=== PATIENT | male | born 1935 | race Caucasian/White ===

== ENCOUNTER 2016-06-27 16:36 | Inpatient (IN) | payer OTHER ==
[~2016-06-27] VITALS: Ht 170.2 cm; Wt 72.8 kg
[~2016-06-27 16:36] MED LIST: AMLO-114 PO; ASPEC325 PO; ATV5 PO; AVD5 PO; CLOP1TAB15 PO; CYCL0.05 OP; LAMO100T16 PO; METO25TA56 PO; SIMV10TA2 PO; TRIA0.1C20 TD
[2016-06-27] MEDS ORDERED: ASPIRIN 81 MG CHEW PO STA (17:12)
--- NOTE | 2016-06-27 17:21 | EMERGENCY ROOM VISIT NOTE ---
History Report prepared by Kera: Kristin Lu Under the Supervision of: Dr. Alberto Mondragon M.D. First contact with patient: 17:02 Chief Complaint: CHEST PAIN Stated Complaint: CHEST PAIN Nursing Triage Summary: pt c/o chest pain started 1 hour ago. sttaes at 1530. radiates to right arm feels sob worse with exertion described as pulled muscle took 2 nitro at 1530 no relief History of Present Illness The patient is a 80 year old male who presents to the Emergency Room with complaints of an episode of chest pain occurring 2 hours [employer]. The patient was trying to put a cover on a truck seat whenever his pain started. He states that this activity was strenuous and he was exerting himself. He also reports feeling short of breath with exertion while loading things into the truck today. His pain is not worsened with breathing or palpation. He was feeling fine earlier today. When his pain started he initially had some pain radiating down his left arm. He rates his pain as a 4/10 at its worst. 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 The patient denies diaphoresis, nausea, vomiting, abdominal pain, neck pain, back pain, palpations , hematochezia, melena, and pain or swelling in his legs. He denies any recent trauma or injury. He takes a daily baby aspirin, and denies any other blood thinners. He has a significant cardiac history and has multiple cardiac stents in place. He states today's episode feels different from his previous cardiac issues. He rates his current pain as a 3/10 in severity. Source of History: patient, spouse/significant other Onset: 2 hours [employer]AL [employer] Position: chest Symptom Intensity: 4/10 Timing: other (episode) Modifying Factors (Worsening): exertion Associated Symptoms: + SOB, No abdominal pain, No back pain, No diaphoresis , No hematochezia, No melena, No nausea, No vomiting Review of Systems See HPI for pertinent positives & negatives. A total of 10 systems reviewed and were otherwise negative. Past Medical & Surgical Medical Problems: (1) CAD (coronary artery disease) (2) CKD (chronic kidney disease), stage III (3) COPD (chronic obstructive pulmonary disease) (4) HTN (hypertension) (5) Lung cancer (6) Seizure disorder Surgical Problems: (1) S/P carotid endarterectomy (2) S/P lobectomy of lung Old medical records were reviewed. Nurse's notes were reviewed and I agree with. Family History FH: heart disease FHx: cancer Hypertension Seizures Social History Smoking Status: Former Smoker Smokeless Tobacco Use: No Alcohol Use: none Drug Use: none Marital Status: Housing Status: lives with significant other Occupation Status: employed Current/Historical Medications Scheduled Amlodipine (Norvasc), 10 MG PO QAM Aspirin (Aspirin Chewable), 81 MG PO QAM Dutasteride (Avodart), 0.5 MG PO HS Lamotrigine (Lamictal), 150 MG PO BID Nitroglycerin (Nitrostat), 0.4 MG UT PRN Omeprazole (Prilosec), 20 MG PO QAM Simvastatin (Zocor), 20 MG PO HS Allergies Coded Allergies: Lidocaine (Verified Allergy, Unknown, PRESERVATIVE IN LIDOCAINE CAUSES RED SKIN, 06/27/16) Physical Exam Vital Signs Date Time Temp Pulse Resp B/P Pulse Ox O2 Delivery O2 Flow Rate FiO2 06/27/16 18:18 78 18 182/95 94 Room Air 06/27/16 16:56 85 06/27/16 16:42 36.6 81 18 177/83 92 Room Air Physical Exam General: Well developed well nourished non ill appearing older male in no acute distress, breathing comfortably on room air. Normal speech HEENT: Normal cephalic atraumatic. Pupils are equal round and reactive to light. Extraocular movements are intact. Oropharynx is pink with moist mucous membranes. No swelling of the mouth lips or tongue. Neck: Supple with a midline trachea. No meningeal signs or stiffness, no JVD or bruits. No Stridor. Chest: Clear to auscultation bilaterally. No wheezes or rhonchi. No increased work of breathing. Heart: regular rate and rhythm. Abdomen: Soft nontender, nondistended without rebound guarding or rigidity. Extremities: No cyanosis clubbing or edema. No calf tenderness or assymetry Spine/Back. Non tender to palpation. No CVA tenderness Skin: Good turgor without rashes. Neurologic exam: Cranial nerves two through 12 are intact. Motor and sensation are intact and symmetrical throughout. Medical Decision & Procedures ER Provider Diagnostic Interpretation: Radiology results as stated below per my review and radiologist interpretation: CHEST ONE VIEW PORTABLE HISTORY: Atypical CHEST PAIN COMPARISON: Chest CT 08/15/2015. FINDINGS: Postoperative changes within the left hilum consistent with a prior left lower lobectomy. This likely accounts for the volume loss within the left hemithorax and left costophrenic sulcus blunting. This remains unchanged. Old, healed left-sided rib fractures consistent with post thoracotomy changes. No new focal lung consolidations. No evidence for pulmonary edema. The heart is normal in size. No pleural effusions. No pneumothorax. IMPRESSION: No significant change compared to the prior study. No acute process. Stable postoperative changes within the left hemithorax. Electronically signed by: Kurt Steinberg M.D. 06/27/2016 5:56 PM Dictated Date/Time: 06/27/2016 5:54 PM Laboratory Results 06/27/16 16:55 Red Blood Count 5.02, Mean Corpuscular Volume 86.7, Mean Corpuscular Hemoglobin 30.3, Mean Corpuscular Hemoglobin Concent 34.9, Mean Platelet Volume 9.9, Neutrophils (%) (Auto) 73.8, Lymphocytes (%) (Auto) 15.7, Monocytes (%) (Auto) 8.5, Eosinophils (%) (Auto) 1.6, Basophils (%) (Auto) 0.3, Neutrophils # (Auto) 5.37, Lymphocytes # (Auto) 1.14, Monocytes # (Auto) 0.62, Eosinophils # (Auto) 0.12, Basophils # (Auto) 0.02 06/27/16 16:55 Test 06/27/16 16:55 06/27/16 17:46 White Blood Count 7.28 K/uL (4.8-10.8) Red Blood Count 5.02 M/uL (4.7-6.1) Hemoglobin 15.2 g/dL (14.0-18.0) Hematocrit 43.5 % (42-52) Mean Corpuscular Volume 86.7 fL (80-100) Mean Corpuscular Hemoglobin 30.3 pg (25-34) Mean Corpuscular Hemoglobin Concent 34.9 g/dl (32-36) Platelet Count 179 K/uL (130-400) Mean Platelet Volume 9.9 fL (7.4-10.4) Neutrophils (%) (Auto) 73.8 % Lymphocytes (%) (Auto) 15.7 % Monocytes (%) (Auto) 8.5 % Eosinophils (%) (Auto) 1.6 % Basophils (%) (Auto) 0.3 % Neutrophils # (Auto) 5.37 K/uL (1.4-6.5) Lymphocytes # (Auto) 1.14 K/uL (1.2-3.4) Monocytes # (Auto) 0.62 K/uL (0.11-0.59) Eosinophils # (Auto) 0.12 K/uL (0-0.5) Basophils # (Auto) 0.02 K/uL (0-0.2) RDW Standard Deviation 41.3 fL (36.4-46.3) RDW Coefficient of Variation 13.1 % (11.5-14.5) Immature Granulocyte % (Auto) 0.1 % Immature Granulocyte # (Auto) 0.01 K/uL (0.00-0.02) Anion Gap 10.0 mmol/L (3-11) Est Creatinine Clear Calc Drug Dose 39.4 ml/min Estimated GFR () 54.6 Estimated GFR (Non- 47.1 BUN/Creatinine Ratio 11.4 (10-20) Calcium Level 8.9 mg/dl (8.5-10.1) Total Creatine Kinase 65 U/L (39-308) Bedside Troponin I 0.000 ng/ml (0-0.045) Laboratory studies as stated above per my review. Medications Administered Medications (Trade) Dose Ordered Sig/Wai Route Start Time Stop Time Status Last Admin Dose Admin Aspirin (Aspirin Chew) 324 mg NOW STAT PO 06/27/16 17:12 06/27/16 17:14 DC 06/27/16 17:31 324 MG ECG Indication: chest pain Rate (beats per minute): 82 Rhythm: normal sinus Findings: no acute ischemic change, no ectopy Comparison ECG Date: 02/23/2011 Change: no significant change ED Course 1702: Past medical records reviewed. The patient was evaluated in room B7, and a complete history and physical examination were performed. 1711: Aspirin 324 mg PO 1804: I reassessed the patient at this time. He is feeling better and resting comfortably. He rates his chest pain as a 1/10 and does not want anything for his pain. I discussed the results and treatment plan with the patient and his . I answered all pertaining questions that they had. They expressed understanding and verbalized agreement. 1815: I spoke with HUGO Gooden. We discussed the patients results and treatment plan. [facility]. Medical Decision Differential diagnoses includes acute coronary syndrome, arrhythmia, pneumonia, pneumothorax, musculoskeletal, GERD, anxiety, PE. This patient comes in as described above. He was placed in room B7. He has some chest discomfort that started about 2 hours ago while he was working. He does have a history of multiple cardiac stents although thinks this feels different. He looks well on exam and the pain has come down significantly. He was offered nitroglycerin or morphine and declined initially he said he was feeling better. He was given aspirin 324 mg chewable and his EKG does not suggest acute coronary syndrome or arrhythmia. Chest x-ray multiple blood testing was obtained. He was reassessed frequently. He has remained stable and is feeling better. He has no evidence to suggest congestive heart failure pneumonia and pneumothorax. He has no acute electrolyte or metabolic abnormalities. His cardiac enzymes are unremarkable as far. Given his cardiac history I do think he needs to be observed to rule out acute coronary syndrome. I did consult the hospitalist and they saw him in the ER. Consults Time Called: 1810 Consulting Physician: HUGO Gooden Returned Call: 1815 I spoke with HUGO Gooden. We discussed the patients results and treatment plan. [facility]. Impression Primary Impression: Precordial chest pain Scribe Attestation The scribe's documentation has been prepared under my direction and personally reviewed by me in its entirety. I confirm that the note above accurately reflects all work, treatment, procedures, and medical decision making performed by me. Departure Information Dispostion Being Evaluated By Hospitalist Referrals Kathy Segundo MD (PCP) Patient Instructions My [facility]
[2016-06-27 17:25] LABS: BASO % 0.3 %; BASO ABS # 0.02 K/uL (0-0.2); COMPLETE YES; EOS % 1.6 %; HEMATOCRIT 43.5 % (42-52); IG% 0.1 %; LYMPH % 15.7 %; LYMPH ABS # 1.14 K/uL (1.2-3.4); MEAN CELL VOLUME 86.7 fL (80-100); MEAN CORPUSCULAR HEMOGLOBIN 30.3 pg (25-34); MEAN CORPUSCULAR HGB CONC 34.9 g/dl (32-36); MEAN PLATELET VOLUME 9.9 fL (7.4-10.4); MONO % 8.5 %; NEUT % 73.8 %; PLATELET COUNT 179 K/uL (130-400); RED BLOOD COUNT 5.02 M/uL (4.7-6.1); WHITE BLOOD COUNT 7.28 K/uL (4.8-10.8)
[2016-06-27] MEDS ORDERED: ASPCH81X PO (17:31)
[2016-06-27] MEDS ORDERED: SIMV20TA2 PO (17:31)
[2016-06-27] MEDS ORDERED: DUTA0.5C PO (17:31)
[2016-06-27] MEDS ORDERED: NTRGSL/4 UT (17:31)
[2016-06-27] MEDS ORDERED: PRLSR20 PO (17:31)
[2016-06-27 17:43] LABS: BUN/CREATININE RATIO 11.4 (10-20); CALCIUM 8.9 mg/dl (8.5-10.1); CKMB/CK RATIO 1.2 (0-3.0); CREATININE 1.4 mg/dl (0.60-1.40); POTASSIUM 4.4 mmol/L (3.5-5.1)
--- NOTE | 2016-06-27 17:58 | DIAGNOSTIC IMAGING REPORT ---
CHEST ONE VIEW PORTABLE HISTORY: Atypical CHEST PAIN COMPARISON: Chest CT 08/15/2015. FINDINGS: Postoperative changes within the left hilum consistent with a prior left lower lobectomy. This likely accounts for the volume loss within the left hemithorax and left costophrenic sulcus blunting. This remains unchanged. Old, healed left-sided rib fractures consistent with post thoracotomy changes. No new focal lung consolidations. No evidence for pulmonary edema. The heart is normal in size. No pleural effusions. No pneumothorax. IMPRESSION: No significant change compared to the prior study. No acute process. Stable postoperative changes within the left hemithorax. Electronically signed by: Kurt Steinberg M.D. 06/27/2016 5:56 PM Dictated Date/Time: 06/27/2016 5:54 PM
[2016-06-27] MEDS ORDERED: ENOXAPARIN 40 MG/0.4 ML SYR SC SCH (19:00)
[2016-06-27] MEDS ORDERED: ONDANSETRON INJ 2 MG/ML 2 ML VIAL IV PRN (19:00)
[2016-06-27] MEDS ORDERED: MoRPHine SULFATE 4 MG/ML 1 ML CARP\\VIAL IV PRN (19:00)
[2016-06-27] MEDS ORDERED: ACETAMINOPHEN 325 MG TAB PO PRN (19:00)
[2016-06-27] MEDS ORDERED: NITROGLYCERIN 0.4 MG SL PER TAB CHARGE SL PRN (19:00)
--- NOTE | 2016-06-27 19:56 | History and Physical ---
History & Physical Date & Time of Service: Jun 27, 2016 at 19:34 Chief Complaint: Chest Pain Primary Care Physician: Harris Cam M.D. History of Present Illness 80 year old male who presents to the ER with chest pain. 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 Patient reports he was working today trying to get fabric on a chair. He reports he was pulling the fabric very hard and developed chest pain. He describes the pain as across his entire chest and described it as a pressure. He rated it #7/10. He also had associated pain in his left lower arm. He was working in the basement so he went upstairs and he reports he felt short of breath when climbing the stairs. He took 2 nitroglycerin however it did not resolve the pain. A few hours passed and he decided to come to the ER for further evaluation. Patient reports the pain started to ease up on its own. He currently rates it #1/10. It is not made worse with movement, deep breaths, or palpation. He denies any associated lightheadedness, dizziness, diaphoresis, or nausea. He reports he other gray has been feeling well recently. No fever or chills. He denies abdominal pain, vomiting, and diarrhea. No urinary symptoms. In the ER patient' s BP is elevated at 182/95. Initial troponin is negative and EKG does not show any changes. Labs are unremarkable. Patient was given a full dose aspirin. Past Medical/Surgical History Medical Problems: (1) CAD (coronary artery disease) Permanent Comment: 2004 - RAFI to left cx 02/2011 - BMS to prox LAD and RCA Status: Chronic (2) CKD (chronic kidney disease), stage III Status: Chronic (3) COPD (chronic obstructive pulmonary disease) Status: Chronic (4) HTN (hypertension) Status: Chronic (5) Lung cancer Status: Chronic (6) Seizure disorder Status: Chronic Surgical Problems: (1) S/P carotid endarterectomy Permanent Comment: left Status: Chronic (2) S/P lobectomy of lung Permanent Comment: LLL for cancer Status: Chronic Family History non contributory due to patient's age Social History Smoking Status: Former Smoker Alcohol Use: none Occupational Status: employed Immunizations History of Pneumococcal: Yes Pneumococcal Date: Apr 12, 2015 Multi-Drug Resistant Organisms History of MDRO: No Allergies Coded Allergies: Lidocaine (Verified Allergy, Unknown, PRESERVATIVE IN LIDOCAINE CAUSES RED SKIN, 06/27/16) Home Medications Scheduled Amlodipine (Norvasc), 10 MG PO QAM Aspirin (Aspirin Chewable), 81 MG PO QAM Dutasteride (Avodart), 0.5 MG PO HS Lamotrigine (Lamictal), 150 MG PO BID Nitroglycerin (Nitrostat), 0.4 MG UT PRN Omeprazole (Prilosec), 20 MG PO QAM Simvastatin (Zocor), 20 MG PO HS Review of Systems 10 point review of systems was completed with the pertinent positives and negatives noted per the HPI Physical Exam Vital Signs Date Time Temp Pulse Resp B/P Pulse Ox O2 Delivery O2 Flow Rate FiO2 06/27/16 18:18 78 18 182/95 94 Room Air 06/27/16 16:56 85 06/27/16 16:42 36.6 81 18 177/83 92 Room Air General Appearance: no apparent distress Head: normocephalic Eyes: normal inspection ENT: hearing grossly normal Neck: supple, no JVD Respiratory/Chest: chest non-tender, lungs clear, + decreased breath sounds ( BL bases) Cardiovascular: regular rate, rhythm, + pertinent finding (trace pitting edema BLLE) Abdomen/GI: normal bowel sounds, non tender, soft Extremities/Musculoskelatal: normal inspection, no calf tenderness Neurologic/Psych: no motor/sensory deficits, alert, normal mood/affect, oriented x 3 Skin: normal color, warm/dry Diagnostics Laboratory Results Results Past 24 Hours Test 06/27/16 16:55 06/27/16 17:12 06/27/16 17:46 Range/Units White Blood Count 7.28 4.8-10.8 K/uL Red Blood Count 5.02 4.7-6.1 M/uL Hemoglobin 15.2 14.0-18.0 g/dL Hematocrit 43.5 42-52 % Mean Corpuscular Volume 86.7 80-100 fL Mean Corpuscular Hemoglobin 30.3 25-34 pg Mean Corpuscular Hemoglobin Concent 34.9 32-36 g/dl Platelet Count 179 130-400 K/uL Mean Platelet Volume 9.9 7.4-10.4 fL Neutrophils (%) (Auto) 73.8 % Lymphocytes (%) (Auto) 15.7 % Monocytes (%) (Auto) 8.5 % Eosinophils (%) (Auto) 1.6 % Basophils (%) (Auto) 0.3 % Neutrophils # (Auto) 5.37 1.4-6.5 K/uL Lymphocytes # (Auto) 1.14 1.2-3.4 K/uL Monocytes # (Auto) 0.62 0.11-0.59 K/uL Eosinophils # (Auto) 0.12 0-0.5 K/uL Basophils # (Auto) 0.02 0-0.2 K/uL RDW Standard Deviation 41.3 36.4-46.3 fL RDW Coefficient of Variation 13.1 11.5-14.5 % Immature Granulocyte % (Auto) 0.1 % Immature Granulocyte # (Auto) 0.01 0.00-0.02 K/uL Sodium Level 140 136-145 mmol/L Potassium Level 4.4 3.5-5.1 mmol/L Chloride Level 107 98-107 mmol/L Carbon Dioxide Level 23 21-32 mmol/L Anion Gap 10.0 3-11 mmol/L Blood Urea Nitrogen 16 7-18 mg/dl Creatinine 1.40 0.60-1.40 mg/dl Est Creatinine Clear Calc Drug Dose 39.4 ml/min Estimated GFR () 54.6 Estimated GFR (Non- 47.1 BUN/Creatinine Ratio 11.4 10-20 Random Glucose 133 70-99 mg/dl Calcium Level 8.9 8.5-10.1 mg/dl Total Creatine Kinase 65 39-308 U/L Creatine Kinase MB 0.8 0.5-3.6 ng/ml Creatine Kinase MB Ratio 1.2 0-3.0 Bedside Troponin I 0.000 0-0.045 ng/ml Diagnostic Radiology CXR IMPRESSION: No significant change compared to the prior study. No acute process. Stable postoperative changes within the left hemithorax. Impression Assessment and Plan CHEST PAIN, HX CAD - admit to tele - patient presenting with development of chest pain while trying to pull fabric onto a chair; took 2 nitroglycerin at home which did not relieve the pain, pain significantly improved on its own a few hours later; currently rating his pain - hx stents - 2004 - RAFI to left cx, 2010 - BMS to prox LAD and RCA - recent outpatient surveillance echo (05/2016) unchanged from prior - consider pain due to be muscular in nature, however not reproducible on exam; also could be due to elevated BP - initial troponin negative, will continue to trend; EKG does not show any acute ST changes - patient self stopped his carvedilol 5 months ago because it made him feel tired - will resume at prior dosing 3.125mg BID and start 0.5in nitro paste due to continued mild pain and to help with BP control - continue ASA and statin - resting echo - cardiology consult for AM HTN - presenting with elevated BP 182/95 - resuming carvedilol and starting nitro paste as above - ? due to anxiety - patient reports he does not like coming to the hospital - continue amlodipine SEIZURE DISORDER - continue Lamictal CKD STAGE III - baseline creat runs in the low - mid 1's - creat noted to be 1.4 today - continue to monitor, avoid nephrotoxic agents when able DVT PROPHYLAXIS - SQ Heparin CODE STATUS - Patient is a full code as per my discussion with him. DISPO - The patient will be placed as observation status for now until further work up is complete. Attending Addendum: The patient was seen and examined in ER during admission Exertional chest pain not relieved by Nitro Free of pain in ER O/E Hemodynamically stable HEENT-unremarkable Chest-clear to auscultate bilaterally Heart-regular,no murmur Abdomen-benign,no masses,bowel sound present Extremities-negative for any edema Labs and Imaging studies were reviewed Has CP with h/o CAD and Stenting Agree with assesment and plan. Dr Mariann Rose VTE Prophylaxis VTE Risk Assessment Done? Y/N: Yes Risk Level: Moderate
[2016-06-27 20:00] VITALS: BP 194/79; PULSE 77; TEMP 36.4; O2SAT 91; Ht 170.2 cm; Wt 72.8 kg
[2016-06-27] MEDS ORDERED: IV FLUIDS COMPLETED PRN (21:00)
[2016-06-27] MEDS ORDERED: SIMVASTATIN 20 MG TAB PO SCH (21:00)
[2016-06-27 21:04] LABS: PARTIAL THROMBOPLASTIN RATIO 1.1; PROTHROMBIN TIME (PATIENT) 10.5 SECONDS (9.0-12.0)
[2016-06-27] MEDS: CARVEDILOL 3.125 MG TAB PO SCH (21:14)
[2016-06-27] MEDS: NITROGLYCERIN OINT 2% 1GM PACKET EXT SCH (21:15)
[2016-06-27 22:16] VITALS: BP 176/85; PULSE 72
[2016-06-27 23:10] VITALS: BP 153/73; PULSE 61; TEMP 36.6; O2SAT 92
[2016-06-28] VITALS (8 sets, daily range): BP systolic 128–194; BP diastolic 52–90; PULSE 56–88; TEMP 36.3–37; O2SAT 90–96
[2016-06-28] MEDS: NITROGLYCERIN OINT 2% 1GM PACKET EXT SCH ×4 (02:54→21:52)
[2016-06-28 05:36] LABS: HEMATOCRIT 40.9 % (42-52); MEAN CELL VOLUME 86.8 fL (80-100); MEAN CORPUSCULAR HEMOGLOBIN 29.5 pg (25-34); MEAN PLATELET VOLUME 9.1 fL (7.4-10.4); PLATELET COUNT 160 K/uL (130-400); RED BLOOD COUNT 4.71 M/uL (4.7-6.1); WHITE BLOOD COUNT 6.12 K/uL (4.8-10.8)
[2016-06-28 06:07] LABS: BLOOD UREA NITROGEN 15 mg/dl (7-18); BUN/CREATININE RATIO 11.4 (10-20); CALCIUM 8.7 mg/dl (8.5-10.1); CARBON DIOXIDE 28 mmol/L (21-32); CHLORIDE 109 mmol/L (98-107); GLUCOSE 102 mg/dl (70-99); POTASSIUM 4.3 mmol/L (3.5-5.1); SODIUM 144 mmol/L (136-145)
[2016-06-28] MEDS: AMLODIPINE BESYLATE 5 MG TAB PO SCH (08:30)
[2016-06-28] MEDS: PANTOprazole SOD 40 MG TAB PO SCH (08:30)
[2016-06-28] MEDS: ASPIRIN 81 MG CHEW PO SCH (08:30)
[2016-06-28] MEDS: CARVEDILOL 3.125 MG TAB PO SCH ×2 (08:31→20:07)
--- NOTE | 2016-06-28 08:41 | ECHOCARDIOGRAM REPORT ---
*NOTICE TO RECEIVING [employer] This information is strictly Confidential and protected under [place] law. [place] law prohibits you from making any further disclosure of this information unless further disclosure is expressly permitted by the written consent of the person to whom it pertains or is authorized by law. A general authorization for the release of medical or other information is not sufficient for this purpose. Hospital accepts no responsibility if the information is made available to any other person, INCLUDING THE PATIENT. Interpretation Summary * Name: OLIVIA ROBERT Study Date: 06/28/2016 08:27 AM BP: 128/66 mmHg * Patient Location: [facility] named [facility] HR: 68 * : 1935 (M/d/yyyy) Gender: Male Height: 67 in * Age: 80 yrs Ethnicity: CA Weight: 163 lb * Ordering Physician: Valerie Egan * Performed By: Nancy Zavaleta * * Reason For Study: CHEST PAIN * BSA: 1.9 m2 * The study was technically adequate. * There is no comparison study available. * -- Conclusions -- * Left ventricular systolic function is normal. * Ejection Fraction = 60-65%. * There is mild concentric left ventricular hypertrophy. * Aortic valve sclerosis mild, without significant aortic valvular stenosis. * There is mild mitral regurgitation. * There is mild tricuspid regurgitation. * Grade I diastolic dysfunction, (abnormal relaxation pattern). Procedure Details * A complete two-dimensional transthoracic echocardiogram was performed (2D, M-mode, Doppler and color flow Doppler). Left Ventricle * The left ventricle is normal in size. * There is mild concentric left ventricular hypertrophy. * Ejection Fraction = 60-65%. * Left ventricular systolic function is normal. * The left ventricular wall motion is normal. Right Ventricle * The right ventricle is normal size. * The right ventricular systolic function is normal as assessed by tricuspid annular plane systolic excursion (TAPSE) (normal >1.5 cm). Atria * The left atrium is mildly dilated. * Right atrial size is normal. * There is no evidence of atrial septal defect, but resolution does not allow assessment for a patent foramen ovale. Mitral Valve * The mitral valve is normal. * There is no mitral valve stenosis. * There is mild mitral regurgitation. Tricuspid Valve * The tricuspid valve is normal. * There is no tricuspid stenosis. * There is mild tricuspid regurgitation. * Doppler findings do not suggest pulmonary hypertension. Aortic Valve * The aortic valve is trileaflet. * Aortic valve sclerosis mild, without significant aortic valvular stenosis. * Aortic stenosis is absent. * There is no significant aortic regurgitation. Pulmonic Valve * The pulmonary valve is inadequately visualized, but the Doppler data is adequate for interpretation. * Pulmonic stenosis is absent. * Trace pulmonic valvular regurgitation. Great Vessels * The aortic root and proximal ascending aorta are normal sized. Pericardium/Pleural * There is no pericardial effusion. Great Vessels * Normal inferior vena cava diameter and respiratory variation suggests normal central venous pressure. Left Ventricular Diastolic Function * Grade I diastolic dysfunction, (abnormal relaxation pattern). MMode 2D Measurements and Calculations IVSd 1.3 cm IVSs 1.5 cm LVIDd 4.2 cm LVIDs 2.3 cm LVPWd 1.3 cm LVPWs 1.5 cm IVS/LVPW 0.99 FS 46.3 % EDV(Teich) 79.0 ml ESV(Teich) 17.4 ml EF(Teich) 78.0 % EDV(cubed) 74.6 ml ESV(cubed) 11.6 ml EF(cubed) 84.5 % % IVS thick 22.4 % % LVPW thick 20.8 % LV mass(C)d 195.1 grams LV mass(C)dI 105.2 grams/m\S\2 LV mass(C)s 118.9 grams LV mass(C)sI 64.1 grams/m\S\2 SV(Teich) 61.6 ml SI(Teich) 33.3 ml/m\S\2 SV(cubed) 63.1 ml SI(cubed) 34.0 ml/m\S\2 ACS 1.4 cm LA dimension 4.2 cm asc Aorta Diam 2.5 cm LVOT diam 2.0 cm LVOT area 3.1 cm\S\2 LVAd ap4 22.2 cm\S\2 LVLd ap4 6.4 cm EDV(MOD-sp4) 60.8 ml EDV(sp4-el) 65.3 ml LVAs ap4 12.1 cm\S\2 LVLs ap4 5.3 cm ESV(MOD-sp4) 22.7 ml ESV(sp4-el) 23.5 ml EF(MOD-sp4) 62.7 % EF(sp4-el) 64.1 % LVAd ap2 22.4 cm\S\2 LVLd ap2 7.0 cm EDV(MOD-sp2) 60.9 ml EDV(sp2-el) 61.3 ml LVAs ap2 12.7 cm\S\2 LVLs ap2 5.7 cm ESV(MOD-sp2) 22.7 ml ESV(sp2-el) 23.8 ml EF(MOD-sp2) 62.8 % EF(sp2-el) 61.2 % LVLd %diff 8.0 % EDV(MOD-bp) 58.8 ml LVLs %diff 8.4 % ESV(MOD-bp) 22.4 ml EF(MOD-bp) 61.8 % SV(MOD-sp4) 38.1 ml SI(MOD-sp4) 20.6 ml/m\S\2 SV(MOD-sp2) 38.2 ml SI(MOD-sp2) 20.6 ml/m\S\2 SV(MOD-bp) 36.3 ml SI(MOD-bp) 19.6 ml/m\S\2 SV(sp4-el) 41.8 ml SI(sp4-el) 22.6 ml/m\S\2 SV(sp2-el) 37.5 ml SI(sp2-el) 20.2 ml/m\S\2 Doppler Measurements and Calculations MV E max lisa 73.6 cm/sec MV A max lisa 97.8 cm/sec MV E/A 0.75 MV dec time 0.30 sec Ao V2 max 139.5 cm/sec Ao max PG 7.8 mmHg Ao max PG (full) 4.5 mmHg CARLENE(V,A) 2.0 cm\S\2 CARLENE(V,D) 2.0 cm\S\2 LV V1 max PG 3.3 mmHg LV V1 max 90.6 cm/sec MR max lisa 324.6 cm/sec MR max PG 42.2 mmHg PA V2 max 66.1 cm/sec PA max PG 1.7 mmHg PI end-d lisa 118.1 cm/sec TR max lisa 261.3 cm/sec
[2016-06-28] MEDS ORDERED: HEPARIN SOD 5000 UNIT/0.5 ML CARP SQ SCH (09:00)
[2016-06-28] MEDS ORDERED: ATORVASTATIN 40 MG TAB PO ONE (09:18)
[2016-06-28 09:24] LABS: BASO % 0.3 %; BASO ABS # 0.02 K/uL (0-0.2); COMPLETE YES; EOS % 3.7 %; IG% 0.3 %; LYMPH % 21.6 %; MONO % 11.8 %; NEUT % 62.3 %
[2016-06-28] MEDS ORDERED: HEPARIN IV BOLUS 5,000 UNIT in SYRINGE 0 ML IV ONE (09:30)
[2016-06-28 09:46] LABS: PARTIAL THROMBOPLASTIN RATIO 1.1; PROTHROMBIN TIME (PATIENT) 10.7 SECONDS (9.0-12.0)
[2016-06-28] MEDS: HEPARIN 25,000 UNIT/500ML D5W 500 ML IV PRN ×2 (09:52→19:35)
--- NOTE | 2016-06-28 09:57 | CARDIOLOGY CONSULTATION ---
DATE OF CONSULTATION: 06/28/2016 REFERRING PHYSICIAN: Dr. Princess Rose. REASON FOR CONSULTATION: Chest pain, elevated troponin. CHIEF COMPLAINT ON ADMISSION: Chest pain. HISTORY OF PRESENT ILLNESS: Mr. Ribeiro is an 80-year-old male who is generally an active individual. 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 Last evening, he was working in the evening. He was attempting to stretch fabric over a chair and using extensive amounts of glue. States he developed chest pain across his entire chest when pulling on fabric. The pain initially was rated a 7/10. There was some radiation to his left arm. After a few hours of discomfort, the pain slowly subsided; however, he came to the ER for further evaluation. The pain upon arrival to the ER was 1/10. Initial troponins were mildly elevated. He attempted to use sublingual nitroglycerin, which had no effect. Blood pressure is markedly elevated on admission. The patient discontinued his beta-luciana several weeks ago due to perceived fatigue. He was given aspirin in the Emergency Room. ECG demonstrated no ischemic changes. Complex cardiovascular history listed below. The patient currently chest pain free. REVIEW OF SYSTEMS: The pertinent positives noted above. A comprehensive 10-system review is otherwise negative. PAST MEDICAL HISTORY: 1. Coronary artery disease status post bare metal stenting to the proximal right coronary artery and proximal left anterior descending artery in 2010 at [facility]. Moderate circumflex coronary disease with prior stenting. 2. Carotid vascular disease with history of left-sided carotid endarterectomy. 3. Abdominal and femoral bruits with history of nonobstructive PVD per prior CT angiogram. 4. Hypertension with borderline control. 5. Dyslipidemia. 6. Moderate brachiocephalic artery stenosis. 7. Severe aortic arch atherosclerosis. 8. Iron deficiency anemia. 9. COPD. 10. Chronic kidney disease stage 3. 11. Lung cancer. PAST SURGICAL HISTORY: 1. Coronary stenting as noted above. 2. Left-sided carotid endarterectomy. 3. Lobectomy secondary to lung carcinoma. FAMILY HISTORY: Negative for premature CAD or sudden cardiac ; however, noncontributory given patient's advanced age. SOCIAL HISTORY: Former tobacco abuse. He is and lives with his . He continues to work in an [employer] business. ALLERGY: LIDOCAINE. HOME MEDICATIONS: 1. Amlodipine 10 mg daily. 2. Aspirin 81 mg daily. 3. Avodart 0.5 mg nightly. 4. Lamictal 150 mg twice daily. 5. Nitrostat as needed. 6. Omeprazole 20 mg daily. 7. Simvastatin 20 mg at bedtime. 8. Carvedilol 3.125 mg twice daily -- patient not taking. ECG on admission is sinus rhythm without ischemic changes. Chest x-ray reveals no congestive heart failure or infiltrate. LABORATORY DATA: Initial troponin 0.192. Repeat troponin 0.978 with a CK-MB of 5.5. Sodium 144, potassium 4.3, chloride 109, CO2 is 28, BUN is 15, creatinine is 1.30. Hemoglobin is 13.9, platelet count is 160. INR 1.0. Telemetry reveals sinus rhythm. PHYSICAL EXAMINATION: VITAL SIGNS: Initial blood pressure 194/79, current blood pressure 168/52, heart rate 76 beats per minute, respiratory rate is 18 breaths per minute, temperature is 36.9 degrees centigrade. SaO2 is 93% on room air. GENERAL: NAD, awake, alert and oriented x3. THROAT: His mucous membranes are moist. No scleral icterus. Conjunctivae pink. NECK: Supple without JVD. No HJR. There is a 2-3/4 right-sided carotid bruit. Left-sided carotid endarterectomy scar is noted. HEART: Regular with a normal S1 and S2. There is a 1-2/6 systolic ejection murmur heard best at the right second intercostal space. LUNGS: Clear without rales, rhonchi or wheeze. ABDOMEN: Soft and nontender. There is no rebound or guarding. EXTREMITIES: There are diminished femoral pulses bilaterally. The extremities are warm and dry without clubbing, cyanosis, or edema. Diminished distal pulses noted. NEUROLOGIC: Demonstrates no focal motor deficit. FINAL IMPRESSION: 1. An 80-year-old male presents with chest pain and elevated troponin suggestive of type 1 versus type 2 non-ST elevation myocardial infarction. He is currently pain free; however, notes an episode of exertional mild chest discomfort this a.m. Resting 2D transthoracic echo demonstrates no new regional wall motion abnormality with preserved left ventricular systolic function. 2. Uncontrolled hypertension. 3. Peripheral vascular disease with extensive aortic arch atherosclerosis, moderate brachiocephalic stenosis, diminished lower extremity pulses with prior CT angiograms demonstrating moderate atherosclerotic disease. 4. Noncompliance with beta luciana therapy. 5. Seizure disorder. PLAN AND RECOMMENDATIONS: I had a long discussion with the patient regarding his chest pain, elevated troponin, noncompliance, and elevated blood pressures. Further treatment options including medical management versus invasive therapies and repeat cardiac catheterization discussed. In light of his noncompliance and elevated blood pressures on admission, I have recommended restarting his beta luciana therapy today. Will add topical nitrates to improve blood pressure control. Intravenous heparin will be added at this time. The patient agreeable to conservative medical management strategy at this time. Given his extensive aortic arch disease and peripheral vascular disease, recommend bilateral lower extremity arterial duplex for further assessment. Statin therapy will be intensified to atorvastatin 40 mg daily. Will continue to follow closely during hospitalization.
--- NOTE | 2016-06-28 13:59 | Progress Note ---
Internal Med Progress Note Date of Service: Jun 28, 2016. Provider Documentation: SUBJECTIVE: The patient was seen and examined No more pain since admission No other symptoms Troponin is elevated OBJECTIVE: Vital Signs-as noted below Exam: General-no distress at rest Eyes-normal ENT-normal Neck-Supple Lungs-Clear to ausucltate bilaterally Heart-Regular,no murmur appreciated Abdomen-Benign,no masses,bowel sound present Extremities-no edema Neuro-AAOx3 Lab data as noted below. ASSESSMENT & PLAN: CHEST PAIN with HX CAD - patient presented with development of chest pain while trying to pull fabric onto a chair; took 2 nitroglycerin at home which did not relieve the pain - hx stents - 2004 - RAFI to left cx, 2010 - BMS to prox LAD and RCA -has been noncompliant with BP medication -Bp was markedly elevated in ER -EKG does not show any acute ST changes -Initial Tro negative but significant elevation thereafter - continue ASA and statin and Coreg and Heparin started - resting ECHO;;Left ventricular systolic function is normal. * Ejection Fraction = 60-65%. * There is mild concentric left ventricular hypertrophy. * Aortic valve sclerosis mild, without significant aortic valvular stenosis. * There is mild mitral regurgitation. * There is mild tricuspid regurgitation. * Grade I diastolic dysfunction, (abnormal relaxation pattern). - cardiology consult for AM -appreciate input HTN-Uncontrolled - presenting with elevated BP 182/95 - resuming carvedilol and starting nitro paste as above - due to anxiety - patient reports he does not like coming to the hospital - continue amlodipine and Coreg SEIZURE DISORDER - continue Lamictal CKD STAGE III - baseline creat runs in the low - mid 1's - creat noted to be 1.4 today -creatinine normalized DVT PROPHYLAXIS - SQ Heparin CODE STATUS - Patient is a full code as per my discussion with him. DISPO Awaited Vital Signs: Date Time Temp Pulse Resp B/P Pulse Ox O2 Delivery O2 Flow Rate FiO2 06/28/16 12:46 Room Air 06/28/16 12:08 36.6 56 18 139/70 96 06/28/16 12:00 Room Air 06/28/16 08:20 36.9 76 18 168/52 93 06/28/16 08:00 Room Air 06/28/16 04:00 Room Air 06/28/16 03:21 36.3 61 20 128/66 90 Room Air 06/27/16 23:59 Room Air 06/27/16 23:10 36.6 61 19 153/73 92 Room Air 06/27/16 22:16 72 176/85 06/27/16 20:00 36.4 77 18 194/79 91 Room Air 06/27/16 20:00 36.4 77 18 194/79 91 Room Air 06/27/16 19:43 69 18 190/83 93 Room Air 06/27/16 18:18 78 18 182/95 94 Room Air 06/27/16 16:56 85 06/27/16 16:42 36.6 81 18 177/83 92 Room Air Lab Results: Results Past 24 Hours Test 06/27/16 16:55 06/27/16 17:12 06/27/16 17:46 06/27/16 20:35 Range/Units White Blood Count 7.28 4.8-10.8 K/uL Red Blood Count 5.02 4.7-6.1 M/uL Hemoglobin 15.2 14.0-18.0 g/dL Hematocrit 43.5 42-52 % Mean Corpuscular Volume 86.7 80-100 fL Mean Corpuscular Hemoglobin 30.3 25-34 pg Mean Corpuscular Hemoglobin Concent 34.9 32-36 g/dl Platelet Count 179 130-400 K/uL Mean Platelet Volume 9.9 7.4-10.4 fL Neutrophils (%) (Auto) 73.8 % Lymphocytes (%) (Auto) 15.7 % Monocytes (%) (Auto) 8.5 % Eosinophils (%) (Auto) 1.6 % Basophils (%) (Auto) 0.3 % Neutrophils # (Auto) 5.37 1.4-6.5 K/uL Lymphocytes # (Auto) 1.14 1.2-3.4 K/uL Monocytes # (Auto) 0.62 0.11-0.59 K/uL Eosinophils # (Auto) 0.12 0-0.5 K/uL Basophils # (Auto) 0.02 0-0.2 K/uL RDW Standard Deviation 41.3 36.4-46.3 fL RDW Coefficient of Variation 13.1 11.5-14.5 % Immature Granulocyte % (Auto) 0.1 % Immature Granulocyte # (Auto) 0.01 0.00-0.02 K/uL Sodium Level 140 136-145 mmol/L Potassium Level 4.4 3.5-5.1 mmol/L Chloride Level 107 98-107 mmol/L Carbon Dioxide Level 23 21-32 mmol/L Anion Gap 10.0 3-11 mmol/L Blood Urea Nitrogen 16 7-18 mg/dl Creatinine 1.40 0.60-1.40 mg/dl Est Creatinine Clear Calc Drug Dose 39.4 ml/min Estimated GFR () 54.6 Estimated GFR (Non- 47.1 BUN/Creatinine Ratio 11.4 10-20 Random Glucose 133 70-99 mg/dl Calcium Level 8.9 8.5-10.1 mg/dl Total Creatine Kinase 65 39-308 U/L Creatine Kinase MB 0.8 0.5-3.6 ng/ml Creatine Kinase MB Ratio 1.2 0-3.0 Bedside Troponin I 0.000 0-0.045 ng/ml Prothrombin Time 10.5 9.0-12.0 SECONDS Prothromb Time International Ratio 1.0 0.9-1.1 Activated Partial Thromboplast Time 28.6 21.0-31.0 SECONDS Partial Thromboplastin Ratio 1.1 Test 06/27/16 23:00 06/27/16 23:17 06/28/16 05:00 06/28/16 05:10 Range/Units Creatine Kinase MB Ratio 0-3.0 Creatine Kinase MB 2.3 5.5 0.5-3.6 ng/ml Troponin I 0.192 0.978 0-0.045 ng/ml White Blood Count 6.12 4.8-10.8 K/uL Red Blood Count 4.71 4.7-6.1 M/uL Hemoglobin 13.9 14.0-18.0 g/dL Hematocrit 40.9 42-52 % Mean Corpuscular Volume 86.8 80-100 fL Mean Corpuscular Hemoglobin 29.5 25-34 pg Mean Corpuscular Hemoglobin Concent 34.0 32-36 g/dl Platelet Count 160 130-400 K/uL Mean Platelet Volume 9.1 7.4-10.4 fL Neutrophils (%) (Auto) 62.3 % Lymphocytes (%) (Auto) 21.6 % Monocytes (%) (Auto) 11.8 % Eosinophils (%) (Auto) 3.7 % Basophils (%) (Auto) 0.3 % Neutrophils # (Auto) 3.74 1.4-6.5 K/uL Lymphocytes # (Auto) 1.30 1.2-3.4 K/uL Monocytes # (Auto) 0.71 0.11-0.59 K/uL Eosinophils # (Auto) 0.22 0-0.5 K/uL Basophils # (Auto) 0.02 0-0.2 K/uL RDW Standard Deviation 41.7 36.4-46.3 fL RDW Coefficient of Variation 13.0 11.5-14.5 % Immature Granulocyte % (Auto) 0.3 % Immature Granulocyte # (Auto) 0.02 0.00-0.02 K/uL Nucleated RBC Absolute Count (auto) 0.00 0-0 K/uL Nucleated Red Blood Cells % 0.0 % Sodium Level 144 136-145 mmol/L Potassium Level 4.3 3.5-5.1 mmol/L Chloride Level 109 98-107 mmol/L Carbon Dioxide Level 28 21-32 mmol/L Anion Gap 7.0 3-11 mmol/L Blood Urea Nitrogen 15 7-18 mg/dl Creatinine 1.30 0.60-1.40 mg/dl Est Creatinine Clear Calc Drug Dose 42.4 ml/min Estimated GFR () 59.7 Estimated GFR (Non- 51.5 BUN/Creatinine Ratio 11.4 10-20 Random Glucose 102 70-99 mg/dl Calcium Level 8.7 8.5-10.1 mg/dl Test 06/28/16 09:23 Range/Units Prothrombin Time 10.7 9.0-12.0 SECONDS Prothromb Time International Ratio 1.0 0.9-1.1 Activated Partial Thromboplast Time 29.1 21.0-31.0 SECONDS Partial Thromboplastin Ratio 1.1
--- NOTE | 2016-06-28 14:49 | DIAGNOSTIC IMAGING REPORT ---
BILATERAL LOWER EXTREMITY ARTERIAL DOPPLER ULTRASOUND CLINICAL HISTORY: Peripheral vascular disease with diminished pulses. COMPARISON STUDY: No previous studies for comparison. TECHNIQUE: Ankle to brachial indices were obtained. Grayscale and color and duplex Doppler sonography of the arterial systems of the lower extremities was performed. FINDINGS: The right ankle to brachial index measured 0.88 when using the posterior tibial artery and 0.72 when using the dorsalis pedis. The left ankle to brachial index measured 0.85 when using posterior tibial artery and 0.77 when using the dorsalis pedis. Moderate atherosclerotic plaque was identified within each lower extremity. There was biphasic flow within the right common femoral, superficial femoral, popliteal, anterior tibial and dorsalis pedis vessels with monophasic flow within the right peroneal and posterior tibial arteries. An elevated peak systolic velocity within the right profunda of 215 cm/s was noted. Note was made of a mildly elevated peak systolic velocity within the right superficial femoral artery within its mid aspect, measuring 187 cm/s. There was biphasic flow within the left lower extremity with the exception of monophasic flow within left peroneal artery. IMPRESSION: 1. Moderate atherosclerotic plaque within the lower extremities. Right ankle brachial index of 0.88 and left ankle to brachial index of 0.85. 2. No vessel occlusion identified by sonography. Biphasic and monophasic flow within the bilateral calf vessels. 3. Elevated velocities within the right superficial femoral and profunda arteries which may reflect stenoses. Electronically signed by: Ozzy Gamez M.D. 06/28/2016 2:47 PM Dictated Date/Time: 06/28/2016 2:30 PM
[2016-06-28 16:39] LABS: PARTIAL THROMBOPLASTIN RATIO 6.6
[2016-06-28 17:39] LABS: PARTIAL THROMBOPLASTIN RATIO 5.4
[2016-06-28 18:43] LABS: PARTIAL THROMBOPLASTIN RATIO 3.3
[2016-06-28 19:24] LABS: PARTIAL THROMBOPLASTIN RATIO 2.3
[2016-06-28] MEDS: DUTASTERIDE 0.5 MG CAP PO SCH (20:06)
[2016-06-29 01:57] LABS: PARTIAL THROMBOPLASTIN RATIO 3.5
[2016-06-29] MEDS: HEPARIN 25,000 UNIT/500ML D5W 500 ML IV PRN ×3 (02:30→16:25)
[2016-06-29] MEDS: NITROGLYCERIN OINT 2% 1GM PACKET EXT SCH (03:55)
[2016-06-29 04:00] VITALS: BP 124/60; PULSE 66; TEMP 36.7; O2SAT 90
[2016-06-29 07:26] LABS: PARTIAL THROMBOPLASTIN RATIO 3.1
[2016-06-29 07:43] LABS: CALCIUM 8.7 mg/dl (8.5-10.1); CREATININE 1.4 mg/dl (0.60-1.40); MAGNESIUM 2.5 mg/dl (1.8-2.4); POTASSIUM 4.3 mmol/L (3.5-5.1)
[2016-06-29 08:19] VITALS: BP 119/63; PULSE 56; TEMP 36.9; O2SAT 99
[2016-06-29] MEDS: ATORVASTATIN 40 MG TAB PO SCH (08:23)
[2016-06-29] MEDS: AMLODIPINE BESYLATE 5 MG TAB PO SCH (08:24)
[2016-06-29] MEDS: PANTOprazole SOD 40 MG TAB PO SCH (08:25)
[2016-06-29] MEDS: CARVEDILOL 3.125 MG TAB PO SCH ×2 (08:26→20:40)
[2016-06-29] MEDS: ASPIRIN 81 MG CHEW PO SCH (08:33)
--- NOTE | 2016-06-29 09:32 | Cardiology Follow-Up ---
Subjective General Date of Service: Jun 29, 2016. Pt evaluation today including: conversation w/ patient, physical exam, chart review, lab review, review of studies, conversation w/ child welfare consultant, review of inpatient medication list History of Present Illness The patient is a 80 year old male seen in follow-up. Blood pressure has improved. No recurrent chest discomfort at rest or with activity. Reports mild lightheadedness this morning. Reports mild blood tinged mucus after blowing his nose. Denies palpitations, orthopnea, PND, or lower exam edema. Offers no other complaints this time. Allergies Coded Allergies: Lidocaine (Verified Allergy, Unknown, PRESERVATIVE IN LIDOCAINE CAUSES RED SKIN, 06/27/16) Social History Smoking Status: Former Smoker Hx Tobacco Use In Past Year?: Yes (1 PPD ) Hx Alcohol Use - Type And Amou: No Hx Substance Use - Type And Am: No Review of Systems Respiratory: No cough, No dyspnea at rest, No dyspnea on exertion, No hemoptysis, No shortness of breath, No sputum, No wheezing Cardiac: No PND, No chest pain, No claudication, No edema, No orthopnea, No palpitations Physical Exam Vital Signs Last Vital Signs Documentation Date Time Temp Pulse Resp B/P Pulse Ox O2 Delivery O2 Flow Rate FiO2 06/29/16 08:19 36.9 56 18 119/63 99 06/29/16 04:00 Room Air Physical Exam Constitutional: General Apperance: well-nourished Level of Distress: NAD Ambulation: ambulating normally Head: normocephalic, atraumatic Neck: supple, trachea midline Lungs: Auscultation: breath sounds normal, no wheezing, no rales/crackles Cardiovascular: Heart Auscultation: RRR, normal S1, normal S2, II/ MILES Peripheral Pulses: Bruits: carotid bruit on the right Radial Pulse: normal on the left, normal on the right Femoral Pulse: decreased on the right Musculoskeletal: normal strength (5/5 throughout) Extremities: no cyanosis, no edema, no clubbing, no ulcers Neurologic: Gait & Station: pertinent finding (no focal motor deficit) Cranial Nerves: grossly intact Assessment and Plan Assessment and Plan FINAL IMPRESSION: 1. NSTEMI -type I versus type II event. -Type II suspected secondary to noncompliance with uncontrolled hypertension 2. Uncontrolled hypertension - markedly improved after restarting outpatient therapies 3. Peripheral vascular disease with extensive aortic arch atherosclerosis, moderate brachiocephalic stenosis, diminished lower extremity pulses with prior CT angiograms demonstrating moderate atherosclerotic disease. 4. Noncompliance 5. Seizure disorder. PLAN AND RECOMMENDATIONS: I had long discussion with this patient regarding importance of compliance. He is requesting discharge when possible. I plan to continue intravenous heparin for an additional 24 hours. Topical nitrates will be discontinued. I've ordered isosorbide monohydrate 30 mg once daily in addition to his current cardiovascular medications. Tentatively plan for discharge in 24-48 hours. We' ll continue to follow. Laboratory Results Last 24 Hours Test 06/28/16 16:04 06/28/16 17:05 06/28/16 18:08 06/28/16 19:04 Activated Partial Thromboplast Time 170.4 SECONDS 141.7 SECONDS 85.8 SECONDS 58.8 SECONDS Partial Thromboplastin Ratio 6.6 5.4 3.3 2.3 Test 06/29/16 01:27 06/29/16 06:50 06/29/16 08:30 Activated Partial Thromboplast Time 91.6 SECONDS 81.1 SECONDS Partial Thromboplastin Ratio 3.5 3.1 Sodium Level 141 mmol/L Potassium Level 4.3 mmol/L Chloride Level 106 mmol/L Carbon Dioxide Level 27 mmol/L Anion Gap 8.0 mmol/L Blood Urea Nitrogen 20 mg/dl Creatinine 1.40 mg/dl Est Creatinine Clear Calc Drug Dose 39.4 ml/min Estimated GFR () 54.6 Estimated GFR (Non- 47.1 BUN/Creatinine Ratio 14.0 Random Glucose 111 mg/dl Calcium Level 8.7 mg/dl Magnesium Level 2.5 mg/dl Troponin I 0.571 ng/ml
[2016-06-29] MEDS: ISOSORBIDE MONONITRATE 30 MG TABCR PO SCH (11:14)
[2016-06-29 15:17] LABS: PARTIAL THROMBOPLASTIN RATIO 1.6
[2016-06-29 15:32] VITALS: BP 169/73; PULSE 68; TEMP 36.6; O2SAT 90
[2016-06-29] MEDS ORDERED: HEPARIN IV BOLUS 3,000 UNIT in SYRINGE 0 ML IV ONE (16:15)
--- NOTE | 2016-06-29 17:19 | Progress Note ---
Internal Med Progress Note Date of Service: Jun 29, 2016. Provider Documentation: SUBJECTIVE: The patient was seen and examined No more pain since admission Troponin is elevated Denies any other symptoms OBJECTIVE: Vital Signs-as noted below Exam: General-no distress at rest Eyes-normal ENT-normal Neck-Supple Lungs-Clear to ausucltate bilaterally Heart-Regular,no murmur appreciated Abdomen-Benign,no masses,bowel sound present Extremities-no edema Neuro-AAOx3 Lab data as noted below. ASSESSMENT & PLAN: NSTEMI CHEST PAIN with HX CAD - patient presented with development of chest pain while trying to pull fabric onto a chair; took 2 nitroglycerin at home which did not relieve the pain - hx stents - 2004 - RAFI to left cx, 2010 - BMS to prox LAD and RCA -has been noncompliant with BP medication -Bp was markedly elevated in ER -EKG does not show any acute ST changes -Initial Tro negative but significant elevation thereafter - continue ASA and statin and Coreg and Heparin started - resting ECHO;;Left ventricular systolic function is normal. * Ejection Fraction = 60-65%. * There is mild concentric left ventricular hypertrophy. * Aortic valve sclerosis mild, without significant aortic valvular stenosis. * There is mild mitral regurgitation. * There is mild tricuspid regurgitation. * Grade I diastolic dysfunction, (abnormal relaxation pattern). - cardiology consult for AM -appreciate input -Has been on IV Heparin ,BB,Aspirin ,Nitro and Statin -Likely for Medical management -Continue Heparin till tomorrow -[facility] HTN-Uncontrolled - presenting with elevated BP 182/95 - resuming carvedilol and starting nitro paste as above - due to anxiety - patient reports he does not like coming to the hospital - continue amlodipine and Coreg -Seems in the right direction SEIZURE DISORDER - continue Lamictal CKD STAGE III - baseline creat runs in the low - mid 1's - creat noted to be 1.4 today -creatinine normalized DVT PROPHYLAXIS - SQ Heparin CODE STATUS - Patient is a full code as per my discussion with him. DISPO Awaited Vital Signs: Date Time Temp Pulse Resp B/P Pulse Ox O2 Delivery O2 Flow Rate FiO2 06/29/16 15:32 36.6 68 18 169/73 90 Room Air 06/29/16 08:19 36.9 56 18 119/63 99 06/29/16 04:00 36.7 66 18 124/60 90 Room Air 06/29/16 04:00 Room Air 06/28/16 23:59 Room Air 06/28/16 23:42 37.0 64 18 135/77 92 Room Air 06/28/16 20:07 149/71 06/28/16 20:00 Room Air 06/28/16 19:28 36.6 88 18 194/90 94 Room Air Lab Results: Results Past 24 Hours Test 06/28/16 18:08 06/28/16 19:04 06/29/16 01:27 06/29/16 06:50 Range/Units Activated Partial Thromboplast Time 85.8 58.8 91.6 81.1 21.0-31.0 SECONDS Partial Thromboplastin Ratio 3.3 2.3 3.5 3.1 Sodium Level 141 136-145 mmol/L Potassium Level 4.3 3.5-5.1 mmol/L Chloride Level 106 98-107 mmol/L Carbon Dioxide Level 27 21-32 mmol/L Anion Gap 8.0 3-11 mmol/L Blood Urea Nitrogen 20 7-18 mg/dl Creatinine 1.40 0.60-1.40 mg/dl Est Creatinine Clear Calc Drug Dose 39.4 ml/min Estimated GFR () 54.6 Estimated GFR (Non- 47.1 BUN/Creatinine Ratio 14.0 10-20 Random Glucose 111 70-99 mg/dl Calcium Level 8.7 8.5-10.1 mg/dl Magnesium Level 2.5 1.8-2.4 mg/dl Troponin I 0.571 0-0.045 ng/ml Test 06/29/16 14:53 Range/Units Activated Partial Thromboplast Time 41.9 21.0-31.0 SECONDS Partial Thromboplastin Ratio 1.6
[2016-06-29 18:42] VITALS: BP 152/79; PULSE 62; TEMP 36.6; O2SAT 93
[2016-06-29] MEDS: DUTASTERIDE 0.5 MG CAP PO SCH (20:40)
[2016-06-29 23:00] LABS: PARTIAL THROMBOPLASTIN RATIO 2.8
[2016-06-29 23:26] VITALS: BP 147/59; PULSE 62; TEMP 36.6; O2SAT 90
[2016-06-30] MEDS: HEPARIN 25,000 UNIT/500ML D5W 500 ML IV PRN (00:21)
[2016-06-30 02:30] VITALS: BP 145/76; PULSE 68; TEMP 36.7; O2SAT 94
[2016-06-30 05:57] LABS: HEMATOCRIT 40.2 % (42-52); MEAN CORPUSCULAR HEMOGLOBIN 30.2 pg (25-34); MEAN CORPUSCULAR HGB CONC 34.3 g/dl (32-36); MEAN PLATELET VOLUME 9.8 fL (7.4-10.4); PLATELET COUNT 164 K/uL (130-400); RED BLOOD COUNT 4.57 M/uL (4.7-6.1); WHITE BLOOD COUNT 5.85 K/uL (4.8-10.8)
[2016-06-30 06:16] LABS: PARTIAL THROMBOPLASTIN RATIO 2.3
[2016-06-30 06:33] LABS: BUN/CREATININE RATIO 14.3 (10-20); CALCIUM 8.6 mg/dl (8.5-10.1); CREATININE 1.4 mg/dl (0.60-1.40); MAGNESIUM 2.4 mg/dl (1.8-2.4); POTASSIUM 3.9 mmol/L (3.5-5.1)
--- NOTE | 2016-06-30 08:05 | Cardiology Follow-Up ---
Subjective General Date of Service: Jun 30, 2016. Pt evaluation today including: conversation w/ patient, physical exam, chart review, lab review, review of studies, review of inpatient medication list History of Present Illness The patient is a 80 year old male seen in follow-up. Blood pressure improved, however, remains elevated No recurrent chest discomfort at rest or with activity. No recurrent lightheadedness. No recurrent epistaxis. Denies palpitations, orthopnea, PND, or lower exam edema. Offers no other complaints this time. Allergies Coded Allergies: Lidocaine (Verified Allergy, Unknown, PRESERVATIVE IN LIDOCAINE CAUSES RED SKIN, 06/27/16) Social History Smoking Status: Former Smoker Hx Tobacco Use In Past Year?: Yes (1 PPD ) Hx Alcohol Use - Type And Amou: No Hx Substance Use - Type And Am: No Review of Systems Respiratory: No cough, No dyspnea at rest, No dyspnea on exertion, No hemoptysis, No shortness of breath, No sputum, No wheezing Cardiac: No PND, No chest pain, No claudication, No edema, No orthopnea, No palpitations Physical Exam Vital Signs Last Vital Signs Documentation Date Time Temp Pulse Resp B/P Pulse Ox O2 Delivery O2 Flow Rate FiO2 06/30/16 04:00 Room Air 06/30/16 02:30 36.7 68 20 145/76 94 Physical Exam Constitutional: General Apperance: well-nourished Level of Distress: NAD Ambulation: ambulating normally Head: normocephalic, atraumatic Neck: supple, trachea midline Lungs: Auscultation: breath sounds normal, no wheezing, no rales/crackles Cardiovascular: Heart Auscultation: RRR, normal S1, normal S2, II/ MILES Peripheral Pulses: Bruits: carotid bruit on the right Radial Pulse: normal on the left, normal on the right Femoral Pulse: decreased on the right Musculoskeletal: normal strength (5/5 throughout) Extremities: no cyanosis, no edema, no clubbing, no ulcers Neurologic: Gait & Station: pertinent finding (no focal motor deficit) Cranial Nerves: grossly intact Assessment and Plan Assessment and Plan FINAL IMPRESSION: 1. NSTEMI -type I versus type II event. -Type II suspected secondary to noncompliance with uncontrolled hypertension 2. Uncontrolled hypertension - improved with addition of improved, however, remains mildly elevated. 3. Peripheral vascular disease with extensive aortic arch atherosclerosis, moderate brachiocephalic stenosis, diminished lower extremity pulses with prior CT angiograms demonstrating moderate atherosclerotic disease. 4. Noncompliance 5. Seizure disorder. PLAN AND RECOMMENDATIONS: Discontinue IV heparin. Increase carvedilol to 6.25mg BID. Continue other cardiovascular medications as previously ordered. No further cardiac testing at this time. Outpatient cardiology follow up recommended in 2-4 weeks at [facility]. Will sign off. Laboratory Results Last 24 Hours Test 06/29/16 14:53 06/29/16 22:30 06/30/16 05:09 Activated Partial Thromboplast Time 41.9 SECONDS 72.3 SECONDS 60.1 SECONDS Partial Thromboplastin Ratio 1.6 2.8 2.3 White Blood Count 5.85 K/uL Red Blood Count 4.57 M/uL Hemoglobin 13.8 g/dL Hematocrit 40.2 % Mean Corpuscular Volume 88.0 fL Mean Corpuscular Hemoglobin 30.2 pg Mean Corpuscular Hemoglobin Concent 34.3 g/dl RDW Standard Deviation 42.2 fL RDW Coefficient of Variation 13.1 % Platelet Count 164 K/uL Mean Platelet Volume 9.8 fL Sodium Level 142 mmol/L Potassium Level 3.9 mmol/L Chloride Level 107 mmol/L Carbon Dioxide Level 26 mmol/L Anion Gap 9.0 mmol/L Blood Urea Nitrogen 20 mg/dl Creatinine 1.40 mg/dl Est Creatinine Clear Calc Drug Dose 39.4 ml/min Estimated GFR () 54.6 Estimated GFR (Non- 47.1 BUN/Creatinine Ratio 14.3 Random Glucose 101 mg/dl Calcium Level 8.6 mg/dl Magnesium Level 2.4 mg/dl
[2016-06-30] MEDS: PANTOprazole SOD 40 MG TAB PO SCH (08:18)
[2016-06-30] MEDS: ISOSORBIDE MONONITRATE 30 MG TABCR PO SCH (08:18)
[2016-06-30] MEDS: AMLODIPINE BESYLATE 5 MG TAB PO SCH (08:18)
[2016-06-30] MEDS: ATORVASTATIN 40 MG TAB PO SCH (08:20)
[2016-06-30] MEDS: ASPIRIN 81 MG CHEW PO SCH (08:35)
[2016-06-30 08:52] VITALS: BP 132/56; PULSE 67; TEMP 36.6; O2SAT 93
[2016-06-30] MEDS ORDERED: CARVEDILOL 6.25 MG TAB PO SCH (09:00)
--- NOTE | 2016-06-30 12:08 | Progress Note ---
Internal Med Progress Note Date of Service: Jun 30, 2016. Provider Documentation: SUBJECTIVE: The patient was seen and examined No more pain since admission Ambulating well No more episode of High BP and or CP OBJECTIVE: Vital Signs-as noted below Exam: General-no distress at rest Eyes-normal ENT-normal Neck-Supple Lungs-Clear to ausucltate bilaterally Heart-Regular,no murmur appreciated Abdomen-Benign,no masses,bowel sound present Extremities-no edema Neuro-AAOx3 Lab data as noted below. ASSESSMENT & PLAN: NSTEMI CHEST PAIN with HX CAD - patient presented with development of chest pain while trying to pull fabric onto a chair; took 2 nitroglycerin at home which did not relieve the pain - hx stents - 2004 - RAFI to left cx, 2010 - BMS to prox LAD and RCA -has been noncompliant with BP medication -Bp was markedly elevated in ER -EKG does not show any acute ST changes -Initial Tro negative but significant elevation thereafter - continue ASA and statin and Coreg and Heparin started - resting ECHO;;Left ventricular systolic function is normal. * Ejection Fraction = 60-65%. * There is mild concentric left ventricular hypertrophy. * Aortic valve sclerosis mild, without significant aortic valvular stenosis. * There is mild mitral regurgitation. * There is mild tricuspid regurgitation. * Grade I diastolic dysfunction, (abnormal relaxation pattern). - cardiology consult for AM -appreciate input -Has been on IV Heparin ,BB,Aspirin ,Nitro and Statin -Likely for Medical management -Continue Heparin till tomorrow -Heparin discontinued -BP med has been increased -can be discharged today HTN-Uncontrolled - presenting with elevated BP 182/95 - resuming carvedilol and starting nitro paste as above - due to anxiety - patient reports he does not like coming to the hospital - continue amlodipine and Coreg -Seems in the right direction -Coreg is increased SEIZURE DISORDER - continue Lamictal CKD STAGE III - baseline creat runs in the low - mid 1's - creat noted to be 1.4 today -creatinine normalized DVT PROPHYLAXIS - SQ Heparin CODE STATUS - Patient is a full code as per my discussion with him. DISPO Home today Vital Signs: Date Time Temp Pulse Resp B/P Pulse Ox O2 Delivery O2 Flow Rate FiO2 06/30/16 08:52 36.6 67 16 132/56 93 Room Air 06/30/16 04:00 Room Air 06/30/16 02:30 36.7 68 20 145/76 94 Room Air 06/29/16 23:59 Room Air 06/29/16 23:26 36.6 62 20 147/59 90 Room Air 06/29/16 20:00 Room Air 06/29/16 18:42 36.6 62 18 152/79 93 Room Air 06/29/16 16:00 Room Air 06/29/16 15:32 36.6 68 18 169/73 90 Room Air Lab Results: Results Past 24 Hours Test 06/29/16 14:53 06/29/16 22:30 06/30/16 05:09 Range/Units Activated Partial Thromboplast Time 41.9 72.3 60.1 21.0-31.0 SECONDS Partial Thromboplastin Ratio 1.6 2.8 2.3 White Blood Count 5.85 4.8-10.8 K/uL Red Blood Count 4.57 4.7-6.1 M/uL Hemoglobin 13.8 14.0-18.0 g/dL Hematocrit 40.2 42-52 % Mean Corpuscular Volume 88.0 80-100 fL Mean Corpuscular Hemoglobin 30.2 25-34 pg Mean Corpuscular Hemoglobin Concent 34.3 32-36 g/dl RDW Standard Deviation 42.2 36.4-46.3 fL RDW Coefficient of Variation 13.1 11.5-14.5 % Platelet Count 164 130-400 K/uL Mean Platelet Volume 9.8 7.4-10.4 fL Sodium Level 142 136-145 mmol/L Potassium Level 3.9 3.5-5.1 mmol/L Chloride Level 107 98-107 mmol/L Carbon Dioxide Level 26 21-32 mmol/L Anion Gap 9.0 3-11 mmol/L Blood Urea Nitrogen 20 7-18 mg/dl Creatinine 1.40 0.60-1.40 mg/dl Est Creatinine Clear Calc Drug Dose 39.4 ml/min Estimated GFR () 54.6 Estimated GFR (Non- 47.1 BUN/Creatinine Ratio 14.3 10-20 Random Glucose 101 70-99 mg/dl Calcium Level 8.6 8.5-10.1 mg/dl Magnesium Level 2.4 1.8-2.4 mg/dl
[2016-06-30 12:18] VITALS: BP 145/64; PULSE 57; TEMP 36.5; O2SAT 90
[2016-06-30] MEDS ORDERED: CRG625 PO (13:53)
[2016-06-30] MEDS ORDERED: LPT40 PO (13:53)
[2016-06-30] MEDS ORDERED: IMDSR30 PO (13:53)
--- NOTE | 2016-06-30 14:01 | Discharge Instructions ---
Discharge Instructions Admission Reason for Admission: Chest Pain Discharge Discharge Diagnosis / Problem: Chest pain-no ACS,CAD,HTN Discharge Goals Goal(s): Prevent Disease Progression Activity Recommendations Activity Limitations: resume your previous activity . Instructions / Follow-Up Instructions / Follow-Up Your Doctors office will call for appointment. Current Hospital Diet Patient's current hospital diet: AHA Diet (Heart Healthy) Discharge Diet Recommended Diet: AHA Diet (Heart Healthy) Pending Studies Studies pending at discharge: no Medical Emergencies . Who to Call and When: Medical Emergencies: If at any time you feel your situation is an emergency, please call 911 immediately. . Non-Emergent Contact Non-Emergency issues call your: Primary Care Provider . Past History Medical & Surgical History: (1) Chest pain (2) Seizure disorder (3) CAD (coronary artery disease) (4) COPD (chronic obstructive pulmonary disease) (5) HTN (hypertension) (6) CKD (chronic kidney disease), stage III (7) Lung cancer . "Provider Documentation" section prepared by Princess Rose. VTE Core Measure Inpt VTE Proph given/why not?: Unfractionated heparin SQ
[2016-06-30 14:22] VITALS: BP 145/64; PULSE 57; TEMP 36.5; O2SAT 90
--- NOTE | 2016-07-01 11:44 | Discharge Summary ---
Discharge Summary Date of Service Jul 01, 2016. Discharge Summary Admission Date: Jun 29, 2016 at 08:32 Discharge Date: Jun 30, 2016 Discharge Disposition: Home Principal Diagnosis: Chest Pain-No ACS,CAD Secondary Diagnoses/Problems: Please see H&P Consultations: Cardiology Medication Reconciliation New Medications: Atorvastatin (Atorvastatin Calcium) 40 Mg Tab 40 MG PO QAM for 30 Days, #30 TAB Carvedilol (Carvedilol) 6.25 Mg Tab 6.25 MG PO BID for 30 Days, #60 TAB Isosorbide Mononitrate (Isosorbide Mononitrate ER) 30 Mg Tabcr 30 MG PO QAM for 30 Days, #30 Continued Medications: Amlodipine (Norvasc) 10 Mg Tab 10 MG PO QAM, 0 Refills Aspirin (Aspirin Chewable) 81 Mg Chew 81 MG PO QAM Dutasteride (Avodart) 0.5 Mg Cap 0.5 MG PO HS, CAP Lamotrigine (Lamictal) 100 Mg Tab 150 MG PO BID Nitroglycerin (Nitrostat) 0.4 Mg Tab 0.4 MG UT PRN, BTL Omeprazole (Prilosec) 20 Mg Capcr 20 MG PO QAM, CAP Discontinued Medications: Simvastatin (Zocor) 20 Mg Tab 20 MG PO HS, TAB Admission Information HPI (per Admitting provider): 80 year old male who presents to the ER with chest pain. 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 Patient reports he was working today trying to get fabric on a chair. He reports he was pulling the fabric very hard and developed chest pain. He describes the pain as across his entire chest and described it as a pressure. He rated it #7/10. He also had associated pain in his left lower arm. He was working in the basement so he went upstairs and he reports he felt short of breath when climbing the stairs. He took 2 nitroglycerin however it did not resolve the pain. A few hours passed and he decided to come to the ER for further evaluation. Patient reports the pain started to ease up on its own. He currently rates it #1/10. It is not made worse with movement, deep breaths, or palpation. He denies any associated lightheadedness, dizziness, diaphoresis, or nausea. He reports he other gray has been feeling well recently. No fever or chills. He denies abdominal pain, vomiting, and diarrhea. No urinary symptoms. In the ER patient' s BP is elevated at 182/95. Initial troponin is negative and EKG does not show any changes. Labs are unremarkable. Patient was given a full dose aspirin. Past Medical/Surgical History Medical Problems: (1) CAD (coronary artery disease) Permanent Comment: 2004 - RAFI to left cx 02/2011 - BMS to prox LAD and RCA Status: Chronic (2) CKD (chronic kidney disease), stage III Status: Chronic (3) COPD (chronic obstructive pulmonary disease) Status: Chronic (4) HTN (hypertension) Status: Chronic (5) Lung cancer Status: Chronic (6) Seizure disorder Status: Chronic Surgical Problems: (1) S/P carotid endarterectomy Permanent Comment: left Status: Chronic (2) S/P lobectomy of lung Permanent Comment: LLL for cancer Status: Chronic Family History non contributory due to patient's age Social History Smoking Status: Former Smoker Alcohol Use: none Occupational Status: employed Immunizations History of Pneumococcal: Yes Pneumococcal Date: Apr 12, 2015 Multi-Drug Resistant Organisms History of MDRO: No Allergies Coded Allergies: Lidocaine (Verified Allergy, Unknown, PRESERVATIVE IN LIDOCAINE CAUSES RED SKIN, 06/27/16) Home Medications Scheduled Amlodipine (Norvasc), 10 MG PO QAM Aspirin (Aspirin Chewable), 81 MG PO QAM Dutasteride (Avodart), 0.5 MG PO HS Lamotrigine (Lamictal), 150 MG PO BID Nitroglycerin (Nitrostat), 0.4 MG UT PRN Omeprazole (Prilosec), 20 MG PO QAM Simvastatin (Zocor), 20 MG PO HS Review of Systems 10 point review of systems was completed with the pertinent positives and negatives noted per the HPI Physical Exam Vital Signs Date Time Temp Pulse Resp B/P Pulse Ox O2 Delivery O2 Flow Rate FiO2 06/27/16 18:18 78 18 182/95 94 Room Air 06/27/16 16:56 85 06/27/16 16:42 36.6 81 18 177/83 92 Room Air General Appearance: no apparent distress Head: normocephalic Eyes: normal inspection ENT: hearing grossly normal Neck: supple, no JVD Respiratory/Chest: chest non-tender, lungs clear, + decreased breath sounds ( BL bases) Cardiovascular: regular rate, rhythm, + pertinent finding (trace pitting edema BLLE) Abdomen/GI: normal bowel sounds, non tender, soft Extremities/Musculoskelatal: normal inspection, no calf tenderness Neurologic/Psych: no motor/sensory deficits, alert, normal mood/affect, oriented x 3 Skin: normal color, warm/dry Diagnostics Laboratory Results Results Past 24 Hours Test 06/27/16 16:55 06/27/16 17:12 06/27/16 17:46 Range/Units White Blood Count 7.28 4.8-10.8 K/uL Red Blood Count 5.02 4.7-6.1 M/uL Hemoglobin 15.2 14.0-18.0 g/dL Hematocrit 43.5 42-52 % Mean Corpuscular Volume 86.7 80-100 fL Mean Corpuscular Hemoglobin 30.3 25-34 pg Mean Corpuscular Hemoglobin Concent 34.9 32-36 g/dl Platelet Count 179 130-400 K/uL Mean Platelet Volume 9.9 7.4-10.4 fL Neutrophils (%) (Auto) 73.8 % Lymphocytes (%) (Auto) 15.7 % Monocytes (%) (Auto) 8.5 % Eosinophils (%) (Auto) 1.6 % Basophils (%) (Auto) 0.3 % Neutrophils # (Auto) 5.37 1.4-6.5 K/uL Lymphocytes # (Auto) 1.14 1.2-3.4 K/uL Monocytes # (Auto) 0.62 0.11-0.59 K/uL Eosinophils # (Auto) 0.12 0-0.5 K/uL Basophils # (Auto) 0.02 0-0.2 K/uL RDW Standard Deviation 41.3 36.4-46.3 fL RDW Coefficient of Variation 13.1 11.5-14.5 % Immature Granulocyte % (Auto) 0.1 % Immature Granulocyte # (Auto) 0.01 0.00-0.02 K/uL Sodium Level 140 136-145 mmol/L Potassium Level 4.4 3.5-5.1 mmol/L Chloride Level 107 98-107 mmol/L Carbon Dioxide Level 23 21-32 mmol/L Anion Gap 10.0 3-11 mmol/L Blood Urea Nitrogen 16 7-18 mg/dl Creatinine 1.40 0.60-1.40 mg/dl Est Creatinine Clear Calc Drug Dose 39.4 ml/min Estimated GFR () 54.6 Estimated GFR (Non- 47.1 BUN/Creatinine Ratio 11.4 10-20 Random Glucose 133 70-99 mg/dl Calcium Level 8.9 8.5-10.1 mg/dl Total Creatine Kinase 65 39-308 U/L Creatine Kinase MB 0.8 0.5-3.6 ng/ml Creatine Kinase MB Ratio 1.2 0-3.0 Bedside Troponin I 0.000 0-0.045 ng/ml Diagnostic Radiology CXR IMPRESSION: No significant change compared to the prior study. No acute process. Stable postoperative changes within the left hemithorax. Impression Assessment and Plan CHEST PAIN, HX CAD - admit to tele - patient presenting with development of chest pain while trying to pull fabric onto a chair; took 2 nitroglycerin at home which did not relieve the pain, pain significantly improved on its own a few hours later; currently rating his pain - hx stents - 2004 - RAFI to left cx, 2010 - BMS to prox LAD and RCA - recent outpatient surveillance echo (05/2016) unchanged from prior - consider pain due to be muscular in nature, however not reproducible on exam; also could be due to elevated BP - initial troponin negative, will continue to trend; EKG does not show any acute ST changes - patient self stopped his carvedilol 5 months ago because it made him feel tired - will resume at prior dosing 3.125mg BID and start 0.5in nitro paste due to continued mild pain and to help with BP control - continue ASA and statin - resting echo - cardiology consult for AM HTN - presenting with elevated BP 182/95 - resuming carvedilol and starting nitro paste as above - ? due to anxiety - patient reports he does not like coming to the hospital - continue amlodipine SEIZURE DISORDER - continue Lamictal CKD STAGE III - baseline creat runs in the low - mid 1's - creat noted to be 1.4 today - continue to monitor, avoid nephrotoxic agents when able DVT PROPHYLAXIS - SQ Heparin CODE STATUS - Patient is a full code as per my discussion with him. DISPO - The patient will be placed as observation status for now until further work up is complete. Attending Addendum: The patient was seen and examined in ER during admission Exertional chest pain not relieved by Nitro Free of pain in ER O/E Hemodynamically stable HEENT-unremarkable Chest-clear to auscultate bilaterally Heart-regular,no murmur Abdomen-benign,no masses,bowel sound present Extremities-negative for any edema Labs and Imaging studies were reviewed Has CP with h/o CAD and Stenting Agree with assesment and plan. Dr Mariann Rose VTE Prophylaxis VTE Risk Assessment Done? Y/N: Yes Risk Level: Moderate Physical Exam (per Admitting): General Appearance: no apparent distress Head: normocephalic Eyes: normal inspection ENT: hearing grossly normal Neck: supple, no JVD Respiratory/Chest: chest non-tender, lungs clear, + decreased breath sounds (BL bases) Cardiovascular: regular rate, rhythm, + pertinent finding (trace pitting edema BLLE) Abdomen/GI: normal bowel sounds, non tender, soft Extremities/Musculoskelatal: normal inspection, no calf tenderness Neurologic/Psych: no motor/sensory deficits, alert, normal mood/affect, oriented x 3 Skin: normal color, warm/dry Hospital Course NSTEMI CHEST PAIN with HX CAD - patient presented with development of chest pain while trying to pull fabric onto a chair; took 2 nitroglycerin at home which did not relieve the pain - hx stents - 2004 - RAFI to left cx, 2010 - BMS to prox LAD and RCA -has been noncompliant with BP medication -Bp was markedly elevated in ER -EKG does not show any acute ST changes -Initial Tro negative but significant elevation thereafter - continue ASA and statin and Coreg and Heparin started - resting ECHO;;Left ventricular systolic function is normal. * Ejection Fraction = 60-65%. * There is mild concentric left ventricular hypertrophy. * Aortic valve sclerosis mild, without significant aortic valvular stenosis. * There is mild mitral regurgitation. * There is mild tricuspid regurgitation. * Grade I diastolic dysfunction, (abnormal relaxation pattern). - cardiology consult for AM -appreciate input -Has been on IV Heparin ,BB,Aspirin ,Nitro and Statin -Likely for Medical management -Continue Heparin till tomorrow -Heparin discontinued -BP med has been increased -can be discharged today HTN-Uncontrolled - presenting with elevated BP 182/95 - resuming carvedilol and starting nitro paste as above - due to anxiety - patient reports he does not like coming to the hospital - continue amlodipine and Coreg -Seems in the right direction -Coreg is increased SEIZURE DISORDER - continue Lamictal CKD STAGE III - baseline creat runs in the low - mid 1's - creat noted to be 1.4 today -creatinine normalized DVT PROPHYLAXIS - SQ Heparin CODE STATUS - Patient is a full code as per my discussion with him. DISPO Home today Total time spent on discharge = 35 minutes This includes examination of the patient, discharge planning, medication reconciliation, and communication with other providers. Discharge Instructions Admission Reason for Admission: Chest Pain Discharge Discharge Diagnosis / Problem: Chest pain-no ACS,CAD,HTN Discharge Goals Goal(s): Prevent Disease Progression Activity Recommendations Activity Limitations: resume your previous activity . Instructions / Follow-Up Instructions / Follow-Up Your Doctors office will call for appointment. Current Hospital Diet Patient's current hospital diet: AHA Diet (Heart Healthy) Discharge Diet Recommended Diet: AHA Diet (Heart Healthy) Pending Studies Studies pending at discharge: no Medical Emergencies . Who to Call and When: Medical Emergencies: If at any time you feel your situation is an emergency, please call 911 immediately. . Non-Emergent Contact Non-Emergency issues call your: Primary Care Provider . Past History Medical & Surgical History: (1) Chest pain (2) Seizure disorder (3) CAD (coronary artery disease) (4) COPD (chronic obstructive pulmonary disease) (5) HTN (hypertension) (6) CKD (chronic kidney disease), stage III (7) Lung cancer . "Provider Documentation" section prepared by Princess Rose. VTE Core Measure Inpt VTE Proph given/why not?: Unfractionated heparin SQ <Electronically signed by Princess Rose M.D.> Additional Copies To Harris Cam M.D.
== END 2016-06-30 15:13 | disposition home or self-care (01) | DRG 282 ==
LOC: ENRESERVTM → ENRESERVDT → C.EDB 16:37 → C.2T 18:59 → OBSVTOIN 06-29 08:32
PROVIDERS: ADMIT Internal Medicine; ATTEND Internal Medicine
DX: I21.4 Non-ST elevation (NSTEMI) myocardial infarction (principal); I12.9 Hypertensive chronic kidney disease with stage 1 through stage 4 chronic kidney disease, or unspecified chronic kidney disease; I73.9 Peripheral vascular disease, unspecified; I35.0 Nonrheumatic aortic (valve) stenosis; I77.1 Stricture of artery; Z91.14 Patient's other noncompliance with medication regimen; G40.909 Epilepsy, unspecified, not intractable, without status epilepticus; I25.10 Atherosclerotic heart disease of native coronary artery without angina pectoris; Z95.818 Presence of other cardiac implants and grafts; E78.5 Hyperlipidemia, unspecified; D50.9 Iron deficiency anemia, unspecified; J44.9 Chronic obstructive pulmonary disease, unspecified; N18.3 Chronic kidney disease, stage 3 (moderate); Z85.118 Personal history of other malignant neoplasm of bronchus and lung; Z79.82 Long term (current) use of aspirin; Z95.810 Presence of automatic (implantable) cardiac defibrillator; Z87.891 Personal history of nicotine dependence

== ENCOUNTER → 2017-05-01 | Outpatient (CLI) | payer OTHER ==
[~2017-05-01] MED LIST changes: -AMLO-114 PO; +AMLO10TA3 PO; +ASPCH81X PO; -ASPEC325 PO; -ATV5 PO; -AVD5 PO; -CLOP1TAB15 PO; +CRG625 PO; -CYCL0.05 OP; +DUTA0.5C PO; +IMDSR30 PO; +LPT40 PO; -METO25TA56 PO; +NTRGSL/4 UT; +PRLSR20 PO; -SIMV10TA2 PO; -TRIA0.1C20 TD
[2017-05-01 16:52] LABS: CALCIUM 9.3 mg/dl (8.5-10.1)
[2017-05-01 17:07] LABS: ALBUMIN 4.4 gm/dl (3.4-5.0)
== END | disposition home or self-care (01) ==
LOC: C.LAB1850 15:54
PROVIDERS: ATTEND Internal Medicine Endocrinology, Diabetes & Metabolism
DX: E04.2 Nontoxic multinodular goiter (principal); E34.9 Endocrine disorder, unspecified; N18.9 Chronic kidney disease, unspecified; E55.9 Vitamin D deficiency, unspecified

== ENCOUNTER → 2017-06-26 | Outpatient (CLI) | payer OTHER ==
[~2017-06-26] MED LIST changes: +AMLO-114 PO; -AMLO10TA3 PO
== END | disposition home or self-care (01) ==
LOC: C.LABPBG 13:28
PROVIDERS: ATTEND Internal Medicine Endocrinology, Diabetes & Metabolism
DX: E04.2 Nontoxic multinodular goiter (principal); E34.9 Endocrine disorder, unspecified; E55.9 Vitamin D deficiency, unspecified

== ENCOUNTER → 2017-09-25 | Outpatient (CLI) | payer OTHER | END | disposition home or self-care (01) | LOC: C.LABPBG 12:38 | PROVIDERS: ATTEND Internal Medicine Endocrinology, Diabetes & Metabolism | DX: E04.2 Nontoxic multinodular goiter (principal); E34.9 Endocrine disorder, unspecified; E55.9 Vitamin D deficiency, unspecified ==

== ENCOUNTER → 2017-12-09 | Outpatient (CLI) | payer OTHER ==
[~2017-12-09] MED LIST changes: -AMLO-114 PO; +AMLO10TA3 PO
[2017-12-09 16:59] LABS: ALBUMIN 3.9 gm/dl (3.4-5.0); CALCIUM 9.2 mg/dl (8.5-10.1)
== END | disposition home or self-care (01) ==
LOC: C.LABPBG 14:20
PROVIDERS: ATTEND Internal Medicine Endocrinology, Diabetes & Metabolism
DX: E34.9 Endocrine disorder, unspecified (principal); E55.9 Vitamin D deficiency, unspecified

== ENCOUNTER 2018-06-14 13:24 | Inpatient (IN) ==
[2018-06-14 14:03] LABS: Basophils # (auto) 0.03 K/uL (0-0.2); Basophils % (auto) 0.4 %; Eosinophils # (auto) 0.19 K/uL (0-0.5); Eosinophils % (auto) 2.4 %; Hematocrit (blood only) 43.5 % (42-52); Immature Granulocytes # (auto) 0.02 K/uL (0.00-0.02); Immature Granulocytes % (auto) 0.3 %; Lymphocytes # (auto) 0.93 K/uL (1.2-3.4); Lymphocytes % (auto) 11.8 %; Mean Corpuscular Hemoglobin 29.6 pg (25-34); Mean Corpuscular Hgb Conc 32.2 g/dL (32-36); Mean Platelet Volume 9.8 fL (7.4-10.4); Monocytes # (auto) 0.74 K/uL (0.11-0.59); Monocytes % (auto) 9.4 %; Neutrophils % (auto) 75.7 %; Platelet Count 163 K/uL (130-400); RDW Coefficient of Variation 14.6 % (11.5-14.5); RDW Standard Deviation 48.8 fL (36.4-46.3); Red Blood Count 4.73 M/uL (4.7-6.1); White Blood Count 7.91 K/uL (4.8-10.8)
--- NOTE | 2018-06-14 14:04 | Emergency Department Note ---
Entered by Kayla Bond acting as a scribe for eRnato Smith DO History of Present Illness General Chief complaint: Cardiac Assessment Stated complaint: SOB, CHEST PRESSURE- CARDIAC HX Source: patient Mode of arrival: ambulatory Limitations: no limitations History of Present Illness Provider complaint: Shortness of breath Onset (ago): hour(s) (today) Location: chest Radiation: non-radiation Pain Consistency: + other (worsening) Quality: + other (shortness of breath) Relieved By: + rest Associated symptoms: + other (Denies: leg swelling, abdominal pain, diarrhea); no chest pain Treatments prior to arrival: none The patient is an 82 year old male with a history of a seizure disorder, NC, coronary stents, CAD, COPD, hypertension, stage III CKD, lung cancer, a lobectomy of the lung, and a carotid endarterectomy who presents to the Emergency Room with complaints of worsening shortness of breath starting today. The patient reports that his symptoms resolve when he is still and resting. He currently denies any shortness of breath and chest pain. He notes that he did not take anything for his symptoms today, including nitroglycerin. He further denies any leg swelling, abdominal pain, and diarrhea. Home Medications Home Medications Medication Instructions Recorded Confirmed Type amlodipine 10 mg PO DAILY 06/14/18 06/14/18 History aspirin [Aspir-81] 81 mg PO DAILY 06/14/18 06/14/18 History carvedilol 6.25 mg PO BID 06/14/18 06/14/18 History dutasteride 0.5 mg PO DAILY 06/14/18 06/14/18 History isosorbide mononitrate 60 mg PO DAILY 06/14/18 06/14/18 History lamotrigine 150 mg PO BID 06/14/18 06/14/18 History omeprazole 20 mg PO DAILY 06/14/18 06/14/18 History Allergies Allergy/AdvReac Type Severity Reaction Status Date / Time lidocaine Allergy Unknown PRESERVATIVE Verified 06/14/18 14:01 IN LIDOCAINE CAUSES RED SKIN Past Med/Surg History Medical History Seizure disorder (Chronic) CAD (coronary artery disease) (Chronic) "2004 - RAFI to left cx 02/2011 - BMS to prox LAD and RCA" COPD (chronic obstructive pulmonary disease) (Chronic) HTN (hypertension) (Chronic) CKD (chronic kidney disease), stage III (Chronic) Lung cancer (Chronic) Surgical History S/P lobectomy of lung (Chronic) "LLL for cancer" S/P carotid endarterectomy (Chronic) "left" Social History marital status: current occupational status: retired Feels Safe at Home: Yes Smoking Status: Former smoker Preferred Language: [place] Review of Systems See HPI for pertinent positives & negatives. and A total of 10 systems reviewed and were otherwise negative Physical Exam Vital Signs Vital Signs - 24 hr 06/14/18 13:25 06/14/18 13:33 06/14/18 13:53 Temperature 36.6 C Temperature Source Oral Sepsis Recent Fever Within 48 Hours No Sepsis New/Unexplained Change in Mental Status No Sepsis Action Taken by Nursing No Action Required Pulse Rate 64 64 Pulse Rate [Apical] Pulse Rhythm [Apical] Pulse Strength [Apical] Respiratory Rate 22 17 Respiratory Effort / Characteristics Non-Labored Spontaneous Respiratory Depth Normal Blood Pressure 153/57 H 149/60 H Blood Pressure [Left Arm] Blood Pressure Mean 89 89 Blood Pressure Mean [Left Arm] Blood Pressure Position [Left Arm] Pulse Oximetry 82 L 56 L 89 L Oxygen Delivery Method Room Air Room Air Oxygen Flow Rate 2 Fraction of Inspired Oxygen 06/14/18 13:54 06/14/18 14:00 06/14/18 15:00 Temperature Temperature Source Sepsis Recent Fever Within 48 Hours Sepsis New/Unexplained Change in Mental Status Sepsis Action Taken by Nursing Pulse Rate 74 64 Pulse Rate [Apical] Pulse Rhythm [Apical] Pulse Strength [Apical] Respiratory Rate 18 24 Respiratory Effort / Characteristics Respiratory Depth Blood Pressure Blood Pressure [Left Arm] Blood Pressure Mean Blood Pressure Mean [Left Arm] Blood Pressure Position [Left Arm] Pulse Oximetry 89 L 91 90 Oxygen Delivery Method Oxygen Flow Rate Fraction of Inspired Oxygen 06/14/18 15:22 06/14/18 15:23 06/14/18 16:39 Temperature Temperature Source Sepsis Recent Fever Within 48 Hours Sepsis New/Unexplained Change in Mental Status Sepsis Action Taken by Nursing Pulse Rate 65 64 Pulse Rate [Apical] Pulse Rhythm [Apical] Pulse Strength [Apical] Respiratory Rate 21 25 H Respiratory Effort / Characteristics Respiratory Depth Blood Pressure 143/70 H 154/71 H Blood Pressure [Left Arm] Blood Pressure Mean 94 98 Blood Pressure Mean [Left Arm] Blood Pressure Position [Left Arm] Pulse Oximetry 78 L 84 L 91 Oxygen Delivery Method Room Air Nasal Cannula Oxygen Flow Rate Fraction of Inspired Oxygen 4 06/14/18 16:54 06/14/18 17:00 06/14/18 17:01 Temperature Temperature Source Sepsis Recent Fever Within 48 Hours Sepsis New/Unexplained Change in Mental Status Sepsis Action Taken by Nursing Pulse Rate 66 76 73 Pulse Rate [Apical] Pulse Rhythm [Apical] Pulse Strength [Apical] Respiratory Rate 20 17 28 H Respiratory Effort / Characteristics Respiratory Depth Blood Pressure 154/71 H 154/53 H Blood Pressure [Left Arm] Blood Pressure Mean 98 86 Blood Pressure Mean [Left Arm] Blood Pressure Position [Left Arm] Pulse Oximetry 93 Oxygen Delivery Method Oxygen Flow Rate Fraction of Inspired Oxygen 06/14/18 17:54 Temperature Temperature Source Sepsis Recent Fever Within 48 Hours Sepsis New/Unexplained Change in Mental Status Sepsis Action Taken by Nursing Pulse Rate Pulse Rate [Apical] 62 Pulse Rhythm [Apical] Regular Pulse Strength [Apical] Normal Respiratory Rate 20 Respiratory Effort / Characteristics Non-Labored Respiratory Depth Normal Blood Pressure Blood Pressure [Left Arm] 145/64 H Blood Pressure Mean Blood Pressure Mean [Left Arm] 91 Blood Pressure Position [Left Arm] Lying Pulse Oximetry 90 Oxygen Delivery Method Nasal Cannula Oxygen Flow Rate 6 Fraction of Inspired Oxygen GENERAL: Patient is awake alert in no acute distress patient is resting comfortably and showing no signs of anxiety EYES: The conjunctivae are clear. The pupils are round and reactive. EARS, NOSE, MOUTH AND THROAT: The nose is without any evidence of any deformity. Mucous membranes are moist tongue is midline NECK: The neck is nontender and supple. RESPIRATORY: Diminished breath sounds were noted throughout. CARDIOVASCULAR: Regular rate and rhythm noted there no murmurs rubs or gallops normal S1 normal S2 GASTROINTESTINAL: The abdomen is soft. Bowel sounds are present in all quadrants. Abdomen is nontender MUSCULOSKELETAL/EXTREMITIES: There is no evidence of gross deformity full range of motion is noted in the hips and shoulders SKIN: There is no obvious evidence of any rash. Pedal edema was noted bilaterally. NEUROLOGIC: Patient is awake alert and oriented x3. Course 1344: Past medical records reviewed. The patient was evaluated in room B12B, and a complete history and physical examination were performed. 1529: I reviewed the patient's case with Dr. Helio Bonilla - Radha Hutchinson. Dr. Bonilla will evaluate the patient for further management. Consultations Consultation #1: I reviewed the patient's case with Radha Busch. Dr. Bonilla will evaluate the patient for further management. Time: 15:29 Administered Medications Ioversol (Optiray 320 125ml) 92 ml IV ONCE PRN PRN Reason: Interaction Checking Stop: 06/18/18 16:30 Last Admin: 06/14/18 16:31 Dose: 92 ml Discontinued Medications Furosemide (Lasix) 40 mg IV NOW STA Stop: 06/14/18 14:27 Last Admin: 06/14/18 14:45 Dose: 40 mg Nitroglycerin (Nitro-Bid 2%) 0.5 inch EXT NOW ONE Stop: 06/14/18 14:27 Last Admin: 06/14/18 14:45 Dose: 0.5 inch Medical Decision Making Differential Diagnosis Differential diagnosis: Etiologies such as infections, reactive airway disease, COPD, pneumonia, pleural effusion, pulmonary edema, ARDS, pneumothorax, CHF, cardiac ischemia, cardiac tamponade, dysrhythmia, anemia, pulmonary embolism, musculoskeletal, gastrointestinal process, as well as others were entertained. Medical Records Attestation: I reviewed the patient's medical records. Home Medications Current Medication List: was personally reviewed by me Laboratory Data Attestation: I reviewed the patient's lab results. Result diagrams: 06/14/18 13:50 06/14/18 13:50 Lab Results 06/14/18 06/14/18 06/14/18 Range/Units 13:50 13:50 13:50 WBC 7.91 (4.8-10.8) K/uL RBC 4.73 (4.7-6.1) M/uL Hgb 14.0 (14.0-18.0) g/dL Hct 43.5 (42-52) % MCV 92.0 (80-100) fL MCH 29.6 (25-34) pg MCHC 32.2 (32-36) g/dL RDW Std Deviation 48.8 H (36.4-46.3) fL RDW Coeff of Brendan 14.6 H (11.5-14.5) % Plt Count 163 (130-400) K/uL MPV 9.8 (7.4-10.4) fL Immature Gran % (Auto) 0.3 % Neut % (Auto) 75.7 % Lymph % (Auto) 11.8 % [place] % (Auto) 9.4 % Eos % (Auto) 2.4 % Baso % (Auto) 0.4 % Immature Gran # (Auto) 0.02 (0.00-0.02) K/uL Neut # (Auto) 6.00 (1.4-6.5) K/uL Lymph # (Auto) 0.93 L (1.2-3.4) K/uL [place] # (Auto) 0.74 H (0.11-0.59) K/uL Eos # (Auto) 0.19 (0-0.5) K/uL Baso # (Auto) 0.03 (0-0.2) K/uL ESR (0-14) mm/hr PT 10.6 (9.0-12.0) Seconds INR 1.1 (0.9-1.1) APTT 26.3 (21.0-31.0) Seconds PTT Ratio 1.0 D-Dimer 580 H* (0-500) ug/L FEU Sodium 137 (136-145) mmol/L Potassium 4.5 (3.5-5.1) mmol/L Chloride 108 H (98-107) mmol/L Carbon Dioxide 27 (21-32) mmol/L Anion Gap 2.0 L (3-11) BUN 19 H (7-18) mg/dl Creatinine 1.43 H (0.6-1.4) mg/dl Est Cr Clr Drug Dosing 37.2 ml/min Est GFR ( Amer) 52.5 Est GFR (Non-Af Amer) 45.3 BUN/Creatinine Ratio 13.3 (10-20) Glucose 121 H (70-99) mg/dl Calcium 8.5 (8.5-10.1) mg/dl Total Bilirubin 0.7 (0.2-1) mg/dl AST 9 L (15-37) U/L ALT 15 (12-78) U/L Alkaline Phosphatase 55 (45-117) U/L Total Creatine Kinase 37 L (39-308) U/L CK-MB (CK-2) < 1.0 (0.5-3.6) ng/ml CK/CKMB % Calc TNP Troponin I < 0.015 (0-0.045) ng/ml C-Reactive Protein (0-0.29) mg/dl Total Protein 7.5 (6.4-8.2) gm/dl Albumin 3.7 (3.4-5.0) gm/dl Globulin 3.8 (2.5-4.0) gm/dl Albumin/Globulin Ratio 1.0 (0.9-2) Lipase 75 (73-393) U/L Procalcitonin (0-0.5) ng/ml 06/14/18 06/14/18 06/14/18 Range/Units 13:50 13:50 13:50 WBC (4.8-10.8) K/uL RBC (4.7-6.1) M/uL Hgb (14.0-18.0) g/dL Hct (42-52) % MCV (80-100) fL MCH (25-34) pg MCHC (32-36) g/dL RDW Std Deviation (36.4-46.3) fL RDW Coeff of Brendan (11.5-14.5) % Plt Count (130-400) K/uL MPV (7.4-10.4) fL Immature Gran % (Auto) % Neut % (Auto) % Lymph % (Auto) % [place] % (Auto) % Eos % (Auto) % Baso % (Auto) % Immature Gran # (Auto) (0.00-0.02) K/uL Neut # (Auto) (1.4-6.5) K/uL Lymph # (Auto) (1.2-3.4) K/uL [place] # (Auto) (0.11-0.59) K/uL Eos # (Auto) (0-0.5) K/uL Baso # (Auto) (0-0.2) K/uL ESR 22 H (0-14) mm/hr PT (9.0-12.0) Seconds INR (0.9-1.1) APTT (21.0-31.0) Seconds PTT Ratio D-Dimer (0-500) ug/L FEU Sodium (136-145) mmol/L Potassium (3.5-5.1) mmol/L Chloride (98-107) mmol/L Carbon Dioxide (21-32) mmol/L Anion Gap (3-11) BUN (7-18) mg/dl Creatinine (0.6-1.4) mg/dl Est Cr Clr Drug Dosing ml/min Est GFR ( Amer) Est GFR (Non-Af Amer) BUN/Creatinine Ratio (10-20) Glucose (70-99) mg/dl Calcium (8.5-10.1) mg/dl Total Bilirubin (0.2-1) mg/dl AST (15-37) U/L ALT (12-78) U/L Alkaline Phosphatase (45-117) U/L Total Creatine Kinase (39-308) U/L CK-MB (CK-2) (0.5-3.6) ng/ml CK/CKMB % Calc Troponin I (0-0.045) ng/ml C-Reactive Protein < 0.29 (0-0.29) mg/dl Total Protein (6.4-8.2) gm/dl Albumin (3.4-5.0) gm/dl Globulin (2.5-4.0) gm/dl Albumin/Globulin Ratio (0.9-2) Lipase (73-393) U/L Procalcitonin < 0.05 (0-0.5) ng/ml Imaging Data Radiologist's Impression: Radiology results as stated below per my review and the radiologist's interpretation: SINGLE VIEW CHEST CLINICAL HISTORY: Atypical chest pain. FINDINGS: An AP, portable, upright chest radiograph is compared to study dated and correlated with chest CT dated 05/02/2018. The examination is degraded by portable technique and patient rotation. The heart is top normal in size, and there is atherosclerotic calcification of the thoracic aorta. Advanced emphysema and chronic interstitial thickening are similar to previous. Volume loss in the left lung is consistent with previous surgical resection. There is multifocal patchy airspace consolidation throughout both lungs, new from the 05/02/[address] Small pleural effusions are identified. No pneumothorax is seen. The skeletal structures are osteopenic. The bony thorax is grossly intact. IMPRESSION: 1. Advanced emphysema and postoperative changes from left-sided pulmonary resection are again noted. 2. There is multifocal patchy airspace consolidation seen throughout both lungs , new from 04/24/2018. This could present multifocal pneumonia and/or pulmonary edema. Clinical correlation will be required and radiographic follow-up to resolution is recommended. 3. Small pleural effusions are noted. Electronically signed by: Tres Mike M.D. 06/14/2018 2:[address] ANGIOGRAM OF THE CHEST CLINICAL HISTORY: Dyspnea. COMPARISON STUDY: Chest x-ray dated 06/14/2018. Chest CT scans dated 05/02/2018 and 08/15/2015. TECHNIQUE: Following the IV administration of 92 cc of Optiray 320, CT angiogram of the chest was performed from the upper abdomen to the thoracic inlet utilizing the pulmonary embolus protocol. Images are reviewed in the axial , sagittal, and coronal planes. 3-D MIPS images are created and assessed. IV contrast was administered without complication. A dose lowering technique was utilized adhering to the principles of ALARA. CT DOSE: 252.16 mGy.cm FINDINGS: Thyroid: Imaged portions of the thyroid gland are normal in size and attenuation. Thoracic aorta: There is advanced atherosclerotic calcification of the thoracic aorta, which is normal in caliber and demonstrates 4-vessel variant arch anatomy. No dissection is seen. There is approximately 50% stenosis at the origin of the innominate artery secondary to soft plaque. Pulmonary vasculature: The main pulmonary arteries are dilated suggesting pulmonary artery hypertension. There are no filling defects identified in main, lobar, or segmental pulmonary branches to suggest pulmonary embolus. Heart: The heart is enlarged and without pericardial effusion. The coronary arteries are densely calcified. Lungs and pleural spaces: Advanced emphysema is identified. There is postoperative change and volume loss in the left lung consistent with previous pulmonary resection. Diffuse intralobular septal thickening is observed. There are small pleural effusions, right larger than left with associated bibasilar consolidation. This is also greatest at the right lung base. There is a 1.8 x 0.7 cm nodular density in the right upper lobe seen on image #176. This is unchanged from 05/02/2018 and new from 08/15/2015. This is highly concerning for neoplasm. A 2.0 cm irregular left lower lung opacity is seen on image #68. This is new from 05/02/2018. The trachea and central airways are clear. Mild diffuse peribronchial thickening is observed. Mediastinum: There are mildly enlarged mediastinal lymph nodes. A prevascular node on image #168 measures 10 mm short axis. A subcarinal node on image #125 measures 1.9 cm in short axis. Tahmina: Mildly enlarged hilar nodes measure up to 1.2 cm in short axis. Axillae: There is no axillary lymphadenopathy. Upper abdomen: There is a small to moderate hiatal hernia. Partially visualized upper abdominal viscera is otherwise grossly unremarkable. Skeletal structures: The skeletal structures are osteopenic. Degenerative change and mild hyperkyphosis are noted throughout the thoracic spine. Postoperative change is noted in the left-sided ribs. Arthritic change is seen in the shoulders. No lytic or blastic bony lesions are seen. IMPRESSION: 1. There is no evidence of pulmonary embolus in the main, lobar, or segmental pulmonary arteries. 2. Advanced emphysema and postoperative change from left-sided pulmonary resection. 3. Cardiomegaly with evidence of congestive failure. 4. There are with right larger than left pleural effusions with associated bibasilar consolidation. This is also greatest at the right lung base. The appearance is concerning for pneumonia/aspiration pneumonitis. Clinical correlation will be required and radiographic follow-up to resolution is recommended. 5. There is a 1.8 cm irregular opacity in the right upper lobe. This is unchanged from 05/02/2018 but new from 08/15/2015. This is highly concerning for neoplasm. 6. There is a 1.9 cm irregular airspace opacity in the left lower lung, new from 05/02/2018. This is pathologically indeterminant, and could be on an infectious/inflammatory or neoplastic basis. Attention at follow-up is recommended. 7. There are nonspecific enlarged mediastinal and hilar lymph nodes. 8. Additional findings as above. Electronically signed by: Tres Mike M.D. 06/14/2018 5:01 PM ECG Data Attestation: I personally reviewed and interpreted this ECG as follows: Indication: SOB/dyspnea Rate (beats per minute): 67 Rhythm: normal sinus Findings: + ST depression (inferior and lateral); no ectopy Comparison ECG Date: from (04/28/17) Change: the following changes noted (changes are new) Blood Pressure Blood Pressure Findings: Elevated blood pressure Blood Pressure Disposition: further management by hospitalist ASHLEE Narrative The patient is an 82-year-old male who presented to the emergency department for an evaluation of difficulty breathing. He describes chest discomfort as well as difficulty with exertional dyspnea. The patient denied any orthopnea although his overall clinical picture appears to be more consistent with pulmonary edema. He also has abnormal EKG findings which could be consistent with ischemia. He was treated with Lasix as well as nitroglycerin paste. He was also given aspirin. On subsequent reevaluation he was feeling somewhat better. I discussed the patient's laboratory and radiographic studies with the [facility] hospitalist. They have agreed to evaluate the patient in the emergency department for further management and disposition. The patient was found to have significant hypoxia however with submental oxygen he did improve significantly. Impression & Plan Pulmonary edema, Hypoxia, Abnormal EKG, Pleural effusion Discharge Plan Visit Data *Final* Discharge Date/Time: 06/14/18 17:41 Chief Complaint: Cardiac Assessment Stated Complaint: SOB, CHEST PRESSURE- CARDIAC HX ED Provider: Renato Smith Discharge Problem: Pulmonary edema, Hypoxia, Abnormal EKG, Pleural effusion Patient Disposition: Admitted As Inpatient Discharge Instructions Interventions: ED Discharge Assessment Last Done: 06/14/18 17:41 The scribe's documentation has been prepared under my direction and personally reviewed by me in its entirety. I confirm that the note above accurately reflects all work, treatment, procedures, and medical decision making performed by me.
--- NOTE | 2018-06-14 14:09 | XRay Report ---
SINGLE VIEW CHEST CLINICAL HISTORY: Atypical chest pain. FINDINGS: An AP, portable, upright chest radiograph is compared to study dated 06/27/2016 and correlat ed with chest CT dated 05/02/2018. The examination is degraded by portable technique and patient rota tion. The heart is top normal in size, and there is atherosclerotic calcification of the thoracic ao rta. Advanced emphysema and chronic interstitial thickening are similar to previous. Volume loss in t he left lung is consistent with previous surgical resection. There is multifocal patchy airspace cons olidation throughout both lungs, new from the 05/02/[address] Small pleural effusions are identi fied. No pneumothorax is seen. The skeletal structures are osteopenic. The bony thorax is grossly int act. IMPRESSION: 1. Advanced emphysema and postoperative changes from left-sided pulmonary resection are again noted. 2. There is multifocal patchy airspace consolidation seen throughout both lungs, new from 04/24/2018. This could present multifocal pneumonia and/or pulmonary edema. Clinical correlation will be require d and radiographic follow-up to resolution is recommended. 3. Small pleural effusions are noted. Electronically signed by: Tres Mike M.D. 06/14/2018 2:07 PM
[2018-06-14 14:20] LABS: Alanine Aminotransferase 15 U/L (12-78); Albumin Level 3.7 gm/dl (3.4-5.0); Aspartate Aminotransferase 9 U/L (15-37); BUN Creatinine Ratio 13.3 (10-20); Blood Urea Nitrogen 19 mg/dl (7-18); Calcium 8.5 mg/dl (8.5-10.1); Carbon Dioxide 27 mmol/L (21-32); Chloride 108 mmol/L (98-107); Creatinine Clr Calc Pharmacy 37.2 ml/min; Est GFR (African American) 52.5; Est GFR (Non-African American) 45.3; Glucose 121 mg/dl (70-99); Lipase 75 U/L (73-393); Potassium 4.5 mmol/L (3.5-5.1); Sodium 137 mmol/L (136-145)
[2018-06-14 14:24] LABS: INR 1.1 (0.9-1.1); Partial Thromboplastin Time 26.3 Seconds (21.0-31.0); Prothrombin Time 10.6 Seconds (9.0-12.0)
[2018-06-14 14:26] LABS: Alkaline Phosphatase 55 U/L (45-117); Bilirubin,Total 0.7 mg/dl (0.2-1); Creatine Kinase 37 U/L (39-308); Creatine Kinase MB < 1.0 ng/ml (0.5-3.6); Globulin 3.8 gm/dl (2.5-4.0); Total Protein 7.5 gm/dl (6.4-8.2); Troponin I < 0.015 ng/ml (0-0.045)
[2018-06-14] MEDS ORDERED: NITROGLYCERIN 2% OINTMENT 30GM TUBE EXT ONE (14:26)
[2018-06-14] MEDS ORDERED: FUROSEMIDE 40 MG/4 ML VIAL IV STA (14:26)
[2018-06-14] MEDS ORDERED: OPTIRAY 320 125ml IV PRN (16:31)
--- NOTE | 2018-06-14 17:04 | CT Scan Report ---
CT ANGIOGRAM OF THE CHEST CLINICAL HISTORY: Dyspnea. COMPARISON STUDY: Chest x-ray dated 06/14/2018. Chest CT scans dated 05/02/2018 and 08/15/2015. TECHNIQUE: Following the IV administration of 92 cc of Optiray 320, CT angiogram of the chest was per formed from the upper abdomen to the thoracic inlet utilizing the pulmonary embolus protocol. Images are reviewed in the axial, sagittal, and coronal planes. 3-D MIPS images are created and assessed. IV contrast was administered without complication. A dose lowering technique was utilized adhering to the principles of ALARA. CT DOSE: 252.16 mGy.cm FINDINGS: Thyroid: Imaged portions of the thyroid gland are normal in size and attenuation. Thoracic aorta: There is advanced atherosclerotic calcification of the thoracic aorta, which is petra l in caliber and demonstrates 4-vessel variant arch anatomy. No dissection is seen. There is approxim ately 50% stenosis at the origin of the innominate artery secondary to soft plaque. Pulmonary vasculature: The main pulmonary arteries are dilated suggesting pulmonary artery hypertensi on. There are no filling defects identified in main, lobar, or segmental pulmonary branches to sugges t pulmonary embolus. Heart: The heart is enlarged and without pericardial effusion. The coronary arteries are densely calc ified. Lungs and pleural spaces: Advanced emphysema is identified. There is postoperative change and volume loss in the left lung consistent with previous pulmonary resection. Diffuse intralobular septal thick ening is observed. There are small pleural effusions, right larger than left with associated bibasila r consolidation. This is also greatest at the right lung base. There is a 1.8 x 0.7 cm nodular densit y in the right upper lobe seen on image #176. This is unchanged from 05/02/2018 and new from 6. This is highly concerning for neoplasm. A 2.0 cm irregular left lower lung opacity is seen on imag e #68. This is new from 05/02/2018. The trachea and central airways are clear. Mild diffuse peribronc hial thickening is observed. Mediastinum: There are mildly enlarged mediastinal lymph nodes. A prevascular node on image #168 martin ures 10 mm short axis. A subcarinal node on image #125 measures 1.9 cm in short axis. Tahmina: Mildly enlarged hilar nodes measure up to 1.2 cm in short axis. Axillae: There is no axillary lymphadenopathy. Upper abdomen: There is a small to moderate hiatal hernia. Partially visualized upper abdominal visce ra is otherwise grossly unremarkable. Skeletal structures: The skeletal structures are osteopenic. Degenerative change and mild hyperkyphos is are noted throughout the thoracic spine. Postoperative change is noted in the left-sided ribs. Art hritic change is seen in the shoulders. No lytic or blastic bony lesions are seen. IMPRESSION: 1. There is no evidence of pulmonary embolus in the main, lobar, or segmental pulmonary arteries. 2. Advanced emphysema and postoperative change from left-sided pulmonary resection. 3. Cardiomegaly with evidence of congestive failure. 4. There are with right larger than left pleural effusions with associated bibasilar consolidation. T his is also greatest at the right lung base. The appearance is concerning for pneumonia/aspiration pn eumonitis. Clinical correlation will be required and radiographic follow-up to resolution is recommen ded. 5. There is a 1.8 cm irregular opacity in the right upper lobe. This is unchanged from 05/02/2018 but new from 08/15/2015. This is highly concerning for neoplasm. 6. There is a 1.9 cm irregular airspace opacity in the left lower lung, new from 05/02/2018. This is pathologically indeterminant, and could be on an infectious/inflammatory or neoplastic basis. Attenti on at follow-up is recommended. 7. There are nonspecific enlarged mediastinal and hilar lymph nodes. 8. Additional findings as above. Electronically signed by: Tres Mike M.D. 06/14/2018 5:01 PM
[2018-06-14] MEDS ORDERED: AZITHROMYCIN 250 MG TAB PO ONE (18:23)
[2018-06-14] MEDS: cefTRIAXone SODIUM 1,000 MG in DEXTROSE 5% 50 ML IV SCH (19:26)
--- NOTE | 2018-06-14 19:43 | History & Physical Report ---
Date of Service June 14, 2018 Assessment & Plan (1) Hypoxia: 82 year old male with a history of a seizure disorder, [place], coronary stents , CAD, COPD, hypertension, stage III CKD, lung cancer, a lobectomy of the lung, and a carotid endarterectomy who presents with hypoxia Acute Respiratory Failure with Hypoxia -multifactorial -possibly from COPD excacerbation /emphysema / former smoker pulmonary function testing in 06/04/[address] of [address] scan showing emphysema Advanced emphysema. will give duonebs q4 hours -possibly from pleural effusion vs pneumonia CT scan right larger than left pleural effusions with associated bibasilar consolidation. This is also greatest at the right lung base. The appearance is concerning for pneumonia/ aspiration pneumonitis. will give IV ceftriaxone and azithromycin daily. blood cultures have been sent -possible CHF excerbation. CT scan of Cardiomegaly with evidence of congestive failure. will send BNP. will obtain echocardiogram. given Lasix in the ED, start Lasix IV daily -history of lung cancer and being recently followed as outpatient for lung nodule. CT scan shows a 1.8 cm irregular opacity in the right upper lobe. This is unchanged from 05/02/2018 but new from 08/15/2015. This is highly concerning for neoplasm. There is a 1.9 cm irregular airspace opacity in the left lower lung, new from . This is pathologically indeterminant, and could be on an infectious/ inflammatory or neoplastic basis. Attention at follow-up is recommended. There are nonspecific enlarged mediastinal and hilar lymph nodes. will consider getting ultrasound to see if enough fluid can be sent for thoracentesis if effusions do not respond to medications -history of left-sided pulmonary resection Chest pain history of CAD with stent was given nitropaste in the ED initial troponin negative trend troponins obtain echocardiogram continue home medications of aspirin, isosorbide monitrate, carvedilol, amlodipine Hypertension isosorbide monitrate, carvedilol, amlodipine CKD stage III monitor renal function History of Seizure denies recent seizures continue lamotrigine continue dutasteride DVT ppx Full Code History of Present Illness Primary Care Provider: Harris Cam Patient reports progressive shortness of breath in the past 1 week he has been using his 's oxygen to feel better. To the ED physician he had described chest discomfort with breathing ED physician reported abnormal EKG findings which could be consistent with ischemia was given aspirin and nitropaste Although when seen by hospitalist, Patient denies symptoms chest pain denies palpitations or fevers or abdominal pain or vomiting or headache or dizziness. In the ED, patient was found to be significantly hypoxic. Patient denies family history of health problems Allergy to lidocaine Allergies Allergy/AdvReac Type Severity Reaction Status Date / Time lidocaine Allergy Unknown PRESERVATIVE Verified 06/14/18 14:01 IN LIDOCAINE CAUSES RED SKIN Home Medications Home Medications Medication Instructions Recorded Confirmed Type amlodipine 10 mg PO DAILY 06/14/18 06/14/18 History aspirin [Aspir-81] 81 mg PO DAILY 06/14/18 06/14/18 History carvedilol 6.25 mg PO BID 06/14/18 06/14/18 History dutasteride 0.5 mg PO DAILY 06/14/18 06/14/18 History isosorbide mononitrate 60 mg PO DAILY 06/14/18 06/14/18 History lamotrigine 150 mg PO BID 06/14/18 06/14/18 History omeprazole 20 mg PO DAILY 06/14/18 06/14/18 History Past Med/Surg History Medical History Seizure disorder (Chronic) CAD (coronary artery disease) (Chronic) "2004 - RAFI to left cx 02/2011 - BMS to prox LAD and RCA" COPD (chronic obstructive pulmonary disease) (Chronic) HTN (hypertension) (Chronic) CKD (chronic kidney disease), stage III (Chronic) Lung cancer (Chronic) Surgical History S/P lobectomy of lung (Chronic) "LLL for cancer" S/P carotid endarterectomy (Chronic) "left" Social History marital status: Current Living Situation: Spouse Current Living Situation Comment: LIVE AT HOME WITH current occupational status: retired Other Information That Helps Us Care for You: No Feels Safe at Home: Yes Safety Concerns: Feels Safe At This Time Smoking Status: Former smoker Tobacco Type: cigarettes Do You Dip or Chew Tobacco: No Second Hand Exposure: No Tobacco Cessation Education Requested by Patient: No Hx Alcohol Use: No Hx Substance Use: No Beliefs That Will Affect Care: None Preferred Language: Ukrainian Communication Ability: Effective Venetian Blind Cleaner Required: No Physical Exam 2 Vital Signs (Past 24 Hours): Last Vital Signs Temp 36.5 C 06/14/18 19:00 Pulse 64 06/14/18 19:00 Resp 18 06/14/18 19:00 BP 140/64 06/14/18 19:00 Pulse Ox 91 06/14/18 19:00 Constitutional: WD/WN, vitals as above Eyes: PERRL, conjunctivae normal, anicteric sclerae EOM intact bilaterally Neck: trachea midline, no thyromegaly Respiratory: normal respiratory effort (some crackles of lower lung boles) Cardiovascular: Rate/Rhythm: regular rate and regular rhythm Gastrointestinal (Abdomen): normal bowel sounds, soft, nontender, no hepatosplenomegaly Musculoskeletal: no cyanosis or clubbing, extremities motor strength 5/5 Head/Neck/Chest: normocephalic and head atraumatic Neurologic: PERRL, EOMI, accommodation nl, no face palsy, no dysarthria CN' s II-XI intact bilaterally Psychiatric: A+Ox3, euthymic affect
[2018-06-14] MEDS: ALBUT/IPRATROP 3MG/0.5MG NEB 3 ML VIAL NEB SCH ×2 (19:49→23:13)
[2018-06-14 20:29] LABS: NT Pro B Type Natriuretic Pept 244 pg/ml (0-1800); Troponin I < 0.015 ng/ml (0-0.045)
[2018-06-14] MEDS: HEPARIN SOD 5,000 UNIT/0.5 ML VIAL SQ SCH (21:13)
[2018-06-14] MEDS: lamoTRIgine 100 MG TAB PO SCH (21:13)
[2018-06-14] MEDS: CARVEDILOL 6.25 MG TAB PO SCH (21:13)
[2018-06-15] MEDS: ALBUT/IPRATROP 3MG/0.5MG NEB 3 ML VIAL NEB SCH ×6 (03:21→23:28)
[2018-06-15] MEDS: HEPARIN SOD 5,000 UNIT/0.5 ML VIAL SQ SCH ×3 (06:11→20:58)
[2018-06-15 07:10] LABS: Basophils # (auto) 0.02 K/uL (0-0.2); Basophils % (auto) 0.3 %; Eosinophils # (auto) 0.27 K/uL (0-0.5); Eosinophils % (auto) 4.3 %; Hematocrit (blood only) 39.4 % (42-52); Hemoglobin 12.7 g/dL (14.0-18.0); Immature Granulocytes # (auto) 0.02 K/uL (0.00-0.02); Immature Granulocytes % (auto) 0.3 %; Lymphocytes # (auto) 0.95 K/uL (1.2-3.4); Lymphocytes % (auto) 15.2 %; Mean Corpuscular Hemoglobin 29.3 pg (25-34); Mean Corpuscular Hgb Conc 32.2 g/dL (32-36); Mean Corpuscular Volume 90.8 fL (80-100); Mean Platelet Volume 9.8 fL (7.4-10.4); Monocytes # (auto) 0.79 K/uL (0.11-0.59); Monocytes % (auto) 12.6 %; Neutrophils # (auto) 4.21 K/uL (1.4-6.5); Neutrophils % (auto) 67.3 %; Platelet Count 161 K/uL (130-400); RDW Coefficient of Variation 14.5 % (11.5-14.5); RDW Standard Deviation 48.4 fL (36.4-46.3); Red Blood Count 4.34 M/uL (4.7-6.1); White Blood Count 6.26 K/uL (4.8-10.8)
[2018-06-15 07:12] LABS: Base Excess VBG 2.7 mEq/L; Oxygen Saturation VBG 80.9 %; pH VBG 7.4 (7.36-7.41)
[2018-06-15 07:38] LABS: Alanine Aminotransferase 13 U/L (12-78); Albumin Level 3.3 gm/dl (3.4-5.0); Aspartate Aminotransferase 9 U/L (15-37); BUN Creatinine Ratio 13.8 (10-20); Blood Urea Nitrogen 20 mg/dl (7-18); Calcium 8.2 mg/dl (8.5-10.1); Carbon Dioxide 28 mmol/L (21-32); Chloride 105 mmol/L (98-107); Creatinine Clr Calc Pharmacy 36.5 ml/min; Est GFR (African American) 51.2; Est GFR (Non-African American) 44.2; Glucose 94 mg/dl (70-99); Potassium 4.3 mmol/L (3.5-5.1); Sodium 137 mmol/L (136-145)
[2018-06-15 07:43] LABS: Alkaline Phosphatase 48 U/L (45-117); Bilirubin,Total 0.6 mg/dl (0.2-1); Globulin 3.3 gm/dl (2.5-4.0); Total Protein 6.6 gm/dl (6.4-8.2); Troponin I < 0.015 ng/ml (0-0.045)
[2018-06-15] MEDS: FUROSEMIDE 40 MG in SYRINGE 0 ML IV SCH (08:22)
[2018-06-15] MEDS: CARVEDILOL 6.25 MG TAB PO SCH ×2 (08:22→20:57)
[2018-06-15] MEDS: lamoTRIgine 100 MG TAB PO SCH ×2 (08:23→20:57)
[2018-06-15] MEDS: ASPIRIN 81 MG ECTAB PO SCH (08:23)
[2018-06-15] MEDS: ISOSORBIDE MONO EXTENDED REL 60 MG TABCR PO SCH (08:23)
[2018-06-15] MEDS: AMLODIPINE BESYLATE 5 MG TAB PO SCH (08:23)
[2018-06-15] MEDS: PANTOprazole 40 MG TAB PO SCH (08:23)
[2018-06-15] MEDS ORDERED: PERFLUTREN LIPID MICROSPHERE (DEFINITY) IV ONE (09:07)
--- NOTE | 2018-06-15 13:00 | XRay Report ---
XR chest 1V portable HISTORY: Pleural effusion COMPARISON: Chest CTA 06/14/2018. FINDINGS: Emphysema. The heart is normal in size. Diffuse interstitial thickening has improved. This suggests resolving pulmonary edema on the background of chronic interstitial change. Small bilateral pleural effusions are noted. No pneumothorax. Bilateral irregular densities are better appreciated on the prior chest CT. IMPRESSION: 1. Improvement in the pulmonary edema on the background of chronic interstitial thickening. 2. Small bilateral pleural effusions persist. 3. Bilateral irregular densities are better appreciated on the recent chest CT. Electronically signed by: Kurt Steinberg M.D. 06/15/2018 12:58 PM
--- NOTE | 2018-06-15 13:38 | Pulmonary Consultation ---
Date of Consultation June 15, 2018 Assessment & Plan (1) Pulmonary edema: The patient was given IV Lasix with significant improvement. His chest x- ray has also improved and his breathing is also improved. We are going to continue with the Lasix as prescribed. Chronicity: acute Qualified Code(s): J81.0 - Acute pulmonary edema (2) Hypoxia: Currently he is on 5 L nasal cannula O2 and is oxygenating around 92%. Will slowly taper his oxygen down as he is maintaining his saturation. (3) Pleural effusion: The patient's pleural effusion is minimal and stable may be improved to some extent. I do not believe it is related to his pulmonary nodules. So we are going to monitor it and if indicated will consider thoracentesis but at this stage I feel it is very minimal there is not enough fluids to do the thoracentesis. (4) COPD (chronic obstructive pulmonary disease): The patient also has extensive history of smoking in the past. We will continue with oxygen we are going to continue with the inhalers as prescribed and also 6 doses of IV Solu-Medrol 60 mg every 8 hours x6 doses. He will be also out of bed to chair and ambulated as tolerated. History of Present Illness Reason for Consultation: Hypoxia/respiratory failure/pleural effusion. Requesting Physician: Helio Bonilla MD Attending Physician: Helio Bonilla MD History of Present Illness The patient is an 82 year old male with a history of a seizure disorder, [place], coronary stents, CAD, COPD, hypertension, stage III CKD, lung cancer, a lobectomy of the lung, and a carotid endarterectomy who presents to the Emergency Room with complaints of worsening shortness of breath starting today. The patient reports that his symptoms resolve when he is still and resting. He currently denies any shortness of breath and chest pain. He notes that he did not take anything for his symptoms today, including nitroglycerin. He further denies any leg swelling, abdominal pain, and diarrhea. After the admission the patient was started on oxygen on 6 L he was oxygenating around 98% this morning so he was brought down to 95%. He was also diuresed with 40 of IV Lasix with significant improvement in his breathing and he denies having any difficulty in breathing at rest. He has minimal cough but denies having any chest pain or palpitations. He has previous extensive history of smoking. The patient recently had pulmonary function tests that revealed FVC of 2.72 L or 87% no significant change postbronchodilator. FEV1 was consistent with 1.41 L or 59% predicted and no change postbronchodilator. His FEV1 over FVC was 77% . His FEF 25/75% was only 0.46 L or 20% predicted. His total lung capacity was 319 his RV was 597 and FRC was 470 ERV was 74 and is diffusing lung capacity was only 76% predicted. His pulmonary function test was consistent with moderate obstructive lung disease with atropines and hyperinflation. Allergies Allergy/AdvReac Type Severity Reaction Status Date / Time lidocaine Allergy Unknown PRESERVATIVE Verified 06/14/18 14:01 IN LIDOCAINE CAUSES RED SKIN Home Medications Home Medications Medication Instructions Recorded Confirmed Type amlodipine 10 mg PO DAILY 06/14/18 06/14/18 History aspirin [Aspir-81] 81 mg PO DAILY 06/14/18 06/14/18 History carvedilol 6.25 mg PO BID 06/14/18 06/14/18 History dutasteride 0.5 mg PO DAILY 06/14/18 06/14/18 History isosorbide mononitrate 60 mg PO DAILY 06/14/18 06/14/18 History lamotrigine 150 mg PO BID 06/14/18 06/14/18 History omeprazole 20 mg PO DAILY 06/14/18 06/14/18 History Patient History Medical History Seizure disorder (Chronic) CAD (coronary artery disease) (Chronic) "2004 - RAFI to left cx 02/2011 - BMS to prox LAD and RCA" COPD (chronic obstructive pulmonary disease) (Chronic) I also discussed with Dr. Bonilla about the case and recommendation. I have spent greater than 55 minutes of clinical time. Thank you very much for allowing me to participate in the care of your patient. If you have got any further questions please do not hesitate to contact me and I will follow this case with you. Thank you. HTN (hypertension) (Chronic) CKD (chronic kidney disease), stage III (Chronic) Lung cancer (Chronic) Surgical History S/P lobectomy of lung (Chronic) "LLL for cancer" S/P carotid endarterectomy (Chronic) "left" Social History marital status: Current Living Situation: Spouse Current Living Situation Comment: LIVE AT HOME WITH current occupational status: retired Other Information That Helps Us Care for You: No Feels Safe at Home: Yes Safety Concerns: Feels Safe At This Time Smoking Status: Former smoker Tobacco Type: cigarettes Do You Dip or Chew Tobacco: No Second Hand Exposure: No Tobacco Cessation Education Requested by Patient: No Hx Alcohol Use: No Hx Substance Use: No Beliefs That Will Affect Care: None Communication Ability: Effective Review of Systems The patient is resting comfortably in the bed and eating his lunch at this time. Currently he is on 5 L nasal cannula O2 and oxygenating around 93%. He denies having any headache dizziness or syncopal episode. Also denies having any swollen glands. He denies having any chest pain. He gets more short of breath with any kind of exertional activities. Denies having any wheezing. At times he has got orthopnea and paroxysmal nocturnal dyspnea. He denies having any abdominal pain nausea or vomiting. He denies having any blood in his stool urine no painful micturition. Also denies having any swollen extremities. No swollen glands. Physical Exam 2 Vital Signs (Past 24 Hours): Last Vital Signs Temp 36.7 C 06/15/18 11:45 Pulse 68 06/15/18 11:45 Resp 18 06/15/18 11:45 BP 131/65 06/15/18 11:45 Pulse Ox 89 L 06/15/18 11:45 Physical Exam: Elderly male sitting in the bed and eating his lunch without any discomfort. Resting comfortably and not in any acute distress. HEENT: The patient is normocephalic, clear eyes no appearance of jaundice., Nasal passages are filled with some mucoid secretions. Throat is clear. Neck: The neck is supple. No JVD no lymphadenopathy, no cervical or supraclavicular adenopathy. Chest: Bilateral air entry with coarse breathing few scattered rhonchi no wheezing heard. The patient has right lower lobe crackles at the bases. Heart: S1-S2 heard, no murmur or gallop can be appreciated. Abdomen: Soft nontender no hepatosplenomegaly. Bowel sounds are positive. Extremities: There is no clubbing no edema nontender calf muscles in both the lower extremities. Neurology: The patient is alert awake and oriented x3. His pupils are reactive to light bilaterally equally. He has nonfocal neurological exams and is moving all his extremities. Skin: No rash no lesions seen on the skin. Psych: The patient has normal psychological function and no abnormalities were detected. Results & Data Laboratory Results Abnormal lab results 06/14/18 06/14/18 06/14/18 Range/Units 13:50 13:50 13:50 RBC (4.7-6.1) M/uL Hgb (14.0-18.0) g/dL Hct (42-52) % RDW Std Deviation 48.8 H (36.4-46.3) fL RDW Coeff of Brendan 14.6 H (11.5-14.5) % Lymph # (Auto) 0.93 L (1.2-3.4) K/uL [place] # (Auto) 0.74 H (0.11-0.59) K/uL ESR (0-14) mm/hr D-Dimer 580 H* (0-500) ug/L FEU Chloride 108 H (98-107) mmol/L Anion Gap 2.0 L (3-11) BUN 19 H (7-18) mg/dl Creatinine 1.43 H (0.6-1.4) mg/dl Glucose 121 H (70-99) mg/dl Calcium (8.5-10.1) mg/dl AST 9 L (15-37) U/L Total Creatine Kinase 37 L (39-308) U/L Albumin (3.4-5.0) gm/dl 06/14/18 06/15/18 06/15/18 Range/Units 13:50 06:55 06:55 RBC 4.34 L (4.7-6.1) M/uL Hgb 12.7 L (14.0-18.0) g/dL Hct 39.4 L (42-52) % RDW Std Deviation 48.4 H (36.4-46.3) fL RDW Coeff of Brendan (11.5-14.5) % Lymph # (Auto) 0.95 L (1.2-3.4) K/uL [place] # (Auto) 0.79 H (0.11-0.59) K/uL ESR 22 H (0-14) mm/hr D-Dimer (0-500) ug/L FEU Chloride (98-107) mmol/L Anion Gap (3-11) BUN 20 H (7-18) mg/dl Creatinine 1.46 H (0.6-1.4) mg/dl Glucose (70-99) mg/dl Calcium 8.2 L (8.5-10.1) mg/dl AST 9 L (15-37) U/L Total Creatine Kinase (39-308) U/L Albumin 3.3 L (3.4-5.0) gm/dl Diagnostic Findings IMPRESSION: 1. There is no evidence of pulmonary embolus in the main, lobar, or segmental pulmonary arteries. 2. Advanced emphysema and postoperative change from left-sided pulmonary resection. 3. Cardiomegaly with evidence of congestive failure. 4. There are with right larger than left pleural effusions with associated bibasilar consolidation. This is also greatest at the right lung base. The appearance is concerning for pneumonia/aspiration pneumonitis. Clinical correlation will be required and radiographic follow-up to resolution is recommended. 5. There is a 1.8 cm irregular opacity in the right upper lobe. This is unchanged from 05/02/2018 but new from 08/15/2015. This is highly concerning for neoplasm. 6. There is a 1.9 cm irregular airspace opacity in the left lower lung, new from 05/02/2018. This is pathologically indeterminant, and could be on an infectious/inflammatory or neoplastic basis. Attention at follow-up is recommended. 7. There are nonspecific enlarged mediastinal and hilar lymph nodes. 8. Additional findings as above. Electronically signed by: Tres Mike M.D. 06/14/2018 5:01 PM XR chest 1V portable HISTORY: Pleural effusion COMPARISON: Chest CTA 06/14/2018. FINDINGS: Emphysema. The heart is normal in size. Diffuse interstitial thickening has improved. This suggests resolving pulmonary edema on the background of chronic interstitial change. Small bilateral pleural effusions are noted. No pneumothorax. Bilateral irregular densities are better appreciated on the prior chest CT. IMPRESSION: 1. Improvement in the pulmonary edema on the background of chronic interstitial thickening. 2. Small bilateral pleural effusions persist. 3. Bilateral irregular densities are better appreciated on the recent chest CT. Electronically signed by: Kurt Steinberg M.D. 06/15/2018 12:58 PM Medications Administered Current Inpatient Medications Albuterol (Duoneb) 3 ml NEB Q4R [facility] Stop: 07/14/18 19:59 Last Admin: 06/15/18 11:32 Dose: 3 ml Amlodipine Besylate (Norvasc) 10 mg PO DAILY [facility] Stop: 07/15/18 08:59 Last Admin: 06/15/18 08:23 Dose: 10 mg Aspirin (Ecotrin Ectab) 81 mg PO DAILY [facility] Stop: 07/15/18 08:59 Last Admin: 06/15/18 08:23 Dose: 81 mg Azithromycin (Zithromax) 250 mg PO DAILY@1600 [facility] Stop: 06/22/18 15:59 Carvedilol (Coreg) 6.25 mg PO BID [facility] Stop: 07/14/18 20:59 Last Admin: 06/15/18 08:22 Dose: 6.25 mg Heparin Sodium (Porcine) (Heparin Sodium (Porcine)) 5,000 units SQ Q8 [facility] Stop: 07/14/18 21:59 Last Admin: 06/15/18 06:11 Dose: 5,000 units Ceftriaxone Sodium 1,000 mg/ (Dextrose) 50 mls @ 100 mls/hr IV Q24H [facility]; Protocol Stop: 06/21/18 18:59 Last Infusion: 06/14/18 20:02 Dose: Infused Furosemide 40 mg/ Syringe 4 mls @ 4 mls/min IV DAILY@0900 [facility] Stop: 07/15/18 08:59 Last Admin: 06/15/18 08:22 Dose: 4 mls/min Ioversol (Optiray 320 125ml) 92 ml IV ONCE PRN PRN Reason: Interaction Checking Stop: 06/18/18 16:30 Last Admin: 06/14/18 16:31 Dose: 92 ml Isosorbide Mononitrate (Imdur Extended Rel) 60 mg PO DAILY [facility] Stop: 07/15/18 08:59 Last Admin: 06/15/18 08:23 Dose: 60 mg Lamotrigine (Lamictal) 150 mg PO BID [facility] Stop: 07/14/18 20:59 Last Admin: 06/15/18 08:23 Dose: 150 mg Miscellaneous (Order Awaiting Action) 1 ea N/A DAILY [facility] Stop: 07/15/18 08:59 Last Admin: 06/15/18 08:24 Dose: Not Given Pantoprazole Sodium (Protonix) 40 mg PO DAILY [facility] Stop: 07/15/18 08:59 Last Admin: 06/15/18 08:23 Dose: 40 mg
--- NOTE | 2018-06-15 15:27 | Hospitalist Progress Note ---
Date of Service June 15, 2018 Assessment & Plan (1) Hypoxia: 82 year old male with a history of a seizure disorder, [place], coronary stents , CAD, COPD, hypertension, stage III CKD, lung cancer, a lobectomy of the lung, and a carotid endarterectomy who presents with hypoxia Acute Respiratory Failure with Hypoxia -multifactorial -etiology possibly from COPD excacerbation /emphysema / former smoker pulmonary function testing in 06/04/[address] of [address] scan showing emphysema Advanced emphysema. continue duonebs q4 hours will start solumedrol as per pulmonary service for COPD exacerbation -etiology possibly from pleural effusion vs pneumonia CT scan right larger than left pleural effusions with associated bibasilar consolidation. This is also greatest at the right lung base. The appearance is concerning for pneumonia/ aspiration pneumonitis. continue IV ceftriaxone and azithromycin daily. blood cultures from 06/14/18 pending results -etiology possible CHF excerbation (possible diastolic heart failure). CT scan of Cardiomegaly with evidence of congestive failure. however BNP is within normal limits on admission as 244. echocardiogram with EF of 60 to 65% with grade I diastolic dysfunction. appears that the pleural effusions and oxygen requirements are improving with Lasix, continue IV Lasix 40 mg daily -history of lung cancer and being recently followed as outpatient for lung nodule. CT scan shows a 1.8 cm irregular opacity in the right upper lobe. This is unchanged from 05/02/2018 but new from 08/15/2015. This is highly concerning for neoplasm. There is a 1.9 cm irregular airspace opacity in the left lower lung, new from . This is pathologically indeterminant, and could be on an infectious/ inflammatory or neoplastic basis. Attention at follow-up is recommended. There are nonspecific enlarged mediastinal and hilar lymph nodes. as per pulmonary service there are not enough pleural effusion to tap at this time - continue medication management -history of left-sided pulmonary resection Chest pain (cardiac causes ruled out, patient has generally been pain free) history of CAD with stent was given nitropaste in the ED troponins are negative echocardiogram without wall motion abnormalities continue home medications of aspirin, isosorbide monitrate, carvedilol, amlodipine Hypertension isosorbide monitrate, carvedilol, amlodipine CKD stage III monitor renal function History of Seizure denies recent seizures continue lamotrigine continue dutasteride DVT ppx Full Code Subjective Patient's oxygen requirements decreased from 6 liters/min to 5 liters/min Patient reports having a rough morning. But denies acute gasping for air. denies chest pain. denies palpitations. denies abdominal pain. denies vomiting Physical Exam 2 Vital Signs (Past 24 Hours): Last Vital Signs Temp 36.7 C 06/15/18 11:45 Pulse 68 06/15/18 11:45 Resp 18 06/15/18 11:45 BP 131/65 06/15/18 11:45 Pulse Ox 92 06/15/18 13:00 Constitutional: WD/WN, vitals as above Eyes: PERRL, conjunctivae normal, anicteric sclerae EOM intact bilaterally Neck: trachea midline, no thyromegaly Respiratory: normal respiratory effort (some crackles of lower lung boles) Cardiovascular: Rate/Rhythm: regular rate and regular rhythm Gastrointestinal (Abdomen): normal bowel sounds, soft, nontender, no hepatosplenomegaly Musculoskeletal: no cyanosis or clubbing, extremities motor strength 5/5 Head/Neck/Chest: normocephalic and head atraumatic Neurologic: PERRL, EOMI, accommodation nl, no face palsy, no dysarthria CN' s II-XI intact bilaterally Psychiatric: A+Ox3, euthymic affect
[2018-06-15] MEDS: methylPREDNISolone 60 MG in SYRINGE 0 ML IV SCH (16:54)
[2018-06-15] MEDS: AZITHROMYCIN 250 MG TAB PO SCH (16:55)
[2018-06-15] MEDS: cefTRIAXone SODIUM 1,000 MG in DEXTROSE 5% 50 ML IV SCH (20:57)
[2018-06-16] MEDS: methylPREDNISolone 60 MG in SYRINGE 0 ML IV SCH ×3 (01:25→16:04)
[2018-06-16] MEDS: ALBUT/IPRATROP 3MG/0.5MG NEB 3 ML VIAL NEB SCH ×6 (04:22→23:13)
[2018-06-16] MEDS: HEPARIN SOD 5,000 UNIT/0.5 ML VIAL SQ SCH ×3 (06:11→22:20)
[2018-06-16] MEDS: lamoTRIgine 100 MG TAB PO SCH ×2 (08:19→20:33)
[2018-06-16] MEDS: FUROSEMIDE 40 MG in SYRINGE 0 ML IV SCH (08:19)
[2018-06-16] MEDS: AMLODIPINE BESYLATE 5 MG TAB PO SCH (08:20)
[2018-06-16] MEDS: PANTOprazole 40 MG TAB PO SCH (08:20)
[2018-06-16] MEDS: CARVEDILOL 6.25 MG TAB PO SCH ×2 (08:20→20:33)
[2018-06-16] MEDS: ISOSORBIDE MONO EXTENDED REL 60 MG TABCR PO SCH (08:20)
[2018-06-16] MEDS: ASPIRIN 81 MG ECTAB PO SCH (09:01)
[2018-06-16] MEDS: AZITHROMYCIN 250 MG TAB PO SCH (16:04)
--- NOTE | 2018-06-16 17:55 | Hospitalist Progress Note ---
Date of Service June 16, 2018 Assessment & Plan (1) Hypoxia: 82 year old male with a history of a seizure disorder, [place], coronary stents , CAD, COPD, hypertension, stage III CKD, lung cancer, a lobectomy of the lung, and a carotid endarterectomy who presents with hypoxia Acute Respiratory Failure with Hypoxia -multifactorial -etiology possibly from COPD excacerbation /emphysema / former smoker pulmonary function testing in 06/04/[address] of [address] scan showing emphysema Advanced emphysema. continue duonebs q4 hours will have solumedrol q8 hours as per pulmonary service for COPD exacerbation from 06/15/18 to 06/17/18 -etiology possibly from pleural effusion vs pneumonia CT scan right larger than left pleural effusions with associated bibasilar consolidation. This is also greatest at the right lung base. The appearance is concerning for pneumonia/ aspiration pneumonitis. continue IV ceftriaxone and azithromycin daily as started on 06/14/18. blood cultures from 06/14/18 pending results are no growth to date. will continue antibiotics given improvements in clinical response (by decreasing supplementary oxygen requirements) -etiology possible CHF excerbation (possible diastolic heart failure). CT scan of Cardiomegaly with evidence of congestive failure. however BNP is within normal limits on admission as 244. echocardiogram with EF of 60 to 65% with grade I diastolic dysfunction. appears that the pleural effusions and oxygen requirements are improving with Lasix, continue IV Lasix 40 mg daily -history of lung cancer and being recently followed as outpatient for lung nodule. CT scan shows a 1.8 cm irregular opacity in the right upper lobe. This is unchanged from 05/02/2018 but new from 08/15/2015. This is highly concerning for neoplasm. There is a 1.9 cm irregular airspace opacity in the left lower lung, new from . This is pathologically indeterminant, and could be on an infectious/ inflammatory or neoplastic basis. Attention at follow-up is recommended. There are nonspecific enlarged mediastinal and hilar lymph nodes. will need further outpatient follow up as per pulmonary service on 06/15/18 there are not enough pleural effusion to tap at this time - continue medication management -history of left-sided pulmonary resection Chest pain (cardiac causes ruled out, patient has generally been pain free) history of CAD with stent was given nitropaste in the ED troponins are negative echocardiogram without wall motion abnormalities continue home medications of aspirin, isosorbide monitrate, carvedilol, amlodipine Hypertension isosorbide monitrate, carvedilol, amlodipine CKD stage III monitor renal function History of Seizure denies recent seizures continue lamotrigine home medication dutasteride which is non-formulary in hospital DVT ppx Full Code Subjective Patient's oxygen requirements decreased from 5 liters/min to 2 liters/min denies chest pain. denies palpitations. denies abdominal pain. denies vomiting Physical Exam 2 Vital Signs (Past 24 Hours): Last Vital Signs Temp 36.3 C L 06/16/18 15:26 Pulse 85 06/16/18 15:55 Resp 16 06/16/18 15:26 BP 159/77 H 06/16/18 15:26 Pulse Ox 92 06/16/18 15:26 Constitutional: WD/WN, vitals as above Eyes: PERRL, conjunctivae normal, anicteric sclerae EOM intact bilaterally Neck: trachea midline, no thyromegaly Respiratory: normal respiratory effort (some crackles of lower lung boles) Cardiovascular: Rate/Rhythm: regular rate and regular rhythm Gastrointestinal (Abdomen): normal bowel sounds, soft, nontender, no hepatosplenomegaly Musculoskeletal: no cyanosis or clubbing, extremities motor strength 5/5 Head/Neck/Chest: normocephalic and head atraumatic Neurologic: PERRL, EOMI, accommodation nl, no face palsy, no dysarthria CN' s II-XI intact bilaterally Psychiatric: A+Ox3, euthymic affect
[2018-06-16] MEDS: cefTRIAXone SODIUM 1,000 MG in DEXTROSE 5% 50 ML IV SCH (19:27)
[2018-06-17] MEDS: methylPREDNISolone 60 MG in SYRINGE 0 ML IV SCH ×2 (00:02→08:07)
[2018-06-17] MEDS: ALBUT/IPRATROP 3MG/0.5MG NEB 3 ML VIAL NEB SCH ×4 (03:11→15:06)
[2018-06-17] MEDS: HEPARIN SOD 5,000 UNIT/0.5 ML VIAL SQ SCH ×3 (05:27→20:40)
[2018-06-17 07:29] LABS: Hematocrit (blood only) 40.9 % (42-52); Hemoglobin 13.6 g/dL (14.0-18.0); Immature Granulocytes # (auto) 0.01 K/uL (0.00-0.02); Immature Granulocytes % (auto) 0.1 %; Lymphocytes # (auto) 0.26 K/uL (1.2-3.4); Lymphocytes % (auto) 2.8 %; Mean Corpuscular Hemoglobin 29.5 pg (25-34); Mean Corpuscular Hgb Conc 33.3 g/dL (32-36); Mean Corpuscular Volume 88.7 fL (80-100); Monocytes # (auto) 0.41 K/uL (0.11-0.59); Monocytes % (auto) 4.3 %; Neutrophils # (auto) 8.75 K/uL (1.4-6.5); Neutrophils % (auto) 92.8 %; Platelet Count 165 K/uL (130-400); RDW Coefficient of Variation 14.7 % (11.5-14.5); Red Blood Count 4.61 M/uL (4.7-6.1); White Blood Count 9.43 K/uL (4.8-10.8)
[2018-06-17] MEDS: ISOSORBIDE MONO EXTENDED REL 60 MG TABCR PO SCH (08:05)
[2018-06-17] MEDS: CARVEDILOL 6.25 MG TAB PO SCH ×2 (08:05→20:37)
[2018-06-17] MEDS: AMLODIPINE BESYLATE 5 MG TAB PO SCH (08:05)
[2018-06-17] MEDS: PANTOprazole 40 MG TAB PO SCH (08:05)
[2018-06-17] MEDS: ASPIRIN 81 MG ECTAB PO SCH (08:05)
[2018-06-17] MEDS: FUROSEMIDE 40 MG in SYRINGE 0 ML IV SCH (08:06)
[2018-06-17] MEDS: lamoTRIgine 100 MG TAB PO SCH ×2 (08:06→20:37)
[2018-06-17 09:25] LABS: Albumin Level 3.5 gm/dl (3.4-5.0); BUN Creatinine Ratio 21.6 (10-20); Calcium 8.4 mg/dl (8.5-10.1); Creatinine Clr Calc Pharmacy 30.4 ml/min; Est GFR (African American) 41.1; Est GFR (Non-African American) 35.5; Magnesium 2.8 mg/dl (1.8-2.4); Potassium 4.1 mmol/L (3.5-5.1)
[2018-06-17 09:27] LABS: Bilirubin,Total 0.3 mg/dl (0.2-1); Globulin 3.5 gm/dl (2.5-4.0)
--- NOTE | 2018-06-17 12:56 | Progress Note ---
DATE: 06/17/2018 PULMONARY MEDICINE PROGRESS NOTE Chart reviewed, the patient examined. 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 The surgeries have been performed by Dr. Cummins and the lobectomy done in [address] Tomas Villagran/pulmonary medicine. He has been followed at the cancer center in [place] along with 1 or [address] 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 He was admitted with worsening shortness of breath, chest pressure and hypoxemia requiring 6 liters of oxygen. He was diuresed 40 mg IV Lasix in the ER with improvement in symptoms. PFTs revealed a forced vital capacity of 2.72 liters or 87% of predicted with an FEV1 of 1.41 liters or 59% of predicted with no response to bronchodilator. His ratio was 77%. Diffusion capacity was 76% of predicted and he had evidence for significant hyperinflation. He has been on no inhaler regimen per se at home and I have been asked by Dr. Bonilla to see the patient currently for additional evaluation. His last catheterization was in 2010 which showed grafts to the LAD and RCA. He is followed by Dr. Cummins and was to have a PET scan ordered as an outpatient before this hospitalization. Current echocardiogram shows a normal LVEF of 65% with no segmental wall motion abnormalities and grade 1 diastolic dysfunction, no overt evidence to suggest significant pulmonary arterial hypertension. The most recent CT scan of the chest on 06/14/2018 shows no evidence of pulmonary thromboembolic disease, but there are changes of advanced emphysema and postoperative changes from the left-sided pulmonary resection. There was evidence for cardiomegaly with CHF with right greater than left pleural effusions and associated bibasilar consolidation. This is most noted at the right lung base, possible aspiration. A 1.8 cm irregular opacity seen in the right upper lobe which was unchanged from 05/02/2018, but new from 08/15/2015, highly suspicious for neoplasm and a 1.9 cm irregular airspace opacity in the left lower lung, new from 05/02/2018, possibly representing an infectious or inflammatory infiltrate, no specific mediastinal or hilar lymphadenopathy noted. Chest x-ray on the , the following day shows improvement in the pulmonary edema in the background of chronic interstitial thickening, small bilateral pleural effusions noted, bilateral irregular densities better appreciated on the CAT scan. LABORATORY DATA: Blood cultures negative. White count was 9400, H and H 13 and 40. ABGs on admission pH 7.40, pCO2 of 46, pO2 of 47, ? venous. BUN 38, creatinine 1.7. 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 We will need to discuss his care with Dr. Cummins. PET scan will need to be ordered as an outpatient. I would have patient on a maintenance inhaler and convert the patient to oral antibiotics and wean from IV methylprednisolone and convert to an oral diuretic dosing. In addition, I will start him on Symbicort inhaler 160 two puffs b.i.d. and the use of a beta agonist with a nebulizer at home, perhaps with the addition of Spiriva HandiHaler as well. Will discuss further with Dr. Cummins. I do believe the left lower lung field lesion is a result of mucoid impaction. I do not believe the patient is aspirating, although that is possible and I also believe that the right upper lobe lesion represents a new primary. Will discuss further with Dr. Cummins and I have offered the patient availability to be seen at our pulmonary clinic as an outpatient. A PET scan will need to be set up as well. NATE
[2018-06-17] MEDS ORDERED: POLYETHYLENE (MIRALAX) 17 GM PACK PO PRN (14:15)
[2018-06-17] MEDS ORDERED: POLYETHYLENE (MIRALAX) 17 GM PACK ONE (14:32)
[2018-06-17] MEDS: AZITHROMYCIN 250 MG TAB PO SCH (15:30)
--- NOTE | 2018-06-17 16:37 | Hospitalist Progress Note ---
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 scan showing emphysema Advanced emphysema. will transition from duonebs q4 hours to Spiriva, start on symbicort, patient will need nebulizer as outpatient will have solumedrol q8 hours as per pulmonary service for COPD exacerbation from 06/15/18 to 06/17/18, will switch to prednisone 40 mg by 06/18/18 -etiology possibly from pleural effusion vs pneumonia CT scan right larger than left pleural effusions with associated bibasilar consolidation. This is also greatest at the right lung base. The appearance is concerning for pneumonia/ aspiration pneumonitis. since 06/14/18 patient has been on IV ceftriaxone and azithromycin daily and will transition to Augmentin and doxycycline by 06/17/18 patient will be NPO after midnight in case pulmonary service to perform bronchoscopy -etiology possible CHF exacerbation (possible diastolic heart failure). CT scan of Cardiomegaly with evidence of congestive failure. however BNP is within normal limits on admission as 244. echocardiogram with EF of 60 to 65% with grade I diastolic dysfunction. appears that the pleural effusions and oxygen requirements are improving with Lasix which was started as 40 mg IV daily from 06/14/18 to 06/17/18. will stop IV Lasix as pulmonary service considering possible bronchoscopy -history of lung cancer and being recently followed as outpatient for lung nodule. CT scan shows a 1.8 cm irregular opacity in the right upper lobe. This is unchanged from 05/02/2018 but new from 08/15/2015. This is highly concerning for neoplasm. There is a 1.9 cm irregular airspace opacity in the left lower lung, new from . This is pathologically indeterminant, and could be on an infectious/ inflammatory or neoplastic basis. Attention at follow-up is recommended. There are nonspecific enlarged mediastinal and hilar lymph nodes. will need further outpatient follow up as per pulmonary service on 06/15/18 there are not enough pleural effusion to tap at this time - continue medication management will need PET scan as outpatient and followup and follow up with Dr. Cummins -history of left-sided pulmonary resection Chest pain (cardiac causes ruled out, patient has generally been pain free) history of CAD with stent was given nitropaste in the ED troponins are negative echocardiogram without wall motion abnormalities continue home medications of isosorbide monitrate, carvedilol, amlodipine hold aspirin for now in case of bronchoscopy Hypertension isosorbide monitrate, carvedilol, amlodipine CKD stage III monitor renal function History of Seizure denies recent seizures continue lamotrigine home medication dutasteride which is non-formulary in hospital DVT ppx Full Code Subjective Patient's oxygen requirements ranging from 3 liter/min to 1 liters/min denies chest pain. denies palpitations. denies abdominal pain. denies vomiting discussed with pulmonary Dr. Bailey of possible bronchoscopy as inpatient and patient agrees to be NPO after midnight. will hold aspirin and stop Lasix Physical Exam 2 Vital Signs (Past 24 Hours): Last Vital Signs Temp 36.3 C L 06/17/18 16:00 Pulse 82 06/17/18 16:00 Resp 20 06/17/18 16:00 BP 159/76 H 06/17/18 16:00 Pulse Ox 93 06/17/18 16:00 Constitutional: WD/WN, vitals as above Eyes: PERRL, conjunctivae normal, anicteric sclerae EOM intact bilaterally Neck: trachea midline, no thyromegaly Respiratory: normal respiratory effort (some crackles of lower lung boles) Cardiovascular: Rate/Rhythm: regular rate and regular rhythm Gastrointestinal (Abdomen): normal bowel sounds, soft, nontender, no hepatosplenomegaly Musculoskeletal: no cyanosis or clubbing, extremities motor strength 5/5 Head/Neck/Chest: normocephalic and head atraumatic Neurologic: PERRL, EOMI, accommodation nl, no face palsy, no dysarthria CN' s II-XI intact bilaterally Psychiatric: A+Ox3, euthymic affect
[2018-06-17] MEDS: AMOXICILLIN/CLAVULANATE 875 MG TAB PO SCH (17:17)
[2018-06-17] MEDS: TIOTROPIUM BROMIDE 5 PUFF/90 MCG INH INH SCH (17:25)
[2018-06-17] MEDS: BUDESONIDE/FORMOTEROL FUMARATE 160/4.5 60 PUFFS/INHALER INH SCH (20:38)
[2018-06-18] MEDS: HEPARIN SOD 5,000 UNIT/0.5 ML VIAL SQ SCH ×3 (06:20→21:32)
[2018-06-18 06:55] LABS: Basophils # (auto) 0.01 K/uL (0-0.2); Basophils % (auto) 0.1 %; Hematocrit (blood only) 41.4 % (42-52); Hemoglobin 13.7 g/dL (14.0-18.0); Immature Granulocytes # (auto) 0.02 K/uL (0.00-0.02); Immature Granulocytes % (auto) 0.2 %; Lymphocytes # (auto) 0.97 K/uL (1.2-3.4); Lymphocytes % (auto) 8.9 %; Mean Corpuscular Hemoglobin 29.9 pg (25-34); Mean Corpuscular Hgb Conc 33.1 g/dL (32-36); Mean Corpuscular Volume 90.4 fL (80-100); Mean Platelet Volume 9.8 fL (7.4-10.4); Monocytes # (auto) 0.51 K/uL (0.11-0.59); Monocytes % (auto) 4.7 %; Neutrophils # (auto) 9.39 K/uL (1.4-6.5); Neutrophils % (auto) 86.1 %; Platelet Count 171 K/uL (130-400); RDW Coefficient of Variation 14.7 % (11.5-14.5); RDW Standard Deviation 48.4 fL (36.4-46.3); Red Blood Count 4.58 M/uL (4.7-6.1)
[2018-06-18 07:35] LABS: BUN Creatinine Ratio 24.8 (10-20); Calcium 8.3 mg/dl (8.5-10.1); Creatinine Clr Calc Pharmacy 33.3 ml/min; Est GFR (African American) 45.8; Est GFR (Non-African American) 39.5; Potassium 4.4 mmol/L (3.5-5.1)
[2018-06-18] MEDS: CARVEDILOL 6.25 MG TAB PO SCH ×2 (08:20→21:30)
[2018-06-18] MEDS: TIOTROPIUM BROMIDE 5 PUFF/90 MCG INH INH SCH (08:20)
[2018-06-18] MEDS: AMOXICILLIN/CLAVULANATE 875 MG TAB PO SCH ×2 (08:21→16:29)
[2018-06-18] MEDS: lamoTRIgine 100 MG TAB PO SCH ×2 (08:21→21:31)
[2018-06-18] MEDS: ISOSORBIDE MONO EXTENDED REL 60 MG TABCR PO SCH (08:22)
[2018-06-18] MEDS: PANTOprazole 40 MG TAB PO SCH (08:22)
[2018-06-18] MEDS: AMLODIPINE BESYLATE 5 MG TAB PO SCH (08:22)
[2018-06-18] MEDS: BUDESONIDE/FORMOTEROL FUMARATE 160/4.5 60 PUFFS/INHALER INH SCH ×2 (08:24→21:29)
--- NOTE | 2018-06-18 09:36 | History & Physical Bridge Note ---
Date of Service June 18, 2018 History & Physical Bridge Note I have examined the patient, reviewed the History & Physical and in the interval since the performance of the History & Physical I have noted the following changes of clinical significance: no changes noted
--- NOTE | 2018-06-18 09:37 | Pre Anesthesia Assessment ---
Date of Service June 18, 2018 Pre Sedation Assessment Vital Signs Temp Pulse Resp BP BP Pulse Ox 06/18/18 08:01 36.4 C L 70 17 165/72 H 91 06/18/18 03:55 36.4 C L 76 20 134/69 92 06/17/18 23:00 36.4 C L 81 20 155/76 H 90 06/17/18 19:42 36.3 C L 84 18 150/76 H 93 06/17/18 16:00 36.3 C L 82 20 159/76 H 93 06/17/18 15:06 79 18 94 06/17/18 14:10 93 06/17/18 11:51 36.4 C L 65 15 119/66 97 06/17/18 11:42 95 06/17/18 11:06 76 16 94 Cardiovascular RRR, no murmur, no edema Respiratory normal respiratory effort, lungs clear to auscultation Pre-Sedation Airway Assessment Smoking Status: Former smoker Hx Sleep Apnea: No Hx Difficult Intubation: No Short, Thick Neck: Yes Thyromental Distance: > or= 3.5 Finger Breadths Oral Cavity: + WNL Mallampati Class: II ASA: ASA2 Procedure Planning Contraindications for Sedation: none Current Medications Reviewed: Yes Notes The planned sedation has been discussed with the patient. Informed Consent was obtained. I have identified the patient, determined the appropriateness of sedation and have assessed the patient immediately prior to the procedure. All medicine(s) and interventions are by my order.
[2018-06-18] MEDS ORDERED: SODIUM CHLORIDE 0.9% 1000ML 1,000 ML IV SCH (09:45)
--- NOTE | 2018-06-18 14:06 | Post Anesthesia Assessment ---
Date of Service June 18, 2018 Post Sedation Assessment Vital Signs Temp Pulse Pulse Resp BP BP Pulse Ox 06/18/18 14:05 61 16 146/62 H 95 06/18/18 14:00 60 16 140/68 93 06/18/18 13:55 66 14 147/66 H 91 06/18/18 13:50 59 L 14 139/63 94 06/18/18 13:45 70 14 158/69 H 98 06/18/18 13:35 68 14 164/69 H 06/18/18 08:01 36.4 C L 70 17 165/72 H 91 06/18/18 03:55 36.4 C L 76 20 134/69 92 06/17/18 23:00 36.4 C L 81 20 155/76 H 90 06/17/18 19:42 36.3 C L 84 18 150/76 H 93 06/17/18 16:00 36.3 C L 82 20 159/76 H 93 06/17/18 15:06 79 18 94 06/17/18 14:10 93 Recovery Score Activity: Moves 4 extremities Respiration: Deep Breath/Cough Circulation: +/-20% PreAnes Value Consciousness: Arouseable (by name) Oxygen Saturation: > 92% On Room Air Post Anesthesia Score: 9 Discharge Sedation Level of Care: Fast Track Phase II Post Sedation Plan On clinical assessment, the patient appears to have tolerated the sedation without complications. Patient is recovering as anticipated. Patient will continue to be monitored by nursing and may be discharged when sedation discharge criteria are met per below protocol. Upon Completions of procedure and additional 15 minutes continue every 5 minute vital signs and the P.A.R. score; then discharge to a Phase I or Fast Track to Phase II per the following guidelines: * Discharge Patient to appropriate Phase II area if PAR is 8 or greater or return to pre- procedure baseline. The post - procedure orders will be as directed. * If PAR score is less than 8 or not return to pre-procedure baseline then patient will follow Phase I monitoring till PAR is reached for Phase II. The Phase I may be done in procedure room or may call to secure a Phase I area. * If naloxone or flumazenil are used for reversal, hold in Phase I for continued monitoring from when last reversal dose was given for a minimum of 60 minutes or longer pending the nurse and/or physician discretion of patient condition before discharge to Phase II. Please call the Sedation Physician to re-evaluate and complete post-note for discharge to Phase II area. Do NOT discharge from procedure sedation or Phase 1 until post- sedation evaluation note is complete by procedure /sedation MD Sedation Discharge Instructions to be given to the patient at discharge to home.
--- NOTE | 2018-06-18 14:08 | Post Operative Brief Note ---
Immediate Post Op Note v1 Date of Surgery June 18, 2018 Pre & Post Diagnosis Operation Date: 06/18/18 13:30 Pre-Op Diagnosis: Mucoid Impaction Post-Op Diagnosis: Mucoid Impaction Procedure Operation Date: 06/18/18 13:30 Actual Procedures p Bronchoscopy Radiology(Bilateral) - Renato Bailey MD Surgeon Renato Bailey MD Manager Crisis none Estimated Blood Loss 0 Findings Consistent with Post-Op Diagnosis Chronic Bronchitis w mucoid impaction Complications none Disposition Accompanied Patient To Recovery: No Overlapping Procedure I was present for: the critical portions of procedure. I was immediately available: during the entire case. Back up surgeon: was not required during procedure.
[2018-06-18] MEDS ORDERED: MIDAZOLAM HCL 1 MG/ML 2ML VIAL IV PRN (14:30)
[2018-06-18] MEDS ORDERED: fentaNYL citrate 100 MCG/2 ML VIAL IV ONE (14:31)
[2018-06-18] MEDS ORDERED: OXYMETAZOLINE 0.05% 30 ML BTL PRN (14:32)
[2018-06-18] MEDS: LIDOCAINE 2% 20 MG/ML 5 ML SYR IV SCH ×2 (14:40→17:22)
[2018-06-18] MEDS: LEVALBUTEROL 1.25MG/0.5ML NEB NEB SCH ×2 (14:41→17:22)
[2018-06-18] MEDS: LIDOCAINE MPF 4% INJ SCH ×2 (14:44→17:21)
[2018-06-18] MEDS ORDERED: MIDAZOLAM HCL 1 MG/ML 2ML VIAL IV ONE (14:45)
[2018-06-18] MEDS ORDERED: LIDOCAINE VISCOUS 2% 100ML ONE (14:45)
[2018-06-18] MEDS ORDERED: OXYMETAZOLINE 0.05% 30 ML BTL ONE (14:45)
[2018-06-18] MEDS ORDERED: LIDOCAINE VISCOUS 2% 100ML SCH (14:45)
--- NOTE | 2018-06-18 15:18 | Progress Note ---
DATE: 06/18/2018 Chart reviewed, patient examined. SUBJECTIVE: The patient just underwent bronchoscopic evaluation. Significant mucoid impaction with thick mucoviscous secretion was virtually occluding the right lower lobe bronchus. The left lower lobe surgical cuff did not show any obvious lesion and the left upper lobe in the apical, posterior, anterior segments and lingula subdivision with the inferior and superior segments were identified with thick mucoid impaction involving many of those segmental bronchi and were lavaged until clear. The aspirates from both the right and left tracheobronchial tree was sent for appropriate studies and patient appeared to tolerate the procedure well. The patient will be recovered and then transferred back to the medical floor and if so desired the patient could be discharged this evening or certainly by tomorrow morning.
[2018-06-18] MEDS: AZITHROMYCIN 250 MG TAB PO SCH (16:29)
--- NOTE | 2018-06-18 17:29 | Hospitalist Progress Note ---
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 S/P left lower lobectomy for squamous cell carcinoma stage I in 2004 Presents with B/L pleural effusions and right basilar consolidation and 2 nodular densities with the right upper lobe lesion appearing new since 2015 and worrisome for a neoplasm and a new nodular density seen in the left lower lung field that is new since April of 2018 Acute Respiratory Failure with Hypoxia Likely multifactorial: possibly COPD excacerbation, Possible Acute diastolic heart failure, Mucoid Impaction, Possible Pneumonia S/P Bronchoscopy: 06/18/18 : Mucoid Impaction ECHO:EF of 60 to 65% with grade I diastolic dysfunction. Continue Inhalers, Abx, Prednisone Appreciate Pulmnology Input Wean off oxygen as able Needs FU with and PET scan as outpatient FU bronchial studies Chest pain--resolved H/O CAD with stent Troponins: negative ECHO: No wall motion abnormalities continue home medications: isosorbide monitrate, carvedilol, amlodipine Resume aspirin tomorrow Hypertension Continue Imdur, carvedilol, amlodipine CKD III monitor renal function H/O Seizure continue lamotrigine home medication dutasteride which is non-formulary in hospital DVT Px: Heparin SQ Code Status Full Code Subjective Patient is seen and examined at bedside Had Bronchoscopy today Denies chest pain, dyspnea, abd pain Eager to get discharged Offers no complaints No family at bedside Physical Exam 2 Vital Signs (Past 24 Hours): Last Vital Signs Temp 36.9 C 06/18/18 14:26 Pulse 68 06/18/18 14:26 Resp 18 06/18/18 14:26 BP 134/74 06/18/18 14:26 Pulse Ox 90 06/18/18 14:32 Physical Exam: Physical Exam: Vitals signs as noted above General Appearance:Moderately built and nourished, no apparent distress Head: normocephalic, Atraumatic Eyes: normal inspection, EOMI Neck: supple, Trachea midline Respiratory/Chest: Decreased breath sounds, CTA Cardiovascular: S1, S2, No murmur Abdomen/GI:Soft, Non tender, Bowel sounds present Extremities/Musculoskelatal:normal inspection, no edema Neurologic/Psych:AAOX3, grossly no focal neurological deficits Skin: normal color, warm Results & Data Laboratory Results Short CBC 06/18/18 Range/Units 06:36 WBC 10.90 H (4.8-10.8) K/uL Hgb 13.7 L (14.0-18.0) g/dL Hct 41.4 L (42-52) % Plt Count 171 (130-400) K/uL BMP 06/18/18 06:36 Sodium 137 Potassium 4.4 Chloride 105 Carbon Dioxide 28 BUN 40 H Creatinine 1.60 H Glucose 114 H Calcium 8.3 L
[2018-06-18] MEDS ORDERED: predniSONE 20 MG TAB PO STA (17:51)
[2018-06-19] MEDS: HEPARIN SOD 5,000 UNIT/0.5 ML VIAL SQ SCH ×2 (05:52→13:45)
[2018-06-19 07:24] LABS: Hematocrit (blood only) 42.5 % (42-52); Hemoglobin 13.8 g/dL (14.0-18.0); Immature Granulocytes # (auto) 0.02 K/uL (0.00-0.02); Immature Granulocytes % (auto) 0.3 %; Lymphocytes # (auto) 0.39 K/uL (1.2-3.4); Lymphocytes % (auto) 5.3 %; Mean Corpuscular Hemoglobin 29.9 pg (25-34); Mean Corpuscular Hgb Conc 32.5 g/dL (32-36); Mean Platelet Volume 9.6 fL (7.4-10.4); Monocytes % (auto) 2.7 %; Neutrophils # (auto) 6.68 K/uL (1.4-6.5); Neutrophils % (auto) 91.7 %; Platelet Count 162 K/uL (130-400); RDW Coefficient of Variation 14.6 % (11.5-14.5); RDW Standard Deviation 49.1 fL (36.4-46.3); Red Blood Count 4.62 M/uL (4.7-6.1); White Blood Count 7.29 K/uL (4.8-10.8)
[2018-06-19] MEDS: AMOXICILLIN/CLAVULANATE 875 MG TAB PO SCH (07:57)
[2018-06-19] MEDS: AMLODIPINE BESYLATE 5 MG TAB PO SCH (07:57)
[2018-06-19] MEDS: CARVEDILOL 6.25 MG TAB PO SCH (07:58)
[2018-06-19] MEDS: lamoTRIgine 100 MG TAB PO SCH (07:58)
[2018-06-19] MEDS: ISOSORBIDE MONO EXTENDED REL 60 MG TABCR PO SCH (07:58)
[2018-06-19] MEDS: TIOTROPIUM BROMIDE 5 PUFF/90 MCG INH INH SCH (07:59)
[2018-06-19] MEDS: PANTOprazole 40 MG TAB PO SCH (07:59)
[2018-06-19] MEDS: BUDESONIDE/FORMOTEROL FUMARATE 160/4.5 60 PUFFS/INHALER INH SCH (07:59)
--- NOTE | 2018-06-19 08:04 | Operative Report ---
DATE OF OPERATION: 06/18/2018 PROCEDURE: Fiberoptic bronchoscopy with bronchoalveolar lavage. INDICATIONS: Right lower lobe consolidation in a patient with COPD, previous history of left lower lobectomy for bronchogenic carcinoma, pulmonary nodule involving the right upper lobe as well as left lower lung field. ANESTHESIA PREOPERATIVELY: None. ANESTHESIA DURING PROCEDURE: 2 mg IV Versed, 50 mcg IV fentanyl, 20 mL 2% Xylocaine spray above and below the cords, 4% viscous Xylocaine intranasally. PROCEDURE NOTE: Fiberoptic bronchoscope was inserted into the left naris with minimal difficulty and passed to the level of true vocal cords. The cords appear to approximate normally with phonation without evidence of lesions or paralysis. The scope was then introduced in the right and left tracheobronchial tree. The sirisha was sharp. The right main stem bronchus was free of endobronchial lesions. Right upper lobe, the apical posterior and anterior segments, bronchus intermedius, right middle lobe, and the medial lateral segments and all basilar segments right lower lobe were found to be free of endobronchial lesions. The right lower lobe was virtually occluded with thick copious mucoviscous secretion that was copiously lavaged with normosol and the aspirate sent for appropriate studies. Each basilar segments were identified and no endobronchial lesions were seen, but there were edematous and friable consistent with an acute infectious etiology. The left tracheobronchial tree was explored and no obvious endobronchial lesion was seen in the left main stem bronchus. The left upper lobe, the apical posterior and anterior segments and lingula subdivision with the superior and inferior segments were identified and thick mucoviscous secretion was involving all segments of the lingula and the posterior segment of the left upper lobe. These areas were copiously lavaged with normosol and the aspirate sent for appropriate studies. No endobronchial lesions were seen. Left lower lobe surgical cuff showed no obvious lesion and no brushings or biopsies were attempted. The procedure was terminated. The patient was given a nebulizer treatment with Xopenex 1.25 mg then transferred back to the medical floor, hemodynamically stable. No signs of respiratory compromise. We will await microbiological and cytologic examination of the bronchial washings. I attest to the content of the Intraoperative Record and any orders documented therein. Any exception s are noted below.
[2018-06-19 08:10] LABS: BUN Creatinine Ratio 25.2 (10-20); Calcium 8.2 mg/dl (8.5-10.1); Creatinine Clr Calc Pharmacy 35.7 ml/min; Est GFR (African American) 49.9; Est GFR (Non-African American) 43.1; Potassium 5.1 mmol/L (3.5-5.1)
[2018-06-19] MEDS ORDERED: predniSONE 20 MG TAB PO SCH (09:00)
[2018-06-19] MEDS: ASPIRIN 81 MG ECTAB PO SCH (09:15)
[2018-06-19] MEDS ORDERED: ALBUT/IPRATROP 3MG/0.5MG NEB 3 ML VIAL NEB PRN (12:54)
--- NOTE | 2018-06-19 13:59 | Hospitalist Progress Note ---
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 Continue Inhalers, Prednisone, Abx Appreciate Pulmnology Input Wean off oxygen as able Needs FU with and PET scan as outpatient FU bronchial studies: Preliminary::Light normal jaclyn 2 Step : Requires oxygen 2 liters at rest and 3 liters with activity Need Prednisone Taper upon discharge Chest pain--resolved H/O CAD with stent Troponins: negative ECHO: No wall motion abnormalities continue home medications: Aspirin, isosorbide monitrate, carvedilol, amlodipine Hypertension Continue Imdur, carvedilol, amlodipine CKD III monitor renal function H/O Seizure continue lamotrigine home medication dutasteride which is non-formulary in hospital DVT Px: Heparin SQ Code Status Full Code Disposition: Plan to discharge Home today Subjective Patient is seen and examined at bedside Doing well today Offers no complaints Discussed with today Denies chest pain, dyspnea, abd pain No family at bedside 2 Step : Requires oxygen 2 liters at rest and 3 liters with activity Physical Exam 2 Vital Signs (Past 24 Hours): Last Vital Signs Temp 36.3 C L 06/19/18 13:00 Pulse 70 06/19/18 13:00 Resp 17 06/19/18 13:00 BP 163/74 H 06/19/18 13:00 Pulse Ox 95 06/19/18 13:00 Physical Exam: Physical Exam: Vitals signs as noted above General Appearance:Moderately built and nourished, no apparent distress Head: normocephalic, Atraumatic Eyes: normal inspection, EOMI Neck: supple, Trachea midline Respiratory/Chest: Decreased breath sounds, CTA Cardiovascular: S1, S2, No murmur Abdomen/GI:Soft, Non tender, Bowel sounds present Extremities/Musculoskelatal:normal inspection, no edema Neurologic/Psych:AAOX3, grossly no focal neurological deficits Skin: normal color, warm Results & Data Laboratory Results Short CBC 06/19/18 Range/Units 06:59 WBC 7.29 (4.8-10.8) K/uL Hgb 13.8 L (14.0-18.0) g/dL Hct 42.5 (42-52) % Plt Count 162 (130-400) K/uL BMP 06/19/18 06:59 Sodium 140 Potassium 5.1 D Chloride 106 Carbon Dioxide 31 BUN 38 H Creatinine 1.49 H Glucose 146 H Calcium 8.2 L
--- NOTE | 2018-06-19 14:23 | Discharge Summary ---
Date of Service June 19, 2018 Admission HPI Per Admitting Provider Patient reports progressive shortness of breath in the past 1 week he has been using his 's oxygen to feel better. To the ED physician he had described chest discomfort with breathing ED physician reported abnormal EKG findings which could be consistent with ischemia was given aspirin and nitropaste Although when seen by hospitalist, Patient denies symptoms chest pain denies palpitations or fevers or abdominal pain or vomiting or headache or dizziness. In the ED, patient was found to be significantly hypoxic. Patient denies family history of health problems Allergy to lidocaine Admission Exam Per Admitting Provider Constitutional: WD/WN, vitals as above Eyes: PERRL, conjunctivae normal, anicteric sclerae EOM intact bilaterally Neck: trachea midline, no thyromegaly Respiratory: normal respiratory effort (some crackles of lower lung boles) Cardiovascular: Rate/Rhythm: regular rate and regular rhythm Gastrointestinal (Abdomen): normal bowel sounds, soft, nontender, no hepatosplenomegaly Musculoskeletal: no cyanosis or clubbing, extremities motor strength 5/5 Head/Neck/Chest: normocephalic and head atraumatic Neurologic: PERRL, EOMI, accommodation nl, no face palsy, no dysarthria CN' s II-XI intact bilaterally Psychiatric: A+Ox3, euthymic affect Principal Diagnosis Discharge Information Discharge Diagnosis Acute Respiratory Failure with Hypoxia Discharge Goals Decrease discomfort,Improve disease control, Improve function Discharge Activity Limitations Resume your previous activity Discharge Data Allergies Allergy/AdvReac Type Severity Reaction Status Date / Time lidocaine Allergy Unknown PRESERVATIVE Verified 06/14/18 14:01 IN LIDOCAINE CAUSES RED SKIN Consultations 06/14/18 15:29 ED Decision to Admit Stat 06/14/18 18:25 Consult Case Management - Discharge Planning Routine 06/14/18 20:14 Consult Pulmonology Routine Procedures Performed Operation Date: 06/18/18 13:30 Actual Procedures p Bronchoscopy Radiology(Bilateral) - Renato Bailey MD CTA: 1. There is no evidence of pulmonary embolus in the main, lobar, or segmental pulmonary arteries. 2. Advanced emphysema and postoperative change from left-sided pulmonary resection. 3. Cardiomegaly with evidence of congestive failure. 4. There are with right larger than left pleural effusions with associated bibasilar consolidation. This is also greatest at the right lung base. The appearance is concerning for pneumonia/aspiration pneumonitis. Clinical correlation will be required and radiographic follow-up to resolution is recommended. 5. There is a 1.8 cm irregular opacity in the right upper lobe. This is unchanged from 05/02/2018 but new from 08/15/2015. This is highly concerning for neoplasm. 6. There is a 1.9 cm irregular airspace opacity in the left lower lung, new from 05/02/2018. This is pathologically indeterminant, and could be on an infectious/inflammatory or neoplastic basis. Attention at follow-up is recommended. 7. There are nonspecific enlarged mediastinal and hilar lymph nodes. 8. Additional findings as above. 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 Continue Inhalers, Prednisone, Abx Appreciate Pulmnology Input Wean off oxygen as able Needs FU with and PET scan as outpatient FU bronchial studies: Preliminary::Light normal jaclyn 2 Step : Requires oxygen 2 liters at rest and 3 liters with activity Need Prednisone Taper upon discharge Chest pain--resolved H/O CAD with stent Troponins: negative ECHO: No wall motion abnormalities continue home medications: Aspirin, isosorbide monitrate, carvedilol, amlodipine Hypertension Continue Imdur, carvedilol, amlodipine CKD III monitor renal function H/O Seizure continue lamotrigine home medication dutasteride which is non-formulary in hospital DVT Px: Heparin SQ Code Status Full Code Disposition: Plan to discharge Home today Total Time Total Time Spent Total Time Spent (In Minutes): 37 minutes Total Time Includes: Examination of the Patient, Discharge Planning, Medication Reconciliation, Communication With Other Providers and Other Discharge Plan Discharge Items Patient Disposition: Home - Home Health Services Reason For Visit: HYPOXIA Discharge Diagnosis: Acute Respiratory Failure with Hypoxia Discharge Goals: Decrease discomfort, Improve disease control and Improve function Activity: Resume your previous activity Exercise/Sports: Gradually increase as tolerated Non-emergency contact: Primary Care Provider, Surgeon and Design Maker Call non-emergency contact if: you have any medication questions, your symptoms worsen, your pain is not controlled, your pain is worsening, your pain is unusual for you, your pain is concerning for you and you have a fever Diet: Heart Healthy Addtl Provider Instructions: Follow up with your PCP on Jun 23, 2018 at 2:45pm Follow up with your Pulmnologist in 1-2 weeks Follow up with your Surgeon in 2 weeks Use Oxygen Via Nasal Cannula 2 liters at rest and 3 liters with activity Complete the antibiotic and Prednsione course as prescribed Prednisone Course: Start taking Prednsione 40mg for 1 day, then 30mg for 3 days, then 20mg for 3 days, then 10mg for 3 days and STOP Get PET SCAN as outpatient as per the recommendations from your Pulmnologist and follow up with / Seek immediate medical attention if your symptoms reoccur or worsen Prescriptions: New ipratropium-albuterol 0.5 mg-3 mg(2.5 mg base)/3 mL Solution For Nebulization 3 ml NEB QIDR PRN (Reason: shortness of breath or wheezing) 30 Days Qty: 1 RF : 1 amoxicillin-pot clavulanate 875-125 mg Tablet 1 tab PO BIDM 3 Days Qty: 6 RF: 0 tiotropium bromide [Spiriva with HandiHaler] 18 mcg Capsule, W/Inhalation Device 1 puff Inhalation QAM 30 Days Qty: 30 RF: 1 budesonide-formoterol [Symbicort] 160-4.5 mcg/actuation Hfa Aerosol Inhaler 2 puff Inhalation BID 30 Days Qty: 1 RF: 1 prednisone 10 mg tablet 10 mg PO UD Qty: 22 RF: 0 Continue lamotrigine 150 mg Tablet 150 mg PO BID RF: 0 carvedilol 6.25 mg Tablet 6.25 mg PO BID RF: 0 aspirin [Aspir-81] 81 mg Tablet,Delayed Release (Dr/Ec) 81 mg PO DAILY RF: 0 isosorbide mononitrate 60 mg Tablet Extended Release 24 Hr 60 mg PO DAILY RF: 0 amlodipine 10 mg Tablet 10 mg PO DAILY RF: 0 omeprazole 20 mg Capsule,Delayed Release(Dr/Ec) 20 mg PO DAILY RF: 0 dutasteride 0.5 mg Capsule 0.5 mg PO DAILY RF: 0 Stand-Alone Forms: [facility] Discharge Orders: Discharge Order (Routine); Ordered 06/19/18 Ordered By: Brodie Guerra Admission Data Admit Date/Time: 06/14/18 15:54 Attending Provider: Brodie Guerra Admit Provider: Helio Bonilla Primary Care Provider: Harris Cam Other Providers: Helio Bonilla ; Laura Augustine Service: Medical Other Interventions: Discharge Summary Assessment (RN) Last Done: 06/19/18 16:13 Pending Studies at Discharge: Yes Studies:: Final Bronchial Cultures DC Date/Time DO NOT enter until pt leaves facility: 06/19/18 17:00
--- NOTE | 2018-06-19 15:04 | Progress Note ---
DATE: 06/19/2018 PULMONARY MEDICINE PROGRESS NOTE Chart reviewed, the patient examined. SUBJECTIVE: Feeling well, seems to have gotten some improvement in symptoms following BAL with significant mucoid impaction noted. Cultures are pending. I spoke with Dr. Brodie Guerra, patient's hospitalist and the patient will be discharged today on home oxygen along with being outfitted with a nebulizer with DuoNeb solution every 4 hours and Symbicort 160/4.5 two puffs b.i.d. and a tapered course of prednisone until off. I would be happy to see him in several weeks' time and the patient has been instructed to alert Dr. Cummins's office about rescheduling his PET scan. The right upper lobe peripheral lesion is most suspicious for neoplasm.
--- NOTE | 2018-07-03 14:30 | Coding Query ---
CODING QUERY To promote full compliance with coding requirements relating to patient care, provider participation is requested in all cases of hall coordinator uncertainty. Please assist us with the question(s) below: Coding Question(s): Aspiration Pneumonia was documented in progress notes but dropped off on 06/17. Can you please clarify the diagnosis below. Physician's Response(s): (X) Possible Aspiration Pneumonia POA () Aspiration Pneumonia Not POA () Aspiration pneumonia Ruled out () Other Please Clarify Thank you Annemarie Osborne Principal Diagnosis: "that condition established after study, to be chiefly responsible for occasioning the admission of the patient to the hospital for care." Co-Existing Principal Diagnosis: "when two or more diagnoses equally meet the criteria for principal diagnosis as determined by the circumstances of admission, diagnostic work up, and/or therapy provided, and the Alphabetic Index, Tabular List, or another coding guideline does not provide sequencing direction, any one of the diagnoses may be sequenced first." "When the physician has documented what appears to be a current diagnosis in the body of the record, but has not included the diagnosis in the final diagnostic statement, the physician should be asked whether the diagnosis should be added." (Source Coding Clinic 2 QTR90. p3-4) NATE
== END 2018-06-19 17:00 | disposition home health service (06) | DRG 189 ==
LOC: ED 13:24 → SUATTDRO 15:54 → 2S 15:54 → 4E 06-16 14:45

== ENCOUNTER 2018-10-24 08:51 | Inpatient (IN) ==
[2018-10-24] MEDS ORDERED: NITROGLYCERIN 2% OINTMENT 30GM TUBE EXT STA (09:31)
[2018-10-24] MEDS ORDERED: ASPIRIN CHEW 324 MG PO STA (09:31)
[2018-10-24 09:50] LABS: Hematocrit (blood only) 32.6 % (42-52); Hemoglobin 10.8 g/dL (14.0-18.0); Mean Corpuscular Hgb Conc 33.1 g/dL (32-36); Mean Corpuscular Volume 86.7 fL (80-100); RDW Coefficient of Variation 15.2 % (11.5-14.5); RDW Standard Deviation 47.6 fL (36.4-46.3); Red Blood Count 3.76 M/uL (4.7-6.1); White Blood Count 1.75 K/uL (4.8-10.8)
--- NOTE | 2018-10-24 09:50 | XRay Report ---
XR chest 1V portable HISTORY: 83 years-old Male Chest Pain acute atypical chest pain COMPARISON: Chest radiograph 08/15/2018 TECHNIQUE: Portable AP view of the chest FINDINGS: Cardiomediastinal and hilar silhouettes are unchanged. Right internal jugular [id number] catheter is new from prior with distal tip terminating in the expected location of the inferior SVC. Calcifica tion of the thoracic cortical arch. Surgical clips project over the left mediastinal distribution. No pneumothorax. Unchanged blunting of the costophrenic angles with chronic interstitial opacities, mil dly improved from comparison. Degenerative changes of the shoulders and spine. IMPRESSION: 1. Right internal jugular [id number] catheter is new from prior study. No pneumothorax. 2. Chronic interstitial lung disease with improved aeration from comparison. 3. Cardiomegaly. The above report was generated using voice recognition software. It may contain grammatical, syntax o r spelling errors. Electronically signed by: Bryant Uriostegui M.D. 10/24/2018 9:49 AM
[2018-10-24 09:56] LABS: Alanine Aminotransferase 22 U/L (12-78); Albumin Level 3.2 gm/dl (3.4-5.0); Aspartate Aminotransferase 14 U/L (15-37); BUN Creatinine Ratio 20.3 (10-20); Blood Urea Nitrogen 24 mg/dl (7-18); Calcium 8.7 mg/dl (8.5-10.1); Carbon Dioxide 28 mmol/L (21-32); Chloride 109 mmol/L (98-107); Creatinine Clr Calc Pharmacy 44.6 ml/min; Est GFR (African American) 67.1; Est GFR (Non-African American) 57.9; Glucose 112 mg/dl (70-99); Potassium 4.5 mmol/L (3.5-5.1); Sodium 141 mmol/L (136-145)
[2018-10-24 10:02] LABS: Albumin Globulin Ratio 1.1 (0.9-2); Alkaline Phosphatase 58 U/L (45-117); Bilirubin,Total 0.4 mg/dl (0.2-1); Creatine Kinase 29 U/L (39-308); Creatine Kinase MB < 1.0 ng/ml (0.5-3.6); Total Protein 6.2 gm/dl (6.4-8.2); Troponin I < 0.015 ng/ml (0-0.045)
[2018-10-24] MEDS ORDERED: ONDANSETRON INJ 2 MG/ML 2 ML VIAL IV STA (10:07)
[2018-10-24] MEDS ORDERED: MoRPHine SULFATE 4 MG/ML 1 ML CARP\\VIAL IV STA (10:07)
[2018-10-24] MEDS ORDERED: NITROGLYCERIN/D5W 100MCG/ML 20ML SYR ONE (10:22)
[2018-10-24] MEDS ORDERED: HEPARIN (PORCINE) 1000 UNIT/ML 10 ML (CATH LAB USE ONLY) ONE ×2 (10:22→10:53)
[2018-10-24] MEDS ORDERED: MIDAZOLAM HCL 1 MG/ML 2ML VIAL ONE (10:22)
[2018-10-24] MEDS ORDERED: fentaNYL citrate 100 MCG/2 ML VIAL ONE (10:22)
[2018-10-24] MEDS ORDERED: NiCARDipine HCL INJ 2.5 MG/ML 10 ML AMP ONE ×2 (10:22→10:59)
[2018-10-24 10:25] LABS: Eosinophils # (auto) 0.04 K/uL (0-0.5); Eosinophils % (auto) 2.3 %; Immature Granulocytes # (auto) 0.01 K/uL (0.00-0.02); Immature Granulocytes % (auto) 0.6 %; Lymphocytes # (auto) 0.25 K/uL (1.2-3.4); Lymphocytes % (auto) 14.3 %; Mean Platelet Volume 9.8 fL (7.4-10.4); Monocytes % (auto) 17.1 %; Neutrophils # (auto) 1.15 K/uL (1.4-6.5); Neutrophils % (auto) 65.7 %; Ovalocytes 1+; Platelet Count 49 K/uL (130-400); Platelet Estimate Decreased (Normal); Target Cells 1+
[2018-10-24] MEDS ORDERED: HEPARIN 25000 UNIT/500 ML D5W IV ONE (11:26)
[2018-10-24] MEDS ORDERED: CLOPIDOGREL BISULFATE 300 MG TAB ONE (11:28)
--- NOTE | 2018-10-24 11:36 | Pre Anesthesia Assessment ---
Date of Service October 24, 2018 Pre Sedation Assessment Vital Signs Pulse Resp BP Pulse Ox 10/24/18 10:16 51 L 20 147/62 H 100 10/24/18 10:01 54 L 19 169/90 H 99 10/24/18 09:46 59 L 18 170/84 H 99 10/24/18 09:31 61 22 186/89 H 100 10/24/18 09:20 58 L 18 178/75 H 100 10/24/18 09:15 99 10/24/18 09:03 80 L 10/24/18 08:58 62 22 161/72 H 80 L Cardiovascular RRR, no murmur, no edema Respiratory normal respiratory effort, lungs clear to auscultation Pre-Sedation Airway Assessment Smoking Status: Never smoker Hx Sleep Apnea: No Hx Difficult Intubation: No Thyromental Distance: > or= 3.5 Finger Breadths Oral Cavity: + WNL Mallampati Class: III Procedure Planning Contraindications for Sedation: none Current Medications Reviewed: Yes Notes The planned sedation has been discussed with the patient. Informed Consent was obtained. I have identified the patient, determined the appropriateness of sedation and have assessed the patient immediately prior to the procedure. All medicine(s) and interventions are by my order.
[2018-10-24] MEDS ORDERED: ONDANSETRON INJ 2 MG/ML 2 ML VIAL IV PRN (11:37)
[2018-10-24] MEDS ORDERED: ACETAMINOPHEN 325 MG TAB PO PRN (11:37)
[2018-10-24] MEDS ORDERED: SODIUM CHLORIDE 0.9% 1000ML 1,000 ML IV SCH (11:45)
--- NOTE | 2018-10-24 11:45 | Cardiac Catheterization ---
Cardiac Cath Procedure Full Procedure Date October 24, 2018 Pre-Procedure Diagnosis Pre-Procedure Diagnosis: STEMI AUC Score AUC Score: 9 Post-Procedure Diagnosis Post-Procedure Diagnosis: Severe CAD, Successful PCI and Normal Intracardiac Pressures Procedure(s) Performed Procedure(s) Performed: Coronary Angiography, Left Heart Cath and PTCA Broadcast Journalist Frank Craig MD Supervisor [employer](s) Glunt Estimated Blood Loss Estimated Blood Loss: 15 Medication(s) Medication(s): Clopidogrel, Fentanyl, Heparin, Lidocaine 1%, Nicardipine, Nitroglycerin and Versed Summary of Findings Indication: STEMI/Heart Alert Access: 6Fr right radial artery Catheters: [place], AR1 guide, guideliner Findings: LM -luminal irregularities LAD -angulated approximately with mild disease, lateproximal stent widely patent, mid to distal luminal irregularities before wraps around apex. Moderate caliber first diagonal without significant disease. Circumflex -moderate caliber, 20% ostial stenosis, mild proximal to mid diffuse disease, patent mid circumflex stent with mild in-stent restenosis, 40-50 % distal stenosis just before takeoff of moderate caliber OM 2. OM 2 without significant disease RCA -moderate caliber vessel, dominant, patent proximal stent with mild in-stent restenosis, mid segment calcified, tortuous, 99% acute focal occlusion after acute marginal, AVEL I flow in distal vessel/PDA/PLB's. LVEDP -6 -- PCI -- Antithrombotic therapy: Heparin, clopidogrel Procedure: RCA cannulated with AR-1 guide With some difficulty eventually able to pass whisper wire passed across mid RCA stenosis into distal vessel With the aid of a guide liner mid RCA lesion predilated with 2.0 compliant balloon Attempted to place a bare-metal stent (2.25 x 14) but unable to deliver stent across earlymid RCA calcification/tortuosity IC vasodilators administered for spasm Post angioplasty angiography revealed subtle dissection but mid RCA well- expanded with AVEL-3 flow distally. Patient had resolution of chest pain and decision made to complete procedure. Arterial Closure: TR Band Summary: 1. Inferior STEMI/Subtotal mid RCA occlusion 2. Patent proximal RCA, circumflex and LAD stents 3. Normal intracardiac filling pressure 4. Successful angioplasty of mid RCA with 2.0 balloon. 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 Continue dual-antiplatelet therapy for ideally 2 weeks Trend troponins until peak, Check Echo High-dose statin Consult cardiac Rehab Hemodynamics Rest Ao:: 170/61/105 Final Ao: 165/54/98 LV: 183/6 Recommendations Recommendations: PCI without planned CABG Specimens Specimens: None Radiation Exposure (mGy) 2043 Contrast (mls) 110 Fluids (cc crystalloids) Fluids (cc crystalloids): 90 Drains Drains: none Anesthesia moderate Procedural Complication(s) None Disposition ICU ACC Data: Trench Pipe Layer Cardiac Status Clinical evaluation leading to the procedure CAD Presenation: STEMI Anginal Classification: CCS IV Heart Failure: No Cardiogenic Shock within 24 Hours: No Cardiac Arrest within 24 Hours: No Imaging Studies Past 6 Months: No Stress Studies Past 6 Months: No Diagnostic Physicians Name: Frank Craig MD Status: Emergency Closure Device Percutaneous Entry Location: Radial Closure Device: Radial Band Recommendations: PCI without planned CABG PCI Indication: Immediate PCI for STEMI First Noted: Subsequent EKG Lesion Segment Name: mid RCA Culprit Artery: Yes Stenosis Prior to Rx (%): 99 Chronic Total Occlusion: No IVUS: No FFR: No Pre-Procedure AVEL Flow: 1 Previously Treated Lesion: Timeframe: greater than 2 years Treated with Stent: No Yes Lesion Complexity: High/C Lesion Length (mm): 12 Thrombus Present: Yes Bifurcation Lesion: Yes Guidewire Across Lesion: Stenosis Post-Procedure (%): 0 Post-Procedure AVEL Flow: 3 Devices(s) Deployed: No Yes Intraprocedure Events Significant Disection: No Perforation: No
--- NOTE | 2018-10-24 12:25 | Critical Care Consultation ---
Date of Consultation October 24, 2018 Assessment & Plan (1) Admitted to intensive care unit: Reason Critically Ill: Post care management S/P PCI with balloon angioplasty Neuro - [facility] ICU: No neurological deficits. Patient alert and oriented x3 Cardiac - CAD with history of previous ARFI X 3 Admitted with chest pain Troponin <0.015 Angioplasty with partial occlusion of mid RCA. Unable to pass stent. Successful angioplasty Previous drug-eluting stents at the completion of the procedure were patent as listed above in the catheterization note Patient with history of hypertension. States systolic blood pressures typically high at home when he checks it Received nicardipine 25 mg x 2 doses during the procedure Continue home medications. Current blood pressure 148/86 Monitor on telemetry Respiratory - History of emphysema and COPD Supplemental home oxygen usage Previous history of tobacco abuse. Quit at age 67 Continue supplemental oxygen to maintain SaO2 greater than 90% No current bronchospasm or adventitious breath sounds Follow expectantly GI - History of GERD Continue Carafate Treat symptomatically RENAL/LYTES - Chronic kidney disease stage III Current creatinine 1.16. (Baseline creatinine 1.45) Electrolytes are currently balanced. Follow serial lab - No hematuria ENDO - No history of diabetes Random glucose 112 HEME - Anticoagulated with heparin infusion Received aspirin and clopidogrel Hemoglobin 10.8; hematocrit 32.6; platelet count 49,000 ID - No indication of infection WBCs 1.75 LINES/IV ACCESS - Mediport access in the right subclavian region No indication for central line DVT PROPHYLAXIS - Anticoagulate with heparin infusion Antiplatelet agents include clopidogrel and aspirin No indication for JUVE hose or SCDs Ambulate as tolerated and directed by cardiology CCT: 0 minutes independent of any procedures Thank you for including us in the care of this patient. Please refer to Dr. Prieto's addendum for further recommendations. (2) CAD (coronary artery disease): Successful balloon angioplasty to mid RCA today with Dr. Craig Previous history of stents to the LAD RCA and left circumflex Continue beta-luciana, statin, aspirin Further management per cardiology Hemodynamically stable (3) S/P lobectomy of lung: Recent EBUS with Dr. Womack Currently receiving chemoradiation Continue to follow outpatient (4) Hypoxia: Patient reports using home oxygen but is on aware of flow rate Titrate supplemental O2 via nasal cannula to maintain SaO2 greater than 90% History of COPD and emphysema Previous mucoid impaction Follow clinically (5) COPD (chronic obstructive pulmonary disease): (6) CKD (chronic kidney disease), stage III: Baseline creatinine 1.45 Current creatinine 1.16 Follow ins and outs (7) HTN (hypertension): (8) Seizure disorder: No seizure for the last 4 years Continue Lamotrigine Supervising Physician Co-Signing Physician Notes I have personally evaluated and examined this patient. I agree with assessment and plan of Summer Tracey PA-C. Heparin infusion status post angioplasty balloon without placement of drug- eluting stent. History of Present Illness Reason for Consultation: Management post cardiac catheterization Attending Physician: Jasper Coker MD History of Present Illness Attending: Dr. Prieto This is an 83-year-old male with previous history of CAD requiring stent at [facility] in the past. The patient awoke from sleep this morning with crushing chest pain that radiated into his left chest wall left shoulder and down his left arm to the mid forearm. He presented the emergency room and was taken to the cardiac catheterization lab where he was found to have mid RCA stenosis. RCA lesion was predilated with a 2.[address] Craig attempted to place a bare-metal stent but was unable to deliver the stent. Patient was found to have proximal RCA, circumflex, and LAD stents which were patent. There is normal intracardiac filling pressure. Procedure was terminated with successful angioplasty of the mid RCA. Patient was given a bolus of 8000 units of heparin and started on a heparin drip. He was then transferred to the intensive care unit where he was admitted to bed 108. Patient was seen postprocedure and had no chest pain at the time of my examination. He reports no smoking history however review of past medical record indicates that he has a long smoking history from age 14 until age 67. 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 He continues to work full-time and drives and performs all ADLs without difficulty. The patient recently saw Dr. Womack who performed an E bus. 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 He recently received chemotherapy with his last dose on October 22, 2018. He is also receiving concurrent radiation. He does have a Mediport placed in the right subclavian region. This is accessed and has offered no difficulty. Patient has a history of radon, asbestos, and diesel fume exposure. He is . The patient has no history of thromboembolic disease. He has no SOB. He does report that he has supplemental oxygen at home and uses it intermittently. He is unclear on flow rate. He has no other acute complaints at this time. Allergies Allergy/AdvReac Type Severity Reaction Status Date / Time lidocaine Allergy Intermediate PRESERVATIVE Verified 08/15/18 09:41 IN LIDOCAINE CAUSES RED SKIN atorvastatin [From Lipitor] AdvReac Mild Blurry Verified 08/15/18 09:41 Vision rosuvastatin [From Crestor] AdvReac Mild Blurry Verified 08/15/18 09:41 Vision Home Medications Home Medications Medication Instructions Recorded Confirmed Type amlodipine 10 mg PO DAILY 10/24/18 10/24/18 History aspirin [Aspirin Low Dose] 81 mg PO HS 10/24/18 10/24/18 History budesonide-formoterol [Symbicort] 2 puff INHALATION BID 10/24/18 10/24/18 History carvedilol 6.25 mg PO BID 10/24/18 10/24/18 History dutasteride 0.5 mg PO DAILY 10/24/18 10/24/18 History isosorbide mononitrate 60 mg PO QAM 10/24/18 10/24/18 History lamotrigine 150 mg PO BID 10/24/18 10/24/18 History nitroglycerin 0.4 mg SUBLINGUAL USEASDIRECTD PRN 10/24/18 10/24/18 History omeprazole 20 mg PO BID 10/24/18 10/24/18 History rosuvastatin 20 mg PO HS 10/24/18 10/24/18 History sucralfate [Carafate] 10 ml PO QID 10/24/18 10/24/18 History tamsulosin 0.4 mg PO HS 10/24/18 10/24/18 History tiotropium bromide [Spiriva with 1 cap INHALATION DAILY 10/24/18 10/24/18 History HandiHaler] Patient History Medical History Hypoxia (Acute) Admitted [facility] 06/14-06/19 for acute hypoxic resp. failure. Severe emphysema and lung nodule on CT. Bronch 06/18 showed mucoid impaction. Discharged on 2L O2 at rest, 3L with activity, pt to complete ABX and steroid taper OP. Seizure disorder (Chronic) STARING SPELLS-LAST EVENT MORE THAN 4 YEARS AGO (EPILEPSY) CAD (coronary artery disease) (Chronic) "2004 - RAFI to left cx 02/2011 - BMS to prox LAD and RCA" COPD (chronic obstructive pulmonary disease) (Chronic) HTN (hypertension) (Chronic) CKD (chronic kidney disease), stage III (Chronic) Lung cancer (Chronic) CHEMOTHERAPY, LOBECTOMY 2004 Anemia HX BPH (benign prostatic hyperplasia) GERD (gastroesophageal reflux disease) Hyperlipidemia On home oxygen therapy HAS 2L O2 AT HOME "DOES NOT ALWAYS WEAR IT" Osteoarthritis Surgical History S/P carotid endarterectomy (Chronic) LEFT History of bronchoscopy 06/18/18 History of cardiac cath 2010, BMS to proximal RCA History of colonoscopy X MULTIPLE History of esophagogastroduodenoscopy (EGD) History of heart artery stent 3 TOTAL STENTS PLACED (NONE IN THE LAST YEAR) UNSURE OF DATES FOLLOWS WITH DR. STAFFORD History of lobectomy of lung LLL 2004 History of tooth extraction Social History Preferred Language: Citizen Of [place] Communication Ability: Effective Dye Line Operator Required: Yes Beliefs That Will Affect Care: None marital status: Current Living Situation: Spouse Current Living Situation Comment: LIVE AT HOME WITH current occupational status: retired Other Information That Helps Us Care for You: No Feels Safe at Home: Yes Safety Concerns: Feels Safe At This Time Smoking Status: Former smoker Tobacco Type: cigarettes Cigarettes Per Day: 16 Second Hand Exposure: No Hx Alcohol Use: No Hx Substance Use: No Review of Systems Review of Systems: All systems reviewed & are unremarkable except as noted in HPI & below Physical Exam Physical Exam: GENERAL : No acute distress. Pleasant EYES: No icterus, gaze conjugate. Pupils equal round and reactive to light NOSE: No evidence of epistaxis. Nasal cannula in place MOUTH: No lesions or candidiasis. Upper dentures in place. No lower dentures. Tongue midline. Mucosa moist. NECK: Supple. No appreciation of JVD LUNGS: CTA B/L, no wheezes, rales or rhonchi. HEART: Regular, rate controlled. No murmurs gallops or rubs appreciated ABDOMEN: Soft, NT, ND, BS Present. EXTREMITIES: No LE edema, pedal pulses intact and equal bilaterally. No Homans sign. NEURO: A&OX3. No pronator drift. Cerebellar function intact with rapid alternating movements and [id number]. Strength equal and appropriate bilaterally upper and lower extremities. No appreciation of any focal deficits in speech or function. Results & Data Vital Signs (Past 12 Hours) Vital Signs Pulse Resp BP Pulse Ox 10/24/18 10:16 51 L 20 147/62 H 100 10/24/18 10:01 54 L 19 169/90 H 99 10/24/18 09:46 59 L 18 170/84 H 99 10/24/18 09:31 61 22 186/89 H 100 10/24/18 09:20 58 L 18 178/75 H 100 10/24/18 09:15 99 10/24/18 09:03 80 L 10/24/18 08:58 62 22 161/72 H 80 L Laboratory Results 10/24/18 09:20 10/24/18 09:20 Diagnostic Findings XR chest 1V portable HISTORY: 83 years-old Male Chest Pain acute atypical chest pain COMPARISON: Chest radiograph 08/15/2018 TECHNIQUE: Portable AP view of the chest FINDINGS: Cardiomediastinal and hilar silhouettes are unchanged. Right internal jugular Dysoip-l-Rfba catheter is new from prior with distal tip terminating in the expected location of the inferior SVC. Calcification of the thoracic cortical arch. Surgical clips project over the left mediastinal distribution. No pneumothorax. Unchanged blunting of the costophrenic angles with chronic interstitial opacities, mildly improved from comparison. Degenerative changes of the shoulders and spine. IMPRESSION: 1. Right internal jugular Lllgcb-q-Lpbv catheter is new from prior study. No pneumothorax. 2. Chronic interstitial lung disease with improved aeration from comparison. 3. Cardiomegaly. The above report was generated using voice recognition software. It may contain grammatical, syntax or spelling errors. Electronically signed by: Bryant Uriostegui M.D. 10/24/2018 9:49 AM Cardiac Cath Procedure Full Procedure Date October 24, 2018 Pre-Procedure Diagnosis Pre-Procedure Diagnosis: STEMI AUC Score AUC Score: 9 Post-Procedure Diagnosis Post-Procedure Diagnosis: Severe CAD, Successful PCI and Normal Intracardiac Pressures Procedure(s) Performed Procedure(s) Performed: Coronary Angiography, Left Heart Cath and PTCA Food And Beverage Analyst Frank Cragi MD Head Well Puller(s) Glunt Estimated Blood Loss Estimated Blood Loss: 15 Medication(s) Medication(s): Clopidogrel, Fentanyl, Heparin, Lidocaine 1%, Nicardipine, Nitroglycerin and Versed Summary of Findings Indication: STEMI/Heart Alert Access: 6Fr right radial artery Catheters: Anthony, AR1 guide, guideliner Findings: LM -luminal irregularities LAD -angulated approximately with mild disease, lateproximal stent widely patent, mid to distal luminal irregularities before wraps around apex. Moderate caliber first diagonal without significant disease. Circumflex -moderate caliber, 20% ostial stenosis, mild proximal to mid diffuse disease, patent mid circumflex stent with mild in-stent restenosis, 40-50 % distal stenosis just before takeoff of moderate caliber OM 2. OM 2 without significant disease RCA -moderate caliber vessel, dominant, patent proximal stent with mild in-stent restenosis, mid segment calcified, tortuous, 99% acute focal occlusion after acute marginal, AVEL I flow in distal vessel/PDA/PLB's. LVEDP -6 -- PCI -- Antithrombotic therapy: Heparin, clopidogrel Procedure: RCA cannulated with AR-1 guide With some difficulty eventually able to pass whisper wire passed across mid RCA stenosis into distal vessel With the aid of a guide liner mid RCA lesion predilated with 2.0 compliant balloon Attempted to place a bare-metal stent (2.25 x 14) but unable to deliver stent across earlymid RCA calcification/tortuosity IC vasodilators administered for spasm Post angioplasty angiography revealed subtle dissection but mid RCA well- expanded with AVEL-3 flow distally. Patient had resolution of chest pain and decision made to complete procedure. Arterial Closure: TR Band Summary: 1. Inferior STEMI/Subtotal mid RCA occlusion 2. Patent proximal RCA, circumflex and LAD stents 3. Normal intracardiac filling pressure 4. Successful angioplasty of mid RCA with 2.0 balloon. Recommendations: Admit to ICU for continued monitoring Loaded with clopidogrel for 600mg in sawyer cork slabs With subtle mid RCA dissection continue heparin for 12 hrs if able. Continue dual-antiplatelet therapy for ideally 2 weeks Trend troponins until peak, Check Echo High-dose statin Consult cardiac Rehab Hemodynamics Rest Ao:: 170/61/105 Final Ao: 165/54/98 LV: 183/6 Recommendations Recommendations: PCI without planned CABG Specimens Specimens: None Radiation Exposure (mGy) 2043 Contrast (mls) 110 Fluids (cc crystalloids) Fluids (cc crystalloids): 90 Drains Drains: none Anesthesia moderate Procedural Complication(s) None Disposition ICU ACC Data: Manager Disaster Recovery Cardiac Status Clinical evaluation leading to the procedure CAD Presenation: STEMI Anginal Classification: CCS IV Heart Failure: No Cardiogenic Shock within 24 Hours: No Cardiac Arrest within 24 Hours: No Imaging Studies Past 6 Months: No Stress Studies Past 6 Months: No Diagnostic Physicians Name: Frank Craig MD Status: Emergency Closure Device Percutaneous Entry Location: Radial Closure Device: Radial Band Recommendations: PCI without planned CABG PCI Indication: Immediate PCI for STEMI First Noted: Subsequent EKG Lesion Segment Name: mid RCA Culprit Artery: Yes Stenosis Prior to Rx (%): 99 Chronic Total Occlusion: No IVUS: No FFR: No Pre-Procedure AVEL Flow: 1 Previously Treated Lesion: Timeframe: greater than 2 years Treated with Stent: No Yes Lesion Complexity: High/C Lesion Length (mm): 12 Thrombus Present: Yes Bifurcation Lesion: Yes Guidewire Across Lesion: Stenosis Post-Procedure (%): 0 Post-Procedure AVEL Flow: 3 Devices(s) Deployed: No Yes Intraprocedure Events Significant Disection: No Perforation: No Signed By: Created: 10/24/18 1143 Medications Administered Heparin 8000 unit bolus followed by infusion Clopidogrel 600 mg bolus followed by 75 mg p.o. maintenance dose Midazolam 2 mg Morphine sulfate 4 mg Nicardipine 25 mg x 2 doses PG Care Time/CCT Critical Care Time: No Prolonged Care Time Prolonged Care Time: No
[2018-10-24] MEDS ORDERED: Heparin Adult STANDARD Wt-Based Dextrose 5% 25,000 units/500 mL IV SCH (14:15)
[2018-10-24] MEDS: Heparin IV Standard *NO* Bolus IV SCH ×2 (14:16→14:17)
--- NOTE | 2018-10-24 14:47 | History & Physical Report ---
Date of Service October 24, 2018 Assessment & Plan (1) STEMI (ST elevation myocardial infarction): Heart alert called in ED for STEMI - pt now s/p cath with balloon angioplasty of RCA today and is chest pain free - Further management per cardiology/flight paramedic - Heparin drip - will need to monitor closely for evidence of active bleeding in view of pancytopenia - Interventionalist has requested dual anti-platelet therapy with aspirin/plavix x 2 weeks if possible - Pt on low-dose aspirin, carvedilol and isosorbide at home (2) Dysphagia: Related to current XRT thearpy - Pureed diet - Speech consult for additional recommendations (3) CKD (chronic kidney disease), stage III: Baseline creatinine upon review of outpatient records appears to be 1.3- 1.4. - Creatinine this AM was 1.16 - continue to monitor (4) COPD (chronic obstructive pulmonary disease): - Pt taking Spiriva and Symbicort as outpatient - will continue while admitted - Uses supplemental O2 sporadically at home - currently on 2L and feeling well (5) CAD (coronary artery disease): See above plan of care (6) HTN (hypertension): Defer management at present to cardiology/flight paramedic (7) Pancytopenia due to chemotherapy: Monitor labs daily - just received chemo two days ago (8) Lung cancer: Currently undergoing chemoradiation as managed by Dr. Helm at [facility] - last chemo was two days ago, has completed XRT sessions Patient seen and examined with collaborating physician, Dr. Estrada. Plan of care discussed and as outlined above. Case also discussed with Dr. Craig and Dr. Coker - appreciate their input as well as flight paramedic consult. Pt to be followed in AM by Dr. Tirado. Marisa Bear PA-C History of Present Illness Chief Complaint: Chest pain Primary Care Provider: Harris Cam MD This is an 83 y/o male with a complicated PMH including multi-vessel CAD s/p multiple stents, PVD, HTN, dyslipidemia, CKD3, primary hyperparathyroidism, COPD (intermittently uses O2), hx of lung cancer s/p lobectomy in 2004 with second lung cancer noted this year for which pt is undergoing chemoradiation, and seizure disorder (last seizure 10 yrs ago) who presented to the ED today with chest pain. Pt reports that he developed chest pain yesterday morning when he was getting ready for the day - lasted until ~11 am when it resolved without intervention. Camas fine until he was awoken from sleep this AM with crushing chest pain. Pt reports that he took a nitro with transient relief then chest pain returned. Took a second nitro with relief. Pt then realized the pain was likely related to his underlying cardiac disease and not XRT so he called EMS. His chest pain returned in the ED and became severe. Serial EKGs showed evolving STEMI so heart alert called and patient taken to [facility]. During cardiac cath, pt under balloon angioplasty of RCA lesion. Stent placement attempted but unable to be placed. Post-cath patient admitted to ICU for additional monitoring. He was chest pain free at the end of the procedure and remained so when seen in the ICU. He denies progressive cough, dyspnea, lightheadedness or syncope. He is currently undergoing chemoradiation for lung cancer for which he is follows at [facility]. He has received 29 of 33 radiation treatments. Last chemotherapy was 10/22/18 - second cycle had to be held due to pancytopenia. He has noted both dysphagia and odynophagia related to XRT - currently eating a pureed/soft diet at home and supplementing nutrition with Boost up to 3x/day (Vanilla). No fevers, chills, sweats, N/V. Allergies Allergy/AdvReac Type Severity Reaction Status Date / Time lidocaine Allergy Intermediate PRESERVATIVE Verified 08/15/18 09:41 IN LIDOCAINE CAUSES RED SKIN atorvastatin [From Lipitor] AdvReac Mild Blurry Verified 08/15/18 09:41 Vision rosuvastatin [From Crestor] AdvReac Mild Blurry Verified 08/15/18 09:41 Vision Home Medications Home Medications Medication Instructions Recorded Confirmed Type amlodipine 10 mg PO DAILY 10/24/18 10/24/18 History aspirin [Aspirin Low Dose] 81 mg PO HS 10/24/18 10/24/18 History budesonide-formoterol [Symbicort] 2 puff INHALATION BID 10/24/18 10/24/18 History carvedilol 6.25 mg PO BID 10/24/18 10/24/18 History dutasteride 0.5 mg PO DAILY 10/24/18 10/24/18 History isosorbide mononitrate 60 mg PO QAM 10/24/18 10/24/18 History lamotrigine 150 mg PO BID 10/24/18 10/24/18 History nitroglycerin 0.4 mg SUBLINGUAL USEASDIRECTD PRN 10/24/18 10/24/18 History omeprazole 20 mg PO BID 10/24/18 10/24/18 History rosuvastatin 20 mg PO HS 10/24/18 10/24/18 History sucralfate [Carafate] 10 ml PO QID 10/24/18 10/24/18 History tamsulosin 0.4 mg PO HS 10/24/18 10/24/18 History tiotropium bromide [Spiriva with 1 cap INHALATION DAILY 10/24/18 10/24/18 History HandiHaler] Past Med/Surg History Medical History Hypoxia (Acute) Admitted [facility] 06/14-06/19 for acute hypoxic resp. failure. Severe emphysema and lung nodule on CT. Bronch 06/18 showed mucoid impaction. Discharged on 2L O2 at rest, 3L with activity, pt to complete ABX and steroid taper OP. Seizure disorder (Chronic) STARING SPELLS-LAST EVENT MORE THAN 4 YEARS AGO (EPILEPSY) CAD (coronary artery disease) (Chronic) "2004 - RAFI to left cx 02/2011 - BMS to prox LAD and RCA" COPD (chronic obstructive pulmonary disease) (Chronic) HTN (hypertension) (Chronic) CKD (chronic kidney disease), stage III (Chronic) Lung cancer (Chronic) CHEMOTHERAPY, LOBECTOMY 2004 Anemia HX BPH (benign prostatic hyperplasia) GERD (gastroesophageal reflux disease) Hyperlipidemia On home oxygen therapy HAS 2L O2 AT HOME "DOES NOT ALWAYS WEAR IT" Osteoarthritis Surgical History S/P carotid endarterectomy (Chronic) LEFT History of bronchoscopy 06/18/18 History of cardiac cath 2010, BMS to proximal RCA History of colonoscopy X MULTIPLE History of esophagogastroduodenoscopy (EGD) History of heart artery stent 3 TOTAL STENTS PLACED (NONE IN THE LAST YEAR) UNSURE OF DATES FOLLOWS WITH DR. STAFFORD History of lobectomy of lung LLL 2004 History of tooth extraction Social History Preferred Language: [place] Communication Ability: Effective Tank Washer Required: Yes Beliefs That Will Affect Care: None marital status: Current Living Situation: Spouse Current Living Situation Comment: LIVE AT HOME WITH current occupational status: retired Other Information That Helps Us Care for You: No Feels Safe at Home: Yes Safety Concerns: Feels Safe At This Time Smoking Status: Former smoker Tobacco Type: cigarettes Cigarettes Per Day: 16 Second Hand Exposure: No Hx Alcohol Use: No Hx Substance Use: No Review of Systems Review of Systems: All systems reviewed & are unremarkable except as noted in HPI & below Constitutional: + fatigue; no fever, no chills and no sweats Eyes: no diplopia and no worsening vision Ear, Nose, Mouth, Throat: + dysphagia and + pain with swallowing Respiratory: + dyspnea on exertion (chronic - uses O2 PRN); no cough and no hemoptysis Cardiovascular: as per Subjective / HPI Gastrointestinal: no abdominal pain, no bloating, no nausea and no vomiting Genitourinary: no dysuria and no hematuria Musculoskeletal: no back pain and no joint pain Integumentary: + unusual bruising Neurologic: no seizure-like activity, no dizziness, no headache(s) and no confusion Psychiatric: no depression and no anxiety Physical Exam Constitutional: WD/WN, vitals as above Eyes: PERRL, conjunctivae normal, anicteric sclerae ENMT: external ear and nose normal, oropharynx normal Neck: trachea midline Respiratory: normal respiratory effort, lungs clear to auscultation Auscultation: no rales, no rhonchi and no wheezes Cardiovascular: Rate/Rhythm: regular rate and regular rhythm Heart Sounds: no gallop, no murmur and no cardiac rub Extremities: normal capillary refill; no calf tenderness and no pedal edema Gastrointestinal (Abdomen): Inspection/Auscultation: normal bowel sounds; abdomen not distended Percussion/Palpation: abdomen soft; abdomen nontender Musculoskeletal: Extremities: no cyanosis and no clubbing Skin: Multiple areas of ecchymosis noted on bilateral UE, TR band in place right wrist Neurologic: moves all extremities; no focal motor deficits Speech / Cogni tion: normal speech Psychiatric: A+Ox3, euthymic affect Results & Data Vital Signs (Past 12 Hours) Vital Signs Temp Pulse Pulse Resp BP BP Pulse Ox 10/24/18 14:22 56 L 18 169/55 H 99 10/24/18 13:22 57 L 20 155/60 H 100 10/24/18 12:52 54 L 20 157/52 H 99 10/24/18 12:22 63 20 162/65 H 91 10/24/18 12:07 70 18 166/78 H 94 10/24/18 11:52 35.7 C L 57 L 18 162/57 H 95 10/24/18 10:16 51 L 20 147/62 H 100 10/24/18 10:01 54 L 19 169/90 H 99 10/24/18 09:46 59 L 18 170/84 H 99 10/24/18 09:31 61 22 186/89 H 100 10/24/18 09:20 58 L 18 178/75 H 100 10/24/18 09:15 99 10/24/18 09:03 80 L 10/24/18 08:58 62 22 161/72 H 80 L Laboratory Results Laboratory Results - last 24 hr 10/24/18 10/24/18 10/24/18 09:20 09:20 11:07 WBC 1.75 L RBC 3.76 L Hgb 10.8 L Hct 32.6 L MCV 86.7 MCH 28.7 MCHC 33.1 RDW Std Deviation 47.6 H RDW Coeff of Brendan 15.2 H Plt Count 49 L MPV 9.8 Immature Gran % (Auto) 0.6 Neut % (Auto) 65.7 Lymph % (Auto) 14.3 [place] % (Auto) 17.1 Eos % (Auto) 2.3 Baso % (Auto) 0.0 Immature Gran # (Auto) 0.01 Neut # (Auto) 1.15 L Lymph # (Auto) 0.25 L [place] # (Auto) 0.30 Eos # (Auto) 0.04 Baso # (Auto) 0.00 Hypersegmented Neuts 1+ Platelet Estimate Decreased L Target Cells 1+ Ovalocytes 1+ Activ Coag Time Kaolin 324 H Sodium 141 Potassium 4.5 Chloride 109 H Carbon Dioxide 28 Anion Gap 4.0 BUN 24 H Creatinine 1.16 Est Cr Clr Drug Dosing 44.6 Est GFR ( Amer) 67.1 Est GFR (Non-Af Amer) 57.9 BUN/Creatinine Ratio 20.3 H Glucose 112 H Calcium 8.7 Total Bilirubin 0.4 AST 14 L ALT 22 Alkaline Phosphatase 58 Total Creatine Kinase 29 L CK-MB (CK-2) < 1.0 CK/CKMB % Calc TNP Troponin I < 0.015 Total Protein 6.2 L Albumin 3.2 L Globulin 3.0 Albumin/Globulin Ratio 1.1 Lipase 91 Nasal Screen MRSA (PCR) 10/24/18 11:57 WBC RBC Hgb Hct MCV MCH MCHC RDW Std Deviation RDW Coeff of Brendan Plt Count MPV Immature Gran % (Auto) Neut % (Auto) Lymph % (Auto) [place] % (Auto) Eos % (Auto) Baso % (Auto) Immature Gran # (Auto) Neut # (Auto) Lymph # (Auto) [place] # (Auto) Eos # (Auto) Baso # (Auto) Hypersegmented Neuts Platelet Estimate Target Cells Ovalocytes Activ Coag Time Kaolin Sodium Potassium Chloride Carbon Dioxide Anion Gap BUN Creatinine Est Cr Clr Drug Dosing Est GFR ( Amer) Est GFR (Non-Af Amer) BUN/Creatinine Ratio Glucose Calcium Total Bilirubin AST ALT Alkaline Phosphatase Total Creatine Kinase CK-MB (CK-2) CK/CKMB % Calc Troponin I Total Protein Albumin Globulin Albumin/Globulin Ratio Lipase Nasal Screen MRSA (PCR) Negative Diagnostic Findings Chest X-ray 10/24/18 - IMPRESSION: 1. Right internal jugular [id number] catheter is new from prior study. No pneumothorax. 2. Chronic interstitial lung disease with improved aeration from comparison. 3. Cardiomegaly. Medications Administered Sodium Chloride (Nss 1000ml) 1,000 mls @ 100 mls/hr IV .Q10H [facility] Stop: 10/24/18 19:14 Last Admin: 10/24/18 11:48 Dose: 100 mls/hr Documented by: [id number] Heparin Sodium/Dextrose (Heparin Sodium/Dextrose) 25,000 units in 500 mls @ 24 mls/hr IV .[id number] [facility]; Protocol Stop: 11/23/18 14:14 Last Admin: 10/24/18 14:22 Dose: 1,200 units/hr, 24 mls/hr Documented by: [id number] Cosigned by: [id number] Discontinued Medications Aspirin (Aspirin) 324 mg PO NOW STA Stop: 10/24/18 09:32 Last Admin: 10/24/18 09:40 Dose: 324 mg Documented by: [id number] Clopidogrel Bisulfate (Plavix) Confirm Administered Dose 600 mg .ROUTE .STK-MED ONE Stop: 10/24/18 11:29 Last Admin: 10/24/18 11:40 Dose: 600 mg Documented by: [id number] Fentanyl Citrate (Fentanyl Citrate) Confirm Administered Dose 100 mcg .ROUTE .STK-MED ONE Stop: 10/24/18 10:23 Last Increment: 10/24/18 11:22 Dose: 25 mcg Documented by: [id number] Heparin Sodium (Porcine) (Heparin Iv Bolus (Blast Setter Use Only)) Confirm Administered Dose 10,000 units .ROUTE .STK-MED ONE Stop: 10/24/18 10:23 Last Admin: 10/24/18 11:22 Dose: 8,000 units Documented by: [id number] Heparin Sodium (Porcine) (Heparin Iv Bolus (Blast Setter Use Only)) Confirm Administered Dose 10,000 units .ROUTE .STK-MED ONE Stop: 10/24/18 10:54 Last Admin: 10/24/18 11:24 Dose: Not Given Documented by: [id number] Heparin Sodium/Dextrose (Heparin Sodium/Dextrose) Confirm Administered Dose 25,000 units IV .STK-MED ONE Stop: 10/24/18 11:27 Last Admin: 10/24/18 11:40 Dose: 16 ml Documented by: [id number] Cosigned by: [id number] Heparin Sodium/Dextrose () 1 ea IV Q15M [facility]; Protocol Stop: 10/24/18 14:01 Last Admin: 10/24/18 14:17 Dose: Not Given Documented by: [id number] Admin: 10/24/18 14:17 Dose: Not Given Documented by: [id number] Admin: 10/24/18 14:16 Dose: Not Given Documented by: [id number] Admin: 10/24/18 14:16 Dose: Not Given Documented by: [id number] Admin: 10/24/18 14:16 Dose: Not Given Documented by: [id number] Admin: 10/24/18 14:16 Dose: Not Given Documented by: [id number] Heparin Sodium/Sodium Chloride (Heparin/Nss 1000 Unit/500ml Flush Bag) Confirm Administered Dose 3,000 units IV .STK-MED ONE Stop: 10/24/18 10:23 Last Admin: 10/24/18 10:37 Dose: 3,000 units Documented by: [id number] Midazolam HCl (Versed) Confirm Administered Dose 2 mg .ROUTE .STK-MED ONE Stop: 10/24/18 10:23 Last Increment: 10/24/18 11:22 Dose: 1 mg Documented by: [id number] Morphine Sulfate (Morphine Sulfate) 4 mg IV NOW STA Stop: 10/24/18 10:08 Last Admin: 10/24/18 10:19 Dose: 4 mg Documented by: [id number] Nicardipine HCl (Cardene) Confirm Administered Dose 25 mg .ROUTE .STK-MED ONE Stop: 10/24/18 10:23 Last Admin: 10/24/18 10:37 Dose: 25 mg Documented by: [id number] Nicardipine HCl (Cardene) Confirm Administered Dose 25 mg .ROUTE .STK-MED ONE Stop: 10/24/18 11:00 Last Admin: 10/24/18 11:24 Dose: 25 mg Documented by: [id number] Nitroglycerin (Nitro-Bid 2%) 1 inch EXT NOW STA Stop: 10/24/18 09:32 Last Admin: 10/24/18 09:40 Dose: 1 inch Documented by: [id number] Nitroglycerin/Dextrose (Nitroglycerin/D5w 100 Mcg/Ml 20ml Syringe) Confirm Administered Dose 2,000 mcg .ROUTE .STK-MED ONE Stop: 10/24/18 10:23 Last Admin: 10/24/18 10:38 Dose: 2,000 mcg Documented by: [id number] Ondansetron HCl (Zofran) 4 mg IV NOW STA Stop: 10/24/18 10:08 Last Admin: 10/24/18 10:19 Dose: 4 mg Documented by: [id number] Code Status & VTE Plan Code Status Discussed with patient - requests to be full resuscitation as long as meaningful chance of recovery Supervising Physician Co-Signing Physician Notes Attending addendum: This is a 53-year-old male with complex medical history of prior history of multivessel coronary artery disease, status post bare-metal stent on the proximal right RCA and proximal LAD on 02/21/2011 @ [facility] , and newly diagnosed poorly differentiated adenocarcinoma of lung, undergoing chemo and radiation treatmentpatient's oncology and radiation oncology physicians are in [place] Presented to ER with crushing substernal chest pain/patient woke up from sleep with chest pain at around 6 AM In the ER EKG showed ST elevation in inferior Leads "Code Heart alert "was called Patient was taken emergently to cardiac cath underwent balloon angioplasty of occluded RCA, prior stents in left anterior descending and proximal RCA was patent Patient is significantly pancytopenic secondary to recent chemoreceived on 10/22/2017 Ordered for IV heparin recommend to continue up to 12 hours if possible, anticoagulation will be discontinued with any event of active bleeding Patient was given loading dose of Plavix Recommends to continue aspirin and Plavix dual antiplatelet use for 2 weeks if no significant bleeding complications noted Patient will be monitored closely in telemetry Appreciate input from cardiology Please refer to further documentation by Livier Guzmán PA-C for discussion of other chronic issues Elodia Estrada MD (1) CAD (coronary artery disease) [place] vs. transplanted heart: [place] heart (2) Dysphagia Dysphagia type: other dysphagia Qualified Code(s): R13.19 - Other dysphagia (3) Lung cancer Laterality: right Lung location: upper lobe of lung Qualified Code(s): C34.11 - Malignant neoplasm of upper lobe, right bronchus or lung (4) COPD (chronic obstructive pulmonary disease) COPD type: unspecified COPD Qualified Code(s): J44.9 - Chronic obstructive pulmonary disease, unspecified (5) HTN (hypertension) Hypertension type: essential hypertension Qualified Code(s): I10 - Essential (primary) hypertension
--- NOTE | 2018-10-24 16:24 | Emergency Department Note ---
Entered by Gita Chaudhary acting as a scribe for History of Present Illness General Chief complaint: Cardiac Assessment Stated complaint: CHEST PAIN COMES AND GOES Time Seen by Provider: 10/24/18 09:12 Source: patient Mode of arrival: ambulatory Limitations: no limitations History of Present Illness Provider complaint: chest pain Onset (ago): hour(s) (this morning) Location: chest Radiation: non-radiation Pain Consistency: + intermittent Quality: + other (chest pain) Relieved By: + medication Treatments prior to arrival: other (NTG) The patient is an 83 year old male who presents to the Emergency Room with complaints of intermittent chest pain that began last night. The patient reports that he has had 4 cardiac stents placed by Dr. Stafford and that he was supposed to have a 5th one but they decided against it secondary to risks. The patient states that his pain is on the left side of his chest and that he did take 3 nitroglycerin tablets this morning which did help at first. He explains that his pain has since returned. He notes that he is currently receiving radiation for cancer. He denies any current abdominal pain. He also denies taking any aspirin this morning. He denies the pain radiating anywhere. Home Medications Home Medications Medication Instructions Recorded Confirmed Type amlodipine 10 mg PO DAILY 10/24/18 10/24/18 History aspirin [Aspirin Low Dose] 81 mg PO HS 10/24/18 10/24/18 History budesonide-formoterol [Symbicort] 2 puff INHALATION BID 10/24/18 10/24/18 History carvedilol 6.25 mg PO BID 10/24/18 10/24/18 History dutasteride 0.5 mg PO DAILY 10/24/18 10/24/18 History isosorbide mononitrate 60 mg PO QAM 10/24/18 10/24/18 History lamotrigine 150 mg PO BID 10/24/18 10/24/18 History nitroglycerin 0.4 mg SUBLINGUAL USEASDIRECTD PRN 10/24/18 10/24/18 History omeprazole 20 mg PO BID 10/24/18 10/24/18 History rosuvastatin 20 mg PO HS 10/24/18 10/24/18 History sucralfate [Carafate] 10 ml PO QID 10/24/18 10/24/18 History tamsulosin 0.4 mg PO HS 10/24/18 10/24/18 History tiotropium bromide [Spiriva with 1 cap INHALATION DAILY 10/24/18 10/24/18 History HandiHaler] Allergies Allergy/AdvReac Type Severity Reaction Status Date / Time lidocaine Allergy Intermediate PRESERVATIVE Verified 08/15/18 09:41 IN LIDOCAINE CAUSES RED SKIN atorvastatin [From Lipitor] AdvReac Mild Blurry Verified 08/15/18 09:41 Vision rosuvastatin [From Crestor] AdvReac Mild Blurry Verified 08/15/18 09:41 Vision Past Med/Surg History Medical History Hypoxia (Acute) Admitted [facility] 06/14-06/19 for acute hypoxic resp. failure. Severe emphysema and lung nodule on CT. Bronch 06/18 showed mucoid impaction. Discharged on 2L O2 at rest, 3L with activity, pt to complete ABX and steroid taper OP. Seizure disorder (Chronic) STARING SPELLS-LAST EVENT MORE THAN 4 YEARS AGO (EPILEPSY) CAD (coronary artery disease) (Chronic) "2004 - RAFI to left cx 02/2011 - BMS to prox LAD and RCA" COPD (chronic obstructive pulmonary disease) (Chronic) HTN (hypertension) (Chronic) CKD (chronic kidney disease), stage III (Chronic) Lung cancer (Chronic) CHEMOTHERAPY, LOBECTOMY 2004 Anemia HX BPH (benign prostatic hyperplasia) GERD (gastroesophageal reflux disease) Hyperlipidemia On home oxygen therapy HAS 2L O2 AT HOME "DOES NOT ALWAYS WEAR IT" Osteoarthritis Surgical History S/P carotid endarterectomy (Chronic) LEFT History of bronchoscopy 06/18/18 History of cardiac cath 2010, BMS to proximal RCA History of colonoscopy X MULTIPLE History of esophagogastroduodenoscopy (EGD) History of heart artery stent 3 TOTAL STENTS PLACED (NONE IN THE LAST YEAR) UNSURE OF DATES FOLLOWS WITH DR. 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 and A total of 10 systems reviewed and were otherwise negative Physical Exam Vital Signs Vital Signs - 24 hr 10/24/18 08:58 10/24/18 09:03 10/24/18 09:15 Temperature Source Oral Sepsis Recent Fever Within 48 Hours No Sepsis New/Unexplained Change in Mental Status No Sepsis Action Taken by Nursing No Action Required Pulse Rate 62 Pulse Rate from SpO2 Sensor Respiratory Rate 22 Blood Pressure 161/72 H Blood Pressure Mean 101 Pulse Oximetry 80 L 80 L 99 Oxygen Delivery Method Room Air Nasal Cannula Oxygen Flow Rate 0 10/24/18 09:20 10/24/18 09:30 10/24/18 09:31 Temperature Source Sepsis Recent Fever Within 48 Hours Sepsis New/Unexplained Change in Mental Status Sepsis Action Taken by Nursing Pulse Rate 58 L 61 Pulse Rate from SpO2 Sensor 59 L 60 Respiratory Rate 18 22 Blood Pressure 178/75 H 186/89 H Blood Pressure Mean 109 121 Pulse Oximetry 100 100 Oxygen Delivery Method Nasal Cannula Nasal Cannula Nasal Cannula Oxygen Flow Rate 2 2 2 10/24/18 09:46 10/24/18 10:01 10/24/18 10:16 Temperature Source Sepsis Recent Fever Within 48 Hours Sepsis New/Unexplained Change in Mental Status Sepsis Action Taken by Nursing Pulse Rate 59 L 54 L 51 L Pulse Rate from SpO2 Sensor 60 54 L 51 L Respiratory Rate 18 19 20 Blood Pressure 170/84 H 169/90 H 147/62 H Blood Pressure Mean 112 116 90 Pulse Oximetry 99 99 100 Oxygen Delivery Method Nasal Cannula Nasal Cannula Nasal Cannula Oxygen Flow Rate 2 2 2 10/24/18 10:30 Temperature Source Sepsis Recent Fever Within 48 Hours Sepsis New/Unexplained Change in Mental Status Sepsis Action Taken by Nursing Pulse Rate Pulse Rate from SpO2 Sensor Respiratory Rate Blood Pressure Blood Pressure Mean Pulse Oximetry Oxygen Delivery Method Nasal Cannula Oxygen Flow Rate 2 GENERAL: Awake, alert, well-appearing, in no acute distress. Pale in appearance. HENT: Normocephalic, atraumatic. Oropharynx unremarkable. EYES: Normal conjunctiva. Sclera non-icteric. NECK: Supple. No nuchal rigidity. FROM. No JVD. RESPIRATORY: Clear to auscultation. CARDIAC: Regular rate, normal rhythm. Extremities warm and well perfused. Pulses equal. ABDOMEN: Soft, non-distended. No tenderness to palpation. No rebound or gu arding. No masses. RECTAL: Deferred. MUSCULOSKELETAL: Chest examination reveals no tenderness. The back is symmetrical on inspection without obvious abnormality. There is no CVA tenderness to palpation. No joint edema. Point in right chest wall. LOWER EXTREMITIES: Calves are equal size bilaterally and non-tender. No edema. No discoloration. NEURO: Normal sensorium. No sensory or motor deficits noted. SKIN: No rash or jaundice noted. Course 09: Past medical records reviewed. The patient was evaluated in room C6. A complete history and physical examination was performed. 0932: I discussed the patient's case with Dr. John Paul Garcia Cardiology. He recommends admission of the patient. 1013: I checked on the patient. He is complaining of increased chest pain. 1016: A Heart alert was called. 1024: Dr. Craig is at bedside. 1029: I reviewed the patient's case with Devorah Bear PA-C. She, in conjunction with Dr. Estrada, will evaluate the patient for further management. 1030: The patient is being taken to the mushroom laborer. Administered Medications Acetaminophen (Tylenol) 650 mg PO Q4H PRN PRN Reason: Mild Pain (scale 1-3) Stop: 11/23/18 11:36 Last Admin: 10/24/18 22:06 Dose: 650 mg Documented by: [id number] Aspirin (Ecotrin Ectab) 81 mg PO QAM [facility] Stop: 11/24/18 08:59 Last Admin: 10/25/18 08:54 Dose: 81 mg Documented by: [id number] Budesonide/Formoterol Fumarate (Symbicort 160mcg/4.5mcg) 2 puffs INH BID [facility] Stop: 11/23/18 20:59 Last Admin: 10/25/18 08:55 Dose: 2 puffs Documented by: [id number] Admin: 10/24/18 19:50 Dose: 2 puffs Documented by: [id number] Carvedilol (Coreg) 6.25 mg PO BID [facility] Stop: 11/23/18 20:59 Last Admin: 10/25/18 08:54 Dose: 6.25 mg Documented by: [id number] Admin: 10/24/18 19:47 Dose: 6.25 mg Documented by: [id number] Clopidogrel Bisulfate (Plavix) 75 mg PO QAM [facility] Stop: 11/24/18 08:59 Last Admin: 10/25/18 08:54 Dose: 75 mg Documented by: [id number] Lamotrigine (Lamictal) 150 mg PO BID [facility] Stop: 11/23/18 20:59 Last Admin: 10/25/18 08:50 Dose: 150 mg Documented by: [id number] Admin: 10/24/18 19:49 Dose: 150 mg Documented by: [id number] Miscellaneous (Order Awaiting Action) 1 ea N/A QS [facility] Stop: 11/24/18 00:00 Last Admin: 10/25/18 11:42 Dose: Not Given Documented by: [id number] Rosuvastatin Calcium (Crestor) 20 mg PO [facility] Stop: 11/23/18 20:59 Last Admin: 10/24/18 19:47 Dose: 20 mg Documented by: [id number] Tamsulosin HCl (Flomax) 0.4 mg PO [facility] Stop: 11/23/18 20:59 Last Admin: 10/24/18 19:48 Dose: 0.4 mg Documented by: [id number] Tiotropium Saline (Spiriva) 1 puffs INH DAILY [facility] Stop: 11/24/18 08:59 Last Admin: 10/25/18 08:54 Dose: 1 puffs Documented by: [id number] Discontinued Medications Amlodipine Besylate (Norvasc) 10 mg PO DAILY [facility] Stop: 11/24/18 08:59 Last Admin: 10/25/18 08:54 Dose: 10 mg Documented by: [id number] Aspirin (Aspirin) 324 mg PO NOW STA Stop: 10/24/18 09:32 Last Admin: 10/24/18 09:40 Dose: 324 mg Documented by: [id number] Carvedilol (Coreg) 6.25 mg PO NOW ONE Stop: 10/24/18 16:31 Last Admin: 10/24/18 16:35 Dose: 6.25 mg Documented by: [id number] Clopidogrel Bisulfate (Plavix) Confirm Administered Dose 600 mg .ROUTE .STK-MED ONE Stop: 10/24/18 11:29 Last Admin: 10/24/18 11:40 Dose: 600 mg Documented by: [id number] Fentanyl Citrate (Fentanyl Citrate) Confirm Administered Dose 100 mcg .ROUTE .STK-MED ONE Stop: 10/24/18 10:23 Last Increment: 10/24/18 11:22 Dose: 25 mcg Documented by: [id number] Heparin Sodium (Porcine) (Heparin Iv Bolus (Ep Technologist Use Only)) Confirm Administered Dose 10,000 units .ROUTE .STK-MED ONE Stop: 10/24/18 10:23 Last Admin: 10/24/18 11:22 Dose: 8,000 units Documented by: [id number] Heparin Sodium (Porcine) (Heparin Iv Bolus (Ep Technologist Use Only)) Confirm Ad ministered Dose 10,000 units .ROUTE .STK-MED ONE Stop: 10/24/18 10:54 Last Admin: 10/24/18 11:24 Dose: Not Given Documented by: [id number] Heparin Sodium/Dextrose (Heparin Sodium/Dextrose) Confirm Administered Dose 25,000 units IV .STK-MED ONE Stop: 10/24/18 11:27 Last Admin: 10/24/18 11:40 Dose: 16 ml Documented by: [id number] Cosigned by: [id number] Heparin Sodium/Dextrose () 1 ea IV Q15M [facility]; Protocol Stop: 10/24/18 14:01 Last Admin: 10/24/18 14:17 Dose: Not Given Documented by: [id number] Admin: 10/24/18 14:17 Dose: Not Given Documented by: [id number] Admin: 10/24/18 14:16 Dose: Not Given Documented by: [id number] Admin: 10/24/18 14:16 Dose: Not Given Documented by: [id number] Admin: 10/24/18 14:16 Dose: Not Given Documented by: [id number] Admin: 10/24/18 14:16 Dose: Not Given Documented by: [id number] Heparin Sodium/Sodium Chloride (Heparin/Nss 1000 Unit/500ml Flush Bag) Confirm Administered Dose 3,000 units IV .STK-MED ONE Stop: 10/24/18 10:23 Last Admin: 10/24/18 10:37 Dose: 3,000 units Documented by: [id number] Sodium Chloride (Nss 1000ml) 1,000 mls @ 100 mls/hr IV .Q10H [facility] Stop: 10/24/18 19:14 Last Infusion: 10/24/18 22:48 Dose: 0 mls/hr Documented by: [id number] Admin: 10/24/18 11:48 Dose: 100 mls/hr Documented by: [id number] Heparin Sodium/Dextrose (Heparin Sodium/Dextrose) 25,000 units in 500 mls @ 0 mls/hr IV .Q0M [facility]; Protocol Stop: 10/24/18 23:40 Last Titration: 10/24/18 18:38 Dose: 0 units/hr, 0 mls/hr Documented by: [id number] Cosigned by: [id number] Titration: 10/24/18 17:37 Dose: 0 units/hr, 0 mls/hr Documented by: [id number] Cosigned by: [id number] Admin: 10/24/18 14:22 Dose: 1,200 units/hr, 24 mls/hr Documented by: [id number] Cosigned by: [id number] Isosorbide Mononit[facility] ([facility]ur Extended Rel) [facility] Stop: 11/24/18 08:59 Last Admin: 10/25/18 08:53 Dose: 60 mg Documented by: [id number] Isosorbide Mononitrate (Imdur Extended Rel) 60 mg PO ONE ONE Stop: 10/24/18 16:31 Last Admin: 10/24/18 16:35 Dose: 60 mg Documented by: [id number] Midazolam HCl (Versed) Confirm Administered Dose 2 mg .ROUTE .STK-MED ONE Stop: 10/24/18 10:23 Last Increment: 10/24/18 11:22 Dose: 1 mg Documented by: [id number] Morphine Sulfate (Morphine Sulfate) 4 mg IV NOW STA Stop: 10/24/18 10:08 Last Admin: 10/24/18 10:19 Dose: 4 mg Documented by: [id number] Nicardipine HCl (Cardene) Confirm Administered Dose 25 mg .ROUTE .STK-MED ONE Stop: 10/24/18 10:23 Last Admin: 10/24/18 10:37 Dose: 25 mg Documented by: [id number] Nicardipine HCl (Cardene) Confirm Administered Dose 25 mg .ROUTE .STK-MED ONE Stop: 10/24/18 11:00 Last Admin: 10/24/18 11:24 Dose: 25 mg Documented by: [id number] Nitroglycerin (Nitro-Bid 2%) 1 inch EXT NOW STA Stop: 10/24/18 09:32 Last Admin: 10/24/18 09:40 Dose: 1 inch Documented by: [id number] Nitroglycerin/Dextrose (Nitroglycerin/D5w 100 Mcg/Ml 20ml Syringe) Confirm Administered Dose 2,000 mcg .ROUTE .STK-MED ONE Stop: 10/24/18 10:23 Last Admin: 10/24/18 10:38 Dose: 2,000 mcg Documented by: [id number] Ondansetron HCl (Zofran) 4 mg IV NOW STA Stop: 10/24/18 10:08 Last Admin: 10/24/18 10:19 Dose: 4 mg Documented by: [id number] Medical Decision Making Differential Diagnosis Differential diagnosis includes: cardiac ischemia, aortic dissection, pulmonary embolism, pneumonia, pneumothorax, musculoskeletal, infections, pericarditis, my ocarditis, esophageal rupture, gastrointestinal, as well as others were entertained. Medical Records Attestation: I reviewed the patient's medical records. Home Medications Current Medication List: was personally reviewed by me Laboratory Data Attestation: I reviewed the patient's lab results. Result diagrams: 10/25/18 04:17 10/25/18 04:17 Lab Results 10/24/18 10/24/18 10/24/18 Range/Units 09:20 09:20 11:07 WBC 1.75 L (4.8-10.8) K/uL RBC 3.76 L (4.7-6.1) M/uL Hgb 10.8 L (14.0-18.0) g/dL Hct 32.6 L (42-52) % MCV 86.7 (80-100) fL MCH 28.7 (25-34) pg MCHC 33.1 (32-36) g/dL RDW Std Deviation 47.6 H (36.4-46.3) fL RDW Coeff of Brendan 15.2 H (11.5-14.5) % Plt Count 49 L (130-400) K/uL MPV 9.8 (7.4-10.4) fL Immature Gran % (Auto) 0.6 % Neut % (Auto) 65.7 % Lymph % (Auto) 14.3 % Clinton % (Auto) 17.1 % Eos % (Auto) 2.3 % Baso % (Auto) 0.0 % Immature Gran # (Auto) 0.01 (0.00-0.02) K/uL Neut # (Auto) 1.15 L (1.4-6.5) K/uL Lymph # (Auto) 0.25 L (1.2-3.4) K/uL Clinton # (Auto) 0.30 (0.11-0.59) K/uL Eos # (Auto) 0.04 (0-0.5) K/uL Baso # (Auto) 0.00 (0-0.2) K/uL Hypersegmented Neuts 1+ Platelet Estimate Decreased L (Normal) Target Cells 1+ Ovalocytes 1+ Activ Coag Time Kaolin 324 H (94-140) SECONDS Sodium 141 (136-145) mmol/L Potassium 4.5 (3.5-5.1) mmol/L Chloride 109 H (98-107) mmol/L Carbon Dioxide 28 (21-32) mmol/L Anion Gap 4.0 (3-11) BUN 24 H (7-18) mg/dl Creatinine 1.16 (0.6-1.4) mg/dl Est Cr Clr Drug Dosing 44.6 ml/min Est GFR ( Amer) 67.1 Est GFR (Non-Af Amer) 57.9 BUN/Creatinine Ratio 20.3 H (10-20) Glucose 112 H (70-99) mg/dl Calcium 8.7 (8.5-10.1) mg/dl Total Bilirubin 0.4 (0.2-1) mg/dl AST 14 L (15-37) U/L ALT 22 (12-78) U/L Alkaline Phosphatase 58 (45-117) U/L Total Creatine Kinase 29 L (39-308) U/L CK-MB (CK-2) < 1.0 (0.5-3.6) ng/ml CK/CKMB % Calc TNP Troponin I < 0.015 (0-0.045) ng/ml Total Protein 6.2 L (6.4-8.2) gm/dl Albumin 3.2 L (3.4-5.0) gm/dl Globulin 3.0 (2.5-4.0) gm/dl Albumin/Globulin Ratio 1.1 (0.9-2) Lipase 91 (73-393) U/L Imaging Data Radiologist's Impression: Radiology results as stated below per my review and the radiologist's interpretation: XR chest 1V portable HISTORY: 83 years-old Male Chest Pain acute atypical chest pain COMPARISON: Chest radiograph 08/15/2018 TECHNIQUE: Portable AP view of the chest FINDINGS: Cardiomediastinal and hilar silhouettes are unchanged. Right internal jugular [id number]-s-[id number] catheter is new from prior with distal tip terminating in the expe cted location of the inferior SVC. Calcification of the thoracic cortical arch. Surgical clips project over the left mediastinal distribution. No pneumothorax. Unchanged blunting of the costophrenic angles with chronic interstitial opacities, mildly improved from comparison. Degenerative changes of the shoulders and spine. IMPRESSION: 1. Right internal jugular Uaqrqg-u-Vqtp catheter is new from prior study. No pneumothorax. 2. Chronic interstitial lung disease with improved aeration from comparison. 3. Cardiomegaly. The above report was generated using voice recognition software. It may contain grammatical, syntax or spelling errors. Electronically signed by: Bryant Uriostegui M.D. 10/24/2018 9:49 AM ECG Data Attestation: I personally reviewed and interpreted this ECG as follows: Indication: chest pain Rate (beats per minute): 69 Rhythm: normal sinus Findings: + ST depression (Lateral); no ST elevation Comparison ECG Date: from (15-JUN-2018) Change: the following changes noted (new ST depressions in lateral leads) Additional Comments: REPEAT EKG 1: sinus bradycardia, at 59 bpm, no ST elevations, ST depressions in lateral leads. Unchanged from previous. REPEAT EKG 2: sinus bradycardia, at 50 bpm, ST elevations in inferior leads, no ST depressions. Blood Pressure Blood Pressure Findings: Elevated blood pressure Blood Pressure Disposition: further management by hospitalist [facility] Narrative This is an 83-year-old male with a significant heart history who is also on chemotherapy and radiation therapy presents the emergency department complaining of chest pain. The patient's original EKG did not show any evidence of ST elevation however there were new ST depressions therefore I did discuss the case with the on-call project associate. The patient's chest pain became worse while he was in the emergency department therefore serial EKGs were obtained. His third EKG was concerning for a STEMI and at this point heart alert was initiated. Patient was given Nitropaste as well as aspirin here in the emergency department. He was also given morphine and Zofran for his pain. Pt was taken to the mushroom laborer. Patient was in agreement with the treatment plan. Impression & Plan ST elevation (STEMI) myocardial infarction, CKD (chronic kidney disease), stage III, Lung cancer, Pancytopenia due to chemotherapy Critical Care Time I have personally spent greater than 30 minutes of critical care time in the direct management of this patient. This includes bedside care, interpretation of diagnostic studies, and testing, discussion with consultants, patient, and family members, and other required patient management activities. This 30 minutes is in excess of all separately billable procedures. Discharge Plan Visit Data *Final* Discharge Date/Time: 10/24/18 10:30 Chief Complaint: Cardiac Assessment Stated Complaint: CHEST PAIN COMES AND GOES ED Provider: Sukhi Green Discharge Problem: ST elevation (STEMI) myocardial infarction, CKD (chronic kidney disease), stage III, Lung cancer, Pancytopenia due to chemotherapy Patient Disposition: Admitted As Inpatient Discharge Instructions Interventions: ED Discharge Assessment Last Done: 10/24/18 10:30 Discharge Problem: ST elevation (STEMI) myocardial infarction Qualifiers: Involved coronary artery: unspecified coronary artery Qualified Code(s): I21.3 - ST elevation (STEMI) myocardial infarction of unspecified site Lung cancer Qualifiers: Laterality: unspecified laterality Lung location: unspecified part of lung Qualified Code(s): C34.90 - Malignant neoplasm of unspecified part of unspecified bronchus or lung The scribe's documentation has been prepared under my direction and personally reviewed by me in its entirety. I confirm that the note above accurately reflects all work, treatment, procedures, and medical decision making performed by me.
[2018-10-24] MEDS ORDERED: ISOSORBIDE MONO EXTENDED REL 60 MG TABCR PO ONE (16:30)
[2018-10-24] MEDS ORDERED: CARVEDILOL 6.25 MG TAB PO ONE (16:30)
[2018-10-24 16:44] LABS: Hematocrit (blood only) 35.6 % (42-52); Hemoglobin 11.8 g/dL (14.0-18.0); Mean Corpuscular Volume 85.4 fL (80-100); RDW Coefficient of Variation 15.3 % (11.5-14.5); RDW Standard Deviation 47.4 fL (36.4-46.3); Red Blood Count 4.17 M/uL (4.7-6.1); White Blood Count 1.76 K/uL (4.8-10.8)
--- NOTE | 2018-10-24 16:45 | Hospitalist Progress Note ---
Date of Service October 24, 2018 Subjective Attending addendum Notified by nursing, patient's is very hypertensive systolic 192 And bleeding noted around TR band/IV site Patient is on IV heparin Has not taken any of his BP meds this morning Patient evaluated at room 108 No complaint of headache, chest pain/chest heaviness of shortness of breath Ordered for Imdur 60 mg x 1 dose/Coreg 6.25 mg x 1 dose now (Patient's a.m. meds) Stat PTT ordered Stat CBC ordered to check platelet count IV heparin will be on hold if PTT elevated then the therapeutic range, or decline in platelet count from 45K this morning Patient will be continued to be monitored in ICU Elodia Estrada MD Results & Data Vital Signs (Past 12 Hours) Vital Signs Temp Pulse Pulse Resp BP BP Pulse Ox 10/24/18 16:19 192/81 H 10/24/18 16:00 35.7 C L 64 22 177/167 H 91 10/24/18 15:30 60 15 170/62 H 92 10/24/18 15:00 57 L 22 178/67 H 100 10/24/18 14:30 64 16 172/61 H 100 10/24/18 14:22 56 L 18 169/55 H 99 10/24/18 13:22 57 L 20 155/60 H 100 10/24/18 12:52 54 L 20 157/52 H 99 10/24/18 12:22 63 20 162/65 H 91 10/24/18 12:07 70 18 166/78 H 94 10/24/18 11:52 35.7 C L 57 L 18 162/57 H 95 10/24/18 10:16 51 L 20 147/62 H 100 10/24/18 10:01 54 L 19 169/90 H 99 10/24/18 09:46 59 L 18 170/84 H 99 10/24/18 09:31 61 22 186/89 H 100 10/24/18 09:20 58 L 18 178/75 H 100 10/24/18 09:15 99 10/24/18 09:03 80 L 10/24/18 08:58 62 22 161/72 H 80 L
[2018-10-24 17:05] LABS: Mean Corpuscular Hgb Conc 33.1 g/dL (32-36); Mean Platelet Volume 10.8 fL (7.4-10.4); Platelet Count 46 K/uL (130-400)
[2018-10-24 17:32] LABS: Partial Thromboplastin Ratio > 5.1
[2018-10-24 17:36] LABS: Partial Thromboplastin Time > 139.0 Seconds (21.0-31.0)
--- NOTE | 2018-10-24 17:46 | Cardiology Consultation ---
Date of Consultation October 24, 2018 Assessment & Plan (1) STEMI (ST elevation myocardial infarction): Acute coronary syndrome stuttering chest pain consistent with angina followed by acute closure and ST elevation while under observation in the emergency room. He was taken very promptly to cardiac catheterization lab and coronary angiography and balloon angioplasty of an occluded right coronary artery. Prior stents in the left anterior descending circumflex and proximal right coronary artery were patent with moderate irregularities Plan continue heparin as noted for 12 hours post procedure discontinuing at that time. Will need to follow platelet counts in hospital on dual antiplatelet therapy and recent heparin administration Blood pressures are elevated post procedure and patient did not take a.m. medications will resume amlodipine and carvedilol Plan dual antiplatelet therapy and readdress lipid reduction Maintain telemetry (2) Pancytopenia due to chemotherapy: All lab work closely as above (3) S/P carotid endarterectomy: (4) Carcinoma, lung: Will need to coordinate plans for chemo and radiation therapy following current acute event History of Present Illness Reason for Consultation: Acute ST elevation myocardial infarction Attending Physician: Dr Estrada History of Present Illness Patient is an 83-year-old male with complex underlying multiple medical issues 1. Chronic coronary heart disease. 1. History of multivessel coronary artery disease status post bare-metal stenting to the proximal right coronary artery and proximal LAD on 02/21/11 at [facility]. 2. Moderate circumflex territory CAD with patent stent for which medical management was recommended. 3. June 2016 NSTEMI, type 2 event felt to be secondary to noncompliance, uncontrolled hypertension - managed medically 4. Peripheral vascular disease including carotid occlusive disease status post left carotid endarterectomy, extensive aortic arch atherosclerosis, moderate brachiocephalic artery stenosis, and diminished lower extremity peripheral pulses with prior CT angiograms revealing moderate atherosclerotic disease 5. 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 New diagnosis poorly differentiated adenocarcinoma right upper lobe with lymphadenopathy August 2018. Patient currently undergoing chemotherapy and radiation therapy. Laboratory studies reflect thrombocytopenia secondary to above 6. Hypertension 7. Dyslipidemia. 8. Stage 3 chronic kidney disease 9. Primary hyperparathyroidism Patient presents now noting 2 to 3 days history of exertional chest discomfort culminating and significant symptoms this morning. He had 3 episodes of recurrent chest pain all relieved with sublingual nitroglycerin. He presented to the emergency room for further evaluation with symptoms having all prior to admission. However while being evaluated once again had recurrence of chest pain with associated ST elevation on EKG. He was taken emergently to the diagnostic cardiac catheterization lab where he underwent coronary angiography and subsequent coronary intervention with balloon angioplasty of the right coronary artery for occluded vessel. Patient was seen and evaluated post procedure and is now without pain denies any chest discomfort worsening dyspnea tachypalpitations syncope or near syncope. Blood pressures are somewhat elevated. He did not take a.m. medications per his description. Notes no fevers chills or productive cough no dyspnea remains present dissipates to additional radiation treatments next week followed by a repeat chemotherapy uncertain type Notes no recent bleeding. Notes no melena hematochezia or hematuria. Does have somewhat easy bruising. Appetite remains generally good Allergies Allergy/AdvReac Type Severity Reaction Status Date / Time lidocaine Allergy Intermediate PRESERVATIVE Verified 08/15/18 09:41 IN LIDOCAINE CAUSES RED SKIN atorvastatin [From Lipitor] AdvReac Mild Blurry Verified 08/15/18 09:41 Vision rosuvastatin [From Crestor] AdvReac Mild Blurry Verified 08/15/18 09:41 Vision Home Medications Home Medications Medication Instructions Recorded Confirmed Type amlodipine 10 mg PO DAILY 10/24/18 10/24/18 History aspirin [Aspirin Low Dose] 81 mg PO HS 10/24/18 10/24/18 History budesonide-formoterol [Symbicort] 2 puff INHALATION BID 10/24/18 10/24/18 History carvedilol 6.25 mg PO BID 10/24/18 10/24/18 History dutasteride 0.5 mg PO DAILY 10/24/18 10/24/18 History isosorbide mononitrate 60 mg PO QAM 10/24/18 10/24/18 History lamotrigine 150 mg PO BID 10/24/18 10/24/18 History nitroglycerin 0.4 mg SUBLINGUAL USEASDIRECTD PRN 10/24/18 10/24/18 History omeprazole 20 mg PO BID 10/24/18 10/24/18 History rosuvastatin 20 mg PO HS 10/24/18 10/24/18 History sucralfate [Carafate] 10 ml PO QID 10/24/18 10/24/18 History tamsulosin 0.4 mg PO HS 10/24/18 10/24/18 History tiotropium bromide [Spiriva with 1 cap INHALATION DAILY 10/24/18 10/24/18 History HandiHaler] Patient History Medical History Hypoxia (Acute) Admitted [facility] 06/14-06/19 for acute hypoxic resp. failure. Severe emphysema and lung nodule on CT. Bronch 06/18 showed mucoid impaction. Discharged on 2L O2 at rest, 3L with activity, pt to complete ABX and steroid taper OP. Seizure disorder (Chronic) STARING SPELLS-LAST EVENT MORE THAN 4 YEARS AGO (EPILEPSY) CAD (coronary artery disease) (Chronic) "2004 - RAFI to left cx 02/2011 - BMS to prox LAD and RCA" COPD (chronic obstructive pulmonary disease) (Chronic) HTN (hypertension) (Chronic) CKD (chronic kidney disease), stage III (Chronic) Lung cancer (Chronic) CHEMOTHERAPY, LOBECTOMY 2004 Anemia HX BPH (benign prostatic hyperplasia) GERD (gastroesophageal reflux disease) Hyperlipidemia On home oxygen therapy HAS 2L O2 AT HOME "DOES NOT ALWAYS WEAR IT" Osteoarthritis Surgical History S/P carotid endarterectomy (Chronic) LEFT History of bronchoscopy 06/18/18 History of cardiac cath 2010, BMS to proximal RCA History of colonoscopy X MULTIPLE History of esophagogastroduodenoscopy (EGD) History of heart artery stent 3 TOTAL STENTS PLACED (NONE IN THE LAST YEAR) UNSURE OF DATES FOLLOWS WITH DR. 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 Beliefs That Will Affect Care: None marital status: Current Living Situation: Spouse Current Living Situation Comment: LIVE AT HOME WITH current occupational status: retired Other Information That Helps Us Care for You: No Feels Safe at Home: Yes Safety Concerns: Feels Safe At This Time Smoking Status: Former smoker Tobacco Type: cigarettes Cigarettes Per Day: 16 Second Hand Exposure: No Hx Alcohol Use: No Hx Substance Use: No Review of Systems Review of Systems: All systems reviewed & are unremarkable except as noted in HPI & below Physical Exam Constitutional: WD/WN, vitals as above no acute distress Eyes: PERRL, conjunctivae normal, anicteric sclerae ENMT: external ear and nose normal, oropharynx normal Neck: Thin no visible jugular venous distention Well-healed left carotid enterectomy scar Respiratory: Auscultation: + diminished lung sounds Cardiovascular: Rate/Rhythm: regular rate and regular rhythm Heart Sounds: normal S1 and normal S2 Vessels: no JVD Chest (Breasts): Additional Comments: Mediport and right chest Gastrointestinal (Abdomen): normal bowel sounds, soft, nontender, no hepatosplenomegaly Musculoskeletal: no cyanosis or clubbing, extremities motor strength 5/5 Results & Data Vital Signs (Past 12 Hours) Vital Signs Temp Pulse Pulse Resp BP BP Pulse Ox 10/24/18 17:00 63 18 164/58 H 96 10/24/18 16:19 192/81 H 10/24/18 16:00 35.7 C L 64 22 177/167 H 91 10/24/18 15:30 60 15 170/62 H 92 10/24/18 15:00 57 L 22 178/67 H 100 10/24/18 14:30 64 16 172/61 H 100 10/24/18 14:22 56 L 18 169/55 H 99 10/24/18 13:22 57 L 20 155/60 H 100 10/24/18 12:52 54 L 20 157/52 H 99 10/24/18 12:22 63 20 162/65 H 91 10/24/18 12:07 70 18 166/78 H 94 10/24/18 11:52 35.7 C L 57 L 18 162/57 H 95 10/24/18 10:16 51 L 20 147/62 H 100 10/24/18 10:01 54 L 19 169/90 H 99 10/24/18 09:46 59 L 18 170/84 H 99 10/24/18 09:31 61 22 186/89 H 100 10/24/18 09:20 58 L 18 178/75 H 100 10/24/18 09:15 99 10/24/18 09:03 80 L 10/24/18 08:58 62 22 161/72 H 80 L Laboratory Results Laboratory Results - last 24 hr 10/24/18 10/24/18 10/24/18 09:20 09:20 11:07 WBC 1.75 L RBC 3.76 L Hgb 10.8 L Hct 32.6 L MCV 86.7 MCH 28.7 MCHC 33.1 RDW Std Deviation 47.6 H RDW Coeff of Brendan 15.2 H Plt Count 49 L MPV 9.8 Immature Gran % (Auto) 0.6 Neut % (Auto) 65.7 Lymph % (Auto) 14.3 [place] % (Auto) 17.1 Eos % (Auto) 2.3 Baso % (Auto) 0.0 Immature Gran # (Auto) 0.01 Neut # (Auto) 1.15 L Lymph # (Auto) 0.25 L [place] # (Auto) 0.30 Eos # (Auto) 0.04 Baso # (Auto) 0.00 Hypersegmented Neuts 1+ Platelet Estimate Decreased L Target Cells 1+ Ovalocytes 1+ APTT PTT Ratio Activ Coag Time Kaolin 324 H Sodium 141 Potassium 4.5 Chloride 109 H Carbon Dioxide 28 Anion Gap 4.0 BUN 24 H Creatinine 1.16 Est Cr Clr Drug Dosing 44.6 Est GFR ( Amer) 67.1 Est GFR (Non-Af Amer) 57.9 BUN/Creatinine Ratio 20.3 H Glucose 112 H Calcium 8.7 Total Bilirubin 0.4 AST 14 L ALT 22 Alkaline Phosphatase 58 Total Creatine Kinase 29 L CK-MB (CK-2) < 1.0 CK/CKMB % Calc TNP Troponin I < 0.015 Total Protein 6.2 L Albumin 3.2 L Globulin 3.0 Albumin/Globulin Ratio 1.1 Lipase 91 Nasal Screen MRSA (PCR) 10/24/18 10/24/18 10/24/18 11:57 15:35 16:32 WBC RBC Hgb Hct MCV MCH MCHC RDW Std Deviation RDW Coeff of Brendan Plt Count MPV Immature Gran % (Auto) Neut % (Auto) Lymph % (Auto) [place] % (Auto) Eos % (Auto) Baso % (Auto) Immature Gran # (Auto) Neut # (Auto) Lymph # (Auto) [place] # (Auto) Eos # (Auto) Baso # (Auto) Hypersegmented Neuts Platelet Estimate Target Cells Ovalocytes APTT > 139.0 H* PTT Ratio > 5.1 Activ Coag Time Kaolin Sodium Potassium Chloride Carbon Dioxide Anion Gap BUN Creatinine Est Cr Clr Drug Dosing Est GFR ( Amer) Est GFR (Non-Af Amer) BUN/Creatinine Ratio Glucose Calcium Total Bilirubin AST ALT Alkaline Phosphatase Total Creatine Kinase CK-MB (CK-2) CK/CKMB % Calc Troponin I 1.480 H* Total Protein Albumin Globulin Albumin/Globulin Ratio Lipase Nasal Screen MRSA (PCR) Negative 10/24/18 16:32 WBC 1.76 L RBC 4.17 L Hgb 11.8 L Hct 35.6 L MCV 85.4 MCH 28.3 MCHC 33.1 RDW Std Deviation 47.4 H RDW Coeff of Brendan 15.3 H Plt Count 46 L MPV 10.8 H Immature Gran % (Auto) Neut % (Auto) Lymph % (Auto) [place] % (Auto) Eos % (Auto) Baso % (Auto) Immature Gran # (Auto) Neut # (Auto) Lymph # (Auto) [place] # (Auto) Eos # (Auto) Baso # (Auto) Hypersegmented Neuts Platelet Estimate Target Cells Ovalocytes APTT PTT Ratio Activ Coag Time Kaolin Sodium Potassium Chloride Carbon Dioxide Anion Gap BUN Creatinine Est Cr Clr Drug Dosing Est GFR ( Amer) Est GFR (Non-Af Amer) BUN/Creatinine Ratio Glucose Calcium Total Bilirubin AST ALT Alkaline Phosphatase Total Creatine Kinase CK-MB (CK-2) CK/CKMB % Calc Troponin I Total Protein Albumin Globulin Albumin/Globulin Ratio Lipase Nasal Screen MRSA (PCR)
[2018-10-24] MEDS ORDERED: Nursing to Pharmacy Communication ONE (17:50)
[2018-10-24 19:03] LABS: Partial Thromboplastin Ratio 4.1
[2018-10-24 19:18] LABS: Partial Thromboplastin Time 111.2 Seconds (21.0-31.0)
--- NOTE | 2018-10-24 19:25 | Progress Note ---
Date of Service October 24, 2018 Assessment & Plan (1) Hematoma: S/Notified by nursing that patient had a progressively worsening hematoma over the cath site on his right hand. Patient had a BP cuff placed, however patient reported he did not have any feeling in his lower right forearm and hand . This improved with lessening the pressure to 50. O/Right hand w/bruising and swelling, most prominently over the lateral aspect of the wrist and thenar eminence. Upon palpation, swelling was soft. Patient was able to flex and extend fingers. A&P/ - heparin drip placed on hold - continue w/BP cuff - continue to monitor. No concern at this time for compartment syndrome Supervising Physician Co-Signing Physician Notes Dr. Guajardo was resident physician during care of patient. I separately evaluated patient for argueta portions of the history and the exam. I was present during the critical portion of medical decision making, and I discussed the case with the resident. I generally agree with the findings and plan. Patient having subjective numbness, the compartments still appear to be soft and palpable he is able to completely extend his fingers. There is significant edema but I do not believe this is asset protection representative of compartment syndrome at this time. Patient has not had direct muscle trauma or compartmental trauma to the hand and additionally I think to be low risk to develop a compartment syndrome but not completely out of the realm of possibilities however clinically at this time the risk of checking and compartment pressures outweigh the benefits given the softness of the compartments. Results & Data Vital Signs (Past 12 Hours) Vital Signs Temp Pulse Pulse Resp BP BP Pulse Ox 10/24/18 18:00 65 18 143/56 H 93 10/24/18 17:30 63 20 134/61 96 10/24/18 17:00 63 18 164/58 H 96 10/24/18 16:30 61 17 143/43 H 93 10/24/18 16:19 192/81 H 10/24/18 16:00 35.7 C L 64 22 177/167 H 91 10/24/18 15:30 60 15 170/62 H 92 10/24/18 15:00 57 L 22 178/67 H 100 10/24/18 14:30 64 16 172/61 H 100 10/24/18 14:22 56 L 18 169/55 H 99 10/24/18 13:22 57 L 20 155/60 H 100 10/24/18 12:52 54 L 20 157/52 H 99 10/24/18 12:22 63 20 162/65 H 91 10/24/18 12:07 70 18 166/78 H 94 10/24/18 11:52 35.7 C L 57 L 18 162/57 H 95 10/24/18 10:16 51 L 20 147/62 H 100 10/24/18 10:01 54 L 19 169/90 H 99 10/24/18 09:46 59 L 18 170/84 H 99 10/24/18 09:31 61 22 186/89 H 100 10/24/18 09:20 58 L 18 178/75 H 100 10/24/18 09:15 99 10/24/18 09:03 80 L 10/24/18 08:58 62 22 161/72 H 80 L Resident Activity Tracking Resident Involvement: Resident Care Provided Care Provided: Adult [facility]
[2018-10-24] MEDS: ROSUVASTATIN CALCIUM 20 MG TAB PO SCH (19:47)
[2018-10-24] MEDS: CARVEDILOL 6.25 MG TAB PO SCH (19:47)
[2018-10-24] MEDS: TAMSULOSIN HCL 0.4 MG CAP PO SCH (19:48)
[2018-10-24] MEDS: lamoTRIgine 100 MG TAB PO SCH (19:49)
[2018-10-24] MEDS: BUDESONIDE/FORMOTEROL FUMARATE 160/4.5 60 PUFFS/INHALER INH SCH (19:50)
[2018-10-24] MEDS ORDERED: HEPARIN DRIP: STOP ORDER ONE (23:40)
[2018-10-25] MEDS ORDERED: HEPARIN 100 UNIT/ML 5ML FLUSH FLUSH PRN (00:06)
[2018-10-25 04:29] LABS: Hematocrit (blood only) 28.5 % (42-52); Hemoglobin 9.6 g/dL (14.0-18.0); Mean Corpuscular Hgb Conc 33.7 g/dL (32-36); Mean Corpuscular Volume 84.1 fL (80-100); RDW Standard Deviation 46.3 fL (36.4-46.3); Red Blood Count 3.39 M/uL (4.7-6.1); White Blood Count 1.27 K/uL (4.8-10.8)
[2018-10-25 04:30] LABS: Platelet Count 39 K/uL (130-400)
[2018-10-25 04:46] LABS: BUN Creatinine Ratio 18.1 (10-20); Calcium 8.2 mg/dl (8.5-10.1); Creatinine Clr Calc Pharmacy 53.4 ml/min; Est GFR (African American) 82.3; Potassium 4.7 mmol/L (3.5-5.1)
[2018-10-25 04:53] LABS: Eosinophils # (auto) 0.02 K/uL (0-0.5); Eosinophils % (auto) 1.6 %; Giant Platelets 2+; Lymphocytes # (auto) 0.13 K/uL (1.2-3.4); Lymphocytes % (auto) 10.2 %; Monocytes # (auto) 0.22 K/uL (0.11-0.59); Monocytes % (auto) 17.3 %; Neutrophils % (auto) 70.9 %
[2018-10-25] MEDS: lamoTRIgine 100 MG TAB PO SCH ×2 (08:50→20:29)
[2018-10-25] MEDS: CLOPIDOGREL BISULFATE 75 MG TAB PO SCH (08:54)
[2018-10-25] MEDS: CARVEDILOL 6.25 MG TAB PO SCH ×2 (08:54→20:27)
[2018-10-25] MEDS: TIOTROPIUM BROMIDE 5 PUFF/90 MCG INH INH SCH (08:54)
[2018-10-25] MEDS: ASPIRIN 81 MG ECTAB PO SCH (08:54)
[2018-10-25] MEDS: BUDESONIDE/FORMOTEROL FUMARATE 160/4.5 60 PUFFS/INHALER INH SCH ×2 (08:55→20:30)
[2018-10-25] MEDS ORDERED: ISOSORBIDE MONO EXTENDED REL 60 MG TABCR PO SCH (09:00)
[2018-10-25] MEDS ORDERED: AMLODIPINE BESYLATE 5 MG TAB PO SCH (09:00)
--- NOTE | 2018-10-25 09:13 | Cardiology Progress Note ---
Date of Service October 25, 2018 Assessment & Plan (1) STEMI (ST elevation myocardial infarction): Acute coronary syndrome stuttering chest pain consistent with angina followed by acute closure and ST elevation while under observation in the emergency room. He was taken very promptly to cardiac catheterization lab and coronary angiography and balloon angioplasty of an occluded right coronary artery. Prior stents in the left anterior descending circumflex and proximal right coronary artery were patent with moderate irregularities Patient without ischemic complaints this morning. EKG pending. Echocardiogram on preliminary review reveals preserved LV systolic function Does note burning dysphagia at mid esophageal area, present prior to admission No fevers chills or sweats Blood pressures slightly soft Plan continue current therapies with mild reduction in amlodipine and isosorbide dosing. Increase ambulation (2) Pancytopenia due to chemotherapy: Persistent (3) S/P carotid endarterectomy: (4) Carcinoma, lung: Will need to coordinate plans for chemo and radiation therapy following current acute event (5) Dysphagia: Subjective Patient seen and examined, chart medications telemetry reviewed. No typical chest pain overnight. Still with chronic burning sensation mid esophageal area which he attributes to recent radiation therapy. No arrhythmias. Bruising and bleeding at right radial access site is stopped with persistent ecchymosis right arm otherwise feeling well Physical Exam Constitutional: WD/WN, vitals as above no acute distress Eyes: PERRL, conjunctivae normal, anicteric sclerae ENMT: external ear and nose normal, oropharynx normal Respiratory: Auscultation: + diminished lung sounds Cardiovascular: Rate/Rhythm: regular rate and regular rhythm Heart Sounds: normal S1 and normal S2 Vessels: no JVD Gastrointestinal (Abdomen): normal bowel sounds, soft, nontender, no hepatosplenomegaly Musculoskeletal: no cyanosis or clubbing, extremities motor strength 5/5 Skin: Extensive superficial ecchymoses right arm. Right radial access site intact with intact pulse Results & Data Vital Signs (Past 12 Hours) Vital Signs Temp Pulse Pulse Resp BP BP Pulse Ox 10/25/18 04:01 36.7 C 64 21 101/35 L 96 10/25/18 04:00 62 14 96 10/25/18 03:50 60 16 97 10/25/18 03:40 65 17 97 10/25/18 03:31 62 16 88/32 L 97 10/25/18 03:30 62 19 97 10/25/18 03:20 65 15 96 10/25/18 03:10 61 6 L 96 10/25/18 03:01 63 19 105/40 L 97 10/25/18 03:00 63 19 96 10/25/18 02:50 62 20 94 10/25/18 02:40 65 23 97 10/25/18 02:31 62 19 99/45 L 98 10/25/18 02:30 64 23 98 10/25/18 02:20 66 21 98 10/25/18 02:10 83 19 95 10/25/18 02:01 67 19 115/38 L 96 10/25/18 02:00 68 21 96 10/25/18 01:50 67 19 95 10/25/18 01:40 67 21 96 10/25/18 01:31 67 26 H 115/45 L 96 10/25/18 01:30 66 21 96 10/25/18 01:20 68 19 97 10/25/18 01:10 66 25 H 100 10/25/18 01:01 66 25 H 142/51 H 98 10/25/18 01:00 68 24 98 10/25/18 00:50 85 21 97 10/25/18 00:48 84 18 10/25/18 00:30 96 H 31 H 118/44 L 89 L 10/25/18 00:20 69 23 96 10/25/18 00:10 64 19 95 10/25/18 00:01 65 18 94/39 L 96 10/25/18 00:00 36.7 C 64 64 21 99/45 L 96 10/24/18 23:50 63 17 95 10/24/18 23:40 66 21 94 10/24/18 23:31 65 26 H 125/37 L 97 10/24/18 23:30 69 29 H 95 10/24/18 23:20 71 25 H 95 10/24/18 23:10 61 22 95 10/24/18 23:01 62 19 121/36 L 92 10/24/18 23:00 62 22 93 10/24/18 22:50 61 19 93 10/24/18 22:40 62 23 96 10/24/18 22:31 71 23 117/50 L 97 10/24/18 22:30 61 23 97 10/24/18 22:20 66 24 96 10/24/18 22:10 65 20 96 10/24/18 22:01 60 25 H 128/64 96 10/24/18 22:00 63 20 96 10/24/18 21:50 66 17 95 Laboratory Results Laboratory Results - last 24 hr 10/24/18 10/24/18 10/24/18 09:20 09:20 11:07 WBC 1.75 L RBC 3.76 L Hgb 10.8 L Hct 32.6 L MCV 86.7 MCH 28.7 MCHC 33.1 RDW Std Deviation 47.6 H RDW Coeff of Brendan 15.2 H Plt Count 49 L MPV 9.8 Immature Gran % (Auto) 0.6 Neut % (Auto) 65.7 Lymph % (Auto) 14.3 [place] % (Auto) 17.1 Eos % (Auto) 2.3 Baso % (Auto) 0.0 Immature Gran # (Auto) 0.01 Neut # (Auto) 1.15 L Lymph # (Auto) 0.25 L [place] # (Auto) 0.30 Eos # (Auto) 0.04 Baso # (Auto) 0.00 Hypersegmented Neuts 1+ Platelet Estimate Decreased L Giant Platelets Target Cells 1+ Ovalocytes 1+ APTT PTT Ratio Activ Coag Time Kaolin 324 H Sodium 141 Potassium 4.5 Chloride 109 H Carbon Dioxide 28 Anion Gap 4.0 BUN 24 H Creatinine 1.16 Est Cr Clr Drug Dosing 44.6 Est GFR ( Amer) 67.1 Est GFR (Non-Af Amer) 57.9 BUN/Creatinine Ratio 20.3 H Glucose 112 H Calcium 8.7 Total Bilirubin 0.4 AST 14 L ALT 22 Alkaline Phosphatase 58 Total Creatine Kinase 29 L CK-MB (CK-2) < 1.0 CK/CKMB % Calc TNP Troponin I < 0.015 Total Protein 6.2 L Albumin 3.2 L Globulin 3.0 Albumin/Globulin Ratio 1.1 Lipase 91 Nasal Screen MRSA (PCR) 10/24/18 10/24/18 10/24/18 11:57 15:35 16:32 WBC RBC Hgb Hct MCV MCH MCHC RDW Std Deviation RDW Coeff of Brendan Plt Count MPV Immature Gran % (Auto) Neut % (Auto) Lymph % (Auto) [place] % (Auto) Eos % (Auto) Baso % (Auto) Immature Gran # (Auto) Neut # (Auto) Lymph # (Auto) [place] # (Auto) Eos # (Auto) Baso # (Auto) Hypersegmented Neuts Platelet Estimate Giant Platelets Target Cells Ovalocytes APTT > 139.0 H* PTT Ratio > 5.1 Activ Coag Time Kaolin Sodium Potassium Chloride Carbon Dioxide Anion Gap BUN Creatinine Est Cr Clr Drug Dosing Est GFR ( Amer) Est GFR (Non-Af Amer) BUN/Creatinine Ratio Glucose Calcium Total Bilirubin AST ALT Alkaline Phosphatase Total Creatine Kinase CK-MB (CK-2) CK/CKMB % Calc Troponin I 1.480 H* Total Protein Albumin Globulin Albumin/Globulin Ratio Lipase Nasal Screen MRSA (PCR) Negative 10/24/18 10/24/18 10/24/18 16:32 18:34 21:45 WBC 1.76 L RBC 4.17 L Hgb 11.8 L Hct 35.6 L MCV 85.4 MCH 28.3 MCHC 33.1 RDW Std Deviation 47.4 H RDW Coeff of Brendan 15.3 H Plt Count 46 L MPV 10.8 H Immature Gran % (Auto) Neut % (Auto) Lymph % (Auto) [place] % (Auto) Eos % (Auto) Baso % (Auto) Immature Gran # (Auto) Neut # (Auto) Lymph # (Auto) [place] # (Auto) Eos # (Auto) Baso # (Auto) Hypersegmented Neuts Platelet Estimate Giant Platelets Target Cells Ovalocytes APTT 111.2 H* PTT Ratio 4.1 Activ Coag Time Kaolin Sodium Potassium Chloride Carbon Dioxide Anion Gap BUN Creatinine Est Cr Clr Drug Dosing Est GFR ( Amer) Est GFR (Non-Af Amer) BUN/Creatinine Ratio Glucose Calcium Total Bilirubin AST ALT Alkaline Phosphatase Total Creatine Kinase CK-MB (CK-2) CK/CKMB % Calc Troponin I 2.360 H* Total Protein Albumin Globulin Albumin/Globulin Ratio Lipase Nasal Screen MRSA (PCR) 10/25/18 10/25/18 04:17 04:17 WBC 1.27 L RBC 3.39 L Hgb 9.6 L Hct 28.5 L MCV 84.1 MCH 28.3 MCHC 33.7 RDW Std Deviation 46.3 RDW Coeff of Brendan 15.0 H Plt Count 39 L MPV 10.0 Immature Gran % (Auto) 0.0 Neut % (Auto) 70.9 Lymph % (Auto) 10.2 [place] % (Auto) 17.3 Eos % (Auto) 1.6 Baso % (Auto) 0.0 Immature Gran # (Auto) 0.00 Neut # (Auto) 0.90 L* Lymph # (Auto) 0.13 L [place] # (Auto) 0.22 Eos # (Auto) 0.02 Baso # (Auto) 0.00 Hypersegmented Neuts 1+ Platelet Estimate Giant Platelets 2+ Target Cells Ovalocytes APTT PTT Ratio Activ Coag Time Kaolin Sodium 138 Potassium 4.7 Chloride 108 H Carbon Dioxide 26 Anion Gap 4.0 BUN 18 Creatinine 0.98 Est Cr Clr Drug Dosing 53.4 Est GFR ( Amer) 82.3 Est GFR (Non-Af Amer) 71.0 BUN/Creatinine Ratio 18.1 Glucose 105 H Calcium 8.2 L Total Bilirubin AST ALT Alkaline Phosphatase Total Creatine Kinase CK-MB (CK-2) CK/CKMB % Calc Troponin I 2.000 H* Total Protein Albumin Globulin Albumin/Globulin Ratio Lipase Nasal Screen MRSA (PCR) (1) Dysphagia Dysphagia type: other dysphagia Qualified Code(s): R13.19 - Other dysphagia
--- NOTE | 2018-10-25 09:27 | Hospitalist Progress Note ---
Date of Service October 25, 2018 Assessment & Plan (1) STEMI (ST elevation myocardial infarction): Heart alert called in ED for STEMI s/p cath with balloon angioplasty of RCA today and is chest pain free stable overall on ASA, Plavix continue carvedilol and isosorbide continue ICU monitoring (2) Dysphagia: Related to current XRT thearpy - Pureed diet - Speech consult for additional recommendations - Carafate and Magic mouthwash ordered (3) CKD (chronic kidney disease), stage III: Baseline creatinine upon review of outpatient records appears to be 1.3- 1.4. - Creatinine this AM was 1.16 - continue to monitor (4) COPD (chronic obstructive pulmonary disease): - Pt taking Spiriva and Symbicort as outpatient - will continue while admitted - Uses supplemental O2 sporadically at home - currently on 2L and feeling well (5) CAD (coronary artery disease): See above plan of care (6) HTN (hypertension): stable (7) Pancytopenia due to chemotherapy: likely from chemo (8) Lung cancer: Currently undergoing chemoradiation as managed by Dr. Helm at [facility] - last chemo was two days prior to admission, has completed XRT sessions Subjective ff up for STEMI seen resting in bed, comfortable denies chest pain, dyspnea, palpitations, dizziness no nausea/vomiting but does report burning on the substernal region, chronic, patient attributes to radiation therapy no other symptoms Patient seen and examined, chart medications telemetry reviewed. No typical chest pain overnight. Still with chronic burning sensation mid es ophageal area which he attributes to recent radiation therapy. No arrhythmias. Bruising and bleeding at right radial access site is stopped with persistent ecchymosis right arm otherwise feeling well Review of Systems Review of Systems: All systems reviewed & are unremarkable except as noted in HPI & below Physical Exam Physical Exam: General- oriented x 3, not in distress, speaks in sentences with no effort or accessory muscle use Eyes- anicteric Neck- no JVD Lungs- clear breath sounds bilaterally, no rales/wheezes Heart- normal rate, regular rhythm; no murmurs Abdomen- normal bowel sounds, nondistended, soft, nontender Extremities- no pretibial edema, no calf tenderness (+) ecchymoses on the right forearm- no warmth/tenderness Neuro- alert, oriented x 3; no gross focal neurologic deficits Skin- warm & dry Results & Data Vital Signs (Past 12 Hours) Vital Signs Temp Pulse Pulse Resp BP BP Pulse Ox 10/25/18 04:01 36.7 C 64 21 101/35 L 96 10/25/18 04:00 62 14 96 10/25/18 03:50 60 16 97 10/25/18 03:40 65 17 97 10/25/18 03:31 62 16 88/32 L 97 10/25/18 03:30 62 19 97 10/25/18 03:20 65 15 96 10/25/18 03:10 61 6 L 96 10/25/18 03:01 63 19 105/40 L 97 10/25/18 03:00 63 19 96 10/25/18 02:50 62 20 94 10/25/18 02:40 65 23 97 10/25/18 02:31 62 19 99/45 L 98 10/25/18 02:30 64 23 98 10/25/18 02:20 66 21 98 10/25/18 02:10 83 19 95 10/25/18 02:01 67 19 115/38 L 96 10/25/18 02:00 68 21 96 10/25/18 01:50 67 19 95 10/25/18 01:40 67 21 96 10/25/18 01:31 67 26 H 115/45 L 96 10/25/18 01:30 66 21 96 10/25/18 01:20 68 19 97 10/25/18 01:10 66 25 H 100 10/25/18 01:01 66 25 H 142/51 H 98 10/25/18 01:00 68 24 98 10/25/18 00:50 85 21 97 10/25/18 00:48 84 18 10/25/18 00:30 96 H 31 H 118/44 L 89 L 10/25/18 00:20 69 23 96 10/25/18 00:10 64 19 95 10/25/18 00:01 65 18 94/39 L 96 10/25/18 00:00 36.7 C 64 64 21 99/45 L 96 10/24/18 23:50 63 17 95 10/24/18 23:40 66 21 94 10/24/18 23:31 65 26 H 125/37 L 97 10/24/18 23:30 69 29 H 95 10/24/18 23:20 71 25 H 95 06/21/19 23:10 61 22 95 10/24/18 23:01 62 19 121/36 L 92 10/24/18 23:00 62 22 93 10/24/18 22:50 61 19 93 10/24/18 22:40 62 23 96 10/24/18 22:31 71 23 117/50 L 97 10/24/18 22:30 61 23 97 10/24/18 22:20 66 24 96 10/24/18 22:10 65 20 96 10/24/18 22:01 60 25 H 128/64 96 10/24/18 22:00 63 20 96 10/24/18 21:50 66 17 95 Laboratory Results Laboratory Results - last 24 hr 10/24/18 10/24/18 10/24/18 15:35 16:32 16:32 WBC 1.76 L RBC 4.17 L Hgb 11.8 L Hct 35.6 L MCV 85.4 MCH 28.3 MCHC 33.1 RDW Std Deviation 47.4 H RDW Coeff of Brendan 15.3 H Plt Count 46 L MPV 10.8 H Immature Gran % (Auto) Neut % (Auto) Lymph % (Auto) [place] % (Auto) Eos % (Auto) Baso % (Auto) Immature Gran # (Auto) Neut # (Auto) Lymph # (Auto) [place] # (Auto) Eos # (Auto) Baso # (Auto) Hypersegmented Neuts Giant Platelets APTT > 139.0 H* PTT Ratio > 5.1 Sodium Potassium Chloride Carbon Dioxide Anion Gap BUN Creatinine Est Cr Clr Drug Dosing Est GFR ( Amer) Est GFR (Non-Af Amer) BUN/Creatinine Ratio Glucose Calcium Troponin I 1.480 H* 10/24/18 10/24/18 10/25/18 18:34 21:45 04:17 WBC RBC Hgb Hct MCV MCH MCHC RDW Std Deviation RDW Coeff of Brendan Plt Count MPV Immature Gran % (Auto) Neut % (Auto) Lymph % (Auto) [place] % (Auto) Eos % (Auto) Baso % (Auto) Immature Gran # (Auto) Neut # (Auto) Lymph # (Auto) [place] # (Auto) Eos # (Auto) Baso # (Auto) Hypersegmented Neuts Giant Platelets APTT 111.2 H* PTT Ratio 4.1 Sodium 138 Potassium 4.7 Chloride 108 H Carbon Dioxide 26 Anion Gap 4.0 BUN 18 Creatinine 0.98 Est Cr Clr Drug Dosing 53.4 Est GFR ( Amer) 82.3 Est GFR (Non-Af Amer) 71.0 BUN/Creatinine Ratio 18.1 Glucose 105 H Calcium 8.2 L Troponin I 2.360 H* 2.000 H* 10/25/18 04:17 WBC 1.27 L RBC 3.39 L Hgb 9.6 L Hct 28.5 L MCV 84.1 MCH 28.3 MCHC 33.7 RDW Std Deviation 46.3 RDW Coeff of Brendan 15.0 H Plt Count 39 L MPV 10.0 Immature Gran % (Auto) 0.0 Neut % (Auto) 70.9 Lymph % (Auto) 10.2 [place] % (Auto) 17.3 Eos % (Auto) 1.6 Baso % (Auto) 0.0 Immature Gran # (Auto) 0.00 Neut # (Auto) 0.90 L* Lymph # (Auto) 0.13 L [place] # (Auto) 0.22 Eos # (Auto) 0.02 Baso # (Auto) 0.00 Hypersegmented Neuts 1+ Giant Platelets 2+ APTT PTT Ratio Sodium Potassium Chloride Carbon Dioxide Anion Gap BUN Creatinine Est Cr Clr Drug Dosing Est GFR ( Amer) Est GFR (Non-Af Amer) BUN/Creatinine Ratio Glucose Calcium Troponin I (1) CAD (coronary artery disease) [place] vs. transplanted heart: [place] heart (2) Dysphagia Dysphagia type: other dysphagia Qualified Code(s): R13.19 - Other dysphagia (3) Lung cancer Laterality: right Lung location: upper lobe of lung Qualified Code(s): C34.11 - Malignant neoplasm of upper lobe, right bronchus or lung (4) COPD (chronic obstructive pulmonary disease) COPD type: unspecified COPD Qualified Code(s): J44.9 - Chronic obstructive pulmonary disease, unspecified (5) HTN (hypertension) Hypertension type: essential hypertension Qualified Code(s): I10 - Essential (primary) hypertension
--- NOTE | 2018-10-25 10:44 | Critical Care Progress Note ---
Date of Service October 25, 2018 Assessment & Plan (1) Hematoma: Neuro - [facility] ICU: No neurological deficits. Patient alert and oriented x3 Neuropraxia of right upper hand secondary to hematoma: Improved significantly -Close observation, elevation Cardiac - CAD with history of previous RAFI X 3 Admitted with chest pain Troponin <0.015 Angioplasty with partial occlusion of mid RCA. Unable to pass stent. Successful angioplasty Previous drug-eluting stents at the completion of the procedure were patent as listed above in the catheterization note Hypertension Received nicardipine 25 mg x 2 doses during the procedure Continue home medications. Respiratory - History of emphysema and COPD Supplemental home oxygen usage Previous history of tobacco abuse. Quit at age 67 Continue supplemental oxygen to maintain SaO2 greater than 90% No current bronchospasm or adventitious breath sounds GI - History of GERD Continue Carafate RENAL/LYTES - Chronic kidney disease stage III HEME - Pancytopenia secondary to chemotherapeutic agent -Close observation ID - No indication of infection WBCs 1.27 LINES/IV ACCESS - Mediport access in the right subclavian region DVT PROPHYLAXIS - Heparin discontinued secondary to hematoma Dual antiplatelet therapy Ambulate as tolerated and directed by cardiology Stable for downgrade out of ICU to telemetry status. (2) Carcinoma, lung: (3) Pancytopenia due to chemotherapy: (4) STEMI (ST elevation myocardial infarction): (5) Admitted to intensive care unit: (6) Abnormal EKG: (7) Neuropraxia of right upper extremity: Subjective Improved neuropraxia Physical Exam Physical Exam: General: Alert. nontoxic. Skin: Warm, dry, Head: Atraumatic Ears, nose, mouth and throat: airway patent Cardiovascular: Normal peripheral perfusion Respiratory: no respiratory distress Gastrointestinal: Non distended Musculoskeletal: Decreased swelling of right upper extremity Results & Data Vital Signs (Past 12 Hours) Vital Signs Temp Pulse Pulse Resp BP BP Pulse Ox 10/25/18 04:01 36.7 C 64 21 101/35 L 96 10/25/18 04:00 62 14 96 10/25/18 03:50 60 16 97 10/25/18 03:40 65 17 97 10/25/18 03:31 62 16 88/32 L 97 10/25/18 03:30 62 19 97 10/25/18 03:20 65 15 96 10/25/18 03:10 61 6 L 96 10/25/18 03:01 63 19 105/40 L 97 10/25/18 03:00 63 19 96 10/25/18 02:50 62 20 94 10/25/18 02:40 65 23 97 10/25/18 02:31 62 19 99/45 L 98 10/25/18 02:30 64 23 98 10/25/18 02:20 66 21 98 10/25/18 02:10 83 19 95 10/25/18 02:01 67 19 115/38 L 96 10/25/18 02:00 68 21 96 10/25/18 01:50 67 19 95 10/25/18 01:40 67 21 96 10/25/18 01:31 67 26 H 115/45 L 96 10/25/18 01:30 66 21 96 10/25/18 01:20 68 19 97 10/25/18 01:10 66 25 H 100 10/25/18 01:01 66 25 H 142/51 H 98 10/25/18 01:00 68 24 98 10/25/18 00:50 85 21 97 10/25/18 00:48 84 18 10/25/18 00:30 96 H 31 H 118/44 L 89 L 10/25/18 00:20 69 23 96 10/25/18 00:10 64 19 95 10/25/18 00:01 65 18 94/39 L 96 10/25/18 00:00 36.7 C 64 64 21 99/45 L 96 10/24/18 23:50 63 17 95 10/24/18 23:40 66 21 94 10/24/18 23:31 65 26 H 125/37 L 97 10/24/18 23:30 69 29 H 95 10/24/18 23:20 71 25 H 95 10/24/18 23:10 61 22 95 10/24/18 23:01 62 19 121/36 L 92 10/24/18 23:00 62 22 93 10/24/18 22:50 61 19 93 10/24/18 22:40 62 23 96
[2018-10-25] MEDS: SUCRALFATE 1 GM/10 ML UDC PO SCH ×3 (12:28→19:23)
[2018-10-25] MEDS: DEXAMETHASONE CONC 3.75 MG, NYSTATIN 30 ML, DiphenhydrAMINE Syrup 300 MG, ORA-SWEET SYR... PO PRN (16:24)
[2018-10-25] MEDS: ROSUVASTATIN CALCIUM 20 MG TAB PO SCH (20:28)
[2018-10-25] MEDS: TAMSULOSIN HCL 0.4 MG CAP PO SCH (20:28)
[2018-10-26 04:52] LABS: BUN Creatinine Ratio 16.5 (10-20); Calcium 8.4 mg/dl (8.5-10.1); Creatinine Clr Calc Pharmacy 48.9 ml/min; Est GFR (Non-African American) 63.9; Potassium 4.3 mmol/L (3.5-5.1)
[2018-10-26] MEDS: lamoTRIgine 100 MG TAB PO SCH ×2 (07:38→20:37)
[2018-10-26] MEDS: AMLODIPINE BESYLATE 5 MG TAB PO SCH (07:39)
[2018-10-26] MEDS: CLOPIDOGREL BISULFATE 75 MG TAB PO SCH (07:39)
[2018-10-26] MEDS: ASPIRIN 81 MG ECTAB PO SCH (07:39)
[2018-10-26] MEDS: ISOSORBIDE MONO EXTENDED REL 30 MG TABCR PO SCH (07:40)
[2018-10-26] MEDS: CARVEDILOL 6.25 MG TAB PO SCH ×2 (07:41→20:36)
[2018-10-26] MEDS: BUDESONIDE/FORMOTEROL FUMARATE 160/4.5 60 PUFFS/INHALER INH SCH ×2 (07:41→20:37)
[2018-10-26] MEDS: TIOTROPIUM BROMIDE 5 PUFF/90 MCG INH INH SCH (07:42)
[2018-10-26] MEDS: DEXAMETHASONE CONC 3.75 MG, NYSTATIN 30 ML, DiphenhydrAMINE Syrup 300 MG, ORA-SWEET SYR... PO PRN ×2 (07:47→16:27)
[2018-10-26] MEDS: SUCRALFATE 1 GM/10 ML UDC PO SCH ×4 (07:48→18:49)
--- NOTE | 2018-10-26 11:20 | Cardiology Progress Note ---
Date of Service October 26, 2018 Assessment & Plan (1) STEMI (ST elevation myocardial infarction): Acute coronary syndrome stuttering chest pain consistent with angina followed by acute closure and ST elevation while under observation in the emergency room. He was taken very promptly to cardiac catheterization lab and coronary angiography and balloon angioplasty of an occluded right coronary artery. Prior stents in the left anterior descending circumflex and proximal right coronary artery were patent with moderate irregularities Patient doing well this morning. No acute cardiac complaints on appropriate medical therapies Patient stable from cardiac standpoint Continue Coreg, reduced dose of amlodipine and isosorbide, dual antiplatelet therapy with aspirin and clopidogrel discontinuing aspirin at 1 month if platelet count allows Follow-up with cardiology 2 to 3 weeks time (2) Pancytopenia due to chemotherapy: CBC pending Will need coordination with hematology/oncology regarding upcoming therapy (3) S/P carotid endarterectomy: (4) Carcinoma, lung: Will need to coordinate plans for chemo and radiation therapy following current acute event (5) Dysphagia: Subjective Patient seen and examined, chart medications, telemetry reviewed. No further chest pain or discomfort no dizziness or lightness notes no syncope or near syncope. Right arm with superficial ecchymoses intact right radial pulse. No productive cough. Physical Exam Constitutional: WD/WN, vitals as above no acute distress Eyes: PERRL, conjunctivae normal, anicteric sclerae ENMT: external ear and nose normal, oropharynx normal Respiratory: + audible wheezes (Few scattered right chest) Auscultation: + diminished lung sounds Cardiovascular: Rate/Rhythm: regular rate and regular rhythm Heart Sounds: normal S1 and normal S2 Vessels: no JVD Gastrointestinal (Abdomen): normal bowel sounds, soft, nontender, no hepatosplenomegaly Musculoskeletal: no cyanosis or clubbing, extremities motor strength 5/5 Skin: Superficial ecchymoses right arm no skin compromise or compartment syndrome Results & Data Vital Signs (Past 12 Hours) Vital Signs Temp Pulse Resp BP Pulse Ox 10/26/18 08:02 73 20 113/39 L 91 10/26/18 08:00 36.8 C 71 20 93 10/26/18 07:01 57 L 10 L 104/41 L 100 10/26/18 07:00 57 L 16 100 10/26/18 04:20 36.7 C 78 20 100 10/26/18 04:10 74 27 H 94 10/26/18 04:01 67 14 141/46 H 100 10/26/18 04:00 60 23 100 10/26/18 03:50 59 L 11 L 100 10/26/18 03:40 63 12 100 10/26/18 03:30 56 L 20 100 10/26/18 03:20 55 L 18 100 10/26/18 03:10 56 L 4 L 100 10/26/18 03:01 59 L 14 112/49 L 100 10/26/18 03:00 59 L 16 100 10/26/18 02:50 61 16 100 10/26/18 02:40 57 L 10 L 100 10/26/18 02:30 58 L 16 100 10/26/18 02:20 61 24 100 10/26/18 02:10 58 L 15 100 10/26/18 02:01 64 27 H 119/43 L 100 10/26/18 02:00 59 L 16 99 10/26/18 01:50 64 17 98 10/26/18 01:40 63 14 99 10/26/18 01:30 66 18 100 10/26/18 01:20 61 16 100 10/26/18 01:10 72 18 96 10/26/18 01:01 61 17 107/41 L 99 10/26/18 01:00 63 18 98 10/26/18 00:50 64 16 98 10/26/18 00:40 64 22 98 10/26/18 00:30 64 17 98 10/26/18 00:20 66 19 97 10/26/18 00:10 68 15 98 10/26/18 00:01 36.7 C 68 16 138/54 L 97 10/26/18 00:00 68 16 98 10/25/18 23:50 70 16 98 10/25/18 23:40 16 84 L 10/25/18 23:30 71 17 93 10/25/18 23:21 67 15 92 10/25/18 23:19 68 18 120/43 L 92 Laboratory Results Laboratory Results - last 24 hr 10/26/18 04:18 Sodium 139 Potassium 4.3 Chloride 107 Carbon Dioxide 29 Anion Gap 3.0 BUN 18 Creatinine 1.07 Est Cr Clr Drug Dosing 48.9 Est GFR ( Amer) 74.0 Est GFR (Non-Af Amer) 63.9 BUN/Creatinine Ratio 16.5 Glucose 98 Calcium 8.4 L (1) Dysphagia Dysphagia type: other dysphagia Qualified Code(s): R13.19 - Other dysphagia
[2018-10-26 11:24] LABS: Hematocrit (blood only) 28.3 % (42-52); Hemoglobin 9.4 g/dL (14.0-18.0); Mean Corpuscular Hgb Conc 33.2 g/dL (32-36); Mean Corpuscular Volume 84.5 fL (80-100); RDW Coefficient of Variation 15.1 % (11.5-14.5); RDW Standard Deviation 46.6 fL (36.4-46.3); Red Blood Count 3.35 M/uL (4.7-6.1); White Blood Count 1.78 K/uL (4.8-10.8)
[2018-10-26 11:29] LABS: Eosinophils # (auto) 0.04 K/uL (0-0.5); Eosinophils % (auto) 2.2 %; Lymphocytes # (auto) 0.18 K/uL (1.2-3.4); Lymphocytes % (auto) 10.1 %; Mean Platelet Volume 9.8 fL (7.4-10.4); Monocytes # (auto) 0.31 K/uL (0.11-0.59); Monocytes % (auto) 17.4 %; Neutrophils # (auto) 1.25 K/uL (1.4-6.5); Neutrophils % (auto) 70.3 %; Platelet Count 39 K/uL (130-400)
[2018-10-26 11:51] LABS: Giant Platelets 1+
--- NOTE | 2018-10-26 15:08 | Hospitalist Progress Note ---
Date of Service October 26, 2018 Assessment & Plan (1) STEMI (ST elevation myocardial infarction): Heart alert called in ED for STEMI s/p cath with balloon angioplasty of RCA today and is chest pain free Blood pressure in the low side, amlodipine and isosorbide dinitrate reduced Continue usual carvedilol 6.25 mg p.o. twice daily Continue to monitor blood pressure on ASA, Plavix (Cardiology recommendations: dual antiplatelet therapy with aspirin and clopidogrel discontinuing aspirin at 1 month if platelet count allows) Follow-up with cardiology 2 to 3 weeks time (2) Dysphagia: Related to current XRT thearpy - Pureed diet as per speech therapist follow speech recs - Carafate and Magic mouthwash ordered, improving (3) CKD (chronic kidney disease), stage III: Baseline creatinine upon review of outpatient records appears to be 1.3- 1.4. - stable (4) COPD (chronic obstructive pulmonary disease): - Pt taking Spiriva and Symbicort as outpatient - will continue while admitted - Uses supplemental O2 sporadically at home - currently on 2L and feeling well (5) CAD (coronary artery disease): See above plan of care (6) HTN (hypertension): per #1 (7) Pancytopenia due to chemotherapy: likely from chemo CBC stable will need to monitor closely while on dual antiplatelet therapy (8) Lung cancer: Currently undergoing chemoradiation as managed by Dr. Helm at [facility] - last chemo was two days prior to admission, has completed XRT sessions Will reach out to Dr. Cullen to update regarding patient's hospitalization Subjective Follow-up status post myocardial infarction Seen sitting up in bed, watching TV, comfortable States he continues to feel improved overall Denies chest pain, shortness of breath, palpitations, dizziness Denies pain over the right arm Esophageal burning/discomfort improved with Magic mouthwash Denies other symptoms Review of Systems Review of Systems: All systems reviewed & are unremarkable except as noted in HPI & below Physical Exam Physical Exam: General- oriented x 3, not in distress, speaks in sentences with no effort or accessory muscle use Eyes- anicteric Neck- no JVD Lungs- clear breath sounds bilaterally Heart- normal rate, regular rhythm; no murmurs Abdomen- normal bowel sounds, nondistended, soft, nontender Extremities- no pretibial edema, no calf tenderness Right forearm: Ecchymosis present, no warmth or tenderness Neuro- alert, oriented x 3; no gross focal neurologic deficits Skin- warm & dry Results & Data Vital Signs (Past 12 Hours) Vital Signs Temp Pulse Resp BP Pulse Ox 10/26/18 08:02 73 20 113/39 L 91 10/26/18 08:00 36.8 C 71 20 93 10/26/18 07:01 57 L 10 L 104/41 L 100 10/26/18 07:00 57 L 16 100 10/26/18 04:20 36.7 C 78 20 100 10/26/18 04:10 74 27 H 94 10/26/18 04:01 67 14 141/46 H 100 10/26/18 04:00 60 23 100 10/26/18 03:50 59 L 11 L 100 10/26/18 03:40 63 12 100 10/26/18 03:30 56 L 20 100 10/26/18 03:20 55 L 18 100 10/26/18 03:10 56 L 4 L 100 Laboratory Results Laboratory Results - last 24 hr 10/26/18 10/26/18 04:18 11:13 WBC 1.78 L RBC 3.35 L Hgb 9.4 L Hct 28.3 L MCV 84.5 MCH 28.1 MCHC 33.2 RDW Std Deviation 46.6 H RDW Coeff of Brendan 15.1 H Plt Count 39 L MPV 9.8 Immature Gran % (Auto) 0.0 Neut % (Auto) 70.3 Lymph % (Auto) 10.1 [place] % (Auto) 17.4 Eos % (Auto) 2.2 Baso % (Auto) 0.0 Immature Gran # (Auto) 0.00 Neut # (Auto) 1.25 L Lymph # (Auto) 0.18 L [place] # (Auto) 0.31 Eos # (Auto) 0.04 Baso # (Auto) 0.00 Giant Platelets 1+ Sodium 139 Potassium 4.3 Chloride 107 Carbon Dioxide 29 Anion Gap 3.0 BUN 18 Creatinine 1.07 Est Cr Clr Drug Dosing 48.9 Est GFR ( Amer) 74.0 Est GFR (Non-Af Amer) 63.9 BUN/Creatinine Ratio 16.5 Glucose 98 Calcium 8.4 L (1) Dysphagia Dysphagia type: other dysphagia Qualified Code(s): R13.19 - Other dysphagia (2) COPD (chronic obstructive pulmonary disease) COPD type: unspecified COPD Qualified Code(s): J44.9 - Chronic obstructive pulmonary disease, unspecified (3) CAD (coronary artery disease) [place] vs. transplanted heart: [place] heart (4) HTN (hypertension) Hypertension type: essential hypertension Qualified Code(s): I10 - Essential (primary) hypertension (5) Lung cancer Laterality: unspecified laterality Lung location: unspecified part of lung Qualified Code(s): C34.90 - Malignant neoplasm of unspecified part of unspecified bronchus or lung
[2018-10-26] MEDS: TAMSULOSIN HCL 0.4 MG CAP PO SCH (20:36)
[2018-10-26] MEDS: ROSUVASTATIN CALCIUM 20 MG TAB PO SCH (20:36)
[2018-10-27] MEDS: DEXAMETHASONE CONC 3.75 MG, NYSTATIN 30 ML, DiphenhydrAMINE Syrup 300 MG, ORA-SWEET SYR... PO PRN (07:44)
[2018-10-27] MEDS: TIOTROPIUM BROMIDE 5 PUFF/90 MCG INH INH SCH (07:45)
[2018-10-27] MEDS: lamoTRIgine 100 MG TAB PO SCH (07:48)
[2018-10-27] MEDS: CLOPIDOGREL BISULFATE 75 MG TAB PO SCH (07:49)
[2018-10-27] MEDS: ASPIRIN 81 MG ECTAB PO SCH (07:49)
[2018-10-27] MEDS: ISOSORBIDE MONO EXTENDED REL 30 MG TABCR PO SCH (07:49)
[2018-10-27] MEDS: AMLODIPINE BESYLATE 5 MG TAB PO SCH (07:49)
[2018-10-27] MEDS: CARVEDILOL 6.25 MG TAB PO SCH (07:49)
[2018-10-27] MEDS: BUDESONIDE/FORMOTEROL FUMARATE 160/4.5 60 PUFFS/INHALER INH SCH (07:51)
[2018-10-27] MEDS: SUCRALFATE 1 GM/10 ML UDC PO SCH (07:52)
--- NOTE | 2018-10-27 09:31 | Hospitalist Progress Note ---
Date of Service October 27, 2018 Assessment & Plan (1) STEMI (ST elevation myocardial infarction): Heart alert called in ED for STEMI s/p cath with balloon angioplasty of RCA and is chest pain free Aspirin added to Plavix Blood pressure noted to be the low side, amlodipine and isosorbide dinitrate reduced Continue usual carvedilol 6.25 mg p.o. twice daily Continue to monitor blood pressure as an outpatient Discharge plan: Aspirin 81 mg p.o. daily Plavix 75 mg p.o. daily (Cardiology recommendations: dual antiplatelet therapy with aspirin and clopidogrel discontinuing aspirin at 1 month if platelet count allows) Amlodipine 5 mg p.o. daily Isosorbide mononitrate 30 mg p.o. daily Follow-up with PCP this week October 29 Dr. Timothy Sloan Follow-up with cardiology 2 to 3 weeks time (2) Dysphagia: Related to current XRT thearpy -Evaluated by speech therapist Recommend full liquid diet and advance to pured diet as tolerated -Magic mouthwash ordered, relieving discomfort Continue Carafate (3) CKD (chronic kidney disease), stage III: Baseline creatinine upon review of outpatient records appears to be 1.3- 1.4. - stable (4) COPD (chronic obstructive pulmonary disease): -Continue Spiriva and Symbicort - Uses supplemental O2 sporadically at home (5) CAD (coronary artery disease): See above plan of care (6) HTN (hypertension): per #1 (7) Pancytopenia due to chemotherapy: likely from chemo Levels are stable, CBC 1.7, hemoglobin 9, platelets 39K will need to monitor closely while on dual antiplatelet therapy (8) Lung cancer: Currently undergoing chemoradiation as managed by Dr. Helm at [facility] - last chemo was two days prior to admission, has completed XRT sessions Will need to hold chemoradiation therapy in light of recent STEMI Will reach out to Dr. Helm to update regarding patient's hospitalization Disposition Discharge to home with home health services, help with PCP this October 29, follow-up with speech writer in 2 to 3 weeks Subjective Follow-up for ST elevation NE Seen sitting up in bed, watching TV, comfortable, in good spirits States he feels much better overall next Denies recurrence of chest pain, shortness of breath, dizziness, palpitations Ambulating the hallways with no problems States he feels back to his baseline mostly, states he is ready and would like to be discharged today Review of Systems Review of Systems: All systems reviewed & are unremarkable except as noted in HPI & below Physical Exam Physical Exam: General- oriented x 3, not in distress, speaks in sentences with no effort or accessory muscle use Eyes- anicteric Neck- no JVD Lungs- clear breath sounds bilaterally, no wheezing, no crackles Heart- normal rate, regular rhythm; no murmurs Abdomen- normal bowel sounds, nondistended, soft, nontender Extremities- no pretibial edema, no calf tenderness Right arm-ecchymosis improving, minimal edema edema, no warmth or tenderness Neuro- alert, oriented x 3; no gross focal neurologic deficits Skin- warm & dry Results & Data Vital Signs (Past 12 Hours) Vital Signs Temp Pulse Resp BP Pulse Ox 10/27/18 08:00 37.2 C 115 H 17 92 10/27/18 07:01 83 21 109/43 L 95 10/27/18 07:00 71 10 L 94 10/27/18 00:00 66 24 96 10/26/18 23:50 68 20 95 10/26/18 23:40 64 13 95 10/26/18 23:30 66 15 94 10/26/18 23:20 67 24 92 10/26/18 23:10 68 21 93 10/26/18 23:00 67 21 91 10/26/18 22:50 68 22 95 10/26/18 22:40 67 23 94 10/26/18 22:30 68 21 96 10/26/18 22:20 71 17 93 10/26/18 22:10 74 20 96 10/26/18 22:00 75 19 95 10/26/18 21:50 68 18 97 10/26/18 21:40 84 29 H 95 10/26/18 21:30 70 14 95 Laboratory Results Laboratory Results - last 24 hr 10/26/18 11:13 WBC 1.78 L RBC 3.35 L Hgb 9.4 L Hct 28.3 L MCV 84.5 MCH 28.1 MCHC 33.2 RDW Std Deviation 46.6 H RDW Coeff of Brendan 15.1 H Plt Count 39 L MPV 9.8 Immature Gran % (Auto) 0.0 Neut % (Auto) 70.3 Lymph % (Auto) 10.1 [place] % (Auto) 17.4 Eos % (Auto) 2.2 Baso % (Auto) 0.0 Immature Gran # (Auto) 0.00 Neut # (Auto) 1.25 L Lymph # (Auto) 0.18 L [place] # (Auto) 0.31 Eos # (Auto) 0.04 Baso # (Auto) 0.00 Giant Platelets 1+ (1) Dysphagia Dysphagia type: other dysphagia Qualified Code(s): R13.19 - Other dysphagia (2) COPD (chronic obstructive pulmonary disease) COPD type: unspecified COPD Qualified Code(s): J44.9 - Chronic obstructive pulmonary disease, unspecified (3) CAD (coronary artery disease) [place] vs. transplanted heart: [place] heart (4) HTN (hypertension) Hypertension type: essential hypertension Qualified Code(s): I10 - Essential (primary) hypertension (5) Lung cancer Laterality: unspecified laterality Lung location: unspecified part of lung Qualified Code(s): C34.90 - Malignant neoplasm of unspecified part of unspecified bronchus or lung
--- NOTE | 2018-10-27 10:05 | Cardiology Progress Note ---
Date of Service October 27, 2018 Assessment & Plan (1) STEMI (ST elevation myocardial infarction): Acute coronary syndrome stuttering chest pain consistent with angina followed by acute closure and ST elevation while under observation in the emergency room. He was taken very promptly to cardiac catheterization lab and coronary angiography and balloon angioplasty of an occluded right coronary artery. Prior stents in the left anterior descending circumflex and proximal right coronary artery were patent with moderate irregularities Patient doing well this morning. No acute cardiac complaints on appropriate medical therapies Patient stable from cardiac standpoint Continue Coreg, reduced dose of amlodipine and isosorbide, dual antiplatelet therapy with aspirin and clopidogrel discontinuing aspirin at 1 month if platelet count allows Follow-up with cardiology 2 to 3 weeks time (2) Pancytopenia due to chemotherapy: CBC stable Will need coordination with hematology/oncology regarding upcoming therapy (3) S/P carotid endarterectomy: (4) Carcinoma, lung: Will need to coordinate plans for chemo and radiation therapy following current acute event (5) Dysphagia: Subjective Patient seen and examined, chart medications, telemetry reviewed. No further chest pain or discomfort no dizziness or lightness notes no syncope or near syncope. Right arm with superficial ecchymoses intact right radial pulse. No productive cough. No cardiac issues overnight. Still with some mild dysphasia but improving Physical Exam Constitutional: WD/WN, vitals as above no acute distress Eyes: PERRL, conjunctivae normal, anicteric sclerae ENMT: external ear and nose normal, oropharynx normal Respiratory: + audible wheezes (Few scattered right chest) Auscultation: + diminished lung sounds Cardiovascular: Rate/Rhythm: regular rate and regular rhythm Heart Sounds: normal S1 and normal S2 Vessels: no JVD Gastrointestinal (Abdomen): normal bowel sounds, soft, nontender, no hepatosplenomegaly Musculoskeletal: no cyanosis or clubbing, extremities motor strength 5/5 Results & Data Vital Signs (Past 12 Hours) Vital Signs Temp Pulse Resp BP Pulse Ox 10/27/18 08:00 37.2 C 115 H 17 92 10/27/18 07:01 83 21 109/43 L 95 10/27/18 07:00 71 10 L 94 10/27/18 00:00 66 24 96 10/26/18 23:50 68 20 95 10/26/18 23:40 64 13 95 10/26/18 23:30 66 15 94 10/26/18 23:20 67 24 92 10/26/18 23:10 68 21 93 10/26/18 23:00 67 21 91 10/26/18 22:50 68 22 95 10/26/18 22:40 67 23 94 10/26/18 22:30 68 21 96 10/26/18 22:20 71 17 93 10/26/18 22:10 74 20 96 Laboratory Results Laboratory Results - last 24 hr 10/26/18 11:13 WBC 1.78 L RBC 3.35 L Hgb 9.4 L Hct 28.3 L MCV 84.5 MCH 28.1 MCHC 33.2 RDW Std Deviation 46.6 H RDW Coeff of Brendan 15.1 H Plt Count 39 L MPV 9.8 Immature Gran % (Auto) 0.0 Neut % (Auto) 70.3 Lymph % (Auto) 10.1 Steele % (Auto) 17.4 Eos % (Auto) 2.2 Baso % (Auto) 0.0 Immature Gran # (Auto) 0.00 Neut # (Auto) 1.25 L Lymph # (Auto) 0.18 L Steele # (Auto) 0.31 Eos # (Auto) 0.04 Baso # (Auto) 0.00 Giant Platelets 1+ (1) Dysphagia Dysphagia type: other dysphagia Qualified Code(s): R13.19 - Other dysphagia
[2018-10-27 10:37] LABS: Hematocrit (blood only) 26.7 % (42-52); Mean Corpuscular Hgb Conc 33.7 g/dL (32-36); Mean Corpuscular Volume 84.2 fL (80-100); RDW Coefficient of Variation 15.2 % (11.5-14.5); RDW Standard Deviation 46.9 fL (36.4-46.3); Red Blood Count 3.17 M/uL (4.7-6.1); White Blood Count 1.29 K/uL (4.8-10.8)
[2018-10-27 10:41] LABS: Mean Platelet Volume 10.1 fL (7.4-10.4); Platelet Count 36 K/uL (130-400)
[2018-10-27 11:20] LABS: Eosinophils # (auto) 0.04 K/uL (0-0.5); Eosinophils % (auto) 3.1 %; Immature Granulocytes # (auto) 0.01 K/uL (0.00-0.02); Immature Granulocytes % (auto) 0.8 %; Lymphocytes # (auto) 0.15 K/uL (1.2-3.4); Lymphocytes % (auto) 11.6 %; Monocytes # (auto) 0.26 K/uL (0.11-0.59); Monocytes % (auto) 20.2 %; Neutrophils # (auto) 0.83 K/uL (1.4-6.5); Neutrophils % (auto) 64.3 %
--- NOTE | 2018-10-27 12:42 | Discharge Summary ---
Date of Service October 27, 2018 Admission HPI Per Admitting Provider This is an 83 y/o male with a complicated PMH including multi-vessel CAD s/p multiple stents, PVD, HTN, dyslipidemia, CKD3, primary hyperparathyroidism, COPD (intermittently uses O2), hx of lung cancer s/p lobectomy in 2004 with second lung cancer noted this year for which pt is undergoing chemoradiation, and seizure disorder (last seizure 10 yrs ago) who presented to the ED today with chest pain. Pt reports that he developed chest pain yesterday morning when he was getting ready for the day - lasted until ~11 am when it resolved without intervention. [place] fine until he was awoken from sleep this AM with crushing chest pain. Pt reports that he took a nitro with transient relief then chest pain returned. Took a second nitro with relief. Pt then realized the pain was likely related to his underlying cardiac disease and not XRT so he called EMS. His chest pain returned in the ED and became severe. Serial EKGs showed evolving STEMI so heart alert called and patient taken to mechanical laboratory technician. During cardiac cath, pt under balloon angioplasty of RCA lesion. Stent placement attempted but unable to be placed. Post-cath patient admitted to ICU for additional monitoring. He was chest pain free at the end of the procedure and remained so when seen in the ICU. He denies progressive cough, dyspnea, lightheadedness or syncope. He is currently undergoing chemoradiation for lung cancer for which he is follows at [facility]. He has received 29 of 33 radiation treatments. Last chemotherapy was 10/22/18 - second cycle had to be held due to pancytopenia. He has noted both dysphagia and odynophagia related to XRT - currently eating a pureed/soft diet at home and supplementing nutrition with Boost up to 3x/day (Vanilla). No fevers, chills, sweats, N/V. Admission Exam Per Admitting Provider Constitutional: WD/WN, vitals as above Eyes: PERRL, conjunctivae normal, anicteric sclerae ENMT: external ear and nose normal, oropharynx normal Neck: trachea midline Respiratory: normal respiratory effort, lungs clear to auscultation Auscultation: no rales, no rhonchi and no wheezes Cardiovascular: Rate/Rhythm: regular rate and regular rhythm Heart Sounds: no gallop, no murmur and no cardiac rub Extremities: normal capillary refill; no calf tenderness and no pedal edema Gastrointestinal (Abdomen): Inspection/Auscultation: normal bowel sounds; abdomen not distended Percussion/Palpation: abdomen soft; abdomen nontender Musculoskeletal: Extremities: no cyanosis and no clubbing Skin: Multiple areas of ecchymosis noted on bilateral UE, TR band in place right wrist Neurologic: moves all extremities; no focal motor deficits Speech / Cognition: normal speech Psychiatric: A+Ox3, euthymic affect Principal Diagnosis ST ELEVATION MYOCARDIAL INFARCTION, STATUS POST ANGIOPLASTY RIGHT CORONARY ARTERY Discharge Exam Physical Exam: General- oriented x 3, not in distress, speaks in sentences with no effort or accessory muscle use Eyes- anicteric Neck- no JVD Lungs- clear breath sounds bilaterally, no wheezing, no crackles Heart- normal rate, regular rhythm; no murmurs Abdomen- normal bowel sounds, nondistended, soft, nontender Extremities- no pretibial edema, no calf tenderness Right arm-ecchymosis improving, minimal edema edema, no warmth or tenderness Neuro- alert, oriented x 3; no gross focal neurologic deficits Skin- warm & dry Discharge Data Allergies Allergy/AdvReac Type Severity Reaction Status Date / Time lidocaine Allergy Intermediate PRESERVATIVE Verified 08/15/18 09:41 IN LIDOCAINE CAUSES RED SKIN atorvastatin [From Lipitor] AdvReac Mild Blurry Verified 08/15/18 09:41 Vision rosuvastatin [From Crestor] AdvReac Mild Blurry Verified 08/15/18 09:41 Vision Consultations 10/24/18 09:34 Consult Cardiology Stat 10/24/18 10:32 Consult Cardiology Stat ED Decision to Admit Stat 10/24/18 11:04 Consult Principal Technical Architect Routine Procedures Performed Operation Date: 10/24/18 10:30 Actual Procedures p Cath, Left with Cors and Vent - Osvaldo Craig MD s Cineradiography w/Routine Exam - Osvaldo Craig MD s Aspiration/PCI w/BMS for Stemi - Osvaldo Craig MD Ordered Studies 10/24/18 10:26 CL Cath Imgs for PACS use only Stat Hospital Course (1) STEMI (ST elevation myocardial infarction): Heart alert called in ED for STEMI s/p cath with balloon angioplasty of RCA by Dr. Frank Craig Relief Charge Nurse consulted as well, Dr. Coker Patient admitted to ICU after cardiac cath Aspirin added to Plavix Blood pressure noted to be the low side, amlodipine and isosorbide dinitrate reduced Continued usual carvedilol 6.25 mg p.o. twice daily Patient stable overall Discharge plan: added aspirin 81 mg p.o. daily Continue Plavix 75 mg p.o. daily (Cardiology recommendations: dual antiplatelet therapy with aspirin and clopidogrel discontinuing aspirin at 1 month if platelet count allows) Amlodipine reduced to 5 mg p.o. daily Isosorbide mononitrate reduced to 30 mg p.o. daily Follow-up with PCP this week October 29 Dr. Timothy Sloan Follow-up with cardiology 2 to 3 weeks time Blood pressure Monitor right forearm ecchymosis/hematoma (2) Dysphagia: Related to current XRT thearpy -Evaluated by speech therapist Recommend full liquid diet and advance to pured diet as tolerated -Magic mouthwash ordered, relieving discomfort Continue Carafate (3) CKD (chronic kidney disease), stage III: Baseline creatinine upon review of outpatient records appears to be 1.3- 1.4. - stable (4) COPD (chronic obstructive pulmonary disease): -Continue Spiriva and Symbicort - Uses supplemental O2 sporadically at home (5) CAD (coronary artery disease): See above plan of care (6) HTN (hypertension): per #1 (7) Pancytopenia due to chemotherapy: likely from chemo Levels are stable, CBC 1.29 ANC 830, hemoglobin 9, platelets 36k will need to monitor closely Advised to avoid sick contacts, avoid public places (8) Lung cancer: Currently undergoing chemoradiation as managed by Dr. Helm at [facility] - last chemo was two days prior to admission, has completed XRT sessions Will need to hold chemoradiation therapy in light of recent STEMI Discussed with patient's oncology clinic Disposition Discharge to home with home health services, help with PCP this October 29, follow-up with technical support manager in 2 to 3 weeks Total Time Total Time Spent Total Time Spent (In Minutes): 60 minutes Discharge Plan Discharge Items Patient Disposition: Home - Home Health Services Reason For Visit: HEART ALERT Discharge Diagnosis: ST elevation myocardial infarction, status post angioplasty to the right coronary artery Discharge Goals: Diagnostic testing and Therapeutic intervention Activity: As commented below Activity Comment: No heavy exertion until reevaluated by primary care physician and technical support manager Lifting: Wait until after follow-up appointment Exercise/Sports: Wait until after follow-up appointment Driving/Machine Use Comment: No driving until reevaluated by primary care physician or technical support manager Non-emergency contact: Primary Care Provider Call non-emergency contact if: you have any medication questions and you have a fever Diet: Full liquid and Heart Healthy Diet Comment: May advance full liquid to pured diet as tolerated Addtl Provider Instructions: Follow-up with primary care physician, Dr. Schulte, associate of Dr. Cam, on Monday, October 29, 2018 at 1:40 PM. Follow-up with technical support manager Dr. Coker, in 2 to 3 weeks. Please call their clinic for an appointment. Follow-up with oncologist as scheduled. I have discussed your case with the oncology clinic. They will call you for advice regarding chemotherapy and radiation therapy schedule. Please review new medication list and follow instructions carefully. Always take aspirin with a full stomach. Call your primary care physician immediately if with signs of bleeding, blood in the urine or stools, or dark stools, fever/chills, weakness, cough. Avoid public places, sick contacts. . Who to Call and When: Medical Emergencies: If at any time you feel your situation is an emergency, please call 911 immediately. Call 911 immediately if you are having chest pain. Home Care: * Take your medications exactly as directed. Don't skip doses. * Remember that recovery after a heart attack takes time. Plan to rest for at lease 4-8 weeks while you recover. Then return to normal activity when your doctor says it's okay. * Ask your doctor about joining a heart rehabilitation program. * Tell your doctor if you are feeling depressed. Feelings of sadness are common after a heart attack, but it is important that you speak to someone if you are feeling overwhelmed by these feelings. * If you are having chest pain, call 911 for an ambulance. Do NOT drive yours elf to the hospital. * Ask your family members to learn CPR. * Learn to take your own blood pressure and pulse. Keep a record of your results. Ask your doctor when you should seek emergency medical attention. He or she will tell you which blood pressure reading is dangerous. Lifestyle Changes: * Maintain a healthy weight. Get help to lose any extra pounds. * Cut back on salt. * Limit canned, dried, packaged, and fast foods. * Don't add salt to your food. * Season foods with herbs instead of salt when you cook. * Break the smoking habit. Enroll in a stop-smoking program to improve your chances of success. * Limit fatty foods. * Ask your doctor about having your lipid levels checked regularly. * Build up your activity according to your doctor's recommendation. * Ask your doctor when it's okay to resume sexual activity. * Tell your doctor about any erectile dysfunction (ED) medication you are taking. Some ED medications are not safe if you take certain heart medications. * Try to manage stress. Follow Up: It is important for you to keep your follow up appointments with your medical provider. Prescriptions: New isosorbide mononitrate 30 mg Tablet Extended Release 24 Hr 30 mg PO QAM 30 Days Qty: 30 RF: 2 clopidogrel 75 mg Tablet 75 mg PO QAM 30 Days Qty: 30 RF: 2 amlodipine [Norvasc] 5 mg Tablet 5 mg PO DAILY 30 Days Qty: 30 RF: 2 pantoprazole [Protonix] 40 mg tablet,delayed release (DR/EC) 40 mg PO DAILY Qty: 30 RF: 2 Continued tamsulosin 0.4 mg capsule 0.4 mg PO HS RF: 0 Spiriva with HandiHaler 18 mcg capsule, w/inhalation device 1 cap inhalation DAILY RF: 0 Symbicort 160-4.5 mcg/actuation HFA aerosol inhaler 2 puff inhalation BID RF: 0 carvedilol 6.25 mg tablet 6.25 mg PO BID RF: 0 dutasteride 0.5 mg capsule 0.5 mg PO DAILY RF: 0 lamotrigine 150 mg tablet 150 mg PO BID RF: 0 isosorbide mononitrate 60 mg tablet extended release 24 hr 60 mg PO QAM RF: 0 rosuvastatin 20 mg tablet 20 mg PO HS RF: 0 sucralfate [Carafate] 100 mg/mL suspension 10 ml PO QID RF: 0 aspirin [Aspirin Low Dose] 81 mg Tablet,Delayed Release (Dr/Ec) 81 mg PO HS RF: 0 nitroglycerin 0.4 mg Tablet, Sublingual 0.4 mg sublingual USEASDIRECTD PRN (Reason: Chest Pain) RF: 0 Discontinued amlodipine 10 mg tablet 10 mg PO DAILY RF: 0 omeprazole 20 mg capsule,delayed release(DR/EC) 20 mg PO BID RF: 0 Stand-Alone Forms: [facility] Discharge Orders: Discharge Order (Routine); Ordered 10/27/18 Ordered By: Anibal Tirado Admission Data Admit Date/Time: 10/24/18 11:03 Attending Provider: Anibal Tirado Admit Provider: Jasper Coker Primary Care Provider: Harris Cam Other Providers: Jasper Coker ; Osvaldo Craig ; Elodia Estrada Service: Intensive Care Unit Other Interventions: Discharge Summary Assessment (RN) Last Done: 10/27/18 11:44
== END 2018-10-27 14:11 | disposition home or self-care (01) | DRG 250 ==
LOC: ED 08:51 → ASU 10:30 → ED 10:30 → 1E 11:46 → SUATTDRO 11:46

== ENCOUNTER 2019-03-04 15:05 | Inpatient (IN) ==
[2019-03-04] MEDS ORDERED: ALBUT/IPRATROP 3MG/0.5MG NEB 3 ML VIAL NEB STA (15:21)
[2019-03-04 15:52] LABS: Basophils # (auto) 0.01 K/uL (0-0.2); Basophils % (auto) 0.2 %; Eosinophils # (auto) 0.15 K/uL (0-0.5); Eosinophils % (auto) 2.4 %; Hematocrit (blood only) 30.9 % (42-52); Hemoglobin 9.2 g/dL (14.0-18.0); Immature Granulocytes # (auto) 0.01 K/uL (0.00-0.02); Immature Granulocytes % (auto) 0.2 %; Lymphocytes % (auto) 7.9 %; Mean Corpuscular Hgb Conc 29.8 g/dL (32-36); Monocytes # (auto) 0.49 K/uL (0.11-0.59); Monocytes % (auto) 7.8 %; Neutrophils # (auto) 5.15 K/uL (1.4-6.5); Neutrophils % (auto) 81.5 %; Platelet Count 125 K/uL (130-400); RDW Coefficient of Variation 17.2 % (11.5-14.5); RDW Standard Deviation 52.1 fL (36.4-46.3); Red Blood Count 3.68 M/uL (4.7-6.1); White Blood Count 6.31 K/uL (4.8-10.8)
[2019-03-04 15:56] LABS: iSTAT Creatinine 1.2 mg/dl (0.6-1.3); iSTAT Hemoglobin 10.2 g/dl (14.0-18.0); iSTAT Ionized Calcium 1.2 mmol/l (1.12-1.32); iSTAT Potassium 4.7 mEq/L (3.3-5.0)
--- NOTE | 2019-03-04 15:59 | XRay Report ---
XR chest 1V portable HISTORY: 83 years-old Male Sepsis acute sepsis COMPARISON: Chest radiograph 10/24/2018, CTA chest 06/14/2018. TECHNIQUE: Portable AP view of the chest FINDINGS: Cardiac silhouette is mildly enlarged, unchanged. Calcified plaque the thoracic aortic arch. Right IJ [id number] catheter is unchanged. Small bilateral pleural effusions, right greater than left. Rig ht greater than left bilateral mixed interstitial and alveolar opacities are noted. Severe emphysema. Right infrahilar airspace opacities. No pneumothorax. Degenerative changes of the shoulders and spin e. IMPRESSION: 1. Right greater than left bilateral mixed interstitial and alveolar opacities suggestive of multifoc al pneumonia versus asymmetric pulmonary edema. 2. Small bilateral pleural effusions. 3. Cardiomegaly. 4. Severe emphysema. The above report was generated using voice recognition software. It may contain grammatical, syntax o r spelling errors. Electronically signed by: Bryant Uriostegui M.D. 03/04/2019 3:57 PM
[2019-03-04 16:09] LABS: Albumin Level 3.3 gm/dl (3.4-5.0); BUN Creatinine Ratio 14.3 (10-20); Blood Urea Nitrogen 18 mg/dl (7-18); Calcium 9.1 mg/dl (8.5-10.1); Carbon Dioxide 27 mmol/L (21-32); Chloride 105 mmol/L (98-107); Creatinine Clr Calc Pharmacy 39.5 ml/min; Est GFR (African American) 59.6; Est GFR (Non-African American) 51.4; Glucose 137 mg/dl (70-99); Magnesium 2.2 mg/dl (1.8-2.4); Potassium 4.7 mmol/L (3.5-5.1); Sodium 138 mmol/L (136-145)
[2019-03-04 16:10] LABS: Base Excess VBG 1.2 mEq/L; Oxygen Saturation VBG 70.8 %; pH VBG 7.34 (7.36-7.41)
[2019-03-04 16:13] LABS: Partial Thromboplastin Ratio 3.4; Prothrombin Time 10.6 Seconds (9.0-12.0)
[2019-03-04 16:15] LABS: Alanine Aminotransferase 15 U/L (12-78); Albumin Globulin Ratio 0.9 (0.9-2); Alkaline Phosphatase 73 U/L (45-117); Aspartate Aminotransferase 12 U/L (15-37); Bilirubin,Total 0.6 mg/dl (0.2-1); C Reactive Protein 0.38 mg/dl (0-0.29); Globulin 3.7 gm/dl (2.5-4.0); NT Pro B Type Natriuretic Pept 264 pg/ml (0-1800); Troponin I < 0.015 ng/ml (0-0.045)
[2019-03-04] MEDS ORDERED: SODIUM CHLORIDE 0.9% 500 ML IV ONE (16:33)
[2019-03-04] MEDS ORDERED: PIPERACILLIN/TAZOBACTAM 4.5 GM/120 ML BAG IV ONE (16:33)
[2019-03-04] MEDS ORDERED: PIPERACILL/TAZOBAC CONSULT ACTIVE PRN (16:33)
--- NOTE | 2019-03-04 17:57 | History & Physical Report ---
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 -Initially hypoxic in the 70s, improved to 92% on Vapotherm high flow nasal cannula oxygen 35 L/min -VBG pH 7.34, pCO2 52, ABG pending -Continue high flow O2 for now, adjust per resulting ABG (2) Multifocal pneumonia: Afebrile, no leukocytosis. Procalcitonin and lactic acid WNL. Pro-BNP WNL -CXR with Right greater than left bilateral mixed interstitial and alveolar opacities suggestive of multifocal pneumonia versus asymmetric pulmonary edema, small bilateral pleural effusions, cardiomegaly, severe emphysema -Empirically started on Zosyn in the ED -Miguelina mao QIDR -Discussed with Dr. Weathers of pulmonology, who will evaluate patient (3) Adenocarcinoma of right lung: H/o chemo and XRT. Follows with oncologist Dr. Helm in [place] -Recently admitted to [facility] for R >L pleural effusion and underwent R thoracentesis with 1 L drained. Negative for malignant cells (4) CKD (chronic kidney disease), stage III: Kidney function at baseline -Continue monitoring with daily BMP (5) HTN (hypertension): Mildly elevated at 150/59 -Continue home amlodipine, carvedilol (6) COPD (chronic obstructive pulmonary disease): Former smoker -Continue Spiriva, Symbicort (7) CAD (coronary artery disease): S/p stents. Follows with Dr. Stafford -Continue aspirin, plavix, carvedilol, Imdur, statin (8) Seizure disorder: Remote history -Continue Lamictal BID (9) Collado's esophagus: H/o EGD in July 2018 at [facility] by Dr. Wong of surgery. 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 Was to follow-up with GI but has not -Recently reporting some dysphagia -Aspiration precautions (10) Peripheral vascular disease: -Diffuse peripheral vascular disease including carotid occlusive disease status post left carotid endarterectomy, extensive aortic arch atherosclerosis, moderate brachiocephalic artery stenosis, and diminished lower extremity peripheral pulses with prior CT angiograms revealing moderate atherosclerotic disease -Continue aspirin, statin DVT Ppx: SQ heparin Code status: DNR per discussion with patient and family PCP: Dorina Dispo: Admitted to PCU. Discharge planning ordered. Patient seen in collaboration with Dr. Bonilla. Please see addendum. 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 Patient follows with Dr. Helm of oncology and [place]. Was recently admitted at [facility] 3 weeks ago for shortness of breath and right> left pleural effusion. Was seen by pulmonary there and had a right thoracentesis with 1 L of fluid drained. It was reportedly negative for malignant cells. No medication changes were made. Patient was discharged home and son-in-law said he never went back to respiratory baseline. Patient presents today with increased shortness of breath especially when speaking or ambulating at all. Initially hypoxic in the 70s but improved to 92% on Vapotherm high flow nasal cannula oxygen 35 L/min. VBG pH 7.34. Lactate and procalcitonin within normal limits. Chest x-ray with R>L bilateral mixed interstitial and alveolar opacities suggestive of multifocal pneumonia versus asymmetric pulmonary edema, small bilateral pleural effusions, cardiomegaly and severe emphysema. Started empirically on Zosyn and gave breathing treatment in ED. Patient denies any fever, chills, lightheadedness, visual changes, chest pain, palpitations, cough, hemoptysis, wheezing, nausea, vomiting, abdominal jus n, dysuria, diarrhea or constipation. Allergies Allergy/AdvReac Type Severity Reaction Status Date / Time lisinopril Allergy Severe Verified 03/04/19 17:06 lidocaine Allergy Intermediate PRESERVATIVE Verified 03/04/19 17:06 IN LIDOCAINE CAUSES RED SKIN atorvastatin [From Lipitor] AdvReac Mild Blurry Verified 03/04/19 17:06 Vision rosuvastatin [From Crestor] AdvReac Mild Blurry Verified 03/04/19 17:06 Vision Home Medications Home Medications Medication Instructions Recorded Confirmed Type Spiriva with HandiHaler 1 cap INHALATION DAILY 10/24/18 03/04/19 History aspirin [Aspirin Low Dose] 81 mg PO HS 10/24/18 03/04/19 History carvedilol 6.25 mg PO BID 10/24/18 03/04/19 History dutasteride 0.5 mg PO DAILY 10/24/18 03/04/19 History lamotrigine 150 mg PO BID 10/24/18 03/04/19 History nitroglycerin 0.4 mg SUBLINGUAL USEASDIRECTD PRN 10/24/18 03/04/19 History rosuvastatin 20 mg PO HS 10/24/18 03/04/19 History tamsulosin 0.4 mg PO HS 10/24/18 03/04/19 History budesonide-formoterol HFA 160 2 puffs INH BID #3 inhaler 02/27/19 03/04/19 Rx mcg-4.5 mcg/actuation aerosol inhaler amlodipine 10 mg PO DAILY 03/04/19 03/04/19 History clopidogrel 75 mg PO DAILY 03/04/19 03/04/19 History escitalopram oxalate 5 mg PO DAILY 03/04/19 03/04/19 History folic acid 1 mg PO DAILY 03/04/19 03/04/19 History isosorbide mononitrate 30 mg PO DAILY 03/04/19 03/04/19 History levalbuterol HCl 0 mg INHALATION DIRECTED 03/04/19 03/04/19 History pantoprazole 40 mg PO DAILY 03/04/19 03/04/19 History Past Med/Surg History Medical History Chronic respiratory failure (Chronic) 4L O2 at home Adenocarcinoma of right lung (Chronic) Hyperlipidemia (Chronic) Seizure disorder (Chronic) STARING SPELLS-LAST EVENT MORE THAN 4 YEARS AGO (EPILEPSY) CAD (coronary artery disease) (Chronic) "2004 - RAFI to left cx 02/2011 - BMS to prox LAD and RCA" COPD (chronic obstructive pulmonary disease) (Chronic) HTN (hypertension) (Chronic) CKD (chronic kidney disease), stage III (Chronic) Anemia (Chronic) HX BPH (benign prostatic hyperplasia) (Chronic) GERD (gastroesophageal reflux disease) (Chronic) Osteoarthritis (Chronic) Surgical History History of lobectomy of lung (Chronic) LLL 2004 History of cardiac cath (Chronic) 2010, BMS to proximal RCA S/P carotid endarterectomy (Chronic) LEFT History of bronchoscopy (Chronic) 06/18/18 History of heart artery stent (Chronic) 3 TOTAL STENTS PLACED (NONE IN THE LAST YEAR) UNSURE OF DATES FOLLOWS WITH DR. 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 Physical Exam Physical Exam: General Appearance: WD/WN, vitals as above, elderly, pleasant, saturating at 92% on high flow O2 Head: normocephalic, atraumatic Eyes: normal inspection, PERRL, conjunctivae normal, anicteric sclerae ENT: hard of hearing, external ear and nose normal, oropharynx normal Neck: trachea midline, no thyromegaly normal visual inspection Respiratory: lungs sounds diminished throughout, bibasilar crackles, no wheeze or rhonchi. +accessory muscle use when speaking Cardiovascular: regular rate, rhythm, no murmur appreciated, normal peripheral pulses. Vessels: no JVD or carotid bruit Chest: normal inspection of chest Abdomen/GI: normal bowel sounds, soft, nontender, no hepatosplenomegaly Extremities/Musculoskelatal: no cyanosis or clubbing, extremities motor strength 5/5 Neurologic: PERRL, EOMI, accommodation nl, no face palsy, no dysarthria CN's II-XI intact bilaterally and moves all extremities Psychiatric: A+Ox3, euthymic affect Skin: no rashes, normal color, warm/dry Results & Data Vital Signs (Past 12 Hours) Vital Signs Temp Pulse Pulse Resp BP Pulse Ox 03/04/19 17:30 74 22 150/59 H 92 03/04/19 17:00 71 27 H 151/57 H 91 03/04/19 16:51 72 20 95 03/04/19 16:30 67 23 139/62 90 03/04/19 16:04 70 18 94 03/04/19 16:00 68 24 154/65 H 94 03/04/19 15:54 68 17 157/67 H 94 03/04/19 15:30 75 15 100 03/04/19 15:25 73 24 155/82 H 100 03/04/19 15:13 36.5 C 78 24 95/47 L 34 L Laboratory Results Short CBC 03/04/19 03/04/19 03/04/19 Range/Units 15:35 15:35 15:35 WBC 6.31 (4.8-10.8) K/uL RBC 3.68 L (4.7-6.1) M/uL Hgb 9.2 L (14.0-18.0) g/dL POC Hgb (14.0-18.0) g/dl Hct 30.9 L (42-52) % POC Hct (42-52) % MCV 84.0 (80-100) fL MCH 25.0 (25-34) pg MCHC 29.8 L (32-36) g/dL RDW Std Deviation 52.1 H (36.4-46.3) fL RDW Coeff of Brendan 17.2 H (11.5-14.5) % Plt Count 125 L (130-400) K/uL MPV 9.0 (7.4-10.4) fL Immature Gran % (Auto) 0.2 % Neut % (Auto) 81.5 % Lymph % (Auto) 7.9 % [place] % (Auto) 7.8 % Eos % (Auto) 2.4 % Baso % (Auto) 0.2 % Immature Gran # (Auto) 0.01 (0.00-0.02) K/uL Neut # (Auto) 5.15 (1.4-6.5) K/uL Lymph # (Auto) 0.50 L (1.2-3.4) K/uL [place] # (Auto) 0.49 (0.11-0.59) K/uL Eos # (Auto) 0.15 (0-0.5) K/uL Baso # (Auto) 0.01 (0-0.2) K/uL ESR (0-14) mm/hr PT 10.6 (9.0-12.0) Seconds INR 1.0 (0.9-1.1) APTT 93.0 H* (21.0-31.0) Seconds PTT Ratio 3.4 VBG pH (7.36-7.41) VBG pCO2 (38-50) mmHg VBG pO2 mmHg VBG HCO3 mmol/L VBG O2 Saturation % VBG Base Excess mEq/L Barometric Pressure mm/Hg POC Sodium (135-144) mEq/L Sodium (136-145) mmol/L POC Potassium (3.3-5.0) mEq/L Potassium (3.5-5.1) mmol/L POC Chloride (101-112) mEq/L Chloride (98-107) mmol/L Carbon Dioxide (21-32) mmol/L POC Total CO2 (24-31) mEq/l Anion Gap (3-11) POC Anion Gap (16-25) mmol/L POC BUN (7-18) mg/dl BUN (7-18) mg/dl Creatinine (0.6-1.4) mg/dl POC Creatinine (0.6-1.3) mg/dl Est Cr Clr Drug Dosing ml/min Est GFR ( Amer) Est GFR (Non-Af Amer) BUN/Creatinine Ratio (10-20) Glucose (70-99) mg/dl POC Glucose (other) (70-99) mg/dl Lactate 1.4 (0.4-2.0) mmol/L Calcium (8.5-10.1) mg/dl POC Ioniz Calcium Melvin (1.12-1.32) mmol/l Magnesium (1.8-2.4) mg/dl Total Bilirubin (0.2-1) mg/dl AST (15-37) U/L ALT (12-78) U/L Alkaline Phosphatase (45-117) U/L Troponin I (0-0.045) ng/ml C-Reactive Protein (0-0.29) mg/dl NT-Pro-B Natriuret Pep (0-1800) pg/ml Total Protein (6.4-8.2) gm/dl Albumin (3.4-5.0) gm/dl Globulin (2.5-4.0) gm/dl Albumin/Globulin Ratio (0.9-2) Procalcitonin (0-0.5) ng/ml 03/04/19 03/04/19 03/04/19 Range/Units 15:35 15:35 15:35 WBC (4.8-10.8) K/uL RBC (4.7-6.1) M/uL Hgb (14.0-18.0) g/dL POC Hgb (14.0-18.0) g/dl Hct (42-52) % POC Hct (42-52) % MCV (80-100) fL MCH (25-34) pg MCHC (32-36) g/dL RDW Std Deviation (36.4-46.3) fL RDW Coeff of Brendan (11.5-14.5) % Plt Count (130-400) K/uL MPV (7.4-10.4) fL Immature Gran % (Auto) % Neut % (Auto) % Lymph % (Auto) % [place] % (Auto) % Eos % (Auto) % Baso % (Auto) % Immature Gran # (Auto) (0.00-0.02) K/uL Neut # (Auto) (1.4-6.5) K/uL Lymph # (Auto) (1.2-3.4) K/uL [place] # (Auto) (0.11-0.59) K/uL Eos # (Auto) (0-0.5) K/uL Baso # (Auto) (0-0.2) K/uL ESR 35 H (0-14) mm/hr PT (9.0-12.0) Seconds INR (0.9-1.1) APTT (21.0-31.0) Seconds PTT Ratio VBG pH (7.36-7.41) VBG pCO2 (38-50) mmHg VBG pO2 mmHg VBG HCO3 mmol/L VBG O2 Saturation % VBG Base Excess mEq/L Barometric Pressure mm/Hg POC Sodium (135-144) mEq/L Sodium 138 (136-145) mmol/L POC Potassium (3.3-5.0) mEq/L Potassium 4.7 (3.5-5.1) mmol/L POC Chloride (101-112) mEq/L Chloride 105 (98-107) mmol/L Carbon Dioxide 27 (21-32) mmol/L POC Total CO2 (24-31) mEq/l Anion Gap 6.0 (3-11) POC Anion Gap (16-25) mmol/L POC BUN (7-18) mg/dl BUN 18 (7-18) mg/dl Creatinine 1.28 (0.6-1.4) mg/dl POC Creatinine (0.6-1.3) mg/dl Est Cr Clr Drug Dosing 39.5 ml/min Est GFR ( Amer) 59.6 Est GFR (Non-Af Amer) 51.4 BUN/Creatinine Ratio 14.3 (10-20) Glucose 137 H (70-99) mg/dl POC Glucose (other) (70-99) mg/dl Lactate (0.4-2.0) mmol/L Calcium 9.1 (8.5-10.1) mg/dl POC Ioniz Calcium Melvin (1.12-1.32) mmol/l Magnesium 2.2 (1.8-2.4) mg/dl Total Bilirubin 0.6 (0.2-1) mg/dl AST 12 L (15-37) U/L ALT 15 (12-78) U/L Alkaline Phosphatase 73 (45-117) U/L Troponin I < 0.015 (0-0.045) ng/ml C-Reactive Protein 0.38 H (0-0.29) mg/dl NT-Pro-B Natriuret Pep 264 (0-1800) pg/ml Total Protein 7.0 (6.4-8.2) gm/dl Albumin 3.3 L (3.4-5.0) gm/dl Globulin 3.7 (2.5-4.0) gm/dl Albumin/Globulin Ratio 0.9 (0.9-2) Procalcitonin < 0.05 (0-0.5) ng/ml 03/04/19 03/04/19 Range/Units 15:35 15:43 WBC (4.8-10.8) K/uL RBC (4.7-6.1) M/uL Hgb (14.0-18.0) g/dL POC Hgb 10.2 L (14.0-18.0) g/dl Hct (42-52) % POC Hct 30 L (42-52) % MCV (80-100) fL MCH (25-34) pg MCHC (32-36) g/dL RDW Std Deviation (36.4-46.3) fL RDW Coeff of Brendan (11.5-14.5) % Plt Count (130-400) K/uL MPV (7.4-10.4) fL Immature Gran % (Auto) % Neut % (Auto) % Lymph % (Auto) % [place] % (Auto) % Eos % (Auto) % Baso % (Auto) % Immature Gran # (Auto) (0.00-0.02) K/uL Neut # (Auto) (1.4-6.5) K/uL Lymph # (Auto) (1.2-3.4) K/uL [place] # (Auto) (0.11-0.59) K/uL Eos # (Auto) (0-0.5) K/uL Baso # (Auto) (0-0.2) K/uL ESR (0-14) mm/hr PT (9.0-12.0) Seconds INR (0.9-1.1) APTT (21.0-31.0) Seconds PTT Ratio VBG pH 7.34 L (7.36-7.41) VBG pCO2 52 H (38-50) mmHg VBG pO2 41 mmHg VBG HCO3 28 mmol/L VBG O2 Saturation 70.8 % VBG Base Excess 1.2 mEq/L Barometric Pressure 735.0 mm/Hg POC Sodium 137 (135-144) mEq/L Sodium (136-145) mmol/L POC Potassium 4.7 (3.3-5.0) mEq/L Potassium (3.5-5.1) mmol/L POC Chloride 102 (101-112) mEq/L Chloride (98-107) mmol/L Carbon Dioxide (21-32) mmol/L POC Total CO2 27 (24-31) mEq/l Anion Gap (3-11) POC Anion Gap 14.0 L (16-25) mmol/L POC BUN 18 (7-18) mg/dl BUN (7-18) mg/dl Creatinine (0.6-1.4) mg/dl POC Creatinine 1.2 (0.6-1.3) mg/dl Est Cr Clr Drug Dosing ml/min Est GFR ( Amer) Est GFR (Non-Af Amer) BUN/Creatinine Ratio (10-20) Glucose (70-99) mg/dl POC Glucose (other) 143 H (70-99) mg/dl Lactate (0.4-2.0) mmol/L Calcium (8.5-10.1) mg/dl POC Ioniz Calcium Melvin 1.20 (1.12-1.32) mmol/l Magnesium (1.8-2.4) mg/dl Total Bilirubin (0.2-1) mg/dl AST (15-37) U/L ALT (12-78) U/L Alkaline Phosphatase (45-117) U/L Troponin I (0-0.045) ng/ml C-Reactive Protein (0-0.29) mg/dl NT-Pro-B Natriuret Pep (0-1800) pg/ml Total Protein (6.4-8.2) gm/dl Albumin (3.4-5.0) gm/dl Globulin (2.5-4.0) gm/dl Albumin/Globulin Ratio (0.9-2) Procalcitonin (0-0.5) ng/ml BMP 03/04/19 15:35 Sodium 138 Potassium 4.7 Chloride 105 Carbon Dioxide 27 BUN 18 Creatinine 1.28 Glucose 137 H Calcium 9.1 Cardiac Enzymes 03/04/19 Range/Units 15:35 Troponin I < 0.015 (0-0.045) ng/ml Liver Function 03/04/19 Range/Units 15:35 Total Bilirubin 0.6 (0.2-1) mg/dl AST 12 L (15-37) U/L ALT 15 (12-78) U/L Alkaline Phosphatase 73 (45-117) U/L Albumin 3.3 L (3.4-5.0) gm/dl Diagnostic Findings CXR: IMPRESSION: 1. Right greater than left bilateral mixed interstitial and alveolar opacities suggestive of multifocal pneumonia versus asymmetric pulmonary edema. 2. Small bilateral pleural effusions. 3. Cardiomegaly. 4. Severe emphysema Code Status & VTE Plan VTE Prophylaxis Plan VTE Prophylaxis will be ordered: Yes Supervising Physician Co-Signing Physician Notes I have seen and examined the patient with physician hearing and speech assistant and agree with the assessment and plan as above and would like to comment that On physical exam General: on supportive supplementary oxygen Heart: regular rate Lungs: lungs sounds of right lung boles are somewhat diminished compared to left lung boles Abdomen: soft, nontender, positive bowel sounds Extremities: no edema This is a 83 year old male with as per 01/13/2019 outpatient records from the [facility] has history of stage II, 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 Womack in 08/21/18 and then followed by Dr. Neal for concurrrent chemotherapy and radiation therapy. Cycle number of chemotherapy was delayed due to neutropenia and he presented on 10/24/18 for heart attack with inferior STEMI and s/p RCA/LAD stent and he continued with radition therapy from 10/18/18 through 11/07/18 with radiation therapy. Patient now presents with acute on chronic respiratory failure with chest X ray findings of multifocal pneumonia. Will continue broad spectrum IV antibiotics as Zosyn. Initially on high flow nasal cannula i the ED. However, considerations for BIPAP have been given for sleep and will have repeat blood gases. Patient may benefit from CT chest to better characterize whether this is pneumonia of right lung or if any concerns for radiation pulmonary fibrosis However, have not ordered CT scan of lungs because of renal insufficiency from chronic kidney disease stage III. trend labs after IV fluids Monitor and treat the hypertension May consider some diuretics for small pleural effusions in further evaluation tomorrow Pulmonary service consult requested Agree with other assessment and plans as listed by physician hearing and speech assistant My colleague Dr. Guerra will be following the patient starting on 03/05/19 as hospitalist (1) CAD (coronary artery disease) [place] vs. transplanted heart: [place] heart (2) COPD (chronic obstructive pulmonary disease) COPD type: unspecified COPD Qualified Code(s): J44.9 - Chronic obstructive pulmonary disease, unspecified (3) HTN (hypertension) Hypertension type: essential hypertension Qualified Code(s): I10 - Essential (primary) hypertension
[2019-03-04] MEDS ORDERED: NITROGLYCERIN SL 0.4 MG/TAB TAB SL PRN (18:16)
[2019-03-04 18:55] LABS: Base Excess ABG 1.2 mEq/L (-9-1.8); HCO3 ABG 27 mmol/L (19-24); Oxygen Saturation ABG 89.7 % (90-95); PCO2 ABG 46 mmHg (35-46); PO2 ABG 63 mm/Hg (80-95); pH ABG 7.38 (7.35-7.45)
[2019-03-04 19:10] LABS: Allen Test Pos (Pos)
[2019-03-04 19:55] LABS: Partial Thromboplastin Time 27.7 Seconds (21.0-31.0)
[2019-03-04] MEDS: TAMSULOSIN HCL 0.4 MG CAP PO SCH (20:21)
[2019-03-04] MEDS: ROSUVASTATIN CALCIUM 20 MG TAB PO SCH (20:22)
[2019-03-04] MEDS: lamoTRIgine 100 MG TAB PO SCH (20:22)
[2019-03-04] MEDS: ASPIRIN 81 MG ECTAB PO SCH (20:22)
[2019-03-04] MEDS: BUDESONIDE/FORMOTEROL FUMARATE 160/4.5 60 PUFFS/INHALER INH SCH (20:23)
[2019-03-04] MEDS: carvediloL 6.25 MG TAB PO SCH (20:25)
--- NOTE | 2019-03-04 20:35 | Emergency Department Note ---
Entered by Dot Mae acting as a scribe for Renato Smith DO History of Present Illness General Chief complaint: Shortness of Breath/Dyspnea Stated complaint: HARD TIME BREATHING Time Seen by Provider: 03/04/19 15:21 Source: patient History of Present Illness Provider complaint: Shortness of Breath/Dyspnea Onset (ago): week(s) 2 Location: chest Radiation: non-radiation Maximum Pain Intensity: 5 Relieved By: + none Exacerbated By: + none Associated symptoms: + chest pain and + other (Difficulty swallowing); no fever/chills The patient is a 83 year old male who presents to the Emergency Room with complaints of shortness of breath/dyspnea that has been ongoing for the past 2-3 weeks. The patient states the symptoms do not radiate anywhere else on his body and are not relieved nor exacerbated by anything specific. The patient reports experiencing chest pain as well as difficulty swallowing. The patient denies experiencing any fever/chills. The patient's family mentioned that he has cancer. Home Medications Home Medications Medication Instructions Recorded Confirmed Type Spiriva with HandiHaler 1 cap INHALATION DAILY 10/24/18 03/04/19 History aspirin [Aspirin Low Dose] 81 mg PO HS 10/24/18 03/04/19 History carvedilol 6.25 mg PO BID 10/24/18 03/04/19 History dutasteride 0.5 mg PO DAILY 10/24/18 03/04/19 History lamotrigine 150 mg PO BID 10/24/18 03/04/19 History nitroglycerin 0.4 mg SUBLINGUAL USEASDIRECTD PRN 10/24/18 03/04/19 History rosuvastatin 20 mg PO HS 10/24/18 03/04/19 History tamsulosin 0.4 mg PO HS 10/24/18 03/04/19 History budesonide-formoterol HFA 160 2 puffs INH BID #3 inhaler 02/27/19 03/04/19 Rx mcg-4.5 mcg/actuation aerosol inhaler amlodipine 10 mg PO DAILY 03/04/19 03/04/19 History clopidogrel 75 mg PO DAILY 03/04/19 03/04/19 History escitalopram oxalate 5 mg PO DAILY 03/04/19 03/04/19 History folic acid 1 mg PO DAILY 03/04/19 03/04/19 History isosorbide mononitrate 30 mg PO DAILY 03/04/19 03/04/19 History levalbuterol HCl 0 mg INHALATION DIRECTED 03/04/19 03/04/19 History pantoprazole 40 mg PO DAILY 03/04/19 03/04/19 History Allergies Allergy/AdvReac Type Severity Reaction Status Date / Time lisinopril Allergy Severe Verified 03/04/19 17:06 lidocaine Allergy Intermediate PRESERVATIVE Verified 03/04/19 17:06 IN LIDOCAINE CAUSES RED SKIN atorvastatin [From Lipitor] AdvReac Mild Blurry Verified 03/04/19 17:06 Vision rosuvastatin [From Crestor] AdvReac Mild Blurry Verified 03/04/19 17:06 Vision Past Med/Surg History Medical History Chronic respiratory failure (Chronic) 4L O2 at home Adenocarcinoma of right lung (Chronic) Hyperlipidemia (Chronic) Seizure disorder (Chronic) STARING SPELLS-LAST EVENT MORE THAN 4 YEARS AGO (EPILEPSY) CAD (coronary artery disease) (Chronic) "2004 - RAFI to left cx 02/2011 - BMS to prox LAD and RCA" COPD (chronic obstructive pulmonary disease) (Chronic) HTN (hypertension) (Chronic) CKD (chronic kidney disease), stage III (Chronic) Anemia (Chronic) HX BPH (benign prostatic hyperplasia) (Chronic) GERD (gastroesophageal reflux disease) (Chronic) Osteoarthritis (Chronic) Surgical History History of lobectomy of lung (Chronic) LLL 2004 History of cardiac cath (Chronic) 2010, BMS to proximal RCA S/P carotid endarterectomy (Chronic) LEFT History of bronchoscopy (Chronic) 06/18/18 History of heart artery stent (Chronic) 3 TOTAL STENTS PLACED (NONE IN THE LAST YEAR) UNSURE OF DATES FOLLOWS WITH DR. STAFFORD Family History Other Stroke Social History Preferred Language: Yoruba Communication Ability: Effective Vocational Guidance Counselor Required: No Beliefs That Will Affect Care: None marital status: Current Living Situation: Spouse Current Living Situation Comment: LIVE AT HOME WITH current occupational status: retired Other Information That Helps Us Care for You: No Feels Safe at Home: Yes Safety Concerns: Feels Safe At This Time Smoking Status: Former smoker Tobacco Type: cigarettes ; Cigarettes Per Day: 16 ; Second Hand Exposure: No ; Hx Alcohol Use: No Hx Substance Use: No Review of Systems See HPI for pertinent positives & negatives. and A total of 10 systems reviewed and were otherwise negative Physical Exam Vital Signs Vital Signs - 24 hr 03/04/19 15:13 03/04/19 15:25 03/04/19 15:30 Temperature 36.5 C Temperature Source Oral Sepsis Recent Fever Within 48 Hours No Sepsis New/Unexplained Change in Mental Status No Sepsis Action Taken by Nursing No Action Required Pulse Oximetry Post Tiitration Pulse Rate 78 73 75 Pulse Rate [Apical] Pulse Rate from SpO2 Sensor 74 74 Respiratory Rate 24 24 15 Respiratory Effort / Characteristics Short of Breath Respiratory Depth Respiratory Pattern Blood Pressure 95/47 L 155/82 H Blood Pressure Mean 63 106 Blood Pressure Position Sitting Pulse Oximetry 34 L 100 100 Oxygen Delivery Method Nasal Cannula Oxygen Flow Rate 4 Fraction of Inspired Oxygen 03/04/19 15:35 03/04/19 15:54 03/04/19 16:00 Temperature Temperature Source Sepsis Recent Fever Within 48 Hours Sepsis New/Unexplained Change in Mental Status Sepsis Action Taken by Nursing Pulse Oximetry Post Tiitration Pulse Rate 68 68 Pulse Rate [Apical] Pulse Rate from SpO2 Sensor 68 70 Respiratory Rate 17 24 Respiratory Effort / Characteristics Spontaneous Grunting Labored Respiratory Depth Retractive Respiratory Pattern Tachypnea Blood Pressure 157/67 H 154/65 H Blood Pressure Mean 97 94 Blood Pressure Position Pulse Oximetry 94 94 Oxygen Delivery Method Nasal Cannula Oxygen Flow Rate 4 Fraction of Inspired Oxygen 03/04/19 16:04 03/04/19 16:13 03/04/19 16:30 Temperature Temperature Source Sepsis Recent Fever Within 48 Hours Sepsis New/Unexplained Change in Mental Status Sepsis Action Taken by Nursing Pulse Oximetry Post Tiitration 95 Pulse Rate 67 Pulse Rate [Apical] 70 Pulse Rate from SpO2 Sensor 67 Respiratory Rate 18 23 Respiratory Effort / Characteristics Non-Labored Spontaneous Respiratory Depth Respiratory Pattern Blood Pressure 139/62 Blood Pressure Mean 87 Blood Pressure Position Pulse Oximetry 94 90 Oxygen Delivery Method High Flow Nasal Cannula High Flow Nasal Cannula Nasal CPAP Oxygen Flow Rate 35 35 Fraction of Inspired Oxygen 55 03/04/19 16:51 03/04/19 17:00 Temperature Temperature Source Sepsis Recent Fever Within 48 Hours Sepsis New/Unexplained Change in Mental Status Sepsis Action Taken by Nursing Pulse Oximetry Post Tiitration Pulse Rate 71 Pulse Rate [Apical] 72 Pulse Rate from SpO2 Sensor 71 Respiratory Rate 20 27 H Respiratory Effort / Characteristics Non-Labored Spontaneous Respiratory Depth Respiratory Pattern Blood Pressure 151/57 H Blood Pressure Mean 88 Blood Pressure Position Pulse Oximetry 95 91 Oxygen Delivery Method High Flow Nasal Cannula Oxygen Flow Rate 35 Fraction of Inspired Oxygen 55 GENERAL: Patient is awake, alert, and in no acute distress. Patient is resting comfortably and showing no signs of anxiety. Listless but responds to verbal commands. EYES: The conjunctivae are clear. The pupils are round and reactive. EARS, NOSE, MOUTH AND THROAT: The nose is without any evidence of any deformity. Mucous membranes are moist.Tongue is midline NECK: The neck is nontender and supple. RESPIRATORY: Lung sounds diminished throughout. Poor air movement noted. There is no evidence of wheezing rhonchi or rales to auscultation. CARDIOVASCULAR: Regular rate and rhythm noted. There no murmurs rubs or gallops normal S1 normal S2 GASTROINTESTINAL: The abdomen is soft. Bowel sounds are present in all quadrants. Abdomen is nontender. MUSCULOSKELETAL/EXTREMITIES: There is no evidence of gross deformity. Full range of motion is noted in the hips and shoulders. SKIN: There is no obvious evidence of any rash. There are no petechiae, pallor or cyanosis noted. Pedal edema bilaterally. NEUROLOGIC: Patient is awake alert and oriented to person, place, and situation. Strength is symmetric. Patellar reflexes are 2+ bilaterally. Course 1521: Past medical records reviewed. The patient was evaluated in room A01. A complete history and physical exam was performed. 1638: I spoke with Dr. Bonilla's PA about the patient's case and he will accept the patient for further evaluation. Administered Medications Amlodipine Besylate (Norvasc) 10 mg PO DAILY DIANE Stop: 04/04/19 08:59 Last Admin: 03/05/19 08:47 Dose: 10 mg Documented by: [id number] Aspirin (Ecotrin Ectab) 81 mg PO HS DIANE Stop: 04/03/19 20:59 Last Admin: 03/04/19 20:22 Dose: 81 mg Documented by: [id number] Budesonide/Formoterol Fumarate (Symbicort 160mcg/4.5mcg) 2 puffs INH BID DIANE Stop: 04/03/19 20:59 Last Admin: 03/05/19 08:55 Dose: 2 puffs Documented by: [id number] Admin: 03/04/19 20:23 Dose: 2 puffs Documented by: [id number] Carvedilol (Coreg) 6.25 mg PO BID [facility] Stop: 04/03/19 20:59 Last Admin: 03/05/19 08:47 Dose: 6.25 mg Documented by: [id number] Admin: 03/04/19 20:25 Dose: 6.25 mg Documented by: [id number] Clopidogrel Bisulfate (Plavix) 75 mg PO DAILY [facility] Stop: 04/04/19 08:59 Last Admin: 03/05/19 08:47 Dose: 75 mg Documented by: [id number] Escitalopram Oxalate (Lexapro Tab) 5 mg PO DAILY [facility] Stop: 04/04/19 08:59 Last Admin: 03/05/19 09:31 Dose: 5 mg Documented by: [id number] Folic Acid (Folvite) 1 mg PO DAILY [facility] Stop: 04/04/19 08:59 Last Admin: 03/05/19 08:47 Dose: 1 mg Documented by: [id number] Heparin Sodium (Porcine) (Heparin Sodium (Porcine)) 5,000 units SQ Q8 [facility] Stop: 04/03/19 21:59 Last Admin: 03/05/19 05:47 Dose: 5,000 units Documented by: [id number] Cosigned by: [id number] Admin: 03/04/19 21:15 Dose: 5,000 units Documented by: [id number] Cosigned by: [id number] Piperacillin Sod/Tazobactam (Sod 3.375 gm/ Dextrose) 115 mls @ 28.75 mls/hr IV Q8H [facility]; Protocol Stop: 03/11/19 21:59 Last Infusion: 03/05/19 09:54 Dose: 0 mls/hr Documented by: [id number] Admin: 03/05/19 05:45 Dose: 28.8 mls/hr Documented by: [id number] Infusion: 03/05/19 01:00 Dose: 0 mls/hr Documented by: [id number] Admin: 03/04/19 21:11 Dose: 28.8 mls/hr Documented by: [id number] Isosorbide Mononitrate (Imdur Extended Rel) 30 mg PO DAILY [facility] Stop: 04/04/19 08:59 Last Admin: 03/05/19 08:47 Dose: 30 mg Documented by: [id number] Lamotrigine (Lamictal) 150 mg PO BID [facility] Stop: 04/03/19 20:59 Last Admin: 03/05/19 08:47 Dose: 150 mg Documented by: [id number] Admin: 03/04/19 20:22 Dose: 150 mg Documented by: [id number] Pantoprazole Sodium (Protonix) 40 mg PO DAILY DIANE Stop: 04/04/19 08:59 Last Admin: 03/05/19 08:47 Dose: 40 mg Documented by: [id number] Polyethylene Glycol (Miralax Powder Packet) 17 gm PO DAILY PRN PRN Reason: Constipation Stop: 04/03/19 18:15 Last Admin: 03/05/19 08:55 Dose: 17 gm Documented by: [id number] Rosuvastatin Calcium (Crestor) 20 mg PO HS DIANE Stop: 04/03/19 20:59 Last Admin: 03/04/19 20:22 Dose: 20 mg Documented by: [id number] Tamsulosin HCl (Flomax) 0.4 mg PO HS DIANE Stop: 04/03/19 20:59 Last Admin: 03/04/19 20:21 Dose: 0.4 mg Documented by: [id number] Tiotropium [place] (Spiriva) 1 puffs INH DAILY [facility] Stop: 04/04/19 08:59 Last Admin: 03/05/19 08:49 Dose: 1 puffs Documented by: [id number] Discontinued Medications Albuterol (Duoneb) 3 ml NEB NOW STA Stop: 03/04/19 15:22 Last Admin: 03/04/19 16:51 Dose: 3 ml Documented by: [id number] Piperacillin Sod/Tazobactam Sod (Zosyn) 4.5 gm in 120 mls @ 240 mls/hr IV NOW ONE Stop: 03/04/19 17:02 Last Infusion: 03/04/19 17:34 Dose: 0 mls/hr Documented by: [id number] Admin: 03/04/19 16:48 Dose: 240 mls/hr Documented by: [id number] Sodium Chloride (Nss) 500 mls @ 999 mls/hr IV .Q31M ONE Stop: 03/04/19 17:03 Last Infusion: 03/04/19 17:34 Dose: 0 mls/hr Documented by: [id number] Admin: 03/04/19 16:48 Dose: 999 mls/hr Documented by: [id number] Miscellaneous (Order Awaiting Action) 1 ea N/A DAILY DIANE Stop: 04/04/19 08:59 Last Admin: 03/05/19 11:31 Dose: Not Given Documented by: [id number] Medical Decision Making Differential Diagnosis Differential diagnosis: Etiologies such as infections, reactive airway disease, COPD, pneumonia, pleural effusion, pulmonary edema, ARDS, pneumothorax, CHF, cardiac ischemia, cardiac tamponade, dysrhythmia, anemia, pulmonary embolism, musculoskeletal, gastroint estinal process, as well as others were entertained. Medical Records Attestation: I reviewed the patient's medical records. Home Medications Current Medication List: was personally reviewed by me Laboratory Data Attestation: I reviewed the patient's lab results. Result diagrams: 03/05/19 06:06 03/05/19 06:06 Lab Results 03/04/19 03/04/19 03/04/19 Range/Units 15:35 15:35 15:35 WBC 6.31 (4.8-10.8) K/uL RBC 3.68 L (4.7-6.1) M/uL Hgb 9.2 L (14.0-18.0) g/dL POC Hgb (14.0-18.0) g/dl Hct 30.9 L (42-52) % POC Hct (42-52) % MCV 84.0 (80-100) fL MCH 25.0 (25-34) pg MCHC 29.8 L (32-36) g/dL RDW Std Deviation 52.1 H (36.4-46.3) fL RDW Coeff of Brendan 17.2 H (11.5-14.5) % Plt Count 125 L (130-400) K/uL MPV 9.0 (7.4-10.4) fL Immature Gran % (Auto) 0.2 % Neut % (Auto) 81.5 % Lymph % (Auto) 7.9 % [place] % (Auto) 7.8 % Eos % (Auto) 2.4 % Baso % (Auto) 0.2 % Immature Gran # (Auto) 0.01 (0.00-0.02) K/uL Neut # (Auto) 5.15 (1.4-6.5) K/uL Lymph # (Auto) 0.50 L (1.2-3.4) K/uL [place] # (Auto) 0.49 (0.11-0.59) K/uL Eos # (Auto) 0.15 (0-0.5) K/uL Baso # (Auto) 0.01 (0-0.2) K/uL ESR (0-14) mm/hr PT 10.6 (9.0-12.0) Seconds INR 1.0 (0.9-1.1) APTT 93.0 H* (21.0-31.0) Seconds PTT Ratio 3.4 VBG pH (7.36-7.41) VBG pCO2 (38-50) mmHg VBG pO2 mmHg VBG HCO3 mmol/L VBG O2 Saturation % VBG Base Excess mEq/L Barometric Pressure mm/Hg POC Sodium (135-144) mEq/L Sodium (136-145) mmol/L POC Potassium (3.3-5.0) mEq/L Potassium (3.5-5.1) mmol/L POC Chloride (101-112) mEq/L Chloride (98-107) mmol/L Carbon Dioxide (21-32) mmol/L POC Total CO2 (24-31) mEq/l Anion Gap (3-11) POC Anion Gap (16-25) mmol/L POC BUN (7-18) mg/dl BUN (7-18) mg/dl Creatinine (0.6-1.4) mg/dl POC Creatinine (0.6-1.3) mg/dl Est Cr Clr Drug Dosing ml/min Est GFR ( Amer) Est GFR (Non-Af Amer) BUN/Creatinine Ratio (10-20) Glucose (70-99) mg/dl POC Glucose (other) (70-99) mg/dl Lactate 1.4 (0.4-2.0) mmol/L Calcium (8.5-10.1) mg/dl POC Ioniz Calcium Melvin (1.12-1.32) mmol/l Magnesium (1.8-2.4) mg/dl Total Bilirubin (0.2-1) mg/dl AST (15-37) U/L ALT (12-78) U/L Alkaline Phosphatase (45-117) U/L Troponin I (0-0.045) ng/ml C-Reactive Protein (0-0.29) mg/dl NT-Pro-B Natriuret Pep (0-1800) pg/ml Total Protein (6.4-8.2) gm/dl Albumin (3.4-5.0) gm/dl Globulin (2.5-4.0) gm/dl Albumin/Globulin Ratio (0.9-2) Procalcitonin (0-0.5) ng/ml 03/04/19 03/04/19 03/04/19 Range/Units 15:35 15:35 15:35 WBC (4.8-10.8) K/uL RBC (4.7-6.1) M/uL Hgb (14.0-18.0) g/dL POC Hgb (14.0-18.0) g/dl Hct (42-52) % POC Hct (42-52) % MCV (80-100) fL MCH (25-34) pg MCHC (32-36) g/dL RDW Std Deviation (36.4-46.3) fL RDW Coeff of Brendan (11.5-14.5) % Plt Count (130-400) K/uL MPV (7.4-10.4) fL Immature Gran % (Auto) % Neut % (Auto) % Lymph % (Auto) % [place] % (Auto) % Eos % (Auto) % Baso % (Auto) % Immature Gran # (Auto) (0.00-0.02) K/uL Neut # (Auto) (1.4-6.5) K/uL Lymph # (Auto) (1.2-3.4) K/uL [place] # (Auto) (0.11-0.59) K/uL Eos # (Auto) (0-0.5) K/uL Baso # (Auto) (0-0.2) K/uL ESR 35 H (0-14) mm/hr PT (9.0-12.0) Seconds INR (0.9-1.1) APTT (21.0-31.0) Seconds PTT Ratio VBG pH (7.36-7.41) VBG pCO2 (38-50) mmHg VBG pO2 mmHg VBG HCO3 mmol/L VBG O2 Saturation % VBG Base Excess mEq/L Barometric Pressure mm/Hg POC Sodium (135-144) mEq/L Sodium 138 (136-145) mmol/L POC Potassium (3.3-5.0) mEq/L Potassium 4.7 (3.5-5.1) mmol/L POC Chloride (101-112) mEq/L Chloride 105 (98-107) mmol/L Carbon Dioxide 27 (21-32) mmol/L POC Total CO2 (24-31) mEq/l Anion Gap 6.0 (3-11) POC Anion Gap (16-25) mmol/L POC BUN (7-18) mg/dl BUN 18 (7-18) mg/dl Creatinine 1.28 (0.6-1.4) mg/dl POC Creatinine (0.6-1.3) mg/dl Est Cr Clr Drug Dosing 39.5 ml/min Est GFR ( Amer) 59.6 Est GFR (Non-Af Amer) 51.4 BUN/Creatinine Ratio 14.3 (10-20) Glucose 137 H (70-99) mg/dl POC Glucose (other) (70-99) mg/dl Lactate (0.4-2.0) mmol/L Calcium 9.1 (8.5-10.1) mg/dl POC Ioniz Calcium Melvin (1.12-1.32) mmol/l Magnesium 2.2 (1.8-2.4) mg/dl Total Bilirubin 0.6 (0.2-1) mg/dl AST 12 L (15-37) U/L ALT 15 (12-78) U/L Alkaline Phosphatase 73 (45-117) U/L Troponin I < 0.015 (0-0.045) ng/ml C-Reactive Protein 0.38 H (0-0.29) mg/dl NT-Pro-B Natriuret Pep 264 (0-1800) pg/ml Total Protein 7.0 (6.4-8.2) gm/dl Albumin 3.3 L (3.4-5.0) gm/dl Globulin 3.7 (2.5-4.0) gm/dl Albumin/Globulin Ratio 0.9 (0.9-2) Procalcitonin < 0.05 (0-0.5) ng/ml 03/04/19 03/04/19 Range/Units 15:35 15:43 WBC (4.8-10.8) K/uL RBC (4.7-6.1) M/uL Hgb (14.0-18.0) g/dL POC Hgb 10.2 L (14.0-18.0) g/dl Hct (42-52) % POC Hct 30 L (42-52) % MCV (80-100) fL MCH (25-34) pg MCHC (32-36) g/dL RDW Std Deviation (36.4-46.3) fL RDW Coeff of Brendan (11.5-14.5) % Plt Count (130-400) K/uL MPV (7.4-10.4) fL Immature Gran % (Auto) % Neut % (Auto) % Lymph % (Auto) % [place] % (Auto) % Eos % (Auto) % Baso % (Auto) % Immature Gran # (Auto) (0.00-0.02) K/uL Neut # (Auto) (1.4-6.5) K/uL Lymph # (Auto) (1.2-3.4) K/uL [place] # (Auto) (0.11-0.59) K/uL Eos # (Auto) (0-0.5) K/uL Baso # (Auto) (0-0.2) K/uL ESR (0-14) mm/hr PT (9.0-12.0) Seconds INR (0.9-1.1) APTT (21.0-31.0) Seconds PTT Ratio VBG pH 7.34 L (7.36-7.41) VBG pCO2 52 H (38-50) mmHg VBG pO2 41 mmHg VBG HCO3 28 mmol/L VBG O2 Saturation 70.8 % VBG Base Excess 1.2 mEq/L Barometric Pressure 735.0 mm/Hg POC Sodium 137 (135-144) mEq/L Sodium (136-145) mmol/L POC Potassium 4.7 (3.3-5.0) mEq/L Potassium (3.5-5.1) mmol/L POC Chloride 102 (101-112) mEq/L Chloride (98-107) mmol/L Carbon Dioxide (21-32) mmol/L POC Total CO2 27 (24-31) mEq/l Anion Gap (3-11) POC Anion Gap 14.0 L (16-25) mmol/L POC BUN 18 (7-18) mg/dl BUN (7-18) mg/dl Creatinine (0.6-1.4) mg/dl POC Creatinine 1.2 (0.6-1.3) mg/dl Est Cr Clr Drug Dosing ml/min Est GFR ( Amer) Est GFR (Non-Af Amer) BUN/Creatinine Ratio (10-20) Glucose (70-99) mg/dl POC Glucose (other) 143 H (70-99) mg/dl Lactate (0.4-2.0) mmol/L Calcium (8.5-10.1) mg/dl POC Ioniz Calcium Melvin 1.20 (1.12-1.32) mmol/l Magnesium (1.8-2.4) mg/dl Total Bilirubin (0.2-1) mg/dl AST (15-37) U/L ALT (12-78) U/L Alkaline Phosphatase (45-117) U/L Troponin I (0-0.045) ng/ml C-Reactive Protein (0-0.29) mg/dl NT-Pro-B Natriuret Pep (0-1800) pg/ml Total Protein (6.4-8.2) gm/dl Albumin (3.4-5.0) gm/dl Globulin (2.5-4.0) gm/dl Albumin/Globulin Ratio (0.9-2) Procalcitonin (0-0.5) ng/ml Imaging Data Radiologist's Impression: Radiology results as stated below per my review and the radiologist's interpretation: XR chest 1V portable HISTORY: 83 years-old Male Sepsis acute sepsis COMPARISON: Chest radiograph 10/24/2018, CTA chest 06/14/2018. TECHNIQUE: Portable AP view of the chest FINDINGS: Cardiac silhouette is mildly enlarged, unchanged. Calcified plaque the thoracic aortic arch. Right IJ [id number] catheter is unchanged. Small bilateral pleural effusions, right greater than left. Right greater than left bilateral mixed interstitial and alveolar opacities are noted. Severe emphysema. Right infrahilar airspace opacities. No pneumothorax. Degenerative changes of the shoulders and spine. IMPRESSION: 1. Right greater than left bilateral mixed interstitial and alveolar opacities suggestive of multifocal pneumonia versus asymmetric pulmonary edema. 2. Small bilateral pleural effusions. 3. Cardiomegaly. 4. Severe emphysema. The above report was generated using voice recognition software. It may contain grammatical, syntax or spelling errors. Electronically signed by: Bryant Uriostegui M.D. 03/04/2019 3:57 PM ECG Data Attestation: I personally reviewed and interpreted this ECG as follows: Indication: SOB/dyspnea Rate (beats per minute): 74 Rhythm: normal sinus ECG ST segments: ST depression ECG Findings: Other (No PAC's or PVC's) Comparison ECG Date: from (10/25/2018) Change: no significant change Blood Pressure Blood Pressure Findings: Low blood pressure Blood Pressure Disposition: further management by hospitalist ASHLEE Narrative The patient is an 83-year-old male who presented to the emergency department for an evaluation of shortness of breath. The patient had very severe shortness of breath upon arrival. He was placed on nonrebreather mask with some improvement of his symptoms. He was then placed on Vapotherm and given a DuoNeb treatment. The patient was reevaluated multiple times. The patient was found to have signs of pneumonia on chest x-ray. He was treated with IV fluids and IV antibiotics. I discussed the patient's laboratory and radiographic studies with him. Given his degree of symptomatology I discussed his case with the on-call [facility] hospitalist group. They have agreed to evaluate the patient in the emergency department for further management disposition. The patient was significantly improved on reevaluation. Impression & Plan Pneumonia, Hypoxia, Acute respiratory distress, Respiratory failure Critical Care Time Critical Care Time: Yes Total Critical Care Time: 60 I have personally spent greater than 60 minutes of critical care time in the direct management of this patient. This includes bedside care, interpretation of diagnostic studies, and testing, discussion with consultants, patient, and family members, and other required patient management activities. This 60 minutes is in excess of all separately billable procedures. Discharge Plan Visit Data *Final* Discharge Date/Time: 03/04/19 17:35 Chief Complaint: Shortness of Breath/Dyspnea Stated Complaint: HARD TIME BREATHING ED Provider: Renato Smith Discharge Problem: Pneumonia, Hypoxia, Acute respiratory distress, Respiratory failure Patient Disposition: Admitted As Inpatient Discharge Instructions Interventions: ED Discharge Assessment Last Done: 03/04/19 17:35 The scribe's documentation has been prepared under my direction and personally reviewed by me in its entirety. I confirm that the note above accurately reflects all work, treatment, procedures, and medical decision making performed by me.
[2019-03-04] MEDS: PIPERACILLIN/TAZOBACTAM 3.375 GM in DEXTROSE 5% 100 ML IV SCH (21:11)
[2019-03-04] MEDS: HEPARIN SOD 5,000 UNIT/0.5 ML VIAL SQ SCH (21:15)
[2019-03-05 05:37] LABS: Appearance Urine Cloudy (Clear); Bacteria Urine Automated Negative (Negative); Bilirubin Urine Negative (Negative); Blood Urine Negative (Negative); Color Urine Yellow; Glucose Urine UA Negative (Negative); Ketones Urine Negative (Negative); Leukocyte Esterase Urine Negative (Negative); Nitrite Urine Negative (Negative); Protein Urine Negative (Negative); RBC Urine Automated 0-4 /hpf (0-4); Urobilinogen Urine Negative (Negative); WBC Urine Automated 0 /hpf (0-5); pH Urine 6.5 (4.5-7.5)
[2019-03-05] MEDS: PIPERACILLIN/TAZOBACTAM 3.375 GM in DEXTROSE 5% 100 ML IV SCH ×3 (05:45→21:53)
[2019-03-05] MEDS: HEPARIN SOD 5,000 UNIT/0.5 ML VIAL SQ SCH ×2 (05:47→21:54)
[2019-03-05 06:24] LABS: Hematocrit (blood only) 27.6 % (42-52); Hemoglobin 8.4 g/dL (14.0-18.0); Mean Corpuscular Hemoglobin 25.3 pg (25-34); Mean Corpuscular Hgb Conc 30.4 g/dL (32-36); Mean Corpuscular Volume 83.1 fL (80-100); Mean Platelet Volume 8.7 fL (7.4-10.4); Platelet Count 109 K/uL (130-400); RDW Coefficient of Variation 17.2 % (11.5-14.5); RDW Standard Deviation 52.1 fL (36.4-46.3); Red Blood Count 3.32 M/uL (4.7-6.1); White Blood Count 5.13 K/uL (4.8-10.8)
[2019-03-05 06:59] LABS: BUN Creatinine Ratio 13.5 (10-20); Calcium 8.7 mg/dl (8.5-10.1); Creatinine Clr Calc Pharmacy 49.5 ml/min; Est GFR (African American) 78.4; Est GFR (Non-African American) 67.7; Potassium 4.2 mmol/L (3.5-5.1)
[2019-03-05] MEDS ORDERED: ALBUT/IPRATROP 3MG/0.5MG NEB 3 ML VIAL NEB PRN (08:31)
[2019-03-05] MEDS: PANTOprazole 40 MG TAB PO SCH (08:47)
[2019-03-05] MEDS: FOLIC ACID 1 MG TAB PO SCH (08:47)
[2019-03-05] MEDS: AMLODIPINE BESYLATE 5 MG TAB PO SCH (08:47)
[2019-03-05] MEDS: carvediloL 6.25 MG TAB PO SCH ×2 (08:47→20:38)
[2019-03-05] MEDS: ISOSORBIDE MONO EXTENDED REL 30 MG TABCR PO SCH (08:47)
[2019-03-05] MEDS: CLOPIDOGREL BISULFATE 75 MG TAB PO SCH (08:47)
[2019-03-05] MEDS: lamoTRIgine 100 MG TAB PO SCH ×2 (08:47→20:39)
[2019-03-05] MEDS: TIOTROPIUM BROMIDE 5 PUFF/90 MCG INH INH SCH (08:49)
[2019-03-05] MEDS: BUDESONIDE/FORMOTEROL FUMARATE 160/4.5 60 PUFFS/INHALER INH SCH ×2 (08:55→20:40)
[2019-03-05] MEDS: POLYETHYLENE (MIRALAX) 17 GM PACK PO PRN (08:55)
[2019-03-05] MEDS ORDERED: DUTASTERIDE 0.5 MG SCH (09:00)
[2019-03-05] MEDS: ESCITALOPRAM OXALATE 10 MG TAB PO SCH (09:31)
[2019-03-05] MEDS ORDERED: ONDANSETRON INJ 2 MG/ML 2 ML VIAL IV PRN (11:27)
[2019-03-05] MEDS ORDERED: FINASTERIDE 5 MG TAB PO ONE (11:30)
[2019-03-05] MEDS ORDERED: ONDANSETRON INJ 2 MG/ML 2 ML VIAL ONE (11:39)
--- NOTE | 2019-03-05 15:51 | Pulmonary Consultation ---
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 then adenocarcinoma with right lung which is stage III patient is on currently on chemo Most recently completed chemotherapy 01/13/2019 Most recently completed XRT November 2018 Will do a bedside ultrasound to evaluate for pleural effusion and see if there is a role for thoracentesis Patient currently on clopidogrel for history of CAD with most recent stent to the RCA 10/24/2018 (2) Acute and chronic respiratory failure: Patient is chronically on 4 L nasal cannula at home Patient with history of tobacco abuse COPD Continue bronchodilators and Spiriva Incentive spirometry at bedside as tolerated Ambulate as tolerated (3) Multifocal pneumonia: Diagnosed by chest x-ray No sputum or fever per patient's report WBCs 5.13 Empirically started on Zosyn Check procalcitonin --> negative Repeat chest x-ray in the morning Sputum culture Thank you for including us in the care of this patient. Please refer to Dr. Weathers's addendum for further recommendations. We will continue to follow the patient at this time. (4) CAD (coronary artery disease): Most recent PCI was 10/24/2018 with stenting of the RCA Patient chronically on antihypertensives as well as clopidogrel and aspirin Continue usual home meds Continue monitor on telemetry Supervising Physician Co-Signing Physician Notes I saw and evaluated the patient with Tres Tracey, and agree with findings and plan as documented in the note. 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 Patient had a recent thoracentesis done 3 weeks ago by his oncologist as per the patient. He is unsure about the results of the thoracentesis. Patient only complained of worsening shortness of breath which was gradual going on since last week. Denies any upper respiratory tract infections. No cough, no chest pain. Just chest heaviness. Patient is on broad-spectrum antibiotics thinking it is pneumonia. Procalcitonin is negative, ESR is only 35 unlikely for it to be bacterial pneumonia. Patient is on Taxol's for his chemotherapy. There is incidence of pneumonitis post Taxol use. We will do thoracentesis on the patient first followed by CT chest to see if there is any ground-glass opacity or infiltrate appreciated. Based on that will decide whether we can start the patient on steroids. CAT scan from June 2018 reviewed patient has severe emphysema and COPD with left lower lobectomy, patient has a right upper lobe nodule and patient had pleural effusion at that time as well on the right side. I do not think bronchoscopy and BAL is needed at this time especially given the comorbidities that the patient has. We will do thoracentesis for the patient given that he has moderate sized right- sided pleural effusion. This will help with his breathing as well. Patient is at a little bit high risk of bleeding secondary to being on Plavix. The risks and benefits of the procedure were explained to the patient in front of the family. Patient understands the risk and benefits and wants to go ahead with thoracentesis. We will perform thoracentesis later on under the guidance of ultrasound. I have spent more than 50% of this 35 minute encounter in counseling and/or coordination of care with patient. History of Present Illness Attending Physician: Brodie Guerra MD History of Present Illness Attending: Dr. Weathers This is an 83-year-old male that presents with shortness of breath. We are consulted to evaluate pleural effusion as well as need for steroids and to clarify pneumonia versus radiation pneumonitis. The patient has a past medical history of squamous cell carcinoma of the left lung which was stage II T1N1M0 s/p LL lobectomy then he was dx with stage IIIa CT 1B (N1, N2) MX adenocarcinoma of the right upper lung, CAD, peripheral vascular disease, Collado's esophagitis, chronic kidney disease stage III, hypertension, COPD, past tobacco abuse history, dysphagia, seizure disorder. The patient has a history of lung cancer which she recently completed chemotherapy for. His last dose of chemotherapy was 01/13/2019. He completed 4 cycles of adjuvant chemotherapy with carboplatin and paclitaxel. He also underwent 60 centigrade of stereotactic radiation treatment. Radiation treatment was started on 09/16/2018. Notes report that he completed his radiation therapy 11/07/2018. Patient's last dose of Neulasta was 6 mg subcutaneously on 01/14/2019. Port placement for chemotherapy was 09/08/[address] Salinas Patient reports he has not felt well since his last chemotherapy treatment. He has shortness of breath which is intermittent. He has no sputum or production of hemoptysis. He denies any specific chest pain or tightness. He has been treated for nausea and vomiting with Zofran and Compazine and states that he has not needed that outpatient for over the last week. He denies any fever or chills. He has no Reiger's. Other than malaise and shortness of breath he has no acute complaints today The patient does state that he cares for his who has severe COPD at home. He is anxious to return home to assist with her care. Allergies Allergy/AdvReac Type Severity Reaction Status Date / Time lisinopril Allergy Severe Verified 03/04/19 17:06 lidocaine Allergy Intermediate PRESERVATIVE Verified 03/04/19 17:06 IN LIDOCAINE CAUSES RED SKIN atorvastatin [From Lipitor] AdvReac Mild Blurry Verified 03/04/19 17:06 Vision rosuvastatin [From Crestor] AdvReac Mild Blurry Verified 03/04/19 17:06 Vision Home Medications Home Medications Medication Instructions Recorded Confirmed Type Spiriva with HandiHaler 1 cap INHALATION DAILY 10/24/18 03/04/19 History aspirin [Aspirin Low Dose] 81 mg PO HS 10/24/18 03/04/19 History carvedilol 6.25 mg PO BID 10/24/18 03/04/19 History dutasteride 0.5 mg PO DAILY 10/24/18 03/04/19 History lamotrigine 150 mg PO BID 10/24/18 03/04/19 History nitroglycerin 0.4 mg SUBLINGUAL USEASDIRECTD PRN 10/24/18 03/04/19 History rosuvastatin 20 mg PO HS 10/24/18 03/04/19 History tamsulosin 0.4 mg PO HS 10/24/18 03/04/19 History budesonide-formoterol HFA 160 2 puffs INH BID #3 inhaler 02/27/19 03/04/19 Rx mcg-4.5 mcg/actuation aerosol inhaler amlodipine 10 mg PO DAILY 03/04/19 03/04/19 History clopidogrel 75 mg PO DAILY 03/04/19 03/04/19 History escitalopram oxalate 5 mg PO DAILY 03/04/19 03/04/19 History folic acid 1 mg PO DAILY 03/04/19 03/04/19 History isosorbide mononitrate 30 mg PO DAILY 03/04/19 03/04/19 History levalbuterol HCl 0 mg INHALATION DIRECTED 03/04/19 03/04/19 History pantoprazole 40 mg PO DAILY 03/04/19 03/04/19 History Patient History Medical History Chronic respiratory failure (Chronic) 4L O2 at home Adenocarcinoma of right lung (Chronic) Hyperlipidemia (Chronic) Seizure disorder (Chronic) STARING SPELLS-LAST EVENT MORE THAN 4 YEARS AGO (EPILEPSY) CAD (coronary artery disease) (Chronic) "2004 - RAFI to left cx 02/2011 - BMS to prox LAD and RCA" COPD (chronic obstructive pulmonary disease) (Chronic) HTN (hypertension) (Chronic) CKD (chronic kidney disease), stage III (Chronic) Squamous cell carcinoma of left lung Anemia (Chronic) HX BPH (benign prostatic hyperplasia) (Chronic) GERD (gastroesophageal reflux disease) (Chronic) Osteoarthritis (Chronic) Surgical History History of lobectomy of lung (Chronic) LLL 2004 History of cardiac cath (Chronic) 2010, BMS to proximal RCA S/P carotid endarterectomy (Chronic) LEFT History of bronchoscopy (Chronic) 06/18/18 H/O cardiac catheterization 10/24/2018 2 RCA lesion History of heart artery stent (Chronic) 3 TOTAL STENTS PLACED (NONE IN THE LAST YEAR) UNSURE OF DATES FOLLOWS WITH DR. 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 Beliefs That Will Affect Care: None marital status: Current Living Situation: Spouse Current Living Situation Comment: LIVE AT HOME WITH current occupational status: retired Other Information That Helps Us Care for You: No Feels Safe at Home: Yes Safety Concerns: Feels Safe At This Time Smoking Status: Former smoker Tobacco Type: cigarettes ; Cigarettes Per Day: 16 ; Second Hand Exposure: No ; Hx Alcohol Use: No Hx Substance Use: No Review of Systems 2 Review of Systems: All systems reviewed & are unremarkable except as noted in HPI & below Physical Exam Physical Exam: GENERAL : No acute distress. Pleasant. EYES: No icterus, gaze conjugate. Eyeglasses in place. Pupils equal round and reactive to light NOSE: No evidence of epistaxis MOUTH: No lesions or candidiasis. Upper dentures in place and appears secure NECK: Supple. No stridor. No deviation of trachea. LUNGS: No breath sounds in left lower lobe. Patient has crackles in the right lower lobe. No bronchospasm or rhonchi appreciated. CHEST: A port in place and accessed in the right subclavian region. No paradoxical chest wall movement. HEART: Regular, rate controlled ABDOMEN: Soft, NT, ND, BS Present EXTREMITIES: No LE edema, pedal pulses intact NEURO: A&OX3 Results & Data Vital Signs (Past 12 Hours) Vital Signs Temp Pulse Pulse Resp BP BP Pulse Ox 03/05/19 15:06 36.5 C 69 22 147/62 H 87 L 03/05/19 11:30 36.4 C L 59 L 16 125/66 86 L 03/05/19 11:15 69 22 90 03/05/19 07:16 68 20 91 03/05/19 07:10 36.4 C L 73 18 144/61 H 91 03/05/19 04:07 69 20 94 03/05/19 03:50 36.5 C 71 20 157/65 H 93 Laboratory Results 03/05/19 06:06 03/05/19 06:06 APTT 27.7 INR 1.0 Diagnostic Findings XR chest 1V portable HISTORY: 83 years-old Male Sepsis acute sepsis COMPARISON: Chest radiograph 10/24/2018, CTA chest 06/14/2018. TECHNIQUE: Portable AP view of the chest FINDINGS: Cardiac silhouette is mildly enlarged, unchanged. Calcified plaque the thoracic aortic arch. Right IJ Gcyvqx-p-Mqel catheter is unchanged. Small bilateral pleu ral effusions, right greater than left. Right greater than left bilateral mixed interstitial and alveolar opacities are noted. Severe emphysema. Right infrahilar airspace opacities. No pneumothorax. Degenerative changes of the shoulders and spine. IMPRESSION: 1. Right greater than left bilateral mixed interstitial and alveolar opacities suggestive of multifocal pneumonia versus asymmetric pulmonary edema. 2. Small bilateral pleural effusions. 3. Cardiomegaly. 4. Severe emphysema. Electronically signed by: Bryant Uriostegui M.D. 03/04/2019 3:57 PM PG Care Time/CCT Total # of Minutes Spent Total Time Spent with Patient: Total time spent is greater than 50% in coordination of care (as documented) at patient's floor/unit and/or counseling patient: 40 minutes
--- NOTE | 2019-03-05 17:08 | Hospitalist Progress Note ---
Date of Service March 05, 2019 Assessment & Plan (1) Acute and chronic respiratory failure: Patient is an 83 yr male with H/O Right upper lobe adenocarcinoma (s/p chemo and radiation), COPD, chronic respiratory failure on 4L NC O2, CAD (s/p stent), HTN, CKD 3, Collado's esophagus and other medical problems as below who presents with progressive shortness of breath and was found to have acute on chronic respiratory failure and multifocal pneumonia/asymmetric pulmonary edema. Acute on chronic respiratory failure with hypoxia Multifocal pneumonia DD: Radiation pneumonitis Asymmetric pulmonary edema/mild pleural effusion Chronic oxygen dependency CXR:Right greater than left bilateral mixed interstitial and alveolar opacities suggestive of multifocal pneumonia versus asymmetric pulmonary edema. Small bilateral pleural effusions. Cardiomegaly. Severe emphysema. Normal Pro-BNP, Procalcitonin Ultrasound to assess need for thoracentesis Blood cultures--no growth to date Continue oxygen supplementation with high flow oxygen Continue IV Zosyn, nebs, home inhalers Appreciate pulmonology input Consider steroids--await for pulmonary input BiPAP PRN (2) Multifocal pneumonia: Management as above (3) Adenocarcinoma of right lung: History of stage II, T1 N1 M0, moderately to poorly differentiated squamous cell carcinoma of the left lung S/P left lower lung [place] [address] Bautista early S/P chemotherapy with carboplatin/paclitaxel Recently diagnosed Stage III, cT1b(N1, N2) Mx, adenocarcinoma of the right upper lung S/P chemo and radiation therapy Not a surgical candidate Follows with oncology Dr. Helm in [place] Recently admitted to [facility] for R >L pleural effusion and underwent R thoracentesis with 1 L drained. Negative for malignant cells Needs follow-up with oncology upon discharge (4) CKD (chronic kidney disease), stage III: Renal function at baseline Monitor (5) HTN (hypertension): Blood pressure stable Continue amlodipine, carvedilol (6) COPD (chronic obstructive pulmonary disease): Former smoker Continue Spiriva, Symbicort (7) CAD (coronary artery disease): S/p stents. Follows with Dr. Bess Continue aspirin, plavix, carvedilol, Imdur, statin (8) Seizure disorder: Remote history Continue Lamictal BID (9) Collado's esophagus: H/o EGD in July 2018 at [facility] by Dr. Wong of surgery. 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 Was to follow-up with GI but has not Aspiration precautions Continue PPI (10) Peripheral vascular disease: Diffuse peripheral vascular disease including carotid occlusive disease status post left carotid endarterectomy, extensive aortic arch atherosclerosis, moderate brachiocephalic artery stenosis, and diminished lower extremity peripheral pulses with prior CT angiograms revealing moderate atherosclerotic disease Continue aspirin, statin DVT Px: SQ heparin Code status: DNR/DNI Disposition: To be determined Subjective Patient is seen and examined at bedside Complains of significant SOB Also reports nausea but no vomiting Has left sided pleuritic chest discomfort Offers no other complaints On High flow oxygen Review of Systems Review of Systems: All systems reviewed & are unremarkable except as noted in HPI & below Physical Exam Physical Exam: Physical Exam: Vitals signs as noted above General Appearance:Chronic ill appearing, no apparent distress Head: normocephalic, Atraumatic Eyes: normal inspection, EOMI Neck: supple, Trachea midline Respiratory/Chest: Decreased breath sounds, +crackles Chest: Chemo port on right side Cardiovascular: S1, S2, No murmur Abdomen/GI:Soft, Non tender, Bowel sounds present Extremities/Musculoskelatal:normal inspection, no edema Neurologic/Psych:AAOX3, grossly no focal neurological deficits Skin: normal color, warm Results & Data Vital Signs (Past 12 Hours) Vital Signs Temp Pulse Pulse Resp BP BP Pulse Ox 03/05/19 16:14 36.4 C L 74 18 136/60 90 03/05/19 15:29 73 20 85 L 03/05/19 15:06 36.5 C 69 22 147/62 H 87 L 03/05/19 11:30 36.4 C L 59 L 16 125/66 86 L 03/05/19 11:15 69 22 90 03/05/19 07:16 68 20 91 03/05/19 07:10 36.4 C L 73 18 144/61 H 91 Laboratory Results Short CBC 03/05/19 Range/Units 06:06 WBC 5.13 (4.8-10.8) K/uL Hgb 8.4 L (14.0-18.0) g/dL Hct 27.6 L (42-52) % Plt Count 109 L (130-400) K/uL BMP 03/05/19 06:06 Sodium 138 Potassium 4.2 Chloride 104 Carbon Dioxide 28 BUN 14 Creatinine 1.02 Glucose 101 H Calcium 8.7 Urine 03/05/19 Range/Units 05:15 Urine Color Yellow Urine Appearance Cloudy A (Clear) Urine pH 6.5 (4.5-7.5) Ur Specific [place] 1.020 (1.000-1.030) Urine Protein Negative (Negative) Urine Glucose (UA) Negative (Negative) (1) HTN (hypertension) Hypertension type: essential hypertension Qualified Code(s): I10 - Essential (primary) hypertension (2) COPD (chronic obstructive pulmonary disease) COPD type: unspecified COPD Qualified Code(s): J44.9 - Chronic obstructive pulmonary disease, unspecified (3) CAD (coronary artery disease) [place] vs. transplanted heart: [place] heart
--- NOTE | 2019-03-05 17:22 | XRay Report ---
XR chest 1V portable HISTORY: 83 years-old Male s/p right thoracentesis follow-up study in a patient with right pleural e ffusion status post thoracentesis COMPARISON: Chest radiograph 03/04/2019 TECHNIQUE: Portable AP view of the chest FINDINGS: Cardiomediastinal and hilar silhouettes are unchanged. Persistent bilateral interstitial opacities wi th severe emphysema. There is improved aeration of the bilateral lungs. Trace pleural effusions, decr eased in size on the right. Stable positioning of the right IJ Obvoxy-r-Ogsh catheter. There is no pn eumothorax. Degenerative changes of the shoulders and spine. IMPRESSION: 1. Decreased size of the right pleural effusion status post thoracentesis. No definite postprocedural pneumothorax. 2. Severe emphysema with chronic fibrotic changes redemonstrated. 3. Moderately improved aeration of the right lung. The above report was generated using voice recognition software. It may contain grammatical, syntax o r spelling errors. Electronically signed by: Bryant Uriostegui M.D. 03/05/2019 5:20 PM
[2019-03-05 18:00] LABS: Total Protein Pleural Fluid 3.5 g/dl
--- NOTE | 2019-03-05 18:06 | Procedure Note ---
Procedure Note Date of Service March 05, 2019 Procedure: Diagnostic therapeutic ultrasound-guided catheter thoracentesis Administration Vice President: Dr. Ksenia Weathers Indication: Pleural effusion Consent: Signed by patient and verified with timeout prior to procedure Anesthesia: 1% lidocaine without epinephrine local. Procedure: Consent was verified and timeout performed. Appropriate imaging studies were reviewed prior to the procedure. Patient was placed in a seated position and limited thoracic ultrasound was performed of the left chest. See separate imaging. Appropriate site above the diaphragm for thoracentesis was selected. The skin was prepped and draped in normal sterile fashion. Lidocaine was used for local analgesia. Fluid was aspirated via the finder needle. A small skin ishmael was made with the scalpel and the catheter over the needle apparatus was advanced over the rib into the pleural space. Using the syringe one-way valve system, a total of 1800 mL's of serosanguineous fluid was removed. Procedure was terminated due to amount of fluid removed. The catheter was removed and observed to be intact. A sterile dressing was applied. Post procedure chest x-ray was ordered. Fluid was sent for labs, culture and cytology. Good lung sliding was appreciated postprocedure on the ultrasound. The patient tolerated the procedure without obvious complication Complications: None Blood loss: Less than 2 cc Coding CPT Codes Pulmonary/Thoracic - Pulmonary and Thoracic: Pleural drainage w/imaging ([id number])
[2019-03-05 18:51] LABS: Appearance Pleural Fluid BLOODY; Basophils, Fluid 0 %; Color Pleural Fluid RED; Eosinophils, Fluid 1 %; Lymphocytes, Fluid 44 %; Mono,Macrophage,Mesothelial 49 %; Neutrophils, Fluid 2 %; RBC Pleural Fluid (A) 40000 /uL; Source Pleural Fluid RIGHT LUNG; WBC Pleural Fluid (A) 415 /uL
[2019-03-05] MEDS ORDERED: Nursing to Pharmacy Communication ONE (19:51)
--- NOTE | 2019-03-05 20:10 | CT Scan Report ---
CT chest wo con CT DOSE: 319.12 mGycm CLINICAL HISTORY: 83 years-old Male with r/o Pneumonitis consolidation. Acute shortness of breath wi th reported pneumonitis TECHNIQUE: Multiaxial CT images of the chest were performed without contrast. A dose lowering techni que was utilized adhering to the principles of ALARA. COMPARISON: Chest radiograph of same day, PET CT 07/01/2018, CTA chest 06/14/2018 FINDINGS: Unremarkable thyroid. Right IJ Rrzcmk-p-Xcvm catheter distal tip terminates within the mid inferior S VC. Heart is mildly enlarged. Extensive coronary arterial calcifications are noted. Advanced calcifie d plaque of the thoracic aorta. Mildly prominent paratracheal and prevascular lymph nodes measure up to 9 mm in short axis. Enlarged subcarinal lymph node measures 2.4 x 1.7 cm, previously 2.8 x 1.9 cm on study from 06/14/2018. No new or progressive adenopathy. Small bilateral pleural effusions. No pneum othorax. Advanced emphysema. Postoperative changes of the left lung are redemonstrated. Bilateral int ralobular septal thickening with intermixed patchy groundglass and consolidative opacities in the gladys g bases and intermixed throughout the right lung. The previously noted suspicious nodule of the anter ior segment right upper lobe is again seen and measures 2.0 x 0.9 cm, previously 1.8 x 0.7 cm. Previo usly noted 1.9 cm irregular opacity of the left upper lung is no longer identified. 6 mm solid nodule of the left lung base anteriorly, image 155 series 4 appears new from comparison. Bilateral bronchia l wall thickening. Central airways appear patent. Mild wall thickening of the distal esophagus with secretions noted about the mid and distal esophagea l lumen. Soft tissues are unremarkable. Degenerative changes of the spine and shoulders. IMPRESSION: 1. Cardiomegaly with mild pulmonary edema and small pleural effusions. 2. Advanced emphysema with chronic fibrotic change. 3. Right greater than left dependent consolidative and groundglass densities suggest atelectasis vers us pneumonitis. 4. Irregular linear nodular opacity of the anterior segment right upper lobe which previously demonst rated hypermetabolic activity on PET CT from 07/01/2018 has mildly increased in size, now 2.0 cm. Agai n, this is very suspicious for neoplasm. 5. Previously described irregular nodular opacity of the left upper lung is not identified on today's exam. 6. Persistent mediastinal adenopathy, mildly decreased in size from comparison. 7. New 6 mm solid nodule of the anterior left lung base. 8. Additional findings as above. Please refer to below summary of Fleischner criteria recommendations for follow-up of incidental CT n odules (Rochelle Viveros, Guidelines for management of small pulmonary nodules detected on CT scans: A sta tement from the Fleischner Society, Radiology 237: [phone].) SOLID NODULES Solitary nodule size: <6 mm * Low risk patients: no follow-up needed * high risk patients: optional CT at 12 months Solitary nodule size: 6-8 mm * Low risk patients: follow-up at 6-12 months, then consider further follow-up at 18-24 months * high risk patients: initial follow-up CT at 6-12 months and then at 18-24 months if no change Solitary nodule size: >8 mm * either low or high risk patients - consider follow-up CT at 3 months, and/or CT-PET, and/or biopsy Multiple nodules size: <6 mm * Low risk patients: no routine follow-up * high risk patients: optional CT at 12 months Multiple nodules size: 6-8 mm * Low risk patients: follow-up at 3-6 months, then consider further follow-up at 18-24 months * high risk patients: follow-up at 3-6 months, then at 18-24 months if no change Multiple nodules size: >8 mm * Low risk patients: follow-up at 3-6 months, then consider further follow-up at 18-24 months * high risk patients: follow-up at 3-6 months, then at 18-24 months if no change Note: newly detected indeterminate nodule in persons 35 years of age or older. * Low risk patients: minimal or absent history of smoking and/or other known risk factors * high risk patients: history of smoking or of other known risk factors (e.g. first degree relative with lung cancer, or exposure to asbestos, radon, uranium) * if a nodule up to 8 mm is partly solid or is ground glass further follow-up is required after 24 m onths to exclude possible slow growing adenocarcinoma (COLT) SUBSOLID NODULES Solitary pure ground-glass nodule * nodule size <6 mm - no CT follow-up required * nodule size >=6 mm - follow-up CT at 6-12 months, then every 2 years until 5 years Solitary part-solid nodule * nodule size <6 mm - no CT follow-up required * nodule size >=6 mm - follow-up CT at 3-6 months. If unchanged, and solid component remains <6 mm, then annual follow-up for 5 years Multiple subsolid nodules * nodule size <6 mm - follow-up CT at 3-6 months, consider further follow-up at 2 and 4 years if sta ble * nodule size >=6 mm - follow-up CT at 3-6 months, subsequent management based on the most suspiciou s nodule(s) The above report was generated using voice recognition software. It may contain grammatical, syntax o r spelling errors. Electronically signed by: Bryant Uriostegui M.D. 03/05/2019 8:08 PM
[2019-03-05] MEDS: ROSUVASTATIN CALCIUM 20 MG TAB PO SCH (20:38)
[2019-03-05] MEDS: ASPIRIN 81 MG ECTAB PO SCH (20:39)
[2019-03-05] MEDS: TAMSULOSIN HCL 0.4 MG CAP PO SCH (20:39)
[2019-03-05 21:01] LABS: Hematocrit (blood only) 29.3 % (42-52); Hemoglobin 8.9 g/dL (14.0-18.0)
[2019-03-05] MEDS ORDERED: HEPARIN 100 UNIT/ML 5ML FLUSH FLUSH PRN (23:43)
[2019-03-06] MEDS: PIPERACILLIN/TAZOBACTAM 3.375 GM in DEXTROSE 5% 100 ML IV SCH ×2 (06:25→13:34)
[2019-03-06 06:46] LABS: Hematocrit (blood only) 29.6 % (42-52); Hemoglobin 8.9 g/dL (14.0-18.0); Mean Corpuscular Hgb Conc 30.1 g/dL (32-36); Mean Corpuscular Volume 83.1 fL (80-100); Mean Platelet Volume 9.3 fL (7.4-10.4); Platelet Count 136 K/uL (130-400); RDW Standard Deviation 51.9 fL (36.4-46.3); Red Blood Count 3.56 M/uL (4.7-6.1); White Blood Count 6.35 K/uL (4.8-10.8)
[2019-03-06] MEDS: HEPARIN SOD 5,000 UNIT/0.5 ML VIAL SQ SCH ×3 (06:50→21:33)
[2019-03-06 07:18] LABS: BUN Creatinine Ratio 10.4 (10-20); Calcium 8.6 mg/dl (8.5-10.1); Est GFR (African American) 48.8; Est GFR (Non-African American) 42.1; Magnesium 2.1 mg/dl (1.8-2.4); Potassium 4.1 mmol/L (3.5-5.1)
[2019-03-06] MEDS: lamoTRIgine 100 MG TAB PO SCH ×2 (09:48→21:31)
[2019-03-06] MEDS: BUDESONIDE/FORMOTEROL FUMARATE 160/4.5 60 PUFFS/INHALER INH SCH ×2 (09:48→21:30)
[2019-03-06] MEDS: FINASTERIDE 5 MG TAB PO SCH (09:48)
[2019-03-06] MEDS: FOLIC ACID 1 MG TAB PO SCH (09:49)
[2019-03-06] MEDS: ESCITALOPRAM OXALATE 10 MG TAB PO SCH (09:49)
[2019-03-06] MEDS: AMLODIPINE BESYLATE 5 MG TAB PO SCH (09:49)
[2019-03-06] MEDS: PANTOprazole 40 MG TAB PO SCH (09:49)
[2019-03-06] MEDS: ISOSORBIDE MONO EXTENDED REL 30 MG TABCR PO SCH (09:49)
[2019-03-06] MEDS: CLOPIDOGREL BISULFATE 75 MG TAB PO SCH (09:49)
[2019-03-06] MEDS: TIOTROPIUM BROMIDE 5 PUFF/90 MCG INH INH SCH (09:50)
[2019-03-06] MEDS: carvediloL 6.25 MG TAB PO SCH ×2 (09:50→21:28)
[2019-03-06] MEDS: POLYETHYLENE (MIRALAX) 17 GM PACK PO PRN (09:56)
[2019-03-06] MEDS ORDERED: SODIUM CHLORIDE 0.9% 250 ML IV ONE (10:27)
[2019-03-06] MEDS: predniSONE 50 MG TAB PO SCH (10:55)
--- NOTE | 2019-03-06 11:42 | Pulmonology Progress Note ---
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 It is exudative as per lights criteria according to protein. Follow-up cytology. CT chest without contrast reviewed personally: Shows diffuse emphysema patient has pulmonary nodules which are expected in a patient who has adenocarcinoma the right side and not a surgical candidate. There is also interstitial thickening appreciated especially in the lower lobes. Could be pneumonitis or mild vascular congestion on top of the severe emphysema that the patient has. Given that the patient is on Taxol chemotherapy and there is no significant improvement after thoracentesis, pneumonitis is high in differential and we will start the patient on steroids p.o. Pending on the response to steroids patient might need to be on steroids for at least couple of months. (2) Acute and chronic respiratory failure: Patient is chronically on 4 L nasal cannula at home Patient with history of tobacco abuse COPD Continue bronchodilators and Spiriva Incentive spirometry at bedside as tolerated Ambulate as tolerated (3) Multifocal pneumonia: Diagnosed by chest x-ray No sputum or fever per patient's report Check procalcitonin --> negative Sputum culture (4) CAD (coronary artery disease): Most recent PCI was 10/24/2018 with stenting of the RCA Patient chronically on antihypertensives as well as clopidogrel and aspirin Continue usual home meds Continue monitor on telemetry Subjective Patient seen and examined at bedside. No acute distress, no adverse events overnight. Patient states that shortness of breath is better than yesterday after removal of the pleural fluid. Denies any chest pain, no headache, no nausea, no vomiting. No hemoptysis. No dizziness. Patient is not bringing up any phlegm. Patient still requiring high flow to maintain her oxygen his oxygen saturation. Patient is on chronic O2 at home 4 L nasal cannula. Keep O2 saturation around 88 to 92%. Review of Systems Review of Systems: All systems reviewed & are unremarkable except as noted in HPI & below Physical Exam Physical Exam: Constitutional: No acute distress HEENT: EOMI, PERRLA Respiratory system: Decreased air entry bilaterally, no wheeze, no rhonchi, positive crackles bilateral lower lobes CVS: S1-S2 positive, no murmurs or gallops, accentuated P2 Abdomen: Soft, nontender, nondistended, positive bowel sounds x4 Extremities: +2 pulses bilaterally radialis/ dorsalis pedis, no edema, no cyanosis Neuro: Awake alert oriented x3 Psych: Normal mood and affect G/U: No Davis Skin: no rashes, warm and dry Lymphatic: no cervical or axillary lymphadenopathy Results & Data Vital Signs (Past 12 Hours) Vital Signs Temp Pulse Pulse Pulse Resp BP BP 03/06/19 08:07 36.9 C 72 20 110/59 L 03/06/19 07:04 66 20 03/06/19 04:09 36.8 C 70 18 117/54 L 03/06/19 03:50 59 L 17 03/06/19 00:00 74 Pulse Ox 03/06/19 08:07 93 03/06/19 07:04 97 03/06/19 04:09 97 03/06/19 03:50 99 03/06/19 00:00 03/06/19 06:11 03/06/19 06:11 Abnormal lab results 03/05/19 03/05/19 03/06/19 Range/Units 16:45 20:53 06:11 RBC 3.56 L (4.7-6.1) M/uL Hgb 8.9 L 8.9 L (14.0-18.0) g/dL Hct 29.3 L 29.6 L (42-52) % MCHC 30.1 L (32-36) g/dL RDW Std Deviation 51.9 H (36.4-46.3) fL RDW Coeff of Brendan 17.0 H (11.5-14.5) % Creatinine (0.6-1.4) mg/dl Glucose (70-99) mg/dl Pleural pH 7.43 H (7.3-7.4) 03/06/19 Range/Units 06:11 RBC (4.7-6.1) M/uL Hgb (14.0-18.0) g/dL Hct (42-52) % MCHC (32-36) g/dL RDW Std Deviation (36.4-46.3) fL RDW Coeff of Brendan (11.5-14.5) % Creatinine 1.51 H D (0.6-1.4) mg/dl Glucose 133 H (70-99) mg/dl Pleural pH (7.3-7.4) PG Care Time/CCT Total # of Minutes Spent Total Time Spent with Patient: Total time spent is greater than 50% in coordination of care (as documented) at patient's floor/unit and/or counseling patient:
--- NOTE | 2019-03-06 14:44 | Hospitalist Progress Note ---
Date of Service March 06, 2019 Assessment & Plan (1) Acute and chronic respiratory failure: Patient is an 83 yr male with H/O Right upper lobe adenocarcinoma (s/p chemo and radiation), COPD, chronic respiratory failure on 4L NC O2, CAD (s/p stent), HTN, CKD 3, Collado's esophagus and other medical problems as below who presents with progressive shortness of breath and was found to have acute on chronic respiratory failure and multifocal pneumonia/asymmetric pulmonary edema. Acute on chronic respiratory failure with hypoxia Multifocal pneumonia DD: Radiation pneumonitis Asymmetric pulmonary edema/mild pleural effusion Chronic oxygen dependency, H/O Severe COPD CXR:Right greater than left bilateral mixed interstitial and alveolar opacities suggestive of multifocal pneumonia versus asymmetric pulmonary edema. Small bilateral pleural effusions. Cardiomegaly. Severe emphysema. Normal Pro-BNP, Procalcitonin S/P Thoracentesis on 03/05/19 Pleural fluid cultures pending Pathology pending Blood cultures--no growth to date Continue oxygen supplementation with high flow oxygen Continue IV Zosyn transition to p.o. azithromycin Continue nebs, home inhalers Appreciate pulmonology input Started on prednisone for possible pneumonitis--may need prolonged course BiPAP PRN Subjectively feels much better today Still requires high flow oxygen to maintain saturation (2) Multifocal pneumonia: Management as above (3) Adenocarcinoma of right lung: History of stage II, T1 N1 M0, moderately to poorly differentiated squamous cell carcinoma of the left lung S/P left [place] lung [place] [address] Bautista early S/P chemotherapy with carboplatin/paclitaxel Recently diagnosed Stage III, cT1b(N1, N2) Mx, adenocarcinoma of the right upper lung S/P chemo and radiation therapy Not a surgical candidate Follows with oncology Dr. Helm in [place] Recently admitted to [facility] for R >L pleural effusion and underwent R thoracentesis with 1 L drained. Negative for malignant cells Needs follow-up with oncology upon discharge (4) CKD (chronic kidney disease), stage III: ANDREW on CKD III Gentle IV fluids Bladder scan PRN to rule out urinary retention Consider renal ultrasound if no improvement Avoid nephrotoxic agents as able Monitor renal function (5) HTN (hypertension): Blood pressure stable Continue amlodipine, carvedilol (6) COPD (chronic obstructive pulmonary disease): Former smoker Continue Spiriva, Symbicort (7) CAD (coronary artery disease): S/p stents. Follows with Dr. Bess Continue aspirin, plavix, carvedilol, Imdur, statin (8) Seizure disorder: Remote history Continue Lamictal BID (9) Collado's esophagus: H/o EGD in July 2018 at [facility] by Dr. Wong of surgery. 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 Was to follow-up with GI but has not Aspiration precautions Continue PPI (10) Peripheral vascular disease: Diffuse peripheral vascular disease including carotid occlusive disease status post left carotid endarterectomy, extensive aortic arch atherosclerosis, moderate brachiocephalic artery stenosis, and diminished lower extremity peripheral pulses with prior CT angiograms revealing moderate atherosclerotic disease Continue aspirin, statin DVT Px: SQ heparin Code status: DNR/DNI Disposition: To be determined Subjective Patient is seen and examined at bedside Doing much better today States his shortness of breath is much improved after having thoracentesis yesterday Denies any cough, chest pain, nausea, abdominal pain, dizziness States having some difficulty with urination today On high flow oxygen Review of Systems Review of Systems: All systems reviewed & are unremarkable except as noted in HPI & below Physical Exam Physical Exam: Physical Exam: Vitals signs as noted above General Appearance:Chronic ill appearing, no apparent distress Head: normocephalic, Atraumatic Eyes: normal inspection, EOMI Neck: supple, Trachea midline Respiratory/Chest: Decreased breath sounds, +basal crackles Chest: Chemo port on right side Cardiovascular: S1, S2, No murmur Abdomen/GI:Soft, Non tender, Bowel sounds present Extremities/Musculoskelatal:normal inspection, no edema Neurologic/Psych:AAOX3, grossly no focal neurological deficits Skin: normal color, warm Results & Data Vital Signs (Past 12 Hours) Vital Signs Temp Pulse Pulse Resp BP BP Pulse Ox 03/06/19 12:07 20 92 03/06/19 11:59 36.6 C 80 20 157/67 H 93 03/06/19 11:20 83 22 91 03/06/19 11:18 80 22 93 03/06/19 08:07 36.9 C 72 20 110/59 L 93 03/06/19 07:04 66 20 97 03/06/19 04:09 36.8 C 70 18 117/54 L 97 03/06/19 03:50 59 L 17 99 Laboratory Results Short CBC 03/05/19 03/06/19 Range/Units 20:53 06:11 WBC 6.35 (4.8-10.8) K/uL Hgb 8.9 L 8.9 L (14.0-18.0) g/dL Hct 29.3 L 29.6 L (42-52) % Plt Count 136 (130-400) K/uL BMP 03/06/19 06:11 Sodium 139 Potassium 4.1 Chloride 104 Carbon Dioxide 27 BUN 16 Creatinine 1.51 H D Glucose 133 H Calcium 8.6 (1) HTN (hypertension) Hypertension type: essential hypertension Qualified Code(s): I10 - Essential (primary) hypertension (2) COPD (chronic obstructive pulmonary disease) COPD type: unspecified COPD Qualified Code(s): J44.9 - Chronic obstructive pulmonary disease, unspecified (3) CAD (coronary artery disease) [place] vs. transplanted heart: [place] heart
[2019-03-06] MEDS: AZITHROMYCIN 250 MG TAB PO SCH (16:48)
[2019-03-06] MEDS: DOCUSATE SODIUM 100 MG CAP PO SCH ×2 (16:54→21:28)
[2019-03-06] MEDS: ROSUVASTATIN CALCIUM 20 MG TAB PO SCH (21:29)
[2019-03-06] MEDS: ASPIRIN 81 MG ECTAB PO SCH (21:30)
[2019-03-06] MEDS: TAMSULOSIN HCL 0.4 MG CAP PO SCH (21:30)
[2019-03-07 05:46] LABS: Hemoglobin 7.8 g/dL (14.0-18.0); Mean Corpuscular Hemoglobin 25.4 pg (25-34); Mean Corpuscular Hgb Conc 31.2 g/dL (32-36); Mean Corpuscular Volume 81.4 fL (80-100); Mean Platelet Volume 8.4 fL (7.4-10.4); Platelet Count 118 K/uL (130-400); RDW Coefficient of Variation 16.9 % (11.5-14.5); RDW Standard Deviation 50.6 fL (36.4-46.3); Red Blood Count 3.07 M/uL (4.7-6.1); White Blood Count 4.65 K/uL (4.8-10.8)
[2019-03-07 06:27] LABS: BUN Creatinine Ratio 18.1 (10-20); Calcium 8.4 mg/dl (8.5-10.1); Creatinine Clr Calc Pharmacy 39.6 ml/min; Est GFR (African American) 60.7; Est GFR (Non-African American) 52.4; Potassium 4.2 mmol/L (3.5-5.1)
[2019-03-07] MEDS: HEPARIN SOD 5,000 UNIT/0.5 ML VIAL SQ SCH ×3 (06:27→20:45)
[2019-03-07] MEDS: ESCITALOPRAM OXALATE 10 MG TAB PO SCH (07:50)
[2019-03-07] MEDS: PANTOprazole 40 MG TAB PO SCH (07:50)
[2019-03-07] MEDS: FOLIC ACID 1 MG TAB PO SCH (07:51)
[2019-03-07] MEDS: CLOPIDOGREL BISULFATE 75 MG TAB PO SCH (07:51)
[2019-03-07] MEDS: AMLODIPINE BESYLATE 5 MG TAB PO SCH (07:51)
[2019-03-07] MEDS: FINASTERIDE 5 MG TAB PO SCH (07:51)
[2019-03-07] MEDS: carvediloL 6.25 MG TAB PO SCH ×2 (07:51→20:44)
[2019-03-07] MEDS: DOCUSATE SODIUM 100 MG CAP PO SCH ×2 (07:51→20:44)
[2019-03-07] MEDS: predniSONE 50 MG TAB PO SCH (07:51)
[2019-03-07] MEDS: TIOTROPIUM BROMIDE 5 PUFF/90 MCG INH INH SCH (07:51)
[2019-03-07] MEDS: ISOSORBIDE MONO EXTENDED REL 30 MG TABCR PO SCH (07:51)
[2019-03-07] MEDS: lamoTRIgine 100 MG TAB PO SCH ×2 (07:51→20:45)
[2019-03-07] MEDS: AZITHROMYCIN 250 MG TAB PO SCH (07:51)
[2019-03-07] MEDS: BUDESONIDE/FORMOTEROL FUMARATE 160/4.5 60 PUFFS/INHALER INH SCH ×2 (07:52→20:45)
--- NOTE | 2019-03-07 11:37 | Pulmonology Progress Note ---
Date of Service March 07, 2019 Assessment & Plan (1) Pleural effusion: Status post thoracentesis 03/05/2019 with removal of approximately 1800 mL of bloody fluid. It is exudative as per lights criteria according to protein. Follow-up cytology. CT chest without contrast reviewed personally: Shows diffuse emphysema patient has pulmonary nodules which are expected in a patient who has adenocarcinoma the right side and not a surgical candidate. There is also interstitial thickening appreciated especially in the lower lobes. Could be pneumonitis or mild vascular congestion on top of the severe emphysema that the patient has. Given that the patient is on Taxol chemotherapy and there is no significant improvement after thoracentesis, pneumonitis is high in differential and we will start the patient on Prednisone p.o. Depending on the response to steroids patient might need to be on steroids for at least couple of months. Try to gradually titrate off high flow to nasal cannula with 5 L oxygen (patient is on 5 L at home usually ) with goal saturation 88 to 92% (2) Acute and chronic respiratory failure: Patient is chronically on 4 L nasal cannula at home Patient with history of tobacco abuse COPD Continue bronchodilators and Spiriva Incentive spirometry at bedside as tolerated Ambulate as tolerated (3) Multifocal pneumonia: No sputum or fever per patient's report Procalcitonin --> negative Sputum culture (4) CAD (coronary artery disease): Most recent PCI was 10/24/2018 with stenting of the RCA Patient chronically on antihypertensives as well as clopidogrel and aspirin Continue usual home medications Continue monitor on telemetry (5) Adenocarcinoma of right lung: Patient with history of squamous cell carcinoma of the left lung status po st left lower lobectomy then 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 No acute distress, no adverse events overnight. Patient says that he is feeling much better. Shortness of breath is improved. Denies any chest pain, no cough, no fever, no chills. No dizziness, no headache, no palpitations. At the time of examination patient was saturating 87% on high flow 25 L and 60% FiO2. Review of Systems Review of Systems: All systems reviewed & are unremarkable except as noted in HPI & below Physical Exam Physical Exam: Constitutional: No acute distress HEENT: EOMI, PERRLA Respiratory system: Decreased air entry bilaterally, no wheeze, no rhonchi, positive crackles bilateral lower lobes CVS: S1-S2 positive, no murmurs or gallops, accentuated P2 Abdomen: Soft, nontender, nondistended, positive bowel sounds x4 Extremities: +2 pulses bilaterally radialis/ dorsalis pedis, no edema, no cyanosis Neuro: Awake alert oriented x3 Psych: Normal mood and affect G/U: No Davis Skin: no rashes, warm and dry Lymphatic: no cervical or axillary lymphadenopathy Results & Data Vital Signs (Past 12 Hours) Vital Signs Temp Pulse Pulse Resp BP Pulse Ox 03/07/19 10:56 36.4 C L 67 19 120/44 L 91 03/07/19 07:33 64 16 95 03/07/19 07:07 36.6 C 66 20 136/61 96 03/07/19 04:53 66 20 92 03/07/19 03:02 36.7 C 80 20 132/65 98 03/07/19 03:01 83 16 98 03/07/19 05:16 03/07/19 05:16 PG Care Time/CCT Total # of Minutes Spent Total Time Spent with Patient: Total time spent is greater than 50% in coordination of care (as documented) at patient's floor/unit and/or counseling patient:
--- NOTE | 2019-03-07 13:38 | Hospitalist Progress Note ---
Date of Service March 07, 2019 Assessment & Plan (1) Acute and chronic respiratory failure: Worsened hypoxia from baseline with etiologies including but not limited to infection, radiation pneumonitis, pulmonary edema with pleural effusion. He is s/p thoracentesis on 03/05 with cultures negative for infection thus far and cytology pending. Tap was bloody. Also had a thoracentesis 3 weeks ago at OSH. Blood cultures are negative to date and patient is non-toxic appearing. Still requiring increased amounts of oxygen but feeling better. Pulm favoring pneumonitis as the main cause and he continues on the steroids with improvement. Cont current treatments. 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 Underwent chemo for treatment. 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 Cont to follow with oncology as outpatient. (3) CKD (chronic kidney disease), stage III: ANDREW resolved and he is at baseline renal function. Cont to avoid unn ecessary nephrotoxic substances. (4) HTN (hypertension): at goal, cont amlodipine and coreg per home regimen. (5) COPD (chronic obstructive pulmonary disease): Former smoker with advanced emphysema on imaging. Continue Spiriva, Symbicort (6) CAD (coronary artery disease): Chronic, stable, denies chest pain or other ACS symptoms. STEMI in October 2018 with subsequent angioplasty to RCA. The patient had pancytopenia at that time and DAPT was continued for one month only. ASA 81 was discontinued in November 2018 and he remains on Plavix monotherapy. This was confirmed in the outpatient records. Cont Coreg, Imdur, and Crestor. (7) Seizure disorder: Remote history, Continue Lamictal BID (8) Collado's esophagus: H/o EGD in July 2018 at [facility] by Dr. Wong of surgery. 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 Needs to follow-up with GI as outpatient. Cont Protonix 40mg daily. (9) Peripheral vascular disease: Diffuse peripheral vascular disease including carotid occlusive disease status post left carotid endarterectomy, extensive aortic arch atherosclerosis, moderate brachiocephalic artery stenosis, and diminished lower extremity peripheral pulses with prior CT angiograms revealing moderate atherosclerotic disease. Cont same med mngmt for CAD above. (10) DVT prophylaxis: Heparin SQ DNR/DNI Dispo-uncertain at this time. PT/OT evaluations. Alejandra Mcclain, DO [facility] Hospitalist Subjective doing well, denies lightheadedness, chest pain. Feels improved after thoracentesis and treatments given so far. Still on the high flow nasal canula. No work of breathing. Reports not ambulating much. Discussed pulm's plan with patient and his daughter who was at bedside. Pt is eating and having BMs. Review of Systems Review of Systems: All systems reviewed & are unremarkable except as noted in HPI & below Physical Exam Physical Exam: CONSTITUTIONAL: WNWD, vitals as above, generally well- appearing EYES: normal conjunctivae, no scleral icterus ENT: external ear and nose normal, MMM RESPIRATORY: diminished breath sounds with crackles to bases bilaterally, no wheezes or rales. No respiratory distress or conversational dyspnea at rest. CARDIOVASCULAR: regular rate and rhythm, S1 and 2 heard without murmurs, gallops or rubs, no JVD, no peripheral edema GASTROINTESTINAL: normal bowel sounds, soft, nontender, nondistended MUSCULOSKELETAL: strength 5/5 throughout, head is normocephalic and atraumatic SKIN: warm and dry NEUROLOGIC: CN 2-12 grossly intact, normal cognition, no gross focal deficits. PSYCHIATRIC: alert cooperative and oriented to person, place and time. Results & Data Vital Signs (Past 12 Hours) Vital Signs Temp Pulse Pulse Pulse Resp BP Pulse Ox 03/07/19 11:31 85 18 89 L 03/07/19 10:56 36.4 C L 67 19 120/44 L 91 03/07/19 08:00 61 03/07/19 07:33 64 16 95 03/07/19 07:07 36.6 C 66 20 136/61 96 03/07/19 04:53 66 20 92 03/07/19 03:02 36.7 C 80 20 132/65 98 03/07/19 03:01 83 16 98 Laboratory Results Short CBC 03/07/19 Range/Units 05:16 WBC 4.65 L (4.8-10.8) K/uL Hgb 7.8 L (14.0-18.0) g/dL Hct 25.0 L (42-52) % Plt Count 118 L (130-400) K/uL BMP 03/07/19 05:16 Sodium 139 Potassium 4.2 Chloride 105 Carbon Dioxide 27 BUN 23 H Creatinine 1.26 Glucose 109 H Calcium 8.4 L Medications Administered Current Inpatient Medications Acetaminophen (Tylenol) 650 mg PO Q4H PRN PRN Reason: Pain or Fever Stop: 04/03/19 18:15 Albuterol (Duoneb) 3 ml NEB Q6H PRN PRN Reason: Shortness Of Breath Or Wheezing Stop: 04/04/19 08:44 Amlodipine Besylate (Norvasc) 10 mg PO DAILY [facility]ANE Stop: 04/04/19 08:59 Last Admin: 03/07/19 07:51 Dose: 10 mg Documented by: Aspirin (Ecotrin Ectab) 81 mg PO HS DIANE Stop: 04/03/19 20:59 Last Admin: 03/06/19 21:30 Dose: 81 mg Documented by: Azithromycin (Zithromax) 500 mg PO DAILY [facility]ANE Stop: 03/08/19 09:01 Last Admin: 03/07/19 07:51 Dose: 500 mg Documented by: Budesonide/Formoterol Fumarate (Symbicort 160mcg/4.5mcg) 2 puffs INH BID DIANE Stop: 04/03/19 20:59 Last Admin: 03/07/19 07:52 Dose: 2 puffs Documented by: Carvedilol (Coreg) 6.25 mg PO BID DIANE Stop: 04/03/19 20:59 Last Admin: 03/07/19 07:51 Dose: 6.25 mg Documented by: Clopidogrel Bisulfate (Plavix) 75 mg PO DAILY [facility]ANE Stop: 04/04/19 08:59 Last Admin: 03/07/19 07:51 Dose: 75 mg Documented by: Docusate Sodium (Colace) 100 mg PO BID DIANE Stop: 04/05/19 15:24 Last Admin: 03/07/19 07:51 Dose: 100 mg Documented by: Escitalopram Oxalate (Lexapro Tab) 5 mg PO DAILY [facility]ANE Stop: 04/04/19 08:59 Last Admin: 03/07/19 07:50 Dose: 5 mg Documented by: Finasteride (Proscar) 5 mg PO DAILY [facility]ANE Stop: 04/05/19 08:59 Last Admin: 03/07/19 07:51 Dose: 5 mg Documented by: Folic Acid (Folvite) 1 mg PO DAILY DIANE Stop: 04/04/19 08:59 Last Admin: 03/07/19 07:51 Dose: 1 mg Documented by: Heparin Sodium (Beef Lung) (Heparin Sod 10 Unit/Ml Flush) 5 ml FLUSH PRN PRN PRN Reason: Flush Stop: 04/04/19 19:14 Last Admin: 03/05/19 20:38 Dose: 5 ml Documented by: Heparin Sodium (Porcine) (Heparin Sodium (Porcine)) 5,000 units SQ Q8 DIANE Stop: 04/03/19 21:59 Last Admin: 03/07/19 06:27 Dose: 5,000 units Documented by: Heparin Sodium (Porcine) (Heparin Sod 100 Unit/Ml Flush) 5 ml FLUSH PRN PRN PRN Reason: Flush Stop: 04/04/19 23:44 Isosorbide Mononitrate (Imdur Extended Rel) 30 mg PO DAILY [facility] Stop: 04/04/19 08:59 Last Admin: 03/07/19 07:51 Dose: 30 mg Documented by: Lamotrigine (Lamictal) 150 mg PO BID [facility] Stop: 04/03/19 20:59 Last Admin: 03/07/19 07:51 Dose: 150 mg Documented by: Nitroglycerin (Nitrostat) 0.4 mg SL UD PRN PRN Reason: Chest Pain Stop: 04/03/19 18:15 Ondansetron HCl (Zofran) 4 mg IV Q6H PRN PRN Reason: Nausea Stop: 04/04/19 11:26 Last Admin: 03/05/19 11:41 Dose: 4 mg Documented by: Pantoprazole Sodium (Protonix) 40 mg PO DAILY [facility] Stop: 04/04/19 08:59 Last Admin: 03/07/19 07:50 Dose: 40 mg Documented by: Polyethylene Glycol (Miralax Powder Packet) 17 gm PO DAILY PRN PRN Reason: Constipation Stop: 04/03/19 18:15 Last Admin: 03/06/19 09:56 Dose: 17 gm Documented by: Prednisone (Prednisone) 60 mg PO DAILY [facility] Stop: 03/18/19 08:59 Rosuvastatin Calcium (Crestor) 20 mg PO HS [facility] Stop: 04/03/19 20:59 Last Admin: 03/06/19 21:29 Dose: 20 mg Documented by: Tamsulosin HCl (Flomax) 0.4 mg PO HS [facility] Stop: 04/03/19 20:59 Last Admin: 03/06/19 21:30 Dose: 0.4 mg Documented by: Tiotropium [place] (Spiriva) 1 puffs INH DAILY [facility] Stop: 04/04/19 08:59 Last Admin: 03/07/19 07:51 Dose: 1 puffs Documented by: (1) CAD (coronary artery disease) [place] vs. transplanted heart: [place] heart (2) COPD (chronic obstructive pulmonary disease) COPD type: unspecified COPD Qualified Code(s): J44.9 - Chronic obstructive pulmonary disease, unspecified (3) HTN (hypertension) Hypertension type: essential hypertension Qualified Code(s): I10 - Essential (primary) hypertension
[2019-03-07] MEDS: TAMSULOSIN HCL 0.4 MG CAP PO SCH (20:44)
[2019-03-07] MEDS: ROSUVASTATIN CALCIUM 20 MG TAB PO SCH (20:44)
[2019-03-08] MEDS: HEPARIN SOD 5,000 UNIT/0.5 ML VIAL SQ SCH ×3 (05:31→21:07)
--- NOTE | 2019-03-08 07:12 | XRay Report ---
SINGLE VIEW CHEST CLINICAL HISTORY: Follow-up airspace consolidation. FINDINGS: An AP, portable, upright chest radiograph is compared to chest x-ray and chest CT dated . The examination is degraded by portable technique and patient rotation. The heart is top nor mal in size noting atherosclerotic calcification of the thoracic aorta. Advanced emphysema and chroni c interstitial thickening are similar to previous. Volume loss in the left lung is consistent with pr evious surgical resection. Multifocal airspace opacities are similar in appearance to 03/05/2019 exam ination, greatest in the right upper lung and at the right lung base Small pleural effusions are note d. No pneumothorax is seen. The skeletal structures are osteopenic. The bony thorax is grossly intact . IMPRESSION: 1. Advanced emphysema and postoperative change from left-sided pulmonary resection are again noted. 2. Again seen are multifocal airspace opacities, greatest in the right lung. Differential considerati ons remain multifocal pneumonia and/or pulmonary edema. Clinical correlation will be required and con tinued follow-up to resolution is recommended. 3. Small pleural effusions. Electronically signed by: Tres Mike M.D. 03/08/2019 7:11 AM
[2019-03-08 07:45] LABS: Basophils # (auto) 0.01 K/uL (0-0.2); Basophils % (auto) 0.2 %; Eosinophils # (auto) 0.06 K/uL (0-0.5); Eosinophils % (auto) 0.9 %; Hematocrit (blood only) 25.2 % (42-52); Hemoglobin 7.7 g/dL (14.0-18.0); Immature Granulocytes # (auto) 0.01 K/uL (0.00-0.02); Immature Granulocytes % (auto) 0.2 %; Lymphocytes # (auto) 0.49 K/uL (1.2-3.4); Lymphocytes % (auto) 7.5 %; Mean Corpuscular Hemoglobin 25.4 pg (25-34); Mean Corpuscular Hgb Conc 30.6 g/dL (32-36); Mean Corpuscular Volume 83.2 fL (80-100); Monocytes # (auto) 0.72 K/uL (0.11-0.59); Neutrophils # (auto) 5.27 K/uL (1.4-6.5); Neutrophils % (auto) 80.2 %; Platelet Count 132 K/uL (130-400); RDW Coefficient of Variation 17.2 % (11.5-14.5); RDW Standard Deviation 52.5 fL (36.4-46.3); Red Blood Count 3.03 M/uL (4.7-6.1); White Blood Count 6.56 K/uL (4.8-10.8)
[2019-03-08 08:11] LABS: BUN Creatinine Ratio 22.5 (10-20); Calcium 8.8 mg/dl (8.5-10.1); Creatinine Clr Calc Pharmacy 43.2 ml/min; Est GFR (African American) 66.4; Est GFR (Non-African American) 57.3; Potassium 3.8 mmol/L (3.5-5.1)
[2019-03-08 08:33] LABS: Spherocytes Occasional
[2019-03-08] MEDS: lamoTRIgine 100 MG TAB PO SCH ×2 (09:27→21:07)
[2019-03-08] MEDS: BUDESONIDE/FORMOTEROL FUMARATE 160/4.5 60 PUFFS/INHALER INH SCH ×2 (09:27→21:07)
[2019-03-08] MEDS: TIOTROPIUM BROMIDE 5 PUFF/90 MCG INH INH SCH (09:28)
[2019-03-08] MEDS: ESCITALOPRAM OXALATE 10 MG TAB PO SCH (09:28)
[2019-03-08] MEDS: FINASTERIDE 5 MG TAB PO SCH (09:28)
[2019-03-08] MEDS: FOLIC ACID 1 MG TAB PO SCH (09:28)
[2019-03-08] MEDS: CLOPIDOGREL BISULFATE 75 MG TAB PO SCH (09:28)
[2019-03-08] MEDS: PANTOprazole 40 MG TAB PO SCH (09:28)
[2019-03-08] MEDS: carvediloL 6.25 MG TAB PO SCH ×2 (09:28→21:07)
[2019-03-08] MEDS: AMLODIPINE BESYLATE 5 MG TAB PO SCH (09:28)
[2019-03-08] MEDS: ISOSORBIDE MONO EXTENDED REL 30 MG TABCR PO SCH (09:28)
[2019-03-08] MEDS: predniSONE 20 MG TAB PO SCH (09:29)
[2019-03-08] MEDS: AZITHROMYCIN 250 MG TAB PO SCH (09:29)
[2019-03-08] MEDS: DOCUSATE SODIUM 100 MG CAP PO SCH ×2 (09:29→21:06)
[2019-03-08] MEDS ORDERED: MUPIROCIN 2% OINT 22 GM TUBE EXT PRN (10:01)
--- NOTE | 2019-03-08 12:17 | Pulmonology Progress Note ---
Date of Service March 08, 2019 Assessment & Plan (1) Pleural effusion: Status post thoracentesis 03/05/2019 with removal of approximately 1800 mL of bloody fluid. It is exudative as per lights criteria according to protein. Cytology still pending. CT chest without contrast reviewed personally: Shows diffuse emphysema patient has pulmonary nodules which are expected in a patient who has adenocarcinoma the right side and not a surgical candidate. There is also interstitial thickening appreciated especially in the lower lobes. Could be pneumonitis and mild vascular congestion on top of the severe emphysema that the patient has. Given that the patient is on Taxol chemotherapy and there is no significant improvement after thoracentesis, pneumonitis is high in differential and we will start the patient on Prednisone p.o. Patient has good response to steroids likely this is Taxol-induced pneumonitis we will continue with steroids for at least couple of months. Try to gradually titrate off high flow to nasal cannula with 5 L oxygen (patient is on 5 L at home usually ) with goal saturation 88 to 92% (2) Acute and chronic respiratory failure: Patient is chronically on 5 L nasal cannula at home Patient with history of tobacco abuse COPD Continue bronchodilators and Spiriva Incentive spirometry at bedside as tolerated Ambulate as tolerated -- Epistaxis Likely secondary to chronic oxygen use Apply topical mupirocin and nasal phenylephrine spray as needed Patient is on high flow which is humidified Monitor --Pancytopenia This is likely secondary to effect of chemo Patient had gotten granulocyte monocyte stimulating factor not too long ago. 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 No acute distress. Had an episode of epistaxis from left nose just prior to examining the patient. Other than the epistaxis. Patient states that he is feeling better. Shortness of breath is improved. Denies any chest pain, no cough, no headache, no nausea, no vomiting. Tolerating diet. At the time of examination patient was off oxygen as he was bleeding so he took it off he was saturating 78%. Went up to 90% on 25 L and 50% FiO2 high flow. Review of Systems Review of Systems: All systems reviewed & are unremarkable except as noted in HPI & below Physical Exam Physical Exam: Constitutional: No acute distress HEENT: EOMI, PERRLA, Clotted blood in the left nare Respiratory system: Decreased air entry bilaterally, no wheeze, no rhonchi, positive crackles bilateral lower lobes CVS: S1-S2 positive, no murmurs or gallops, accentuated P2 Abdomen: Soft, nontender, nondistended, positive bowel sounds x4 Extremities: +2 pulses bilaterally radialis/ dorsalis pedis, no edema, no cyanosis Neuro: Awake alert oriented x3 Psych: Normal mood and affect G/U: No Davis Skin: no rashes, warm and dry Lymphatic: no cervical or axillary lymphadenopathy Results & Data Vital Signs (Past 12 Hours) Vital Signs Temp Pulse Pulse Resp BP Pulse Ox 03/08/19 11:10 67 18 90 03/08/19 11:01 36.8 C 69 19 126/61 91 03/08/19 08:00 66 03/08/19 07:26 68 18 97 03/08/19 07:01 36.6 C 62 20 134/64 96 03/08/19 04:09 36.6 C 85 20 145/66 H 94 03/08/19 03:23 61 17 98 03/08/19 07:25 03/08/19 07:25 PG Care Time/CCT Total # of Minutes Spent Total Time Spent with Patient: Total time spent is greater than 50% in coordination of care (as documented) at patient's floor/unit and/or counseling patient:
--- NOTE | 2019-03-08 12:44 | Hospitalist Progress Note ---
Date of Service March 08, 2019 Assessment & Plan (1) Anemia: Worsening anemia acutely in the last week. Follows with Dr. Perera Hematology who gave him IV iron earlier this year and had normal ferritin and H/H at that time. Obviously, bone marrow suppression to some extent present with last chemo two months ago and XRT therapy. However, WBC and Platelets not dropping with hemoglobin falling almost two grams in the past week. Has h/o Collado's and is on Plavix with recent STEMI (no stent and not on ASA) in October. No overt bleeding per rectum or elsewhere. Although bloody effusion was recently tapped, the H/H was stable despite the effusion and has not reaccumulated. I do not feel this is the sole contributer to the drop we area seeing. I am concerned about a GI source and will consider involving GI if continues to fall. Will discuss with Heme. Iron studies in am if needed. Cont Pantoprozole with high dose steroids. 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 Underwent chemo for treatment. 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 Cont to follow with oncology as outpatient. (3) Acute and chronic respiratory failure: Worsened hypoxia from baseline with etiologies including but not limited to infection, radiation pneumonitis, pulmonary edema with pleural effusion. He is s/p thoracentesis on 03/05 with cultures negative for infection thus far and cytology pending. Tap was bloody. Also had a thoracentesis 3 weeks ago at OSH. Blood cultures are negative to date and patient is non-toxic appearing. Still requiring increased amounts of oxygen but feeling better. Pulm favoring pneumonitis as the main cause and he continues on the steroids with improvement. Cont current treatments. Consider echo. (4) CKD (chronic kidney disease), stage III: ANDREW resolved and he is at baseline renal function. Cont to avoid unnecessary nephrotoxic substances. (5) HTN (hypertension): at goal, cont amlodipine and coreg per home regimen. (6) COPD (chronic obstructive pulmonary disease): Former smoker with advanced emphysema on imaging. Continue Spiriva, Symbicort (7) CAD (coronary artery disease): Chronic, stable, denies chest pain or other ACS symptoms. STEMI in October 2018 with subsequent angioplasty to RCA. The patient had pancytopenia at that time and DAPT was continued for one month only. ASA 81 was discontinued in November 2018 and he remains on Plavix monotherapy. This was confirmed in the outpatient records. Cont Coreg, Imdur, and Crestor. (8) Seizure disorder: Remote history, Continue Lamictal BID (9) Collado's esophagus: H/o EGD in July 2018 at [facility] by Dr. Wong of surgery. 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 Needs to follow-up with GI as outpatient. Cont Protonix 40mg daily. (10) Peripheral vascular disease: Diffuse peripheral vascular disease including carotid occlusive disease status post left carotid endarterectomy, extensive aortic arch atherosclerosis, moderate brachiocephalic artery stenosis, and diminished lower extremity peripheral pulses with prior CT angiograms revealing moderate atherosclerotic disease. Cont same med mnt for CAD above. (11) DVT prophylaxis: Heparin SQ DNR/DNI Dispo-uncertain at this time. PT/OT evaluations. Alejandra Thompson DO [facility] Hospitalist Subjective feeling well today, denies cough or SOB. Still on high flow with respiratory de-escalating as able. Denies other chest pain, fevers, chills or other symptoms at this time. Tolerating PO, normal BMs. Review of Systems Review of Systems: All systems reviewed & are unremarkable except as noted in HPI & below Physical Exam Physical Exam: CONSTITUTIONAL: WNWD, vitals as above, generally well- appearing EYES: normal conjunctivae, no scleral icterus ENT: external ear and nose normal, MMM RESPIRATORY: crackles throughout right lung, clear to auscultation on the left, no wheezes or rales. No respiratory distress or conversational dyspnea at rest. CARDIOVASCULAR: regular rate and rhythm, S1 and 2 heard without murmurs, gallops or rubs, no JVD, no peripheral edema GASTROINTESTINAL: normal bowel sounds, soft, nontender, nondistended MUSCULOSKELETAL: strength 5/5 throughout, head is normocephalic and atraumatic SKIN: warm and dry NEUROLOGIC: CN 2-12 grossly intact, normal cognition, no gross focal deficits. PSYCHIATRIC: alert cooperative and oriented to person, place and time. Results & Data Vital Signs (Past 12 Hours) Vital Signs Temp Pulse Pulse Resp BP Pulse Ox 03/08/19 11:10 67 18 90 03/08/19 11:01 36.8 C 69 19 126/61 91 03/08/19 08:00 66 03/08/19 07:26 68 18 97 03/08/19 07:01 36.6 C 62 20 134/64 96 03/08/19 04:09 36.6 C 85 20 145/66 H 94 03/08/19 03:23 61 17 98 Laboratory Results Short CBC 03/08/19 Range/Units 07:25 WBC 6.56 (4.8-10.8) K/uL Hgb 7.7 L (14.0-18.0) g/dL Hct 25.2 L (42-52) % Plt Count 132 (130-400) K/uL BMP 03/08/19 07:25 Sodium 141 Potassium 3.8 Chloride 108 H Carbon Dioxide 27 BUN 26 H Creatinine 1.17 Glucose 131 H Calcium 8.8 Medications Administered Current Inpatient Medications Acetaminophen (Tylenol) 650 mg PO Q4H PRN PRN Reason: Pain or Fever Stop: 04/03/19 18:15 Albuterol (Duoneb) 3 ml NEB Q6H PRN PRN Reason: Shortness Of Breath Or Wheezing Stop: 04/04/19 08:44 Amlodipine Besylate (Norvasc) 10 mg PO DAILY [facility] Stop: 04/04/19 08:59 Last Admin: 03/08/19 09:28 Dose: 10 mg Documented by: Budesonide/Formoterol Fumarate (Symbicort 160mcg/4.5mcg) 2 puffs INH BID [facility] Stop: 04/03/19 20:59 Last Admin: 03/08/19 09:27 Dose: 2 puffs Documented by: Carvedilol (Coreg) 6.25 mg PO BID [facility] Stop: 04/03/19 20:59 Last Admin: 03/08/19 09:28 Dose: 6.25 mg Documented by: Clopidogrel Bisulfate (Plavix) 75 mg PO DAILY [facility] Stop: 04/04/19 08:59 Last Admin: 03/08/19 09:28 Dose: 75 mg Documented by: Docusate Sodium (Colace) 100 mg PO BID [facility] Stop: 04/05/19 15:24 Last Admin: 03/08/19 09:29 Dose: Not Given Documented by: Escitalopram Oxalate (Lexapro Tab) 5 mg PO DAILY [facility] Stop: 04/04/19 08:59 Last Admin: 03/08/19 09:28 Dose: 5 mg Documented by: Finasteride (Proscar) 5 mg PO DAILY [facility] Stop: 04/05/19 08:59 Last Admin: 03/08/19 09:28 Dose: 5 mg Documented by: Folic Acid (Folvite) 1 mg PO DAILY [facility] Stop: 04/04/19 08:59 Last Admin: 03/08/19 09:28 Dose: 1 mg Documented by: Heparin Sodium (Beef Lung) (Heparin Sod 10 Unit/Ml Flush) 5 ml FLUSH PRN PRN PRN Reason: Flush Stop: 04/04/19 19:14 Last Admin: 03/05/19 20:38 Dose: 5 ml Documented by: Heparin Sodium (Porcine) (Heparin Sodium (Porcine)) 5,000 units SQ Q8 [facility] Stop: 04/03/19 21:59 Last Admin: 03/08/19 05:31 Dose: 5,000 units Documented by: Heparin Sodium (Porcine) (Heparin Sod 100 Unit/Ml Flush) 5 ml FLUSH PRN PRN PRN Reason: Flush Stop: 04/04/19 23:44 Isosorbide Mononitrate (Imdur Extended Rel) 30 mg PO DAILY [facility] Stop: 04/04/19 08:59 Last Admin: 03/08/19 09:28 Dose: 30 mg Documented by: Lamotrigine (Lamictal) 150 mg PO BID [facility] Stop: 04/03/19 20:59 Last Admin: 03/08/19 09:27 Dose: 150 mg Documented by: Mupirocin (Bactroban 2%) 1 appln EXT PRN PRN PRN Reason: Nose Bleed Stop: 03/15/19 10:00 Nitroglycerin (Nitrostat) 0.4 mg SL UD PRN PRN Reason: Chest Pain Stop: 04/03/19 18:15 Ondansetron HCl (Zofran) 4 mg IV Q6H PRN PRN Reason: Nausea Stop: 04/04/19 11:26 Last Admin: 03/05/19 11:41 Dose: 4 mg Documented by: Pantoprazole Sodium (Protonix) 40 mg PO DAILY [facility] Stop: 04/04/19 08:59 Last Admin: 03/08/19 09:28 Dose: 40 mg Documented by: Polyethylene Glycol (Miralax Powder Packet) 17 gm PO DAILY PRN PRN Reason: Constipation Stop: 04/03/19 18:15 Last Admin: 03/06/19 09:56 Dose: 17 gm Documented by: Prednisone (Prednisone) 60 mg PO DAILY [facility] Stop: 03/18/19 08:59 Last Admin: 03/08/19 09:29 Dose: 60 mg Documented by: Rosuvastatin Calcium (Crestor) 20 mg PO HS [facility] Stop: 04/03/19 20:59 Last Admin: 03/07/19 20:44 Dose: 20 mg Documented by: Tamsulosin HCl (Flomax) 0.4 mg PO HS [facility] Stop: 04/03/19 20:59 Last Admin: 03/07/19 20:44 Dose: 0.4 mg Documented by: Tiotropium [place] (Spiriva) 1 puffs INH DAILY [facility] Stop: 04/04/19 08:59 Last Admin: 03/08/19 09:28 Dose: 1 puffs Documented by: (1) CAD (coronary artery disease) [place] vs. transplanted heart: nome heart (2) COPD (chronic obstructive pulmonary disease) COPD type: unspecified COPD Qualified Code(s): J44.9 - Chronic obstructive pulmonary disease, unspecified (3) HTN (hypertension) Hypertension type: essential hypertension Qualified Code(s): I10 - Essential (primary) hypertension
[2019-03-08] MEDS: TAMSULOSIN HCL 0.4 MG CAP PO SCH (21:07)
[2019-03-08] MEDS: ROSUVASTATIN CALCIUM 20 MG TAB PO SCH (21:07)
[2019-03-09] MEDS: HEPARIN SOD 5,000 UNIT/0.5 ML VIAL SQ SCH ×3 (05:36→21:13)
[2019-03-09 06:12] LABS: Eosinophils # (auto) 0.04 K/uL (0-0.5); Eosinophils % (auto) 0.7 %; Hematocrit (blood only) 24.1 % (42-52); Hemoglobin 7.5 g/dL (14.0-18.0); Immature Granulocytes # (auto) 0.01 K/uL (0.00-0.02); Immature Granulocytes % (auto) 0.2 %; Lymphocytes # (auto) 0.41 K/uL (1.2-3.4); Lymphocytes % (auto) 7.3 %; Mean Corpuscular Hemoglobin 25.8 pg (25-34); Mean Corpuscular Hgb Conc 31.1 g/dL (32-36); Mean Corpuscular Volume 82.8 fL (80-100); Mean Platelet Volume 8.6 fL (7.4-10.4); Monocytes # (auto) 0.62 K/uL (0.11-0.59); Neutrophils # (auto) 4.55 K/uL (1.4-6.5); Neutrophils % (auto) 80.8 %; Platelet Count 129 K/uL (130-400); RDW Coefficient of Variation 17.2 % (11.5-14.5); RDW Standard Deviation 52.8 fL (36.4-46.3); Red Blood Count 2.91 M/uL (4.7-6.1); White Blood Count 5.63 K/uL (4.8-10.8)
[2019-03-09 06:34] LABS: RBC Morphology Unremarkable
[2019-03-09] MEDS: lamoTRIgine 100 MG TAB PO SCH ×2 (08:06→21:12)
[2019-03-09] MEDS: FOLIC ACID 1 MG TAB PO SCH (08:06)
[2019-03-09] MEDS: ESCITALOPRAM OXALATE 10 MG TAB PO SCH (08:07)
[2019-03-09] MEDS: AMLODIPINE BESYLATE 5 MG TAB PO SCH (08:07)
[2019-03-09] MEDS: predniSONE 20 MG TAB PO SCH (08:08)
[2019-03-09] MEDS: PANTOprazole 40 MG TAB PO SCH (08:08)
[2019-03-09] MEDS: FINASTERIDE 5 MG TAB PO SCH (08:08)
[2019-03-09] MEDS: BUDESONIDE/FORMOTEROL FUMARATE 160/4.5 60 PUFFS/INHALER INH SCH ×2 (08:08→21:12)
[2019-03-09] MEDS: ISOSORBIDE MONO EXTENDED REL 30 MG TABCR PO SCH (08:08)
[2019-03-09] MEDS: TIOTROPIUM BROMIDE 5 PUFF/90 MCG INH INH SCH (08:09)
[2019-03-09] MEDS: CLOPIDOGREL BISULFATE 75 MG TAB PO SCH (08:09)
[2019-03-09] MEDS: carvediloL 6.25 MG TAB PO SCH ×2 (08:10→21:11)
[2019-03-09] MEDS: DOCUSATE SODIUM 100 MG CAP PO SCH ×2 (08:11→21:13)
[2019-03-09 09:57] LABS: Ferritin 32.5 ng/ml (8-388)
--- NOTE | 2019-03-09 14:59 | Gastrointestinal Consultation ---
Date of Consultation March 09, 2019 Assessment & Plan (1) Iron deficiency anemia: Iron deficiency anemia without gross GI bleeding in the setting of lung cancer, S/P chemo (most recently 01/13/19) and radiation most recently in November 2018, also with a recent bloody thoracentesis. Certainly, his anemia is multifactorial. However, it is reasonable to r/o occult GI bleeding in light of persistent iron deficiency and chronic normocytic anemia. He also has dysphagia and evidence of nodular Collado'es with HGD which was not treated 6 months ago. Plan: EGD on . Hold Plavix. Optimize Pulmonary status. PPI for now. Present on Admission?: Yes Supervising Physician Co-Signing Physician Notes I performed a history and physical examination of the patient, including specifically on physical exam - soft, nontender abdomen. I have discussed the patient's management with Alba. Please refer to the nurse practitioner's note for the documented findings and plan of care. 83 yrs old male patient with recurrent Lung cancer undergoing radio-chemotherapy , has intermittent dysphagia , EGD 6 months ago showed nodular Collado's with HGD but no further follow up afterwards. His anemia seems related to chronic disease, bone marrow supresion, chemotherapy and recent bloody thoracenthesis. No evidence of overt GI bleeding. Plan: EGD on after stopping Plavix today. History of Present Illness Reason for Consultation: Worsening iron deficiency anemia. Requesting Physician: Dr. Thompson Attending Physician: Alejandra Thompson, DO History of Present Illness Mr. Arnulfo Ribeiro is an 83 yr old male pt of Dr. Cam with a hx of LLL lung cancer S/P lobectomy in 2004, now with RUL stage 3 adenocarcinoma, not an operative candidate, recently undergoing chemo with Taxol (most recently 01/13/19) and radiation (most recently November 2018). He carries a hx of prior smoking, severe COPD/emphysema, CAD (S/P stenting 2004, 2007 and STEMI in October 2018 having undergone angioplasty, then medically managed on ASA, Plavix), PVD, CKD, distant hx of seizure, mild aortic stenosis, primary hyperparathyroidism. He was admitted on 03/04 for acute on chronic respiratory failure and underwent thoracentesis (1800ml of bloody fluid). He is currently on high flow O2 via NC. Regarding the iron deficiency anemia for which GI is consulted: Hb 9.2 on arriva l, then received one unit of RBCs and Hb today is 7.5 (net 3 point drop though some of this could be attributed to a bloody paracentesis tap and hemodilution). Iron level today is 20, ferritin 32 and MCV has been normal. He received an iron infusion from his oncologist in early 2018. He was briefly on oral iron but he stopped due to side effect of constipation. He denies any gross GI bleeding. No nausea/vomiting. He does have some diarrhea since chemo, but this has improved. Most recent BM was 5AM today, loose. The pt is seen and examined while resting in bed in the PCU. He is awake, alert, oriented, comfortable and tells me that shortness of breath is much improved since thoracentesis. However, he desaturates with attempts to wean off high flow O2.At baseline, he is on home O2 by NC at 2L. Regarding prior endoscopy: According to hospitalist note, the pt underwent EGD in July 2018 with Collado's esophagus with high grade dysplasia [place] [place] However, I am unable to find record of this procedure. After EGD, he was set up for GI f/u with [facility] but has not yet established. Pt tells me his most recent colonoscopy was around 3 yrs ago, but primary hospitalist service says records show most recent [place] [address] Pal in [place]. Allergies Allergy/AdvReac Type Severity Reaction Status Date / Time lisinopril Allergy Severe Verified 03/04/19 17:06 lidocaine Allergy Intermediate PRESERVATIVE Verified 03/04/19 17:06 IN LIDOCAINE CAUSES RED SKIN atorvastatin [From Lipitor] AdvReac Mild Blurry Verified 03/04/19 17:06 Vision rosuvastatin [From Crestor] AdvReac Mild Blurry Verified 03/04/19 17:06 Vision Home Medications Home Medications Medication Instructions Recorded Confirmed Type Spiriva with HandiHaler 1 cap INHALATION DAILY 10/24/18 03/04/19 History aspirin [Aspirin Low Dose] 81 mg PO HS 10/24/18 03/04/19 History carvedilol 6.25 mg PO BID 10/24/18 03/04/19 History dutasteride 0.5 mg PO DAILY 10/24/18 03/04/19 History lamotrigine 150 mg PO BID 10/24/18 03/04/19 History nitroglycerin 0.4 mg SUBLINGUAL USEASDIRECTD PRN 10/24/18 03/04/19 History rosuvastatin 20 mg PO HS 10/24/18 03/04/19 History tamsulosin 0.4 mg PO HS 10/24/18 03/04/19 History budesonide-formoterol HFA 160 2 puffs INH BID #3 inhaler 02/27/19 03/04/19 Rx mcg-4.5 mcg/actuation aerosol inhaler amlodipine 10 mg PO DAILY 03/04/19 03/04/19 History clopidogrel 75 mg PO DAILY 03/04/19 03/04/19 History escitalopram oxalate 5 mg PO DAILY 03/04/19 03/04/19 History folic acid 1 mg PO DAILY 03/04/19 03/04/19 History isosorbide mononitrate 30 mg PO DAILY 03/04/19 03/04/19 History levalbuterol HCl 0 mg INHALATION DIRECTED 03/04/19 03/04/19 History pantoprazole 40 mg PO DAILY 03/04/19 03/04/19 History Patient History Medical History Chronic respiratory failure (Chronic) 4L O2 at home Adenocarcinoma of right lung (Chronic) Hyperlipidemia (Chronic) Seizure disorder (Chronic) STARING SPELLS-LAST EVENT MORE THAN 4 YEARS AGO (EPILEPSY) CAD (coronary artery disease) (Chronic) "2004 - RAFI to left cx 02/2011 - BMS to prox LAD and RCA" COPD (chronic obstructive pulmonary disease) (Chronic) HTN (hypertension) (Chronic) CKD (chronic kidney disease), stage III (Chronic) Squamous cell carcinoma of left lung Anemia (Chronic) HX BPH (benign prostatic hyperplasia) (Chronic) GERD (gastroesophageal reflux disease) (Chronic) Osteoarthritis (Chronic) Surgical History History of lobectomy of lung (Chronic) LLL 2004 History of cardiac cath (Chronic) 2010, BMS to proximal RCA S/P carotid endarterectomy (Chronic) LEFT History of bronchoscopy (Chronic) 06/18/18 H/O cardiac catheterization 10/24/2018 2 RCA lesion History of heart artery stent (Chronic) 3 TOTAL STENTS PLACED (NONE IN THE LAST YEAR) UNSURE OF DATES FOLLOWS WITH DR. 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 Beliefs That Will Affect Care: None marital status: Current Living Situation: Spouse Current Living Situation Comment: LIVE AT HOME WITH current occupational status: retired Other Information That Helps Us Care for You: No Feels Safe at Home: Yes Safety Concerns: Feels Safe At This Time Smoking Status: Former smoker Tobacco Type: cigarettes ; Cigarettes Per Day: 16 ; Second Hand Exposure: No ; Hx Alcohol Use: No Hx Substance Use: No Review of Systems Review of Systems: ROS: Gen: + generalized; no fevers Eyes: No eye redness, or pain, no recent vision changes, no icterus Resp: + chronically SOB, remains SOB though somewhat improved after parace ntesis. No cough Cardio: No palpitations/irregular beats, no chest pain GI: No abdominal pain, no nausea/vomiting, no melena or hematochezia : Denies pain on urination Skin: No jaundice, itching or new rashes Physical Exam Constitutional: WD/WN, vitals as above + ill appearing and + thin ENMT: external ear and nose normal, oropharynx normal Neck: trachea midline, no thyromegaly Respiratory: normal respiratory effort; no respiratory distress, no labored breathing and no retractions On high flow O2. Pt does not have any increased respiratory effort. He does have slightly decreased sounds and some crackles at each base Cardiovascular: RRR, no murmur, no edema Gastrointestinal (Abdomen): normal bowel sounds, soft, nontender, no hepat osplenomegaly Skin: no rashes, warm and dry no jaundice Neurologic: PERRL, EOMI, accommodation nl, no face palsy, no dysarthria Psychiatric: A+Ox3, euthymic affect Lymphatic: no cervical or axillary lymphadenopathy Results & Data Vital Signs (Past 12 Hours) Vital Signs Temp Pulse Resp BP Pulse Ox 03/09/19 11:49 36.5 C 67 20 134/59 L 93 03/09/19 11:15 64 18 91 03/09/19 07:14 36.6 C 67 18 130/59 L 95 03/09/19 07:06 73 18 98 03/09/19 04:06 36.5 C 77 19 152/71 H 90 03/09/19 03:10 70 16 98
--- NOTE | 2019-03-09 16:12 | Hospitalist Progress Note ---
Date of Service March 09, 2019 Assessment & Plan (1) Anemia: Worsening anemia acutely in the last week. Follows with Dr. Perera Hematology who gave him IV iron earlier this year and had normal ferritin and H/H at that time. Obviously, bone marrow suppression to some extent present with last chemo two months ago and XRT therapy. However, WBC and Platelets not dropping with hemoglobin falling almost two grams in the past week. Has h/o Collado's and is on Plavix with recent STEMI (no stent and not on ASA) in October. No overt bleeding per rectum or elsewhere. Although bloody effusion was recently tapped, the H/H was stable despite the effusion and has not reaccumulated. GI consulted out of concern for occult GI blood loss in the setting of [place] with a new report of dysphagia. 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 Underwent chemo for treatment. 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 Cont to follow with oncology as outpatient. (3) Acute and chronic respiratory failure: Taxol induced pneumonitis-cont steroids. (4) CKD (chronic kidney disease), stage III: ANDREW resolved and he is at baseline renal function. Cont to avoid unnecessary nephrotoxic substances. (5) HTN (hypertension): at goal, cont amlodipine and coreg per home regimen. (6) COPD (chronic obstructive pulmonary disease): Former smoker with advanced emphysema on imaging. Continue Spiriva, Symbicort (7) CAD (coronary artery disease): Chronic, stable, denies chest pain or other ACS symptoms. STEMI in October 2018 with subsequent angioplasty to RCA. The patient had pancytopenia at that time and DAPT was continued for one month only. ASA 81 was discontinued in November 2018 and he remains on Plavix monotherapy. This was confirmed in the outpatient records. Cont Coreg, Imdur, and Crestor. (8) Seizure disorder: Remote history, Continue Lamictal BID (9) Collado's esophagus: H/o EGD in July 2018 at [facility] by Dr. Wong of surgery. 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 Needs to follow-up with GI as outpatient. Cont Protonix 40mg daily. (10) Peripheral vascular disease: Diffuse peripheral vascular disease including carotid occlusive disease status post left carotid endarterectomy, extensive aortic arch atherosclerosis, moderate brachiocephalic artery stenosis, and diminished lower extremity peripheral pulses with prior CT angiograms revealing moderate atherosclerotic disease. Cont same med mngmt for CAD above. (11) DVT prophylaxis: Heparin SQ DNR/DNI Dispo-uncertain at this time. PT/OT evaluations. Alejandra Thompson DO [facility] Hospitalist Subjective No issues today Reports that he wants to go home WE discussed the anemia and plan for this and he asked me to call his which I did. Answered all her questions by phone. Pt denies issues with eating, feels breathing is about the same, denies cough Review of Systems Review of Systems: All systems reviewed & are unremarkable except as noted in HPI & below Physical Exam Physical Exam: CONSTITUTIONAL: WNWD, vitals as above, generally well- appearing EYES: normal conjunctivae, no scleral icterus ENT: MMM RESPIRATORY: clear to auscultation bilaterally, no crackles, rales or wheezes, normal respiratory effort CARDIOVASCULAR: regular rate and rhythm, S1 and 2 heard without murmurs, gallops or rubs, no JVD, no peripheral edema GASTROINTESTINAL: normal bowel sounds, soft, nontender, nondistended MUSCULOSKELETAL: strength 5/5 throughout, head is normocephalic and atraumatic SKIN: warm and dry NEUROLOGIC: CN 2-12 grossly intact, normal cognition, no gross focal deficits. PSYCHIATRIC: alert cooperative and oriented to person, place and time. Results & Data Vital Signs (Past 12 Hours) Vital Signs Temp Pulse Resp BP Pulse Ox 03/09/19 14:51 36.7 C 71 19 132/60 91 03/09/19 11:49 36.5 C 67 20 134/59 L 93 03/09/19 11:15 64 18 91 03/09/19 07:14 36.6 C 67 18 130/59 L 95 03/09/19 07:06 73 18 98 Laboratory Results Short CBC 03/09/19 Range/Units 05:32 WBC 5.63 (4.8-10.8) K/uL Hgb 7.5 L (14.0-18.0) g/dL Hct 24.1 L (42-52) % Plt Count 129 L (130-400) K/uL Medications Administered Current Inpatient Medications Acetaminophen (Tylenol) 650 mg PO Q4H PRN PRN Reason: Pain or Fever Stop: 04/03/19 18:15 Albuterol (Duoneb) 3 ml NEB Q6H PRN PRN Reason: Shortness Of Breath Or Wheezing Stop: 04/04/19 08:44 Amlodipine Besylate (Norvasc) 10 mg PO DAILY DIANE Stop: 04/04/19 08:59 Last Admin: 03/09/19 08:07 Dose: 10 mg Documented by: Budesonide/Formoterol Fumarate (Symbicort 160mcg/4.5mcg) 2 puffs INH BID DIANE Stop: 04/03/19 20:59 Last Admin: 03/09/19 08:08 Dose: 2 puffs Documented by: Carvedilol (Coreg) 6.25 mg PO BID DIANE Stop: 04/03/19 20:59 Last Admin: 03/09/19 08:10 Dose: 6.25 mg Documented by: Clopidogrel Bisulfate (Plavix) 75 mg PO DAILY DIANE Stop: 04/04/19 08:59 Last Admin: 03/09/19 08:09 Dose: 75 mg Documented by: Docusate Sodium (Colace) 100 mg PO BID DIANE Stop: 04/05/19 15:24 Last Admin: 03/09/19 08:11 Dose: Not Given Documented by: Escitalopram Oxalate (Lexapro Tab) 5 mg PO DAILY DIANE Stop: 04/04/19 08:59 Last Admin: 03/09/19 08:07 Dose: 5 mg Documented by: Finasteride (Proscar) 5 mg PO DAILY DIANE Stop: 04/05/19 08:59 Last Admin: 03/09/19 08:08 Dose: 5 mg Documented by: Folic Acid (Folvite) 1 mg PO DAILY DIANE Stop: 04/04/19 08:59 Last Admin: 03/09/19 08:06 Dose: 1 mg Documented by: Heparin Sodium (Beef Lung) (Heparin Sod 10 Unit/Ml Flush) 5 ml FLUSH PRN PRN PRN Reason: Flush Stop: 04/04/19 19:14 Last Admin: 03/05/19 20:38 Dose: 5 ml Documented by: Heparin Sodium (Porcine) (Heparin Sodium (Porcine)) 5,000 units SQ Q8 DIANE Stop: 04/03/19 21:59 Last Admin: 03/09/19 15:00 Dose: 5,000 units Documented by: Heparin Sodium (Porcine) (Heparin Sod 100 Unit/Ml Flush) 5 ml FLUSH PRN PRN PRN Reason: Flush Stop: 04/04/19 23:44 Isosorbide Mononitrate (Imdur Extended Rel) 30 mg PO DAILY [facility] Stop: 04/04/19 08:59 Last Admin: 03/09/19 08:08 Dose: 30 mg Documented by: Lamotrigine (Lamictal) 150 mg PO BID DIANE Stop: 04/03/19 20:59 Last Admin: 03/09/19 08:06 Dose: 150 mg Documented by: Mupirocin (Bactroban 2%) 1 appln EXT PRN PRN PRN Reason: Nose Bleed Stop: 03/15/19 10:00 Nitroglycerin (Nitrostat) 0.4 mg SL UD PRN PRN Reason: Chest Pain Stop: 04/03/19 18:15 Ondansetron HCl (Zofran) 4 mg IV Q6H PRN PRN Reason: Nausea Stop: 04/04/19 11:26 Last Admin: 03/05/19 11:41 Dose: 4 mg Documented by: Pantoprazole Sodium (Protonix) 40 mg PO DAILY [facility] Stop: 04/04/19 08:59 Last Admin: 03/09/19 08:08 Dose: 40 mg Documented by: Polyethylene Glycol (Miralax Powder Packet) 17 gm PO DAILY PRN PRN Reason: Constipation Stop: 04/03/19 18:15 Last Admin: 03/06/19 09:56 Dose: 17 gm Documented by: Prednisone (Prednisone) 60 mg PO DAILY [facility] Stop: 03/18/19 08:59 Last Admin: 03/09/19 08:08 Dose: 60 mg Documented by: Rosuvastatin Calcium (Crestor) 20 mg PO [facility] Stop: 04/03/19 20:59 Last Admin: 03/08/19 21:07 Dose: 20 mg Documented by: Tamsulosin HCl (Flomax) 0.4 mg PO [facility] Stop: 04/03/19 20:59 Last Admin: 03/08/19 21:07 Dose: 0.4 mg Documented by: Tiotropium [place] (Spiriva) 1 puffs INH DAILY [facility] Stop: 04/04/19 08:59 Last Admin: 03/09/19 08:09 Dose: 1 puffs Documented by: (1) CAD (coronary artery disease) [place] vs. transplanted heart: [place] heart (2) COPD (chronic obstructive pulmonary disease) COPD type: unspecified COPD Qualified Code(s): J44.9 - Chronic obstructive pulmonary disease, unspecified (3) HTN (hypertension) Hypertension type: essential hypertension Qualified Code(s): I10 - Essential (primary) hypertension
[2019-03-09] MEDS: TAMSULOSIN HCL 0.4 MG CAP PO SCH (21:12)
[2019-03-09] MEDS: ROSUVASTATIN CALCIUM 20 MG TAB PO SCH (21:12)
[2019-03-10] MEDS: HEPARIN SOD 5,000 UNIT/0.5 ML VIAL SQ SCH (04:59)
[2019-03-10] MEDS ORDERED: ACETAMINOPHEN 325 MG TAB PO SCH (06:00)
[2019-03-10 06:01] LABS: Eosinophils # (auto) 0.01 K/uL (0-0.5); Eosinophils % (auto) 0.2 %; Hematocrit (blood only) 24.2 % (42-52); Hemoglobin 7.4 g/dL (14.0-18.0); Immature Granulocytes # (auto) 0.02 K/uL (0.00-0.02); Immature Granulocytes % (auto) 0.4 %; Lymphocytes % (auto) 7.3 %; Mean Corpuscular Hgb Conc 30.6 g/dL (32-36); Mean Corpuscular Volume 81.8 fL (80-100); Monocytes # (auto) 0.62 K/uL (0.11-0.59); Monocytes % (auto) 11.3 %; Neutrophils # (auto) 4.46 K/uL (1.4-6.5); Neutrophils % (auto) 80.8 %; Platelet Count 143 K/uL (130-400); RDW Coefficient of Variation 16.9 % (11.5-14.5); RDW Standard Deviation 51.5 fL (36.4-46.3); Red Blood Count 2.96 M/uL (4.7-6.1); White Blood Count 5.51 K/uL (4.8-10.8)
[2019-03-10 06:23] LABS: Ovalocytes 1+; Polychromasia 1+
--- NOTE | 2019-03-10 06:53 | Gastroenterology Progress Note ---
Date of Service March 10, 2019 Assessment & Plan (1) Iron deficiency anemia: Iron deficiency anemia without gross GI bleeding in the setting of lung cancer, S/P chemo (most recently 01/13/19) and radiation most recently in November 2018, also with a recent bloody thoracentesis. Pt also with Collado's and high grade dysphagia in July 2018. Plan: EGD on . Hold Plavix since yesterday. Optimize Pulmonary status. PPI BID for now. Supervising Physician Co-Signing Physician Notes I have discussed the patient's management with Alba. Please refer to the nurse practitioner's note for the documented findings and plan of care. Subjective Mr. Ribeiro is an 83 yr old male with lung cancer, iron deficiency (but normocytic) anemia, EGD in July 2018 with Collado's/high grade dysplasia. No gross GI bleeding. Admitted for SOB, underwent thoracentesis (bloody) with improvement in respiratory status. Hb 9.2 +1 unit RBCs -> 7.4 today. BUN 26. Today - pt tells me that he feels well. On 7L O2 by NC, denies SOB. No cough. No abdominal pain. Most recent BM 03/08. No nausea/vomiting. Review of Systems 2 Review of Systems: ROS: Gen: + chronic weakness, No fevers Eyes: No eye redness, or pain, no recent vision changes Resp: On O2, no SOB, no cough Cardio: Denies feeling any irregular beats, No chest pain GI: No abdominal pain, no nausea/vomiting : Denies pain on urination Skin: No jaundice, itching or new rashes Physical Exam Constitutional: WD/WN, vitals as above + ill appearing and + thin ENMT: external ear and nose normal, oropharynx normal Neck: trachea midline, no thyromegaly Respiratory: normal respiratory effort; no respiratory distress, no labored breathing and no retractions mild wheeze heard once; no crackles Cardiovascular: RRR, no murmur, no edema Gastrointestinal (Abdomen): normal bowel sounds, soft, nontender, no hepatosplenomegaly Skin: no rashes, warm and dry no jaundice Neurologic: PERRL, EOMI, accommodation nl, no face palsy, no dysarthria Psychiatric: A+Ox3, euthymic affect Lymphatic: no cervical or axillary lymphadenopathy Results & Data Vital Signs (Past 12 Hours) Vital Signs Temp Pulse Pulse Resp BP BP Pulse Ox 03/10/19 04:26 36.5 C 66 14 153/75 H 100 03/09/19 23:45 73 03/09/19 23:24 36.7 C 73 17 146/64 H 91 03/09/19 19:23 36.6 C 74 24 148/62 H 84 L Laboratory Results WBC 5, Hb 7.4, BUN 28, Cr 0.9 Diagnostic Findings CXR 03/08: 1. Advanced emphysema and postoperative change from left-sided pulmonary resection are again noted. 2. Again seen are multifocal airspace opacities, greatest in the right lung. Differential considerations remain multifocal pneumonia and/or pulmonary edema. Clinical correlation will be required and continued follow-up to resolution is recommended. 3. Small pleural effusions.
[2019-03-10 07:03] LABS: Calcium 8.8 mg/dl (8.5-10.1); Creatinine Clr Calc Pharmacy 53.7 ml/min; Est GFR (African American) 86.6; Est GFR (Non-African American) 74.7; Potassium 4.6 mmol/L (3.5-5.1)
[2019-03-10] MEDS: AMLODIPINE BESYLATE 5 MG TAB PO SCH (07:55)
[2019-03-10] MEDS: carvediloL 6.25 MG TAB PO SCH ×2 (07:55→20:20)
[2019-03-10] MEDS: FOLIC ACID 1 MG TAB PO SCH (07:56)
[2019-03-10] MEDS: ISOSORBIDE MONO EXTENDED REL 30 MG TABCR PO SCH (07:56)
[2019-03-10] MEDS: ESCITALOPRAM OXALATE 10 MG TAB PO SCH (07:56)
[2019-03-10] MEDS: BUDESONIDE/FORMOTEROL FUMARATE 160/4.5 60 PUFFS/INHALER INH SCH ×2 (07:56→20:22)
[2019-03-10] MEDS: FINASTERIDE 5 MG TAB PO SCH (07:56)
[2019-03-10] MEDS: predniSONE 20 MG TAB PO SCH (07:56)
[2019-03-10] MEDS: PANTOprazole 40 MG TAB PO SCH (07:56)
[2019-03-10] MEDS: lamoTRIgine 100 MG TAB PO SCH ×2 (07:56→20:21)
[2019-03-10] MEDS ORDERED: SODIUM CHLORIDE 0.9% 250 ML IV PRN (12:40)
[2019-03-10] MEDS ORDERED: FUROSEMIDE 20 MG in SYRINGE 0 ML IV SCH (13:00)
[2019-03-10] MEDS: TIOTROPIUM BROMIDE 5 PUFF/90 MCG INH INH SCH (14:42)
--- NOTE | 2019-03-10 15:01 | Pulmonology Progress Note ---
Date of Service March 10, 2019 Assessment & Plan (1) Pleural effusion: Status post thoracentesis 03/05/2019 with removal of approximately 1800 mL of bloody fluid. Cytology with evidence of atypia. May need pleuroscopy with biopsies in the future if patient and oncology decide on a more aggressive route of treatment. May need pleurx if effusion recurs. Continue treatment for chemorad induced pneumonitis. Will need a gradual taper over 6 weeks. (2) Acute and chronic respiratory failure: Patient is chronically on 5 L nasal cannula at home Patient with history of tobacco abuse COPD Continue bronchodilators and Spiriva Incentive spirometry at bedside as tolerated (3) Multifocal pneumonia: (4) CAD (coronary artery disease): Most recent PCI was 10/24/2018 with stenting of the RCA Patient chronically on antihypertensives as well as clopidogrel and aspirin Continue usual home medications Continue monitor on telemetry (5) Adenocarcinoma of right lung: Patient with history of squamous cell carcinoma of the left lung status post left lower lobectomy then adenocarcinoma with right lung which is stage III patient is on currently on chemo Most recently completed chemotherapy 01/13/2019 Most recently completed XRT November 2018 Patient currently on clopidogrel for history of CAD with most recent stent to the RCA 10/24/2018 Subjective Patient continues to feel better today. Still has shortness of breath and has had minimal activity moving around. No chest pain. No nausea, fevers or chills. Physical Exam Constitutional: + ill appearing and + frail appearing Eyes: PERRL, conjunctivae normal, anicteric sclerae ENMT: external ear and nose normal, oropharynx normal Neck: normal visual inspection Respiratory: + tachypneic Diminished breath sounds bilaterally. No wheezing. Cardiovascular: RRR, no murmur, no edema Gastrointestinal (Abdomen): normal bowel sounds, soft, nontender, no hepatosplenomegaly Musculoskeletal: Head/Neck/Chest: normocephalic Neurologic: PERRL, EOMI, accommodation nl, no face palsy, no dysarthria Psychiatric: A+Ox3, euthymic affect Results & Data Vital Signs (Past 12 Hours) Vital Signs Temp Pulse Pulse Resp BP BP Pulse Ox 03/10/19 11:23 97.9 F 59 L 20 107/58 L 90 03/10/19 08:00 67 03/10/19 07:56 98.1 F 72 16 147/64 H 94 03/10/19 04:26 97.7 F 66 14 153/75 H 100 I personally reviewed pertient labs and imaging. PG Care Time/CCT Total # of Minutes Spent Total Time Spent with Patient: Total time spent is greater than 50% in coordination of care (as documented) at patient's floor/unit and/or counseling patient:
[2019-03-10] MEDS: DOCUSATE SODIUM 100 MG CAP PO SCH ×2 (15:47→20:22)
--- NOTE | 2019-03-10 18:40 | Hospitalist Progress Note ---
Date of Service March 10, 2019 Assessment & Plan (1) Anemia: Worsening anemia acutely in the last week. Follows with Dr. Perera Hematology who gave him IV iron earlier this year and had normal ferritin and H/H at that time. Obviously, bone marrow suppression to some extent present with last chemo two months ago and XRT therapy. However, WBC and Platelets not dropping with hemoglobin falling almost two grams in the past week. Has h/o Collado's and is on Plavix with recent STEMI (no stent and not on ASA) in October. No overt bleeding per rectum or elsewhere. Although bloody effusion was recently tapped, the H/H was stable despite the effusion and has not reaccumulated. GI consulted and is planning EGD on . Will plan to transfuse two units blood today. 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 Underwent chemo for treatment. 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 Cont to follow with oncology as outpatient. (3) Acute and chronic respiratory failure: Taxol-induced pneumonitis -cont steroids. Improved to baseline oxygen needs. Pulmonary consulted. (4) CKD (chronic kidney disease), stage III: ANDREW resolved and he is at baseline renal function. Cont to avoid unnecessary nephrotoxic substances. (5) HTN (hypertension): at goal, cont amlodipine and coreg per home regimen. (6) COPD (chronic obstructive pulmonary disease): Former smoker with advanced emphysema on imaging. Continue Spiriva, Symbicort (7) CAD (coronary artery disease): Chronic, stable, denies chest pain or other ACS symptoms. STEMI in October 2018 with subsequent angioplasty to RCA. The patient had pancytopenia at that time and DAPT was continued for one month only. ASA 81 was discontinued in November 2018 and he remains on Plavix monotherapy. This was confirmed in the outpatient records. Cont Coreg, Imdur, and Crestor. Holding plavix in preparation for upcoming EGD. (8) Seizure disorder: Remote history, Continue Lamictal BID (9) Collado's esophagus: H/o EGD in July 2018 at [facility] by Dr. Wong of surgery. 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 Needs to follow-up with GI as outpatient. Cont Protonix 40mg daily. (10) Peripheral vascular disease: Diffuse peripheral vascular disease including carotid occlusive disease status post left carotid endarterectomy, extensive aortic arch atherosclerosis, moderate brachiocephalic artery stenosis, and diminished lower extremity peripheral pulses with prior CT angiograms revealing moderate atherosclerotic disease. Cont same med mngmt for CAD above. (11) DVT prophylaxis: SCDs-heparin stopped with worsening anemia. DNR/DNI Dispo-uncertain at this time. PT/OT evaluations. [facility] Subject[facility] feeling well but breathing is about the same as yesterday, tolerating PO, states sounded better today and thanked me for calling her last night. Review of Systems Review of Systems: All systems reviewed & are unremarkable except as noted in HPI & below Physical Exam Physical Exam: CONSTITUTIONAL: WNWD, vitals as above, generally well- appearing EYES: normal conjunctivae, no scleral icterus ENT: MMM RESPIRATORY: clear to auscultation bilaterally, no crackles, rales or wheezes, normal respiratory effort CARDIOVASCULAR: regular rate and rhythm, S1 and 2 heard without murmurs, gallops or rubs, no JVD, no peripheral edema GASTROINTESTINAL: normal bowel sounds, soft, nontender, nondistended MUSCULOSKELETAL: strength 5/5 throughout, head is normocephalic and atraumatic SKIN: warm and dry NEUROLOGIC: CN 2-12 grossly intact, normal cognition, no gross focal deficits. PSYCHIATRIC: alert cooperative and oriented to person, place and time. Results & Data Vital Signs (Past 12 Hours) Vital Signs Temp Pulse Pulse Pulse Resp BP BP 03/10/19 17:45 36.3 C L 66 18 139/63 03/10/19 17:29 36.8 C 67 18 137/58 L 03/10/19 17:04 36.7 C 64 18 151/70 H 03/10/19 16:04 36.8 C 59 L 18 127/64 03/10/19 15:34 36.8 C 59 L 18 125/66 03/10/19 15:30 77 03/10/19 15:19 36.7 C 64 18 146/54 H 03/10/19 15:18 36.3 C L 69 20 L 20 142/63 H 03/10/19 15:06 36.7 C 67 03/10/19 15:01 36.7 C 67 18 150/57 H 03/10/19 11:23 36.6 C 59 L 20 107/58 L 03/10/19 08:00 67 03/10/19 07:56 36.7 C 72 16 BP Pulse Ox 03/10/19 17:45 90 03/10/19 17:29 91 03/10/19 17:04 95 03/10/19 16:04 94 03/10/19 15:34 94 03/10/19 15:30 03/10/19 15:19 93 03/10/19 15:18 94 03/10/19 15:06 94 03/10/19 15:01 93 03/10/19 11:23 90 03/10/19 08:00 03/10/19 07:56 147/64 H 94 Laboratory Results Short CBC 03/10/19 Range/Units 05:19 WBC 5.51 (4.8-10.8) K/uL Hgb 7.4 L (14.0-18.0) g/dL Hct 24.2 L (42-52) % Plt Count 143 (130-400) K/uL BMP 03/10/19 05:19 Sodium 140 Potassium 4.6 D Chloride 108 H Carbon Dioxide 29 BUN 28 H Creatinine 0.94 Glucose 109 H Calcium 8.8 Medications Administered Current Inpatient Medications Acetaminophen (Tylenol) 650 mg PO Q4H PRN PRN Reason: Pain or Fever Stop: 04/03/19 18:15 Acetaminophen (Tylenol) 650 mg PO PRE-TREAT DIANE Stop: 03/10/19 23:59 Last Admin: 03/10/19 14:42 Dose: 650 mg Documented by: Albuterol (Duoneb) 3 ml NEB Q6H PRN PRN Reason: Shortness Of Breath Or Wheezing Stop: 04/04/19 08:44 Amlodipine Besylate (Norvasc) 10 mg PO DAILY [facility] Stop: 04/04/19 08:59 Last Admin: 03/10/19 07:55 Dose: 10 mg Documented by: Budesonide/Formoterol Fumarate (Symbicort 160mcg/4.5mcg) 2 puffs INH BID [facility] Stop: 04/03/19 20:59 Last Admin: 03/10/19 07:56 Dose: 2 puffs Documented by: Carvedilol (Coreg) 6.25 mg PO BID [facility] Stop: 04/03/19 20:59 Last Admin: 03/10/19 07:55 Dose: 6.25 mg Documented by: Clopidogrel Bisulfate (Plavix) 75 mg PO DAILY [facility] Stop: 04/04/19 08:59 Last Admin: 03/09/19 08:09 Dose: 75 mg Documented by: Diphenhydramine HCl (Benadryl Capsule) 25 mg PO PRE-TREAT DIANE Stop: 03/10/19 23:59 Last Admin: 03/10/19 14:42 Dose: 25 mg Documented by: Docusate Sodium (Colace) 100 mg PO BID [facility] Stop: 04/05/19 15:24 Last Admin: 03/10/19 15:47 Dose: Not Given Documented by: Escitalopram Oxalate (Lexapro Tab) 5 mg PO DAILY [facility] Stop: 04/04/19 08:59 Last Admin: 03/10/19 07:56 Dose: 5 mg Documented by: Finasteride (Proscar) 5 mg PO DAILY [facility] Stop: 04/05/19 08:59 Last Admin: 03/10/19 07:56 Dose: 5 mg Documented by: Folic Acid (Folvite) 1 mg PO DAILY [facility] Stop: 04/04/19 08:59 Last Admin: 03/10/19 07:56 Dose: 1 mg Documented by: Heparin Sodium (Beef Lung) (Heparin Sod 10 Unit/Ml Flush) 5 ml FLUSH PRN PRN PRN Reason: Flush Stop: 04/04/19 19:14 Last Admin: 03/05/19 20:38 Dose: 5 ml Documented by: Heparin Sodium (Porcine) (Heparin Sodium (Porcine)) 5,000 units SQ Q8 DIANE Stop: 04/03/19 21:59 Last Admin: 03/10/19 04:59 Dose: Not Given Documented by: Heparin Sodium (Porcine) (Heparin Sod 100 Unit/Ml Flush) 5 ml FLUSH PRN PRN PRN Reason: Flush Stop: 04/04/19 23:44 Furosemide 20 mg/ Syringe 2 mls @ 4 mls/min IV TODAY@1300 DIANE Stop: 03/10/19 23:59 Last Admin: 03/10/19 17:25 Dose: 4 mls/min Documented by: Sodium Chloride (Nss) 250 mls @ 15 mls/hr IV .[id number] PRN PRN Reason: For Transfusion Stop: 04/09/19 12:39 Isosorbide Mononitrate (Imdur Extended Rel) 30 mg PO DAILY [facility] Stop: 04/04/19 08:59 Last Admin: 03/10/19 07:56 Dose: 30 mg Documented by: Lamotrigine (Lamictal) 150 mg PO BID [facility] Stop: 04/03/19 20:59 Last Admin: 03/10/19 07:56 Dose: 150 mg Documented by: Mupirocin (Bactroban 2%) 1 appln EXT PRN PRN PRN Reason: Nose Bleed Stop: 03/15/19 10:00 Nitroglycerin (Nitrostat) 0.4 mg SL UD PRN PRN Reason: Chest Pain Stop: 04/03/19 18:15 Ondansetron HCl (Zofran) 4 mg IV Q6H PRN PRN Reason: Nausea Stop: 04/04/19 11:26 Last Admin: 03/05/19 11:41 Dose: 4 mg Documented by: Pantoprazole Sodium (Protonix) 40 mg PO DAILY [facility] Stop: 04/04/19 08:59 Last Admin: 03/10/19 07:56 Dose: 40 mg Documented by: Polyethylene Glycol (Miralax Powder Packet) 17 gm PO DAILY PRN PRN Reason: Constipation Stop: 04/03/19 18:15 Last Admin: 03/06/19 09:56 Dose: 17 gm Documented by: Prednisone (Prednisone) 60 mg PO DAILY [facility] Stop: 03/18/19 08:59 Last Admin: 03/10/19 07:56 Dose: 60 mg Documented by: Rosuvastatin Calcium (Crestor) 20 mg PO HS [facility] Stop: 04/03/19 20:59 Last Admin: 03/09/19 21:12 Dose: 20 mg Documented by: Tamsulosin HCl (Flomax) 0.4 mg PO HS [facility] Stop: 04/03/19 20:59 Last Admin: 03/09/19 21:12 Dose: 0.4 mg Documented by: Tiotropium [place] (Spiriva) 1 puffs INH DAILY [facility] Stop: 04/04/19 08:59 Last Admin: 03/10/19 14:42 Dose: 1 puffs Documented by: (1) CAD (coronary artery disease) [place] vs. transplanted heart: [place] heart (2) COPD (chronic obstructive pulmonary disease) COPD type: unspecified COPD Qualified Code(s): J44.9 - Chronic obstructive pulmonary disease, unspecified (3) HTN (hypertension) Hypertension type: essential hypertension Qualified Code(s): I10 - Essential (primary) hypertension
[2019-03-10] MEDS: ROSUVASTATIN CALCIUM 20 MG TAB PO SCH (20:21)
[2019-03-10] MEDS: TAMSULOSIN HCL 0.4 MG CAP PO SCH (20:22)
[2019-03-11 06:24] LABS: Hematocrit (blood only) 33.1 % (42-52); Hemoglobin 10.3 g/dL (14.0-18.0); Mean Corpuscular Hemoglobin 25.4 pg (25-34); Mean Corpuscular Hgb Conc 31.1 g/dL (32-36); Mean Corpuscular Volume 81.7 fL (80-100); Mean Platelet Volume 9.6 fL (7.4-10.4); Platelet Count 152 K/uL (130-400); RDW Coefficient of Variation 16.8 % (11.5-14.5); RDW Standard Deviation 50.9 fL (36.4-46.3); Red Blood Count 4.05 M/uL (4.7-6.1); White Blood Count 6.32 K/uL (4.8-10.8)
[2019-03-11] MEDS: predniSONE 20 MG TAB PO SCH (08:40)
[2019-03-11] MEDS: AMLODIPINE BESYLATE 5 MG TAB PO SCH (08:40)
[2019-03-11] MEDS: FINASTERIDE 5 MG TAB PO SCH (08:40)
[2019-03-11] MEDS: ISOSORBIDE MONO EXTENDED REL 30 MG TABCR PO SCH (08:40)
[2019-03-11] MEDS: PANTOprazole 40 MG TAB PO SCH (08:40)
[2019-03-11] MEDS: carvediloL 6.25 MG TAB PO SCH ×2 (08:40→20:22)
[2019-03-11] MEDS: BUDESONIDE/FORMOTEROL FUMARATE 160/4.5 60 PUFFS/INHALER INH SCH ×2 (08:41→20:23)
[2019-03-11] MEDS: FOLIC ACID 1 MG TAB PO SCH (08:41)
[2019-03-11] MEDS: lamoTRIgine 100 MG TAB PO SCH ×2 (08:41→20:22)
[2019-03-11] MEDS: TIOTROPIUM BROMIDE 5 PUFF/90 MCG INH INH SCH (08:41)
[2019-03-11] MEDS: ESCITALOPRAM OXALATE 10 MG TAB PO SCH (08:41)
[2019-03-11] MEDS ORDERED: bisacodyL 5 MG TABEC PO ONE (08:58)
--- NOTE | 2019-03-11 10:39 | Gastroenterology Progress Note ---
Date of Service March 11, 2019 Assessment & Plan (1) Iron deficiency anemia: Iron deficiency anemia without gross GI bleeding in the setting of lung cancer, S/P chemo (most recently 01/13/19) and radiation most recently in November 2018, also with a recent bloody thoracentesis. Pt also with Collado's and high grade dysphagia in July 2018. Plan: EGD tomorrow. NPO after midnight. Hold Plavix (held since 03/09). Continue to Optimize Pulmonary status. PPI BID for now. Supervising Physician Co-Signing Physician Notes I performed a history and physical examination of the patient, including specifically on physical exam - soft, nontender abdomen. I have discussed the patient's management with Alba. Please refer to the nurse practitioner's note for the documented findings and plan of care. EGD with EMR of Collado's with HGD. Subjective Recall that Mr. Ribeiro is an 83 yr old male admitted for SOB in the setting of lung cancer, pleural effusions who underwent (bloody) thoracentesis. GI consulted for anemia. Also has hx of Collado's with high grade dysphagia (July 2018) and some intermittent dysphagia but not recently. Hb 9.2 on arrival + 2 units RBCs -> today 10.3. Iron deficient (iron 20, ferritin 32) but normalcytic (MCV 81). No gross GI bleeding. Most recent BM 2 days ago. Pt requests a laxative. Respiratory status - now no SOB. Os sat 95% with O2 by NC at 4L/min. Plan for EGD tomorrow (needed to hold Plavix). Review of Systems Review of Systems: ROS: Gen: + chronic weakness, No fevers Eyes: No eye redness, or pain, no recent vision changes Resp: On O2 by NC, no SOB, no cough Cardio: Denies feeling any irregular beats, No chest pain GI: No abdominal pain, no nausea/vomiting : Denies pain on urination Skin: No jaundice, itching or new rashes Physical Exam Constitutional: WD/WN, vitals as above + ill appearing and + thin ENMT: external ear and nose normal, oropharynx normal Neck: trachea midline, no thyromegaly Respiratory: normal respiratory effort; no respiratory distress, no labored breathing and no retractions Cardiovascular: Rate/Rhythm: regular rate and regular rhythm 2/6 systolic murmur present Gastrointestinal (Abdomen): normal bowel sounds, soft, nontender, no hepatosplenomegaly Skin: no rashes, warm and dry no jaundice Neurologic: PERRL, EOMI, accommodation nl, no face palsy, no dysarthria Psychiatric: A+Ox3, euthymic affect Lymphatic: no cervical or axillary lymphadenopathy Results & Data Vital Signs (Past 12 Hours) Vital Signs Temp Pulse Pulse Resp BP BP Pulse Ox 03/11/19 08:00 62 03/11/19 07:09 61 22 142/68 H 95 03/11/19 04:00 36.5 C 70 22 145/66 H 98 03/10/19 23:50 36.6 C 84 24 143/70 H 92
--- NOTE | 2019-03-11 18:39 | Hospitalist Progress Note ---
Date of Service March 11, 2019 Assessment & Plan (1) Anemia: Worsening anemia acutely in the last week. Possibly secondary to acute blood loss from GI tract, but patient has no overt bleeding. Follows with Dr. Perera Hematology who gave him IV iron earlier this year and patient had normal fe rritin and H/H at that time. Obviously, bone marrow suppression to some extent presented with last chemo two months ago and XRT therapy prior to that. However, currently WBC and Platelets not dropping with hemoglobin falling almost two grams in the past week. Has h/o Collado's and is on Plavix with recent STEMI (no stent and not on ASA) in October. Was placed on heparin for DVT prophylaxis on admission. No overt bleeding per rectum or elsewhere. Although bloody effusion was recently tapped, the H/H was stable despite the effusion and has not reaccumulated. I do not feel this is the sole contributer to the drop we area seeing. Out of concern for GI source, they were consulted and will be performing an EGD in am. Protonix given in setting of steroids for stress ulcer prophy. H/H responded appropriately to 2U pRBCs given yesterday. 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 Underwent chemo for treatment. 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 Cont to follow with oncology (Dr. Perera) as outpatient. (3) Acute and chronic respiratory failure: Worsened hypoxia from baseline thought secondary to taxol induced pneumonitis. Doing well on steroid therapy and appears back to baseline breathing today. He is s/p thoracentesis on 03/05 with cultures negative for infection and path revealing atypical cells. Also had a thoracentesis 3 weeks ago at OSH. Bloody effusion was present both times. Echo performed to evaluate EF after STEMI in October 2018 and this was normal. Pulmonary HTN was present. Cont current therapy. (4) CKD (chronic kidney disease), stage III: ANDREW resolved and he is at baseline renal function. Cont to avoid unnecessary nephrotoxic substances. (5) HTN (hypertension): at goal, cont amlodipine and coreg per home regimen. (6) COPD (chronic obstructive pulmonary disease): Former smoker with advanced emphysema on imaging. Continue Spiriva, Symbicort (7) CAD (coronary artery disease): Chronic, stable, denies chest pain or other ACS symptoms. STEMI in October 2018 with subsequent angioplasty to RCA. The patient had pancytopenia at that time and DAPT was continued for one month only. ASA 81 was discontinued in November 2018 and he remains on Plavix monotherapy. This was confirmed in the outpatient records. Cont Coreg, Imdur, and Crestor. Currently holding Plavix with upcoming EGD in am. (8) Seizure disorder: Remote history, Continue Lamictal BID (9) Collado's esophagus: H/o EGD in July 2018 at [facility] by Dr. Wong of surgery. 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 Needs to follow-up with GI as outpatient. Cont Protonix 40mg daily. (10) Peripheral vascular disease: Diffuse peripheral vascular disease including carotid occlusive disease status post left carotid endarterectomy, extensive aortic arch atherosclerosis, moderate brachiocephalic artery stenosis, and diminished lower extremity peripheral pulses with prior CT angiograms revealing moderate atherosclerotic disease. Cont same med mngmt for CAD above. (11) DVT prophylaxis: SCDs-held heparin with persistent fall in H/H. DNR/DNI Dispo-home when medically stable pending further PT/OT evaluations. Alejandra Thompson DO [facility] Hospitalist Subjective Feels about the same today No worsening SOB but not much improved Ambulated today but had some increased work of breathing per his report he wants to go home no other pain or issues. Review of Systems Review of Systems: All systems reviewed & are unremarkable except as noted in HPI & below Physical Exam Physical Exam: CONSTITUTIONAL: WNWD, vitals as above, generally well- appearing EYES: normal conjunctivae, no scleral icterus ENT: MMM RESPIRATORY: clear to auscultation bilaterally, no crackles, rales or wheezes, normal respiratory effort CARDIOVASCULAR: regular rate and rhythm, S1 and 2 heard without murmurs, gallops or rubs, no JVD, no peripheral edema GASTROINTESTINAL: normal bowel sounds, soft, nontender, nondistended MUSCULOSKELETAL: strength 5/5 throughout, head is normocephalic and atraumatic SKIN: warm and dry NEUROLOGIC: CN 2-12 grossly intact, normal cognition, no gross focal deficits. PSYCHIATRIC: alert cooperative and oriented to person, place and time. Results & Data Vital Signs (Past 12 Hours) Vital Signs Temp Pulse Pulse Resp BP Pulse Ox 03/11/19 16:00 65 03/11/19 15:25 36.4 C L 68 18 152/68 H 91 03/11/19 12:02 36.6 C 63 16 118/63 92 03/11/19 08:00 62 03/11/19 07:09 61 22 142/68 H 95 Laboratory Results Short CBC 03/11/19 Range/Units 05:29 WBC 6.32 (4.8-10.8) K/uL Hgb 10.3 L (14.0-18.0) g/dL Hct 33.1 L (42-52) % Plt Count 152 (130-400) K/uL Medications Administered Current Inpatient Medications Acetaminophen (Tylenol) 650 mg PO Q4H PRN PRN Reason: Pain or Fever Stop: 04/03/19 18:15 Albuterol (Duoneb) 3 ml NEB Q6H PRN PRN Reason: Shortness Of Breath Or Wheezing Stop: 04/04/19 08:44 Amlodipine Besylate (Norvasc) 10 mg PO DAILY DIANE Stop: 04/04/19 08:59 Last Admin: 03/11/19 08:40 Dose: 10 mg Documented by: Budesonide/Formoterol Fumarate (Symbicort 160mcg/4.5mcg) 2 puffs INH BID DIANE Stop: 04/03/19 20:59 Last Admin: 03/11/19 08:41 Dose: 2 puffs Documented by: Carvedilol (Coreg) 6.25 mg PO BID DIANE Stop: 04/03/19 20:59 Last Admin: 03/11/19 08:40 Dose: 6.25 mg Documented by: Clopidogrel Bisulfate (Plavix) 75 mg PO DAILY DIANE Stop: 04/04/19 08:59 Last Admin: 03/09/19 08:09 Dose: 75 mg Documented by: Escitalopram Oxalate (Lexapro Tab) 5 mg PO DAILY DIANE Stop: 04/04/19 08:59 Last Admin: 03/11/19 08:41 Dose: 5 mg Documented by: Finasteride (Proscar) 5 mg PO DAILY DIANE Stop: 04/05/19 08:59 Last Admin: 03/11/19 08:40 Dose: 5 mg Documented by: Folic Acid (Folvite) 1 mg PO DAILY DIANE Stop: 04/04/19 08:59 Last Admin: 03/11/19 08:41 Dose: 1 mg Documented by: Heparin Sodium (Beef Lung) (Heparin Sod 10 Unit/Ml Flush) 5 ml FLUSH PRN PRN PRN Reason: Flush Stop: 04/04/19 19:14 Last Admin: 03/05/19 20:38 Dose: 5 ml Documented by: Heparin Sodium (Porcine) (Heparin Sodium (Porcine)) 5,000 units SQ Q8 DIANE Stop: 04/03/19 21:59 Last Admin: 03/10/19 04:59 Dose: Not Given Documented by: Heparin Sodium (Porcine) (Heparin Sod 100 Unit/Ml Flush) 5 ml FLUSH PRN PRN PRN Reason: Flush Stop: 04/04/19 23:44 Sodium Chloride (Nss) 250 mls @ 15 mls/hr IV .[id number] PRN PRN Reason: For Transfusion Stop: 04/09/19 12:39 Isosorbide Mononitrate (Imdur Extended Rel) 30 mg PO DAILY [facility] Stop: 04/04/19 08:59 Last Admin: 03/11/19 08:40 Dose: 30 mg Documented by: Lamotrigine (Lamictal) 150 mg PO BID [facility] Stop: 04/03/19 20:59 Last Admin: 03/11/19 08:41 Dose: 150 mg Documented by: Mupirocin (Bactroban 2%) 1 appln EXT PRN PRN PRN Reason: Nose Bleed Stop: 03/15/19 10:00 Nitroglycerin (Nitrostat) 0.4 mg SL UD PRN PRN Reason: Chest Pain Stop: 04/03/19 18:15 Ondansetron HCl (Zofran) 4 mg IV Q6H PRN PRN Reason: Nausea Stop: 04/04/19 11:26 Last Admin: 03/05/19 11:41 Dose: 4 mg Documented by: Pantoprazole Sodium (Protonix) 40 mg PO DAILY [facility] Stop: 04/04/19 08:59 Last Admin: 03/11/19 08:40 Dose: 40 mg Documented by: Polyethylene Glycol (Miralax Powder Packet) 17 gm PO DAILY PRN PRN Reason: Constipation Stop: 04/03/19 18:15 Last Admin: 03/06/19 09:56 Dose: 17 gm Documented by: Prednisone (Prednisone) 60 mg PO DAILY [facility] Stop: 03/18/19 08:59 Last Admin: 03/11/19 08:40 Dose: 60 mg Documented by: Rosuvastatin Calcium (Crestor) 20 mg PO HS [facility] Stop: 04/03/19 20:59 Last Admin: 03/10/19 20:21 Dose: 20 mg Documented by: Tamsulosin HCl (Flomax) 0.4 mg PO HS [facility] Stop: 04/03/19 20:59 Last Admin: 03/10/19 20:22 Dose: 0.4 mg Documented by: Tiotropium [place] (Spiriva) 1 puffs INH DAILY DIANE Stop: 04/04/19 08:59 Last Admin: 03/11/19 08:41 Dose: 1 puffs Documented by: (1) CAD (coronary artery disease) [place] vs. transplanted heart: [place] heart (2) COPD (chronic obstructive pulmonary disease) COPD type: unspecified COPD Qualified Code(s): J44.9 - Chronic obstructive pulmonary disease, unspecified (3) HTN (hypertension) Hypertension type: essential hypertension Qualified Code(s): I10 - Essential (primary) hypertension
[2019-03-11] MEDS: ROSUVASTATIN CALCIUM 20 MG TAB PO SCH (20:22)
[2019-03-11] MEDS: TAMSULOSIN HCL 0.4 MG CAP PO SCH (20:22)
[2019-03-12 06:12] LABS: Hematocrit (blood only) 33.7 % (42-52); Hemoglobin 10.4 g/dL (14.0-18.0); Mean Corpuscular Hemoglobin 25.4 pg (25-34); Mean Corpuscular Hgb Conc 30.9 g/dL (32-36); Mean Corpuscular Volume 82.2 fL (80-100); Mean Platelet Volume 8.9 fL (7.4-10.4); Platelet Count 146 K/uL (130-400); RDW Coefficient of Variation 16.7 % (11.5-14.5); RDW Standard Deviation 50.8 fL (36.4-46.3)
[2019-03-12 06:41] LABS: BUN Creatinine Ratio 28.8 (10-20); Creatinine Clr Calc Pharmacy 46.3 ml/min; Est GFR (African American) 72.4; Est GFR (Non-African American) 62.4; Potassium 4.4 mmol/L (3.5-5.1)
[2019-03-12] MEDS: ISOSORBIDE MONO EXTENDED REL 30 MG TABCR PO SCH (08:36)
[2019-03-12] MEDS: carvediloL 6.25 MG TAB PO SCH ×2 (08:36→20:57)
[2019-03-12] MEDS: AMLODIPINE BESYLATE 5 MG TAB PO SCH (08:37)
--- NOTE | 2019-03-12 10:22 | Gastroenterology Progress Note ---
Date of Service March 12, 2019 Assessment & Plan (1) Collado's esophagus: EGD today by Dr. Whalen. Further recommendations to follow. Please keep NPO and continue to hold Plavix for the procedure. Present on Admission?: Yes (2) Iron deficiency anemia: Present on Admission?: Yes Supervising Physician Co-Signing Physician Notes I performed a history and physical examination of the patient, including specifically on physical exam - soft, nontender abdomen. I have discussed the patient's management with Alba. Please refer to the nurse practitioner's note for the documented findings and plan of care. EGD today Subjective GI consulted for anemia in the setting of lung cancer, bloody thoracentesis during this admission. Hb 8.4 on arrival + 2 units RBCs, Hb now 10. Hx Collado's with high grade dysplasia in July 2018 with need for f/u. No gross GI bleeding. Resp: now Pulse Ox 91% on room air. Pt feeling well. Able to walk in his room, with minimal assistance. No abdominal pain. NPO for EGD later today. Review of Systems Review of Systems: ROS: Gen: + chronic weakness, No fevers Eyes: No eye redness, or pain, no recent vision changes Resp: On O2 by NC, no SOB, no cough Cardio: Denies feeling any irregular beats, No chest pain GI: No abdominal pain, no nausea/vomiting : Denies pain on urination Skin: No jaundice, itching or new rashes Physical Exam Constitutional: WD/WN, vitals as above + ill appearing and + thin ENMT: external ear and nose normal, oropharynx normal Neck: trachea midline, no thyromegaly Respiratory: normal respiratory effort, lungs clear to auscultation (except slightly diminished sounds in the right base. ) + labored breathing Cardiovascular: RRR, no murmur, no edema Gastrointestinal (Abdomen): normal bowel sounds, soft, nontender, no hepatosplenomegaly Skin: no rashes, warm and dry no jaundice Neurologic: PERRL, EOMI, accommodation nl, no face palsy, no dysarthria Psychiatric: A+Ox3, euthymic affect Lymphatic: no cervical or axillary lymphadenopathy Results & Data Vital Signs (Past 12 Hours) Vital Signs Temp Pulse Pulse Resp BP Pulse Ox 03/12/19 08:00 57 L 03/12/19 07:52 36.4 C L 72 22 157/60 H 91 03/12/19 03:40 36.3 C L 69 20 144/66 H 95 03/11/19 23:08 36.6 C 67 19 158/69 H 92
--- NOTE | 2019-03-12 11:25 | Anesthesiology Consultation ---
Date of Service March 12, 2019 Assessment & Plan (1) Encounter for pre-operative examination: Chart Review Chart Review: Acceptable Risk for Surgery and Patient NOT seen in Pre Admission Testing Consults Requested none History Surgery Operation Date: 03/12/19 16:00 Proposed Procedures p Esophagogastroduodenoscopy with Possible EMR Dr Whalen - Les Whalen MD Height/Weight Height: 5 ft 6 in Weight: 65.3 kg Allergies Allergy/AdvReac Type Severity Reaction Status Date / Time lisinopril Allergy Severe Verified 03/04/19 17:06 lidocaine Allergy Intermediate PRESERVATIVE Verified 03/04/19 17:06 IN LIDOCAINE CAUSES RED SKIN atorvastatin [From Lipitor] AdvReac Mild Blurry Verified 03/04/19 17:06 Vision rosuvastatin [From Crestor] AdvReac Mild Blurry Verified 03/04/19 17:06 Vision Medications Home Medications Medication Instructions Recorded Confirmed Last Taken Spiriva with HandiHaler 1 cap INHALATION DAILY 10/24/18 03/04/19 Unknown aspirin [Aspirin Low Dose] 81 mg PO HS 10/24/18 03/04/19 Unknown carvedilol 6.25 mg PO BID 10/24/18 03/04/19 Unknown dutasteride 0.5 mg PO DAILY 10/24/18 03/04/19 Unknown lamotrigine 150 mg PO BID 10/24/18 03/04/19 Unknown nitroglycerin 0.4 mg SUBLINGUAL USEASDIRECTD PRN 10/24/18 03/04/19 10/24/18 rosuvastatin 20 mg PO HS 10/24/18 03/04/19 Unknown tamsulosin 0.4 mg PO HS 10/24/18 03/04/19 Unknown budesonide-formoterol HFA 160 2 puffs INH BID #3 inhaler 02/27/19 03/04/19 Unknown mcg-4.5 mcg/actuation aerosol inhaler amlodipine 10 mg PO DAILY 03/04/19 03/04/19 Unknown clopidogrel 75 mg PO DAILY 03/04/19 03/04/19 Unknown escitalopram oxalate 5 mg PO DAILY 03/04/19 03/04/19 Unknown folic acid 1 mg PO DAILY 03/04/19 03/04/19 Unknown isosorbide mononitrate 30 mg PO DAILY 03/04/19 03/04/19 Unknown levalbuterol HCl 0 mg INHALATION DIRECTED 03/04/19 03/04/19 Unknown pantoprazole 40 mg PO DAILY 03/04/19 03/04/19 Unknown Active Medications Generic Name Dose Route Start Last Admin Trade Name Pamela PRN Reason Stop Dose Admin Amlodipine Besylate 10 mg 03/05/19 09:00 03/12/19 08:37 Norvasc PO 04/04/19 08:59 10 mg DAILY DIANE Administration Budesonide/Formoterol Fumarate 2 puffs 03/04/19 21:00 03/11/19 20:23 Symbicort 160mcg/4.5mcg INH 04/03/19 20:59 2 puffs BID DIANE Administration Carvedilol 6.25 mg 03/04/19 21:00 03/12/19 08:36 Coreg PO 04/03/19 20:59 6.25 mg BID DIANE Administration Clopidogrel Bisulfate 75 mg 03/05/19 09:00 03/09/19 08:09 Plavix PO 04/04/19 08:59 75 mg DAILY DIANE Administration Escitalopram Oxalate 5 mg 03/05/19 09:00 03/11/19 08:41 Lexapro Tab PO 04/04/19 08:59 5 mg DAILY DIANE Administration Finasteride 5 mg 03/06/19 09:00 03/11/19 08:40 Proscar PO 04/05/19 08:59 5 mg DAILY DIANE Administration Folic Acid 1 mg 03/05/19 09:00 03/11/19 08:41 Folvite PO 04/04/19 08:59 1 mg DAILY DIANE Administration Heparin Sodium (Beef Lung) 5 ml 03/05/19 19:15 03/05/19 20:38 Heparin Sod 10 Unit/Ml Flush FLUSH 04/04/19 19:14 5 ml PRN PRN Administration Flush Heparin Sodium (Porcine) 5,000 units 03/04/19 22:00 03/10/19 04:59 Heparin Sodium (Porcine) SQ 04/03/19 21:59 Not Given Q8 DIANE Isosorbide Mononitrate 30 mg 03/05/19 09:00 03/12/19 08:36 Imdur Extended Rel PO 04/04/19 08:59 30 mg DAILY DIANE Administration Lamotrigine 150 mg 03/04/19 21:00 03/11/19 20:22 Lamictal PO 04/03/19 20:59 150 mg BID DIANE Administration Ondansetron HCl 4 mg 03/05/19 11:27 03/05/19 11:41 Zofran IV 04/04/19 11:26 4 mg Q6H PRN Administration Nausea Pantoprazole Sodium 40 mg 03/05/19 09:00 03/11/19 08:40 Protonix PO 04/04/19 08:59 40 mg DAILY DIANE Administration Polyethylene Glycol 17 gm 03/04/19 18:16 03/06/19 09:56 Miralax Powder Packet PO 04/03/19 18:15 17 gm DAILY PRN Administration Constipation Prednisone 60 mg 03/08/19 09:00 03/11/19 08:40 Prednisone PO 03/18/19 08:59 60 mg DAILY DIANE Administration Rosuvastatin Calcium 20 mg 03/04/19 21:00 03/11/19 20:22 Crestor PO 04/03/19 20:59 20 mg HS DIANE Administration Tamsulosin HCl 0.4 mg 03/04/19 21:00 03/11/19 20:22 Flomax PO 04/03/19 20:59 0.4 mg HS DIANE Administration Tiotropium [place] 1 puffs 03/05/19 09:00 03/11/19 08:41 Spiriva INH 04/04/19 08:59 1 puffs DAILY DIANE Administration NPO Date Last Intake of Fluids: 03/12/19 Time Last Intake of Fluids: 07:45 Date Last Intake of Solids: 03/11/19 Time Last Intake of Solids: 19:00 Past Medical History Medical History Chronic respiratory failure (Chronic) 4L O2 at home Adenocarcinoma of right lung (Chronic) Hyperlipidemia (Chronic) Seizure disorder (Chronic) STARING SPELLS-LAST EVENT MORE THAN 4 YEARS AGO (EPILEPSY) CAD (coronary artery disease) (Chronic) "2004 - RAFI to left cx 02/2011 - BMS to prox LAD and RCA" COPD (chronic obstructive pulmonary disease) (Chronic) HTN (hypertension) (Chronic) CKD (chronic kidney disease), stage III (Chronic) Squamous cell carcinoma of left lung Anemia (Chronic) HX BPH (benign prostatic hyperplasia) (Chronic) GERD (gastroesophageal reflux disease) (Chronic) Osteoarthritis (Chronic) Past Family History Family History Other Stroke Past Surgical History Surgical History History of lobectomy of lung (Chronic) LLL 2004 History of cardiac cath (Chronic) 2010, BMS to proximal RCA S/P carotid endarterectomy (Chronic) LEFT History of bronchoscopy (Chronic) 06/18/18 H/O cardiac catheterization 10/24/2018 2 RCA lesion History of heart artery stent (Chronic) 3 TOTAL STENTS PLACED (NONE IN THE LAST YEAR) UNSURE OF DATES FOLLOWS WITH DR. STAFFORD Social History Smoking Status: Former smoker tobacco type: cigarettes Smoking cigarettes per day: 16 Hx Alcohol Use: No Hx Substance Use: No substance use type: does not use Physical Exam Vital Signs Last Vital Signs Temp 36.4 C L 03/12/19 10:55 Pulse 59 L 03/12/19 10:55 Resp 16 03/12/19 10:55 BP 163/65 H 03/12/19 10:55 Pulse Ox 92 03/12/19 10:55 Testing Laboratory Results 03/12/19 05:28 03/12/19 05:28 PT 10.6 Seconds (9.0-12.0) 03/04/19 15:35 INR 1.0 (0.9-1.1) 03/04/19 15:35 APTT 27.7 Seconds (21.0-31.0) 03/04/19 19:37 Urine Color Yellow 03/05/19 05:15 Urine Appearance Cloudy (Clear) A 03/05/19 05:15 Urine pH 6.5 (4.5-7.5) 03/05/19 05:15 Ur Specific [place] 1.020 (1.000-1.030) 03/05/19 05:15 Urine Protein Negative (Negative) 03/05/19 05:15 Urine Glucose (UA) Negative (Negative) 03/05/19 05:15 Urine Ketones Negative (Negative) 03/05/19 05:15 Urine Nitrite Negative (Negative) 03/05/19 05:15 Ur Leukocyte Esterase Negative (Negative) 03/05/19 05:15 Urine WBC (Auto) 0 /hpf (0-5) 03/05/19 05:15 Urine RBC (Auto) 0-4 /hpf (0-4) 03/05/19 05:15 U Hyaline Cast (Auto) 1-5 /lpf (0-5) 03/05/19 05:15 U Epithel Cells (Auto) 5-10 /lpf (0-5) H 03/05/19 05:15 Urine Bacteria (Auto) Negative (Negative) 03/05/19 05:15 Blood Type A Positive 03/10/19 13:05 Antibody Screen NEGATIVE 03/10/19 13:05 03/05/19 16:45 Gram Stain - Final Pleural Fluid Aerobic and Anaerobic Culture - Final No growth 03/04/19 15:35 Aerobic Blood Culture - Final Blood No growth in Aerobic bottle after 5 days. Anaerobic Blood Culture - Final No growth in Anaerobic bottle after 5 days. 03/04/19 15:30 Aerobic Blood Culture - Final Blood No growth in Aerobic bottle after 5 days. Anaerobic Blood Culture - Final No growth in Anaerobic bottle after 5 days. 03/05/19 16:45 Acid Fast Bacilli Smear - Final Pleural Fluid
[2019-03-12] MEDS ORDERED: ePHEDrine sulfate 50 MG/ML AMP IV PRN (11:29)
[2019-03-12] MEDS ORDERED: ATROPINE SULFATE 0.1 MG/ML 10ML SYR IV PRN (11:29)
--- NOTE | 2019-03-12 12:02 | History & Physical Bridge Note ---
Date of Service March 12, 2019 History & Physical Bridge Note I have examined the patient, reviewed the History & Physical and in the interval since the performance of the History & Physical I have noted the following changes of clinical significance: no changes noted
[2019-03-12] MEDS ORDERED: KETAMINE HCL INJ 50 MG/ML 10 ML VIAL ONE (12:17)
[2019-03-12] MEDS ORDERED: LIDOCAINE HCL 2% 2 ML VIAL/AMP(20MG/ML) INFIL ONE (12:17)
[2019-03-12] MEDS ORDERED: BENZOCAIN/TETRACA/BUTAM SPRAY 200 APPLN/20 GM SPRY EXT ONE (12:17)
[2019-03-12] MEDS ORDERED: PROPOFOL IV EMULSION 10 MG/ML 20 ML VIAL IV ONE (12:17)
[2019-03-12] MEDS ORDERED: EPINEPHrine INJ 1 MG/ML AMP ONE (13:04)
--- NOTE | 2019-03-12 13:33 | GI REPORT ---
Patient Name: Arnulfo Ribeiro Procedure Date: 03/12/2019 12:18 PM Date of : 1935 Admit Type: Inpatient Age: 83 Gender: Male Attending MD: Les Whalen MD Procedure: Upper GI endoscopy Providers: Les Whalen MD Referring MD: Harris Prasad Indications: For therapy of Collado's esophagus with high grade dysplasia, Anemia Medicines: Propofol per Anesthesia Complications: No immediate complications. Estimated Blood Loss: Estimated blood loss: none. Procedure: Pre-Anesthesia Assessment: - Prior to the procedure, a History and Physical was performed, and patient medications, allergies and sensitivities were reviewed. The patient's tolerance of previous anesthesia was reviewed. - The risks and benefits of the procedure and the sedation options and risks were discussed with the patient. All questions were answered and informed consent was obtained. - Patient identification and proposed procedure were verified prior to the procedure by the physician and the nurse. The procedure was verified in the procedure room. - Pre-procedure physical examination revealed no contraindications to sedation. After obtaining informed consent, the endoscope was passed under direct vision. Throughout the procedure, the patient's blood pressure, pulse, and oxygen saturations were monitored continuously. The Endoscope was introduced through the mouth, and advanced to the second part of duodenum. The upper GI endoscopy was accomplished without difficulty. The patient tolerated the procedure well. Findings: A 2 cm hiatal hernia was found. The proximal extent of the gastric folds (end of tubular esophagus) was 38 cm from the incisors. The hiatal narrowing was 40 cm from the incisors. The esophagus and gastroesophageal junction were examined with white light and narrow band imaging (NBI) from a forward view and retroflexed position. There were esophageal mucosal changes classified as Collado's stage C8-M8 per Parshall criteria. These changes involved the mucosa extending to the Z-line (30 cm from the incisors). Extensive nodularity with dysplastic morphology was present from 30 to 34 cm extending into 2/3 of the circumference. The maximum longitudinal extent of these esophageal mucosal changes was 8 cm in length. Preparations were made for mucosal resection. Band ligator and snare mucosal resection with cap retrieval was performed. Wide field EMR performed. Six pieces were resected in total. Resection and retrieval were complete. There was no bleeding during the procedure. The entire examined stomach was normal. The duodenal bulb and second portion of the duodenum were normal. Impression: - 2 cm hiatal hernia. - Esophageal mucosal changes classified as Collado's stage C8-M8 per Parshall criteria. 4 cm segment of extensive nodularity with dysplastic morphology resected by wide field EMR. - Normal stomach. - Normal duodenal bulb and second portion of the duodenum. - Mucosal resection was performed. Resection and retrieval were complete. Recommendation: - Return patient to hospital li for ongoing care. - Await pathology results. Further treatment/ ablation based on path. - Follow an antireflux regimen. - Use Protonix (pantoprazole) 40 mg PO BID for 3 months. - Clear liquid diet today, then advance as tolerated to soft diet for 3 days. - Repeat upper endoscopy in 3 months for surveillance based on pathology results. - Return to referring physician. Les Whalen MD 03/12/2019 1:33:08 PM This report has been signed electronically. Note Initiated On: 03/12/2019 12:18 PM Number of Addenda: 0 I attest to the content of the Intraoperative Record and orders documented therein, exceptions below {[id number]}
--- NOTE | 2019-03-12 14:48 | Hospitalist Progress Note ---
Date of Service March 12, 2019 Assessment & Plan (1) Anemia: Worsening anemia acutely in the last week. Follows with Dr. Perera Hematology who gave him IV iron earlier this year and had normal ferritin and H/H at that time. Has h/o Collado's and is on Plavix with recent STEMI (no stent and not on ASA) in October. No overt bleeding per rectum or elsewhere. 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 Underwent chemo for treatment. 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 Cont to follow with oncology (Dr. Perera) as outpatient. (3) Acute and chronic respiratory failure: Taxol induced pneumonitis-cont steroids. Seems to be stable (4) CKD (chronic kidney disease), stage III: ANDREW resolved and he is at baseline renal function. Cont to avoid unnecessary nephrotoxic substances. (5) HTN (hypertension): At goal, cont amlodipine and coreg per home regimen. (6) COPD (chronic obstructive pulmonary disease): Former smoker with advanced emphysema on imaging. Continue Spiriva, Symbicort (7) CAD (coronary artery disease): Chronic, stable, denies chest pain or other ACS symptoms. STEMI in October 2018 with subsequent angioplasty to RCA. The patient had pancytopenia at that time and DAPT was continued for one month only. ASA 81 was discontinued in November 2018 and he remains on Plavix monotherapy. Cont Coreg, Imdur, and Crestor. Holding plavix in preparation for upcoming EGD. (8) Seizure disorder: Remote history, Continue Lamictal BID (9) Collado's esophagus: H/o EGD in July 2018 at [facility] by Dr. Wong of surgery. 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 Needs to follow-up with GI as outpatient. Status post EGD today which showed: -2 cm hiatal hernia -Esophageal mucosal changes classified as Collado's stage C 8M8 Luisa criteria. 4 cm segment of extensive nodularity with dysplastic morphology resected by white field EMR -Normal stomach -Normal duodenal bulb and second portion of the duodenum -Mucosal dissection was performed and resection with retrieval what complete Advised PPI 2 times a day for 3 months and repeat EGD (10) Peripheral vascular disease: Diffuse peripheral vascular disease including carotid occlusive disease status post left carotid endarterectomy, extensive aortic arch atherosclerosis, moderate brachiocephalic artery stenosis, and diminished lower extremity peripheral pulses with prior CT angiograms revealing moderate atherosclerotic disease. Cont same med mngmt for CAD above. (11) DVT prophylaxis: SCDs-heparin stopped with worsening anemia. DNR/DNI Dispo-uncertain at this time. PT/OT evaluations. Subjective 03/12 The patient was seen and examined in medical telemetry unit He denies any complaints at rest Admitted to have some problem with swallowing likely secondary to radiation injury Will have EGD this afternoon Review of Systems Review of Systems: All systems reviewed and are unremarkable except as noted below Respiratory: no cough and no dyspnea Gastrointestinal: no abdominal pain, no nausea and no vomiting Physical Exam Physical Exam: Sitting on a chair without any acute distress Constitutional: well developed and well nourished; no acute distress and not ill appearing Eyes: PERRL, conjunctivae normal, anicteric sclerae ENMT: external ear and nose normal, oropharynx normal Neck: trachea midline, no thyromegaly Respiratory: normal respiratory effort; no respiratory distress Auscultation: + diminished lung sounds (Bilaterally) Cardiovascular: Rate/Rhythm: regular rate and regular rhythm Heart Sounds: no murmur Gastrointestinal (Abdomen): Inspection/Auscultation: abdomen normal to inspection and normal bowel sounds; abdomen not distended Musculoskeletal: No acute arthritis involving any joints Neurologic: patellar DTR's 2+ bilat, sensation intact Results & Data Vital Signs (Past 12 Hours) Vital Signs Temp Pulse Pulse Pulse Resp BP BP 03/12/19 14:02 59 L 20 133/50 L 03/12/19 13:46 60 16 03/12/19 13:44 58 L 20 147/63 H 03/12/19 13:29 88 20 142/62 H 03/12/19 13:14 36.4 C L 61 20 140/65 03/12/19 10:55 36.4 C L 59 L 16 163/65 H 03/12/19 08:00 57 L 03/12/19 07:52 36.4 C L 72 22 157/60 H 03/12/19 03:40 36.3 C L 69 20 144/66 H Pulse Ox 03/12/19 14:02 96 03/12/19 13:46 92 03/12/19 13:44 96 03/12/19 13:29 88 L 03/12/19 13:14 92 03/12/19 10:55 92 03/12/19 08:00 03/12/19 07:52 91 03/12/19 03:40 95 Laboratory Results Short CBC 03/12/19 Range/Units 05:28 WBC 6.80 (4.8-10.8) K/uL Hgb 10.4 L (14.0-18.0) g/dL Hct 33.7 L (42-52) % Plt Count 146 (130-400) K/uL BMP 03/12/19 05:28 Sodium 140 Potassium 4.4 Chloride 107 Carbon Dioxide 30 BUN 31 H Creatinine 1.09 Glucose 105 H Calcium 9.0 Medications Administered Current Inpatient Medications Acetaminophen (Tylenol) 650 mg PO Q4H PRN PRN Reason: Pain or Fever Stop: 04/03/19 18:15 Albuterol (Duoneb) 3 ml NEB Q6H PRN PRN Reason: Shortness Of Breath Or Wheezing Stop: 04/04/19 08:44 Amlodipine Besylate (Norvasc) 10 mg PO DAILY [facility] Stop: 04/04/19 08:59 Last Admin: 03/12/19 08:37 Dose: 10 mg Documented by: Atropine Sulfate (Atropine Sulfate) 0.5 mg IV Q1M PRN PRN Reason: PACU Use-HR<40 &/or Bradycardi Stop: 03/12/19 16:29 Budesonide/Formoterol Fumarate (Symbicort 160mcg/4.5mcg) 2 puffs INH BID [facility] Stop: 04/03/19 20:59 Last Admin: 03/11/19 20:23 Dose: 2 puffs Documented by: Carvedilol (Coreg) 6.25 mg PO BID [facility] Stop: 04/03/19 20:59 Last Admin: 03/12/19 08:36 Dose: 6.25 mg Documented by: Clopidogrel Bisulfate (Plavix) 75 mg PO DAILY [facility] Stop: 04/04/19 08:59 Last Admin: 03/09/19 08:09 Dose: 75 mg Documented by: Ephedrine Sulfate (Ephedrine Sulfate) 5 mg IV Q5M PRN PRN Reason: PACU Use Only-SBP<90 mmHg Stop: 03/12/19 16:29 Escitalopram Oxalate (Lexapro Tab) 5 mg PO DAILY [facility] Stop: 04/04/19 08:59 Last Admin: 03/11/19 08:41 Dose: 5 mg Documented by: Finasteride (Proscar) 5 mg PO DAILY [facility] Stop: 04/05/19 08:59 Last Admin: 03/11/19 08:40 Dose: 5 mg Documented by: Folic Acid (Folvite) 1 mg PO DAILY [facility] Stop: 04/04/19 08:59 Last Admin: 03/11/19 08:41 Dose: 1 mg Documented by: Heparin Sodium (Beef Lung) (Heparin Sod 10 Unit/Ml Flush) 5 ml FLUSH PRN PRN PRN Reason: Flush Stop: 04/04/19 19:14 Last Admin: 03/05/19 20:38 Dose: 5 ml Documented by: Heparin Sodium (Porcine) (Heparin Sodium (Porcine)) 5,000 units SQ Q8 [facility] Stop: 04/03/19 21:59 Last Admin: 03/10/19 04:59 Dose: Not Given Documented by: Heparin Sodium (Porcine) (Heparin Sod 100 Unit/Ml Flush) 5 ml FLUSH PRN PRN PRN Reason: Flush Stop: 04/04/19 23:44 Sodium Chloride (Nss) 250 mls @ 15 mls/hr IV .[id number] PRN PRN Reason: For Transfusion Stop: 04/09/19 12:39 Isosorbide Mononitrate (Imdur Extended Rel) 30 mg PO DAILY [facility] Stop: 04/04/19 08:59 Last Admin: 03/12/19 08:36 Dose: 30 mg Documented by: Lamotrigine (Lamictal) 150 mg PO BID [facility] Stop: 04/03/19 20:59 Last Admin: 03/11/19 20:22 Dose: 150 mg Documented by: Mupirocin (Bactroban 2%) 1 appln EXT PRN PRN PRN Reason: Nose Bleed Stop: 03/15/19 10:00 Nitroglycerin (Nitrostat) 0.4 mg SL UD PRN PRN Reason: Chest Pain Stop: 04/03/19 18:15 Ondansetron HCl (Zofran) 4 mg IV Q6H PRN PRN Reason: Nausea Stop: 04/04/19 11:26 Last Admin: 03/05/19 11:41 Dose: 4 mg Documented by: Pantoprazole Sodium (Protonix) 40 mg PO DAILY [facility] Stop: 04/04/19 08:59 Last Admin: 03/11/19 08:40 Dose: 40 mg Documented by: Polyethylene Glycol (Miralax Powder Packet) 17 gm PO DAILY PRN PRN Reason: Constipation Stop: 04/03/19 18:15 Last Admin: 03/06/19 09:56 Dose: 17 gm Documented by: Prednisone (Prednisone) 60 mg PO DAILY [facility] Stop: 03/18/19 08:59 Last Admin: 03/11/19 08:40 Dose: 60 mg Documented by: Rosuvastatin Calcium (Crestor) 20 mg PO HS [facility] Stop: 04/03/19 20:59 Last Admin: 03/11/19 20:22 Dose: 20 mg Documented by: Tamsulosin HCl (Flomax) 0.4 mg PO HS [facility] Stop: 04/03/19 20:59 Last Admin: 03/11/19 20:22 Dose: 0.4 mg Documented by: Tiotropium [place] (Spiriva) 1 puffs INH DAILY [facility] Stop: 04/04/19 08:59 Last Admin: 03/11/19 08:41 Dose: 1 puffs Documented by: (1) HTN (hypertension) Hypertension type: essential hypertension Qualified Code(s): I10 - Essential (primary) hypertension (2) COPD (chronic obstructive pulmonary disease) COPD type: unspecified COPD Qualified Code(s): J44.9 - Chronic obstructive pulmonary disease, unspecified (3) CAD (coronary artery disease) [place] vs. transplanted heart: [place] heart
[2019-03-12] MEDS: FOLIC ACID 1 MG TAB PO SCH (14:55)
[2019-03-12] MEDS: predniSONE 20 MG TAB PO SCH (14:56)
[2019-03-12] MEDS: ESCITALOPRAM OXALATE 10 MG TAB PO SCH (14:56)
[2019-03-12] MEDS: PANTOprazole 40 MG TAB PO SCH (14:56)
[2019-03-12] MEDS: lamoTRIgine 100 MG TAB PO SCH ×2 (14:56→20:57)
[2019-03-12] MEDS: FINASTERIDE 5 MG TAB PO SCH (14:56)
[2019-03-12] MEDS: BUDESONIDE/FORMOTEROL FUMARATE 160/4.5 60 PUFFS/INHALER INH SCH ×2 (15:12→20:56)
[2019-03-12] MEDS: TIOTROPIUM BROMIDE 5 PUFF/90 MCG INH INH SCH (15:12)
--- NOTE | 2019-03-12 15:54 | Anesthesiology Progress Note ---
Date of Service March 12, 2019 Anesthesia Post Procedure Vital Signs Vital Signs: Temp Pulse Pulse Pulse Pulse Pulse Resp 03/12/19 15:32 58 L 03/12/19 15:03 36.3 C L 67 03/12/19 15:00 69 18 03/12/19 14:15 36.3 C L 61 18 03/12/19 14:02 59 L 20 03/12/19 13:46 60 16 03/12/19 13:44 58 L 20 03/12/19 13:29 88 20 03/12/19 13:14 36.4 C L 61 20 03/12/19 10:55 36.4 C L 59 L 16 03/12/19 08:00 57 L 03/12/19 07:52 36.4 C L 72 22 03/12/19 03:40 36.3 C L 69 20 03/11/19 23:08 36.6 C 67 19 03/11/19 19:12 36.4 C L 71 18 03/11/19 16:00 65 BP BP Pulse Ox 03/12/19 15:32 03/12/19 15:03 135/63 95 03/12/19 15:00 119/48 L 95 03/12/19 14:15 112/56 L 92 03/12/19 14:02 133/50 L 96 03/12/19 13:46 92 03/12/19 13:44 147/63 H 96 03/12/19 13:29 142/62 H 88 L 03/12/19 13:14 140/65 92 03/12/19 10:55 163/65 H 92 03/12/19 08:00 03/12/19 07:52 157/60 H 91 03/12/19 03:40 144/66 H 95 03/11/19 23:08 158/69 H 92 03/11/19 19:12 168/70 H 93 03/11/19 16:00 Transfer of Care Handoff Completed per policy Notes Mental Status: alert / awake / arousable Patient Amnestic to Procedure: Yes Nausea / Vomiting: adequately controlled Pain: adequately controlled Airway Patency, RR, SpO2: stable & adequate BP & HR: stable & adequate Hydration State: stable & adequate Anesthetic Complications: no major complications apparent and Pt Satisfied with anesthetic care
[2019-03-12] MEDS: ACETAMINOPHEN 325 MG TAB PO PRN ×2 (17:27→23:53)
[2019-03-12] MEDS: TAMSULOSIN HCL 0.4 MG CAP PO SCH (20:57)
[2019-03-12] MEDS: ROSUVASTATIN CALCIUM 20 MG TAB PO SCH (20:57)
[2019-03-13 05:53] LABS: Eosinophils # (auto) 0.22 K/uL (0-0.5); Eosinophils % (auto) 2.8 %; Hematocrit (blood only) 34.3 % (42-52); Hemoglobin 10.7 g/dL (14.0-18.0); Immature Granulocytes # (auto) 0.02 K/uL (0.00-0.02); Immature Granulocytes % (auto) 0.3 %; Lymphocytes # (auto) 0.41 K/uL (1.2-3.4); Lymphocytes % (auto) 5.1 %; Mean Corpuscular Hemoglobin 25.5 pg (25-34); Mean Corpuscular Hgb Conc 31.2 g/dL (32-36); Mean Corpuscular Volume 81.7 fL (80-100); Mean Platelet Volume 9.3 fL (7.4-10.4); Monocytes # (auto) 0.89 K/uL (0.11-0.59); Monocytes % (auto) 11.1 %; Neutrophils # (auto) 6.45 K/uL (1.4-6.5); Neutrophils % (auto) 80.7 %; Platelet Count 141 K/uL (130-400); RDW Coefficient of Variation 16.8 % (11.5-14.5); RDW Standard Deviation 50.8 fL (36.4-46.3); White Blood Count 7.99 K/uL (4.8-10.8)
[2019-03-13 06:32] LABS: BUN Creatinine Ratio 22.4 (10-20); Calcium 8.5 mg/dl (8.5-10.1); Creatinine Clr Calc Pharmacy 49.5 ml/min; Est GFR (African American) 78.4; Est GFR (Non-African American) 67.7; Magnesium 2.1 mg/dl (1.8-2.4); Potassium 4.4 mmol/L (3.5-5.1)
[2019-03-13 06:33] LABS: Phosphorus 3.8 mg/dl (2.5-4.9)
[2019-03-13] MEDS: PANTOprazole 40 MG TAB PO SCH (08:15)
[2019-03-13] MEDS: predniSONE 20 MG TAB PO SCH (08:15)
[2019-03-13] MEDS: ESCITALOPRAM OXALATE 10 MG TAB PO SCH (08:15)
[2019-03-13] MEDS: ISOSORBIDE MONO EXTENDED REL 30 MG TABCR PO SCH (08:15)
[2019-03-13] MEDS: carvediloL 6.25 MG TAB PO SCH (08:16)
[2019-03-13] MEDS: AMLODIPINE BESYLATE 5 MG TAB PO SCH (08:16)
[2019-03-13] MEDS: FOLIC ACID 1 MG TAB PO SCH (08:16)
[2019-03-13] MEDS: FINASTERIDE 5 MG TAB PO SCH (08:17)
[2019-03-13] MEDS: TIOTROPIUM BROMIDE 5 PUFF/90 MCG INH INH SCH (08:17)
[2019-03-13] MEDS: BUDESONIDE/FORMOTEROL FUMARATE 160/4.5 60 PUFFS/INHALER INH SCH (08:18)
[2019-03-13] MEDS: lamoTRIgine 100 MG TAB PO SCH (08:19)
[2019-03-13] MEDS ORDERED: bisacodyL 5 MG TABEC PO ONE (09:17)
--- NOTE | 2019-03-13 09:50 | Gastroenterology Progress Note ---
Date of Service March 13, 2019 Assessment & Plan (1) Collado's esophagus: (2) Iron deficiency anemia: Anemia likely multifactorial. Collado's nodular lesions were likely a source of slow blood loss. Now some CP as expected after resection. Plan: 1. May restart Plavix 03/17. OK for ASA 81mg now. 2. Will review path and notify pt of path when available. 3. Continue po PPI BID x 3 months. 4. Advance to full liquid diet. If tolerates well may have soft diet for dinner. Stay on soft diet x 3 days. 5. F/u EGD in 3 months. Our office will notify pt. 6. GI will sign off. Please no Supervising Physician Co-Signing Physician Notes I performed a history and physical examination of the patient, including specifically on physical exam - soft, nontender abdomen. I have discussed the patient's management with Alba. Please refer to the nurse practitioner's note for the documented findings and plan of care. No pain or bleeding today. Advance to soft diet. Resume Plavix in 2 days, OK for ASA. Repeat EGD in 3 months. Recall Gi if needed. Subjective Mr. Ribeiro is an 89 yr old male with lung cancer admitted for SOB, underwent thoracentesis. While here, anemic and underwent EGD for hx of Collado's with dysplasia in July 2018. EGD yesterday with mucosal resection of 4 cm segment of extensive nodularity in the esophagus. Lowest Hb was 7.7 +2 units RBCs -> 10.4 yesterday and -> 10.7 today. Today: level 4 constant chest pain, not worsened by drinking clear liquids. Tells me that he feels well and wants to go home. On BID Protonix. Plavix being held. Review of Systems Review of Systems: ROS: Gen: + chronic weakness - improved during hospitalization No fevers Eyes: No eye redness, or pain, no recent vision changes Resp: On room air, no SOB, no cough Cardio: Denies feeling any irregular beats, No chest pain GI: No abdominal pain, no nausea/vomiting : Denies pain on urination Skin: No jaundice, itching or new rashes Physical Exam Constitutional: WD/WN, vitals as above + thin and + frail appearing ENMT: external ear and nose normal, oropharynx normal Neck: trachea midline, no thyromegaly Respiratory: normal respiratory effort, lungs clear to auscultation (except slightly diminished sounds in the right base. ) no labored breathing Cardiovascular: RRR, no murmur, no edema Rate/Rhythm: regular rate and regular rhythm Gastrointestinal (Abdomen): normal bowel sounds, soft, nontender, no hepatosplenomegaly Skin: no rashes, warm and dry no jaundice Neurologic: PERRL, EOMI, accommodation nl, no face palsy, no dysarthria Psychiatric: A+Ox3, euthymic affect Lymphatic: no cervical or axillary lymphadenopathy Results & Data Vital Signs (Past 12 Hours) Vital Signs Temp Pulse Resp BP BP Pulse Ox 03/13/19 07:03 36.4 C L 65 20 144/65 H 93 03/13/19 03:00 36.5 C 62 17 128/65 90 03/12/19 23:45 36.4 C L 62 20 139/69 90 Diagnostic Findings EGD 03/12/19 Dr. Whalen: - 2 cm hiatal hernia. - Esophageal mucosal changes classified as Collado's stage C8-M8 per Protection criteria. 4 cm segment of extensive nodularity with dysplastic morphology resected by wide field EMR. - Normal stomach. - Normal duodenal bulb and second portion of the duodenum. - Mucosal resection was performed. Resection and retrieval were complete.
--- NOTE | 2019-03-13 13:34 | Hospitalist Progress Note ---
Date of Service March 13, 2019 Assessment & Plan (1) Anemia: Worsening anemia acutely in the last week. Follows with Dr. Perera Hematology who gave him IV iron earlier this year and had normal ferritin and H/H at that time. Has h/o Collado's and is on Plavix with recent STEMI (no stent and not on ASA) in October. No overt bleeding per rectum or elsewhere. 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 Underwent chemo for treatment. 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 Cont to follow with oncology (Dr. Perera) as outpatient. He was advised to make an appointment with his oncologist within the next 1 to 2 weeks (3) Acute and chronic respiratory failure: Taxol induced pneumonitis-cont steroids. Seems to be stable Has home oxygen (4) CKD (chronic kidney disease), stage III: ANDREW resolved and he is at baseline renal function. Cont to avoid unnecessary nephrotoxic substances. Renal function has been a stabilized (5) HTN (hypertension): At goal, cont amlodipine and coreg per home regimen. (6) COPD (chronic obstructive pulmonary disease): Former smoker with advanced emphysema on imaging. Continue Spiriva, Symbicort (7) CAD (coronary artery disease): Chronic, stable, denies chest pain or other ACS symptoms. STEMI in October 2018 with subsequent angioplasty to RCA. The patient had pancytopenia at that time and DAPT was continued for one month only. ASA 81 was discontinued in November 2018 and he remains on Plavix monotherapy. Cont Coreg, Imdur, and Crestor. Holding plavix in preparation for upcoming EGD. (8) Seizure disorder: Remote history, Continue Lamictal BID (9) Collado's esophagus: H/o EGD in July 2018 at [facility] by Dr. Wong of surgery. 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 Needs to follow-up with GI as outpatient. Status post EGD today which showed: -2 cm hiatal hernia -Esophageal mucosal changes classified as Collado's stage C 8M8 Luisa criteria. 4 cm segment of extensive nodularity with dysplastic morphology resected by white field EMR -Normal stomach -Normal duodenal bulb and second portion of the duodenum -Mucosal dissection was performed and resection with retrieval what complete Advised PPI 2 times a day for 3 months and repeat EGD Biopsy result is pending We will have EGD in 3 months (10) Peripheral vascular disease: Diffuse peripheral vascular disease including carotid occlusive disease status post left carotid endarterectomy, extensive aortic arch atherosclerosis, moderate brachiocephalic artery stenosis, and diminished lower extremity periph eral pulses with prior CT angiograms revealing moderate atherosclerotic disease. Cont same med mngmt for CAD above. (11) DVT prophylaxis: SCDs-heparin stopped with worsening anemia. DNR/DNI Dispo-uncertain at this time. PT/OT evaluations. Subjective 03/12 The patient was seen and examined in medical telemetry unit He denies any complaints at rest Admitted to have some problem with swallowing likely secondary to radiation injury Will have EGD this afternoon 03/13 The patient was seen and examined in telemetry unit He has been feeling a lot better during examination Denies any significant chest pain and/or palpitation and no shortness of breath at rest He will be going home this afternoon Review of Systems Review of Systems: All systems reviewed and are unremarkable except as noted below Gastrointestinal: Minimal epigastric discomfort without any pain Physical Exam Constitutional: well developed and well nourished; no acute distress and not ill appearing Eyes: PERRL, conjunctivae normal, anicteric sclerae ENMT: external ear and nose normal, oropharynx normal Neck: trachea midline, no thyromegaly Respiratory: normal respiratory effort; no respiratory distress Auscultation: + diminished lung sounds (Bilaterally) Cardiovascular: Rate/Rhythm: regular rate and regular rhythm Heart Sounds: no murmur Gastrointestinal (Abdomen): Inspection/Auscultation: abdomen normal to inspection and normal bowel sounds; abdomen not distended Neurologic: patellar DTR's 2+ bilat, sensation intact Results & Data Vital Signs (Past 12 Hours) Vital Signs Temp Pulse Resp BP BP Pulse Ox 03/13/19 11:16 36.5 C 59 L 20 114/56 L 93 03/13/19 07:03 36.4 C L 65 20 144/65 H 93 03/13/19 03:00 36.5 C 62 17 128/65 90 Laboratory Results Short CBC 03/13/19 Range/Units 05:32 WBC 7.99 (4.8-10.8) K/uL Hgb 10.7 L (14.0-18.0) g/dL Hct 34.3 L (42-52) % Plt Count 141 (130-400) K/uL BMP 03/13/19 05:32 Sodium 138 Potassium 4.4 Chloride 104 Carbon Dioxide 29 BUN 23 H Creatinine 1.02 Glucose 79 Calcium 8.5 Medications Administered Current Inpatient Medications Acetaminophen (Tylenol) 650 mg PO Q4H PRN PRN Reason: Pain or Fever Stop: 04/03/19 18:15 Last Admin: 03/12/19 23:53 Dose: 650 mg Documented by: Albuterol (Duoneb) 3 ml NEB Q6H PRN PRN Reason: Shortness Of Breath Or Wheezing Stop: 04/04/19 08:44 Amlodipine Besylate (Norvasc) 10 mg PO DAILY DIANE Stop: 04/04/19 08:59 Last Admin: 03/13/19 08:16 Dose: 10 mg Documented by: Budesonide/Formoterol Fumarate (Symbicort 160mcg/4.5mcg) 2 puffs INH BID DIANE Stop: 04/03/19 20:59 Last Admin: 03/13/19 08:18 Dose: 2 puffs Documented by: Carvedilol (Coreg) 6.25 mg PO BID DIANE Stop: 04/03/19 20:59 Last Admin: 03/13/19 08:16 Dose: 6.25 mg Documented by: Clopidogrel Bisulfate (Plavix) 75 mg PO DAILY DIANE Stop: 04/04/19 08:59 Last Admin: 03/09/19 08:09 Dose: 75 mg Documented by: Escitalopram Oxalate (Lexapro Tab) 5 mg PO DAILY DIANE Stop: 04/04/19 08:59 Last Admin: 03/13/19 08:15 Dose: 5 mg Documented by: Finasteride (Proscar) 5 mg PO DAILY DIANE Stop: 04/05/19 08:59 Last Admin: 03/13/19 08:17 Dose: 5 mg Documented by: Folic Acid (Folvite) 1 mg PO DAILY DIANE Stop: 04/04/19 08:59 Last Admin: 03/13/19 08:16 Dose: 1 mg Documented by: Heparin Sodium (Beef Lung) (Heparin Sod 10 Unit/Ml Flush) 5 ml FLUSH PRN PRN PRN Reason: Flush Stop: 04/04/19 19:14 Last Admin: 03/05/19 20:38 Dose: 5 ml Documented by: Heparin Sodium (Porcine) (Heparin Sodium (Porcine)) 5,000 units SQ Q8 DIANE Stop: 04/03/19 21:59 Last Admin: 03/10/19 04:59 Dose: Not Given Documented by: Heparin Sodium (Porcine) (Heparin Sod 100 Unit/Ml Flush) 5 ml FLUSH PRN PRN PRN Reason: Flush Stop: 04/04/19 23:44 Last Admin: 03/13/19 05:40 Dose: 5 ml Documented by: Sodium Chloride (Nss) 250 mls @ 15 mls/hr IV .[id number] PRN PRN Reason: For Transfusion Stop: 04/09/19 12:39 Isosorbide Mononitrate (Imdur Extended Rel) 30 mg PO DAILY [facility] Stop: 04/04/19 08:59 Last Admin: 03/13/19 08:15 Dose: 30 mg Documented by: Lamotrigine (Lamictal) 150 mg PO BID [facility] Stop: 04/03/19 20:59 Last Admin: 03/13/19 08:19 Dose: 150 mg Documented by: Mupirocin (Bactroban 2%) 1 appln EXT PRN PRN PRN Reason: Nose Bleed Stop: 03/15/19 10:00 Nitroglycerin (Nitrostat) 0.4 mg SL UD PRN PRN Reason: Chest Pain Stop: 04/03/19 18:15 Ondansetron HCl (Zofran) 4 mg IV Q6H PRN PRN Reason: Nausea Stop: 04/04/19 11:26 Last Admin: 03/05/19 11:41 Dose: 4 mg Documented by: Pantoprazole Sodium (Protonix) 40 mg PO DAILY [facility] Stop: 04/04/19 08:59 Last Admin: 03/13/19 08:15 Dose: 40 mg Documented by: Polyethylene Glycol (Miralax Powder Packet) 17 gm PO DAILY PRN PRN Reason: Constipation Stop: 04/03/19 18:15 Last Admin: 03/06/19 09:56 Dose: 17 gm Documented by: Prednisone (Prednisone) 60 mg PO DAILY [facility] Stop: 03/18/19 08:59 Last Admin: 03/13/19 08:15 Dose: 60 mg Documented by: Rosuvastatin Calcium (Crestor) 20 mg PO HS [facility] Stop: 04/03/19 20:59 Last Admin: 03/12/19 20:57 Dose: Not Given Documented by: Tamsulosin HCl (Flomax) 0.4 mg PO HS DIANE Stop: 04/03/19 20:59 Last Admin: 03/12/19 20:57 Dose: 0.4 mg Documented by: Tiotropium [place] (Spiriva) 1 puffs INH DAILY DIANE Stop: 04/04/19 08:59 Last Admin: 03/13/19 08:17 Dose: 1 puffs Documented by: (1) HTN (hypertension) Hypertension type: essential hypertension Qualified Code(s): I10 - Essential (primary) hypertension (2) COPD (chronic obstructive pulmonary disease) COPD type: unspecified COPD Qualified Code(s): J44.9 - Chronic obstructive pulmonary disease, unspecified (3) CAD (coronary artery disease) [place] vs. transplanted heart: [place] heart
--- NOTE | 2019-03-14 07:25 | Discharge Summary ---
Date of Service March 14, 2019 Admission HPI Per Admitting Provider This is an 83yo M with a PMH of recurrent lung cancer with right upper lobe adenocarcinoma (s/p chemo and radiation), COPD, chronic respiratory failure on 4L NC O2, CAD (s/p stent), HTN, CKD 3, Collado's esophagus and other medical problems as below who presents with progressive shortness of breath. Patient follows with Dr. Helm of oncology and [place]. Was recently admitted at [facility] 3 weeks ago for shortness of breath and right> left pleural effusion. Was seen by pulmonary there and had a right thoracentesis with 1 L of fluid drained. It was reportedly negative for malignant cells. No medication changes were made. Patient was discharged home and son-in-law said he never went back to respiratory baseline. Patient presents today with increased shortness of breath especially when speaking or ambulating at all. Initially hypoxic in the 70s but improved to 92% on Vapotherm high flow nasal cannula oxygen 35 L/min. VBG pH 7.34. Lactate and procalcitonin within normal limits. Chest x-ray with R>L bilateral mixed interstitial and alveolar opacities suggestive of multifocal pneumonia versus asymmetric pulmonary edema, small bilateral pleural effusions, cardiomegaly and severe emphysema. Started empirically on Zosyn and gave breathing treatment in ED. Patient denies any fever, chills, lightheadedness, visual changes, chest pain, palpitations, cough, hemoptysis, wheezing, nausea, vomiting, abdominal pain, dysuria, diarrhea or constipation. Admission Exam Per Admitting Provider Physical Exam: General Appearance: WD/WN, vitals as above, elderly, pleasant, saturating at 92% on high flow O2 Head: normocephalic, atraumatic Eyes: normal inspection, PERRL, conjunctivae normal, anicteric sclerae ENT: hard of hearing, external ear and nose normal, oropharynx normal Neck: trachea midline, no thyromegaly normal visual inspection Respiratory: lungs sounds diminished throughout, bibasilar crackles, no wheeze or rhonchi. +accessory muscle use when speaking Cardiovascular: regular rate, rhythm, no murmur appreciated, normal peripheral pulses. Vessels: no JVD or carotid bruit Chest: normal inspection of chest Abdomen/GI: normal bowel sounds, soft, nontender, no hepatosplenomegaly Extremities/Musculoskelatal: no cyanosis or clubbing, extremities motor strength 5/5 Neurologic: PERRL, EOMI, accommodation nl, no face palsy, no dysarthria CN's II-XI intact bilaterally and moves all extremities Psychiatric: A+Ox3, euthymic affect Skin: no rashes, normal color, warm/dry Principal Diagnosis Anemia status post 2 unit of PRBC transfusion, Collado's esophagus, adenocarcinoma of right lung cancer status post surgery 2004, COPD on home oxygen Discharge Exam Constitutional well developed and well nourished; no acute distress and not ill appearing Eyes PERRL, conjunctivae normal, anicteric sclerae ENMT external ear and nose normal, oropharynx normal Neck trachea midline, no thyromegaly Respiratory normal respiratory effort; no respiratory distress Auscultation: + diminished lung sounds (Bilaterally) Cardiovascular Rate/Rhythm: regular rate and regular rhythm Heart Sounds: no murmur Gastrointestinal (Abdomen) Inspection/Auscultation: abdomen normal to inspection and normal bowel sounds; abdomen not distended Neurologic patellar DTR's 2+ bilat, sensation intact Discharge Data Allergies Allergy/AdvReac Type Severity Reaction Status Date / Time lisinopril Allergy Severe Verified 03/04/19 17:06 lidocaine Allergy Intermediate PRESERVATIVE Verified 03/04/19 17:06 IN LIDOCAINE CAUSES RED SKIN atorvastatin [From Lipitor] AdvReac Mild Blurry Verified 03/04/19 17:06 Vision rosuvastatin [From Crestor] AdvReac Mild Blurry Verified 03/04/19 17:06 Vision Consultations 03/04/19 16:38 ED Decision to Admit Stat 03/04/19 18:10 Consult Pulmonology Routine 03/04/19 18:16 Consult Case Management - Discharge Planning Routine 03/05/19 19:35 Consult Health Information Management Stat 03/09/19 12:43 Consult Gastroenterology Routine Procedures Performed Operation Date: 03/12/19 16:00 Actual Procedures p EGD Biopsy Cytology - Les Whalen MD Ordered Studies 03/05/19 15:51 US point of care ultrasound Routine 03/05/19 18:09 CT chest wo con Routine Hospital Course (1) Anemia: Worsening anemia acutely in the last week. Follows with Dr. Perera Hematology who gave him IV iron earlier this year and had normal ferritin and H/H at that time. Has h/o Collado's and is on Plavix with recent STEMI (no stent and not on ASA) in October. No overt bleeding per rectum or elsewhere. 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 Underwent chemo for treatment. 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 Cont to follow with oncology (Dr. Perera) as outpatient. He was advised to make an appointment with his oncologist within the next 1 to 2 weeks (3) Acute and chronic respiratory failure: Taxol induced pneumonitis-cont steroids. Seems to be stable Has home oxygen (4) CKD (chronic kidney disease), stage III: ANDREW resolved and he is at baseline renal function. Cont to avoid unnecessary nephrotoxic substances. Renal function has been a stabilized (5) HTN (hypertension): At goal, cont amlodipine and coreg per home regimen. (6) COPD (chronic obstructive pulmonary disease): Former smoker with advanced emphysema on imaging. Continue Spiriva, Symbicort (7) CAD (coronary artery disease): Chronic, stable, denies chest pain or other ACS symptoms. STEMI in October 2018 with subsequent angioplasty to RCA. The patient had pancytopenia at that time and DAPT was continued for one month only. ASA 81 was discontinued in November 2018 and he remains on Plavix monotherapy. Cont Coreg, Imdur, and Crestor. Holding plavix in preparation for upcoming EGD. (8) Seizure disorder: Remote history, Continue Lamictal BID (9) Collado's esophagus: H/o EGD in July 2018 at [facility] by Dr. Wong of surgery. 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 Needs to follow-up with GI as outpatient. Status post EGD today which showed: -2 cm hiatal hernia -Esophageal mucosal changes classified as Collado's stage C 8M8 Luisa criteria. 4 cm segment of extensive nodularity with dysplastic morphology resected by white field EMR -Normal stomach -Normal duodenal bulb and second portion of the duodenum -Mucosal dissection was performed and resection with retrieval what complete Advised PPI 2 times a day for 3 months and repeat EGD Biopsy result is pending We will have EGD in 3 months (10) Peripheral vascular disease: Diffuse peripheral vascular disease including carotid occlusive disease s tatus post left carotid endarterectomy, extensive aortic arch atherosclerosis, moderate brachiocephalic artery stenosis, and diminished lower extremity peripheral pulses with prior CT angiograms revealing moderate atherosclerotic disease. Cont same med mngmt for CAD above. (11) DVT prophylaxis: SCDs-heparin stopped with worsening anemia. DNR/DNI Dispo-uncertain at this time. PT/OT evaluations. Total Time Total Time Spent Total Time Spent (In Minutes): 35 minutes Total Time Includes: Examination of the Patient, Discharge Planning, Medication Reconciliation and Communication With Other Providers Discharge Plan Discharge Items Patient Disposition: Home - Self-Care Reason For Visit: ACUTE ON CHRONIC RESP FAILURE BILAT PNA Discharge Diagnosis: Anemia status post 2 unit of PRBC transfusion, Collado's esophagus, adenocarcinoma of right lung cancer status post surgery 2004, COPD on home oxygen Condition on Discharge: Good Activity: Resume your previous activity Non-emergency contact: Primary Care Provider Call non-emergency contact if: you have any medication questions and your symptoms worsen Follow-up/Referrals: Harris Cam MD [Primary Care Provider] - 03/18/19 10:05 am (Your appointment is with Dr. Maguire. Please make an appointment with your oncologist within 1 to 2 weeks) Diet: Regular Diet Comment: Continue soft diet for the next 3 days and after that regular diet Addtl Attending Provider Instructions: Continue soft diet for next 3 days before restarting regular diet Do not take any Plavix until the 12th of this month Continue Protonix twice daily for 3 months GI will call with biopsy results and endoscopy in 3 months Pending Studies at Discharge: Yes Studies:: Biopsy from esophagus Stand-Alone Forms: My [employer], Smoking Cessation Medications and DC Order Prescriptions: New pantoprazole 40 mg Tablet,Delayed Release (Dr/Ec) 40 mg PO BID 30 Days Qty: 60 RF: 0 prednisone 20 mg Tablet 10 mg PO UD Qty: 30 RF: 0 Continued Symbicort 160-4.5 mcg/actuation HFA aerosol inhaler 2 puffs INH BID Qty: 3 RF: 1 tamsulosin 0.4 mg capsule 0.4 mg PO HS RF: 0 Spiriva with HandiHaler 18 mcg capsule, w/inhalation device 1 cap inhalation DAILY RF: 0 carvedilol 6.25 mg tablet 6.25 mg PO BID RF: 0 dutasteride 0.5 mg capsule 0.5 mg PO DAILY RF: 0 lamotrigine 150 mg tablet 150 mg PO BID RF: 0 rosuvastatin 20 mg tablet 20 mg PO HS RF: 0 aspirin [Aspirin Low Dose] 81 mg Tablet,Delayed Release (Dr/Ec) 81 mg PO HS RF: 0 nitroglycerin 0.4 mg Tablet, Sublingual 0.4 mg sublingual USEASDIRECTD PRN (Reason: Chest Pain) RF: 0 isosorbide mononitrate 30 mg tablet extended release 24 hr 30 mg PO DAILY RF: 0 amlodipine 10 mg Tablet 10 mg PO DAILY RF: 0 folic acid 1 mg tablet 1 mg PO DAILY RF: 0 escitalopram oxalate 10 mg Tablet 5 mg PO DAILY RF: 0 levalbuterol HCl 0.63 mg/3 mL Solution For Nebulization INHALATION DIRECTED RF: 0 clopidogrel 75 mg Tablet 75 mg PO DAILY Qty: 0 RF: 0 Discontinued pantoprazole 40 mg tablet,delayed release (DR/EC) 40 mg PO DAILY RF: 0 Discharge Orders: Discharge Order (Routine); Ordered 03/13/19 Ordered By: Princess Rose Admission Data Admit Date/Time: 03/04/19 17:24 Attending Provider: Princess Rose Admit Provider: Helio Bonilla Primary Care Provider: Harris Cam Other Providers: Ksenia Weathers ; Helio Bonilla ; Les Whalen ; Alejandra Thompson Other Interventions: Discharge Summary Assessment (RN) Last Done: 03/13/19 14:44 DC Date/Time DO NOT enter until pt leaves facility: 03/13/19 15:34
--- NOTE | 2019-03-17 13:24 | Coding Query ---
CODING QUERY To promote full compliance with coding requirements relating to patient care, provider participation is requested in all cases of regional transfer liaison uncertainty. Please assist us with the question(s) below: Coding Question(s): There is documentation in the record of Pneumonitis with early Progress Notes documenting Radiation Pneumonitis, then documenting Taxol induced Pneumonitis, and documentation on the last Pulmonary Progress Note on 03/10/19 documents, "ChemoRad induced Pneumonitis" and the later Progress Notes and Discharge Summary document Taxol induced Pneumonitis and it is not clear if there was still possible Radiation induced Pneumonitis. Please specify below, in your clinical opinion, regarding the Pneumonitis. ( + ) Likely Taxol/chemotherapy Induced Pneumonitis and/or Radiation induced Pneumonitis ( ) Likely Taxol/chemotherapy Induced Pneumonitis. The Radiation induced Pneumonitis is Ruled-Out ( ) Other: Please Specify Physician's Response(s): Thank you Helen Holbrook Principal Diagnosis: "that condition established after study, to be chiefly responsible for occasioning the admission of the patient to the hospital for care." Co-Existing Principal Diagnosis: "when two or more diagnoses equally meet the criteria for principal diagnosis as determined by the circumstances of admission, diagnostic work up, and/or therapy provided, and the Alphabetic Index, Tabular List, or another coding guideline does not provide sequencing direction, any one of the diagnoses may be sequenced first." "When the physician has documented what appears to be a current diagnosis in the body of the record, but has not included the diagnosis in the final diagnostic statement, the physician should be asked whether the diagnosis should be added." (Source Coding [facility] 2 QTR90. p3-4) [facility]
--- NOTE | 2019-03-17 13:25 | Coding Query ---
PATHOLOGY To promote full compliance with coding requirements relating to patient care, physician participation is requested in all cases of manager purchasing uncertainty. Please assist us with the question(s) below: Please review the Pathology report and please document any relevant diagnosis(es) below: Diagnosis(es): Adenocarcinoma of the esophagus, G2 moderately differentiated and invading the submucosa Thank you Helen SULLIVAN
== END 2019-03-13 15:34 | disposition home health service (06) | DRG 205 ==
LOC: ED 15:05 → 2S 17:24 → SUATTDRO 17:24 → 2S 17:35

== ENCOUNTER 2019-04-03 16:17 | Inpatient (IN) ==
[2019-04-03] MEDS ORDERED: ALBUTEROL 0.083% NEBU SOLN 3 ML VIAL INH STA (16:47)
[2019-04-03 17:27] LABS: Hematocrit (blood only) 30.9 % (42-52); Hemoglobin 9.7 g/dL (14.0-18.0); Mean Corpuscular Hemoglobin 25.9 pg (25-34); Mean Corpuscular Hgb Conc 31.4 g/dL (32-36); Mean Corpuscular Volume 82.4 fL (80-100); RDW Coefficient of Variation 18.5 % (11.5-14.5); Red Blood Count 3.75 M/uL (4.7-6.1); White Blood Count 4.36 K/uL (4.8-10.8)
[2019-04-03 17:29] LABS: Base Excess VBG 2.4 mEq/L; pH VBG 7.38 (7.36-7.41)
--- NOTE | 2019-04-03 17:36 | XRay Report ---
XR chest 1V portable CLINICAL HISTORY: Dyspnea COMPARISON STUDY: 03/08/2019 FINDINGS: The cardiac and mediastinal contours remain stable. There is a right-sided A-Port catheter present. Trace subpulmonic pleural effusions are visualized. There is chronic interstitial thickening similar to the prior study. There is no lobar consolidation. There is a nonspecific 2.5 cm right upp er lung zone opacity. There is a stable less pronounced left perihilar opacity.[ IMPRESSION: 1. Emphysema with chronic interstitial thickening 2. Indeterminate 2.5 cm nodular right upper lung zone opacity 3. Small bilateral pleural effusions Electronically signed by: Foster Nguyen M.D. 04/03/2019 5:34 PM
[2019-04-03 17:37] LABS: Partial Thromboplastin Ratio 1.1; Partial Thromboplastin Time 28.9 Seconds (21.0-31.0); Prothrombin Time 10.3 Seconds (9.0-12.0)
[2019-04-03 17:43] LABS: Alanine Aminotransferase 22 U/L (12-78); Albumin Level 2.8 gm/dl (3.4-5.0); Aspartate Aminotransferase 10 U/L (15-37); BUN Creatinine Ratio 14.3 (10-20); Blood Urea Nitrogen 20 mg/dl (7-18); Calcium 8.9 mg/dl (8.5-10.1); Carbon Dioxide 27 mmol/L (21-32); Chloride 104 mmol/L (98-107); Creatinine Clr Calc Pharmacy 36.1 ml/min; Est GFR (African American) 53.5; Est GFR (Non-African American) 46.1; Glucose 111 mg/dl (70-99); Potassium 4.2 mmol/L (3.5-5.1); Sodium 137 mmol/L (136-145)
[2019-04-03 17:48] LABS: Albumin Globulin Ratio 0.8 (0.9-2); Alkaline Phosphatase 68 U/L (45-117); Bilirubin,Total 0.5 mg/dl (0.2-1); Eosinophils # (auto) 0.07 K/uL (0-0.5); Eosinophils % (auto) 1.6 %; Globulin 3.6 gm/dl (2.5-4.0); Immature Granulocytes # (auto) 0.01 K/uL (0.00-0.02); Immature Granulocytes % (auto) 0.2 %; Lymphocytes # (auto) 0.43 K/uL (1.2-3.4); Lymphocytes % (auto) 9.9 %; Mean Platelet Volume 8.7 fL (7.4-10.4); Monocytes # (auto) 0.42 K/uL (0.11-0.59); Monocytes % (auto) 9.6 %; Neutrophils # (auto) 3.43 K/uL (1.4-6.5); Neutrophils % (auto) 78.7 %; Platelet Count 81 K/uL (130-400); Platelet Estimate Decreased (Normal); Total Protein 6.4 gm/dl (6.4-8.2); Troponin I < 0.015 ng/ml (0-0.045)
[2019-04-03] MEDS ORDERED: OPTIRAY 320 125ml IV PRN (18:05)
--- NOTE | 2019-04-03 18:23 | CT Scan Report ---
CT ANGIOGRAM OF THE CHEST CLINICAL HISTORY: Hypoxia. History of carcinoma. COMPARISON STUDY: 03/05/2019 TECHNIQUE: Following the IV administration of 120 mL of Optiray-320, CT angiogram of the thorax was p erformed from the thoracic inlet to the lung bases utilizing the pulmonary embolus protocol. Images a re reviewed in the axial, sagittal, and coronal planes. IV contrast was administered without complica tion. MIP imaging was performed. A dose lowering technique was utilized adhering to the principles o f ALARA. CT DOSE: 310.15 mGy.cm FINDINGS: There is persistent mediastinal lymphadenopathy with enlarged subcarinal paratracheal and prevascular lymph nodes. An index subcarinal lymph node measures 18 mm in short axis. This remain similar to the preceding study. There is no evidence of thoracic aortic aneurysm. Atheromatous changes are present within the visuali zed portions of the abdominal aorta with evidence of a chronic dissection versus calcified mural thro mbus. This remains unchanged in appearance There were no pulmonary artery filling defects to indicate acute pulmonary embolism. There is a trace left pleural effusion, and increasing eeqao-ld-hkufcyjw right pleural effusion. Ther e is advanced emphysema with chronic pulmonary fibrotic changes. There are right lower lobe compressi ve atelectatic changes. There is a stable 8 mm pleural-based nodule within the right upper lobe. Ther e is an enlarging 28 x 11 mm pleural-based opacity within the right upper lobe. There is an enlarging 9 mm pleural-based nodule within the lingula. There is a 13 mm left lower lobe nodular opacity. IMPRESSION: 1. No evidence of acute pulmonary embolism 2. Severe emphysema with chronic interstitial lung disease. An element of superimposed interstitial e ryder must be considered 3. Trace left pleural effusion and enlarging small to moderate right pleural effusion 4. Right lower lobe dependent atelectatic change 5. Pathologic mediastinal lymphadenopathy 6. Enlarging bilateral pulmonary nodular opacities. Neoplasm must be considered. Electronically signed by: Foster Nguyen M.D. 04/03/2019 6:22 PM
--- NOTE | 2019-04-03 19:26 | Emergency Department Note ---
Entered by Tameka Gurrola acting as a scribe for History of Present Illness General Chief complaint: Weakness Stated complaint: WEAKNESS, DIZZY, LOW O2 SATS Source: patient and family History of Present Illness Onset (ago): day(s) (3) Location: chest Pain Consistency: + intermittent Maximum Pain Intensity: 1 Quality: + other (shortness of breath) Exacerbated By: + movement Associated symptoms: + denies other symptoms (runny nose, diarrhea); no cough and no nausea/vomiting The patient is a 83 year old male who presents to the Emergency Room with complaints of intermittent shortness of breath beginning 3 days ago. He notes increased difficulty breathing with movement. The patient denies cough, runny nose, nausea, vomiting, and diarrhea. The patient's family notes he always wears 4L of oxygen. They report the patient has a history of COPD, and stage 4 adenocarcinoma. The patient notes he is scheduled to start chemo in 2 days. He notes he is currently on Plavix. He reports a history of smoking. He notes he smoked for about 20 years, but quit 15 years ago. The patient's family notes the patient was in the hospital 3 weeks ago and had a thoracentesis performed on him. Home Medications Home Medications Medication Instructions Recorded Confirmed Type carvedilol 6.25 mg PO BID 10/24/18 04/03/19 History dutasteride 0.5 mg PO DAILY 10/24/18 04/03/19 History lamotrigine 150 mg PO BID 10/24/18 04/03/19 History nitroglycerin 0.4 mg SUBLINGUAL USEASDIRECTD PRN 10/24/18 04/03/19 History rosuvastatin 20 mg PO HS 10/24/18 04/03/19 History tamsulosin 0.4 mg PO HS 10/24/18 04/03/19 History amlodipine 10 mg PO DAILY 03/04/19 04/03/19 History escitalopram oxalate 5 mg PO DAILY 03/04/19 04/03/19 History folic acid 1 mg PO QAM 03/04/19 04/03/19 History isosorbide mononitrate 30 mg PO QAM 03/04/19 04/03/19 History clopidogrel 75 mg PO DAILY #0 tab 03/13/19 04/03/19 Rx pantoprazole 40 mg PO BID 30 Days #60 tab 03/13/19 04/03/19 Rx gdrptcxuvxp-rnxlcvdrm-rllzzcty 1 inh INHALATION DAILY 04/03/19 04/03/19 History [Trelegy Ellipta] Allergies Allergy/AdvReac Type Severity Reaction Status Date / Time lisinopril Allergy Severe Unknown Verified 04/03/19 17:03 lidocaine Allergy Intermediate PRESERVATIVE Verified 04/03/19 17:03 IN LIDOCAINE CAUSES RED SKIN atorvastatin [From Lipitor] AdvReac Mild Blurry Verified 04/03/19 17:03 Vision rosuvastatin [From Crestor] AdvReac Mild Blurry Verified 04/03/19 17:03 Vision Past Med/Surg History Medical History Adenocarcinoma of right lung (Chronic) Anemia (Chronic) HX BPH (benign prostatic hyperplasia) (Chronic) CAD (coronary artery disease) (Chronic) "2004 - RAFI to left cx 02/2011 - BMS to prox LAD and RCA" Chronic respiratory failure (Chronic) 4L O2 at home CKD (chronic kidney disease), stage III (Chronic) COPD (chronic obstructive pulmonary disease) (Chronic) GERD (gastroesophageal reflux disease) (Chronic) HTN (hypertension) (Chronic) Hyperlipidemia (Chronic) Osteoarthritis (Chronic) Seizure disorder (Chronic) STARING SPELLS-LAST EVENT MORE THAN 4 YEARS AGO (EPILEPSY) Squamous cell carcinoma of left lung Surgical History H/O cardiac catheterization 10/24/2018 2 RCA lesion History of bronchoscopy (Chronic) 06/18/18 History of cardiac cath (Chronic) 2010, BMS to proximal RCA History of heart artery stent (Chronic) 3 TOTAL STENTS PLACED (NONE IN THE LAST YEAR) UNSURE OF DATES FOLLOWS WITH DR. STAFFORD History of lobectomy of lung (Chronic) LLL 2004 S/P carotid endarterectomy (Chronic) LEFT Family History Other Stroke Social History Preferred Language: Niuean Communication Ability: Effective Asbestos Microscopist Required: No Beliefs That Will Affect Care: None marital status: Current Living Situation: Spouse Current Living Situation Comment: LIVE AT HOME WITH current occupational status: retired Feels Safe at Home: Yes Smoking Status: Former smoker Tobacco Type: cigarettes ; Cigarettes Per Day: 16 ; Second Hand Exposure: No ; Hx Alcohol Use: No Hx Substance Use: No Review of Systems See HPI for pertinent positives & negatives. and A total of 10 systems reviewed and were otherwise negative Physical Exam Vital Signs Vital Signs - 24 hr 04/03/19 16:28 04/03/19 17:00 04/03/19 17:20 Temperature 36.6 C Temperature Source Oral Pulse Rate 77 Pulse Rate [Apical] 64 Pulse Rhythm Regular Pulse Strength Normal Respiratory Rate 20 20 Respiratory Effort / Characteristics Non-Labored Spontaneous Non-Labored Spontaneous Respiratory Depth Normal Respiratory Pattern Regular Blood Pressure 106/52 L Blood Pressure [Left Arm] Blood Pressure Mean 70 Blood Pressure Mean [Left Arm] Blood Pressure Position [Left Arm] Pulse Oximetry 83 L 96 100 Oxygen Delivery Method Nasal Cannula Oxymask Oxymask Oxygen Flow Rate 4 8 8 Sepsis Recent Fever Within 48 Hours No Sepsis Action Taken by Nursing No Action Required 04/03/19 18:18 Temperature Temperature Source Pulse Rate Pulse Rate [Apical] 66 Pulse Rhythm Pulse Strength Respiratory Rate 24 Respiratory Effort / Characteristics Non-Labored Respiratory Depth Normal Respiratory Pattern Blood Pressure Blood Pressure [Left Arm] 144/48 H Blood Pressure Mean Blood Pressure Mean [Left Arm] 80 Blood Pressure Position [Left Arm] Lying Pulse Oximetry 95 Oxygen Delivery Method Oxymask Oxygen Flow Rate 5 Sepsis Recent Fever Within 48 Hours Sepsis Action Taken by Nursing GENERAL: sitting up in bed, chronically-ill appearing, on nasal cannula, dyspneic with conversation EYE EXAM: normal conjunctiva, PERRL and EOM's grossly intact OROPHARYNX: no exudate, no erythema, buccal mucosa, and tongue normal and mucous membranes are moist, cyanosis of lips NECK: supple, no nuchal rigidity, no adenopathy, non-tender LUNGS: Clear to auscultation. Normal chest wall mechanics. Diminished breath sounds at bilateral bases. HEART: no murmurs, S1 normal and S2 normal ABDOMEN: abdomen soft, non-tender, normo-active bowel sounds, no masses, no rebound or guarding. BACK: Back is symmetrical on inspection and there is no deformity, no midline tenderness, no CVA tenderness. SKIN: no rashes and no bruising UPPER EXTREMITIES: upper extremities are grossly normal. LOWER EXTREMITIES: No pitting edema. Calves equal bilaterally. NEURO EXAM: Normal sensorium, cranial nerves II-XII grossly intact, normal speech, no gross weakness of arms, no gross weakness of legs. Course Course ED COURSE: Vital signs were reviewed and showed hypoxia. The patients medical record was reviewed The above diagnostic studies were performed and reviewed. ED treatments and interventions as stated above. 1635: The patient was evaluated in room B10. A complete history and physical examination was performed. 1650: The patient was placed on an Oxymask. His pulse ox is 89 percent. 1830: Upon reevaluation, the patient is resting more comfortably. The patient's pulse ox is 95 percent. I discussed my findings with the patient and he understands and agrees with the treatment plan. Based on the patients age, coexisting illnesses, exam and lab findings the decision to treat as an inpatient was made. I reviewed the patient's case with Valerie ARIAS. Dr. Jet Garcia Hospitalist will evaluate the patient for further management. The patient remained stable while under my care. The patient will be evaluated for further management. Administered Medications Ioversol (Optiray 320 125ml) 120 ml IV ONCE PRN PRN Reason: Interaction Checking Stop: 04/07/19 18:04 Last Admin: 04/03/19 18:06 Dose: 120 ml Documented by: [id number] Discontinued Medications Albuterol (Ventolin 0.083% 2.5mg/3ml) 7.5 mg INH NOW STA Stop: 04/03/19 16:48 Last Admin: 04/03/19 17:19 Dose: 7.5 mg Documented by: [id number] Critical Care Time Critical Care Time: Yes Total Critical Care Time: 40 I have personally spent 40 minutes of critical care time in the direct management of this patient. This includes bedside care, interpretation of diagnostic studies, and testing, discussion with consultants, patient, and family members, and other required patient management activities. This 40 minutes is in excess of all separately billable procedures. Medical Decision Making Differential Diagnosis Differential diagnoses includes but is not limited to pneumonia, bronchitis, COPD/Asthma exacerbation, pneumothorax, pulmonary embolism, congestive heart failure, acute coronary syndrome Medical Records Attestation: I reviewed the patient's medical records. Home Medications Current Medication List: was personally reviewed by me Laboratory Data Attestation: I reviewed the patient's lab results. Result diagrams: 04/03/19 17:17 04/03/19 17:17 Lab Results 04/03/19 04/03/19 04/03/19 Range/Units 17:17 17:17 17:17 WBC 4.36 L (4.8-10.8) K/uL RBC 3.75 L (4.7-6.1) M/uL Hgb 9.7 L (14.0-18.0) g/dL Hct 30.9 L (42-52) % MCV 82.4 (80-100) fL MCH 25.9 (25-34) pg MCHC 31.4 L (32-36) g/dL RDW Std Deviation 55.0 H (36.4-46.3) fL RDW Coeff of Brendan 18.5 H (11.5-14.5) % Plt Count 81 L (130-400) K/uL MPV 8.7 (7.4-10.4) fL Immature Gran % (Auto) 0.2 % Neut % (Auto) 78.7 % Lymph % (Auto) 9.9 % [place] % (Auto) 9.6 % Eos % (Auto) 1.6 % Baso % (Auto) 0.0 % Immature Gran # (Auto) 0.01 (0.00-0.02) K/uL Neut # (Auto) 3.43 (1.4-6.5) K/uL Lymph # (Auto) 0.43 L (1.2-3.4) K/uL [place] # (Auto) 0.42 (0.11-0.59) K/uL Eos # (Auto) 0.07 (0-0.5) K/uL Baso # (Auto) 0.00 (0-0.2) K/uL Platelet Estimate Decreased L (Normal) PT 10.3 (9.0-12.0) Seconds INR 1.0 (0.9-1.1) APTT 28.9 (21.0-31.0) Seconds PTT Ratio 1.1 VBG pH (7.36-7.41) VBG pCO2 (38-50) mmHg VBG pO2 mmHg VBG HCO3 mmol/L VBG O2 Saturation % VBG Base Excess mEq/L Barometric Pressure mm/Hg Sodium 137 (136-145) mmol/L Potassium 4.2 (3.5-5.1) mmol/L Chloride 104 (98-107) mmol/L Carbon Dioxide 27 (21-32) mmol/L Anion Gap 6.0 (3-11) BUN 20 H (7-18) mg/dl Creatinine 1.40 (0.6-1.4) mg/dl Est Cr Clr Drug Dosing 36.1 ml/min Est GFR ( Amer) 53.5 Est GFR (Non-Af Amer) 46.1 BUN/Creatinine Ratio 14.3 (10-20) Glucose 111 H (70-99) mg/dl Calcium 8.9 (8.5-10.1) mg/dl Total Bilirubin 0.5 (0.2-1) mg/dl AST 10 L (15-37) U/L ALT 22 (12-78) U/L Alkaline Phosphatase 68 (45-117) U/L Troponin I < 0.015 (0-0.045) ng/ml Total Protein 6.4 (6.4-8.2) gm/dl Albumin 2.8 L (3.4-5.0) gm/dl Globulin 3.6 (2.5-4.0) gm/dl Albumin/Globulin Ratio 0.8 L (0.9-2) 04/03/19 Range/Units 17:17 WBC (4.8-10.8) K/uL RBC (4.7-6.1) M/uL Hgb (14.0-18.0) g/dL Hct (42-52) % MCV (80-100) fL MCH (25-34) pg MCHC (32-36) g/dL RDW Std Deviation (36.4-46.3) fL RDW Coeff of Brendan (11.5-14.5) % Plt Count (130-400) K/uL MPV (7.4-10.4) fL Immature Gran % (Auto) % Neut % (Auto) % Lymph % (Auto) % [place] % (Auto) % Eos % (Auto) % Baso % (Auto) % Immature Gran # (Auto) (0.00-0.02) K/uL Neut # (Auto) (1.4-6.5) K/uL Lymph # (Auto) (1.2-3.4) K/uL [place] # (Auto) (0.11-0.59) K/uL Eos # (Auto) (0-0.5) K/uL Baso # (Auto) (0-0.2) K/uL Platelet Estimate (Normal) PT (9.0-12.0) Seconds INR (0.9-1.1) APTT (21.0-31.0) Seconds PTT Ratio VBG pH 7.38 (7.36-7.41) VBG pCO2 48 (38-50) mmHg VBG pO2 41 mmHg VBG HCO3 28 mmol/L VBG O2 Saturation 73.0 % VBG Base Excess 2.4 mEq/L Barometric Pressure 736.4 mm/Hg Sodium (136-145) mmol/L Potassium (3.5-5.1) mmol/L Chloride (98-107) mmol/L Carbon Dioxide (21-32) mmol/L Anion Gap (3-11) BUN (7-18) mg/dl Creatinine (0.6-1.4) mg/dl Est Cr Clr Drug Dosing ml/min Est GFR ( Amer) Est GFR (Non-Af Amer) BUN/Creatinine Ratio (10-20) Glucose (70-99) mg/dl Calcium (8.5-10.1) mg/dl Total Bilirubin (0.2-1) mg/dl AST (15-37) U/L ALT (12-78) U/L Alkaline Phosphatase (45-117) U/L Troponin I (0-0.045) ng/ml Total Protein (6.4-8.2) gm/dl Albumin (3.4-5.0) gm/dl Globulin (2.5-4.0) gm/dl Albumin/Globulin Ratio (0.9-2) Imaging Data Radiologist's Impression: Radiology results as stated below per my review and the radiologist's interpretation: XR chest 1V portable CLINICAL HISTORY: Dyspnea COMPARISON STUDY: 03/08/2019 FINDINGS: The cardiac and mediastinal contours remain stable. There is a right- sided A-Port catheter present. Trace subpulmonic pleural effusions are visualized. There is chronic interstitial thickening similar to the prior study. There is no lobar consolidation. There is a nonspecific 2.5 cm right upper lung zone opacity. There is a stable less pronounced left perihilar opacity.[ IMPRESSION: 1. Emphysema with chronic interstitial thickening 2. Indeterminate 2.5 cm nodular right upper lung zone opacity 3. Small bilateral pleural effusions Electronically signed by: Foster Nguyen M.D. 04/03/2019 5:[address] ANGIOGRAM OF THE CHEST CLINICAL HISTORY: Hypoxia. History of carcinoma. COMPARISON STUDY: 03/05/2019 TECHNIQUE: Following the IV administration of 120 mL of Optiray-320, CT angiogram of the thorax was performed from the thoracic inlet to the lung bases utilizing the pulmonary embolus protocol. Images are reviewed in the axial, sagittal, and coronal planes. IV contrast was administered without complication. MIP imaging was performed. A dose lowering technique was utilized adhering to the principles of ALARA. CT DOSE: 310.15 mGy.cm FINDINGS: There is persistent mediastinal lymphadenopathy with enlarged subcarinal paratracheal and prevascular lymph nodes. An index subcarinal lymph node measures 18 mm in short axis. This remain similar to the preceding study. There is no evidence of thoracic aortic aneurysm. Atheromatous changes are present within the visualized portions of the abdominal aorta with evidence of a chronic dissection versus calcified mural thrombus. This remains unchanged in appearance There were no pulmonary artery filling defects to indicate acute pulmonary embolism. There is a trace left pleural effusion, and increasing ebvag-ph-fywooyit right pleural effusion. There is advanced emphysema with chronic pulmonary fibrotic changes. There are right lower lobe compressive atelectatic changes. There is a stable 8 mm pleural-based nodule within the right upper lobe. There is an enlarging 28 x 11 mm pleural-based opacity within the right upper lobe. There is an enlarging 9 mm pleural-based nodule within the lingula. There is a 13 mm left lower lobe nodular opacity. IMPRESSION: 1. No evidence of acute pulmonary embolism 2. Severe emphysema with chronic interstitial lung disease. An element of superimposed interstitial edema must be considered 3. Trace left pleural effusion and enlarging small to moderate right pleural effusion 4. Right lower lobe dependent atelectatic change 5. Pathologic mediastinal lymphadenopathy 6. Enlarging bilateral pulmonary nodular opacities. Neoplasm must be considered. Electronically signed by: Foster Nguyen M.D. 04/03/2019 6:22 PM ECG Data Attestation: I personally reviewed and interpreted this ECG as follows: Indication: + weakness Rate (beats per minute): 64 Rhythm: + sinus rhythm ECG Findings: + Other (inferior Q waves; normal QTC); no PVCs Blood Pressure Blood Pressure Findings: Elevated blood pressure Blood Pressure Disposition: further management by hospitalist MDM Narrative Patient is an 83-year-old male with past medical history of stage IV lung cancer diagnosis adenocarcinoma along with adenocarcinoma of the esophagus that presents the ER for shortness of breath which is been present for the past 2 to 3 days. Upon review of his chart he has been here before with pleural effusions had a thoracentesis. He also has a history of COPD as he is a previous smoker. He has been on Plavix as well. IV was established blood work was obtained. Upon arrival he was found to be 65% on 4 L with movement from the wheelchair to the bed. He was placed on 8 L oxygen mask. He normally wears only 4 L chronically. On 80 L he was 95% as long as he was just sitting resting. IV established blood work was obtained and showed mild leukopenia 4.3. Hemoglobin with anemia of 9.7 consistent with previous at 10. Platelets were slightly low at 81. INR was unremarkable. VBG unremarkable. BMP along with LFTs bilirubin and troponin was unremarkable. Chest x-ray did not show a large pleural effusion and consequently I did not believe that the small effusion on chest x- ray explained his hypoxia. With a history of cancer I did elect to CT PE him. This was negative but did show a moderate pleural effusion with some atelectasis. Updated the family at bedside. Discussed with the hospitalist. Patient is currently stable I do not believe he needs an emergent tap at this time in the ER. Admitted for further work-up. Patient was given some neb treatments as well in the ER. Impression & Plan Hypoxia, Pleural effusion, Metastatic cancer, Thrombocytopenia Discharge Plan Visit Data Chief Complaint: Weakness Stated Complaint: WEAKNESS, DIZZY, LOW O2 SATS ED Provider: Ariel Hayes Discharge Problem: Hypoxia, Pleural effusion, Metastatic cancer, Thrombocytopenia Patient Disposition: Being Evaluated by Hospitalist Forms Stand Alone Forms: [facility] [email or web address] Prescriptions Prescriptions: No Action tamsulosin 0.4 mg capsule 0.4 mg PO HS RF: 0 carvedilol 6.25 mg tablet 6.25 mg PO BID RF: 0 dutasteride 0.5 mg capsule 0.5 mg PO DAILY RF: 0 lamotrigine 150 mg tablet 150 mg PO BID RF: 0 rosuvastatin 20 mg tablet 20 mg PO HS RF: 0 nitroglycerin 0.4 mg Tablet, Sublingual 0.4 mg sublingual USEASDIRECTD PRN (Reason: Chest Pain) RF: 0 Trelegy Ellipta 100-62.5-25 mcg Blister With Device 1 inh INHALATION DAILY RF: 0 isosorbide mononitrate 30 mg tablet extended release 24 hr 30 mg PO QAM RF: 0 amlodipine 10 mg Tablet 10 mg PO DAILY RF: 0 folic acid 1 mg tablet 1 mg PO QAM RF: 0 escitalopram oxalate 10 mg Tablet 5 mg PO DAILY RF: 0 pantoprazole 40 mg Tablet,Delayed Release (Dr/Ec) 40 mg PO BID 30 Days Qty: 60 RF: 0 clopidogrel 75 mg Tablet 75 mg PO DAILY Qty: 0 RF: 0 Referrals Referrals: Harris Cam MD [Primary Care Provider] - The scribe's documentation has been prepared under my direction and personally reviewed by me in its entirety. I confirm that the note above accurately reflects all work, treatment, procedures, and medical decision making performed by me.
--- NOTE | 2019-04-03 20:27 | History & Physical Report ---
Date of Service April 03, 2019 Assessment & Plan (1) Acute on chronic respiratory failure with hypoxia: (2) Acute on chronic diastolic CHF (congestive heart failure): (3) Pleural effusion: -Admit to [facility] with telemetry -Patient presenting from home with reports of increasing shortness of breath over the past 3 days -In the ED, found to be hypoxic at 83%, currently requiring 8 L of oxygen via oxygen mask -CT chest negative for PE however shows trace left pleural effusion and small to moderate right pleural effusion -Recent admission to [facility] and underwent 1.8 L thoracentesis (pathology showed rare atypical cells concerning for possible metastatic carcinoma) -Was also treated for possible chemotherapy-induced pneumonitis with prednisone 10 mg daily, completed course last week -Given lower extremity edema on exam, will give Lasix 40 mg IV x1 tonight; had echo 03/09/2019 -grade 1 diastolic dysfunction, EF 60 to 65% -Pulmonary consult for possible thoracentesis -May need Pleurx catheter, has had pleural effusions drained twice recently -? If symptoms are also from pneumonitis and if steroids need to be resumed - defer to pulmonary (4) Esophageal adenocarcinoma: (5) Adenocarcinoma of right lung: -Follows with Dr. Helm at [facility], [place]; is to start new chemotherapy regimen on 04/06 -Esophageal cancer recently diagnosed, not a candidate for surgical intervention given advanced lung cancer -Follows with Dr. Whalen with GI (6) Thrombocytopenia: -Platelets 81K -Chronic, no signs of bleeding -Continue to monitor (7) CAD (coronary artery disease): -Appears stable, no reports of chest pain -Continue Plavix, beta-luciana, nitrate, statin (8) COPD (chronic obstructive pulmonary disease): -No wheezing on exam -Continue home inhalers (9) HTN (hypertension): -BP controlled, continue carvedilol, isosorbide, amlodipine (10) CKD (chronic kidney disease), stage III: -Baseline creatinine runs in the low 1's -Noted to be 1.4 today -Monitor while receiving IV diuresis (11) Seizure disorder: -Stable -Continue Lamictal (12) DVT prophylaxis: -SCDs due to thrombocytopenia History of Present Illness He was started on prednisone 10 mg daily for suspected chemotherapy-induced pneumonitis. Chief Complaint: Shortness of breath Primary Care Provider: Harris Cam MD 83-year-old male who presents the ED for evaluation of shortness of breath. Patient was most recently admitted to [facility] 03/04 through 03/13 for acute on chronic hypoxic respiratory failure due to pleural effusion. Patient underwent 1.8 L thoracentesis. He was started on prednisone 10 mg daily for suspected chemotherapy-induced pneumonitis. Steroids were completed last week. Patient was also treated for anemia with PRBC transfusion. Underwent EGD for evaluation of anemia, subsequent biopsies were positive for esophageal adenocarcinoma stage T1b. Patient follows with Dr. Helm with the [facility]. He is scheduled to restart chemo on 04/06. Patient reports he had been doing well since his discharge until a few days ago. Patient reports increasing shortness of breath. Reports the shortness of breath associated at times he is unable to walk and lowers himself to the ground. He denies cough. Reports as though he is " filling up with fluid". Denies chest pain. No lightheadedness, dizziness, diaphoresis, syncopal events. Denies abdominal pain, nausea, vomiting, d iarrhea. No fevers or chills. Denies any urinary symptoms. On exam, patient is found to have lower extremity edema, patient feels as though that has likely developed over the past few days. In the ED, patient was found to be hypoxic at 83%. He was requiring an 8 L oxygen mask. Labs are unremarkable. CT chest is negative for PE however shows trace left pleural effusion and small to moderate right pleural effusion. Patient was given nebulizer treatment. Allergies Allergy/AdvReac Type Severity Reaction Status Date / Time lisinopril Allergy Severe Unknown Verified 04/03/19 17:03 lidocaine Allergy Intermediate PRESERVATIVE Verified 04/03/19 17:03 IN LIDOCAINE CAUSES RED SKIN atorvastatin [From Lipitor] AdvReac Mild Blurry Verified 04/03/19 17:03 Vision rosuvastatin [From Crestor] AdvReac Mild Blurry Verified 04/03/19 17:03 Vision Home Medications Home Medications Medication Instructions Recorded Confirmed Type carvedilol 6.25 mg PO BID 10/24/18 04/03/19 History dutasteride 0.5 mg PO DAILY 10/24/18 04/03/19 History lamotrigine 150 mg PO BID 10/24/18 04/03/19 History nitroglycerin 0.4 mg SUBLINGUAL USEASDIRECTD PRN 10/24/18 04/03/19 History rosuvastatin 20 mg PO HS 10/24/18 04/03/19 History tamsulosin 0.4 mg PO HS 10/24/18 04/03/19 History amlodipine 10 mg PO DAILY 03/04/19 04/03/19 History escitalopram oxalate 5 mg PO DAILY 03/04/19 04/03/19 History folic acid 1 mg PO QAM 03/04/19 04/03/19 History isosorbide mononitrate 30 mg PO QAM 03/04/19 04/03/19 History clopidogrel 75 mg PO DAILY #0 tab 03/13/19 04/03/19 Rx pantoprazole 40 mg PO BID 30 Days #60 tab 03/13/19 04/03/19 Rx iiztoumflls-odnhybchm-mvbwumgb 1 inh INHALATION DAILY 04/03/19 04/03/19 History [Trelegy Ellipta] Past Med/Surg History Medical History Adenocarcinoma of right lung (Chronic) Anemia (Chronic) HX Collado's esophagus (Chronic) BPH (benign prostatic hyperplasia) (Chronic) CAD (coronary artery disease) (Chronic) 2004 - RAFI to left cx 02/2011 - BMS to prox LAD and RCA 10/2018 - angioplasty to mid RCA Chronic respiratory failure (Chronic) 4L O2 at home CKD (chronic kidney disease), stage III (Chronic) COPD (chronic obstructive pulmonary disease) (Chronic) Esophageal adenocarcinoma GERD (gastroesophageal reflux disease) (Chronic) HTN (hypertension) (Chronic) Hyperlipidemia (Chronic) Osteoarthritis (Chronic) Seizure disorder (Chronic) STARING SPELLS-LAST EVENT MORE THAN 4 YEARS AGO (EPILEPSY) Squamous cell carcinoma of left lung Thrombocytopenia (Inactive) Surgical History History of lobectomy of lung (Chronic) LLL 2004 S/P carotid endarterectomy (Chronic) LEFT Family History Other Stroke Social History Preferred Language: Ethiopian Communication Ability: Effective Putty Patcher Required: No Beliefs That Will Affect Care: None marital status: Current Living Situation: Spouse Current Living Situation Comment: LIVE AT HOME WITH current occupational status: retired Other Information That Helps Us Care for You: No Feels Safe at Home: Yes Smoking Status: Former smoker Tobacco Type: cigarettes ; Cigarettes Per Day: 16 ; Do You Dip or Chew Tobacco: No ; Second Hand Exposure: No ; Hx Alcohol Use: No Hx Substance Use: No Review of Systems Review of Systems: ROS per HPI, all other systems reviewed and negative Physical Exam Constitutional: WD/WN, vitals as above Eyes: PERRL, conjunctivae normal, anicteric sclerae ENMT: external ear and nose normal, oropharynx normal Respiratory: normal respiratory effort; no respiratory distress Auscultation: + diminished lung sounds and + crackles (Faint, bilateral, R>L, mid to lower lung boles) Cardiovascular: Rate/Rhythm: regular rate and regular rhythm Vessels: normal peripheral pulses Extremities: + edema (+2 pitting edema BLE) Chest (Breasts): Chest: + vascular access device or port Gastrointestinal (Abdomen): normal bowel sounds, soft, nontender, no hepatosplenomegaly Musculoskeletal: no cyanosis or clubbing, extremities motor strength 5/5 Skin: no rashes, warm and dry Neurologic: PERRL, EOMI, accommodation nl, no face palsy, no dysarthria Psychiatric: A+Ox3, euthymic affect Results & Data Vital Signs (Past 12 Hours) Vital Signs Temp Pulse Pulse Resp BP BP Pulse Ox 04/03/19 20:00 67 22 148/54 H 92 04/03/19 18:18 66 24 144/48 H 95 04/03/19 17:20 64 20 100 04/03/19 17:00 96 04/03/19 16:28 36.6 C 77 20 106/52 L 83 L Laboratory Results Short CBC 04/03/19 Range/Units 17:17 WBC 4.36 L (4.8-10.8) K/uL Hgb 9.7 L (14.0-18.0) g/dL Hct 30.9 L (42-52) % Plt Count 81 L (130-400) K/uL BMP 04/03/19 17:17 Sodium 137 Potassium 4.2 Chloride 104 Carbon Dioxide 27 BUN 20 H Creatinine 1.40 Glucose 111 H Calcium 8.9 Cardiac Enzymes 04/03/19 Range/Units 17:17 Troponin I < 0.015 (0-0.045) ng/ml Liver Function 04/03/19 Range/Units 17:17 Total Bilirubin 0.5 (0.2-1) mg/dl AST 10 L (15-37) U/L ALT 22 (12-78) U/L Alkaline Phosphatase 68 (45-117) U/L Albumin 2.8 L (3.4-5.0) gm/dl Diagnostic Findings CTA CHEST IMPRESSION: 1. No evidence of acute pulmonary embolism 2. Severe emphysema with chronic interstitial lung disease. An element of superimposed interstitial edema must be considered 3. Trace left pleural effusion and enlarging small to moderate right pleural effusion 4. Right lower lobe dependent atelectatic change 5. Pathologic mediastinal lymphadenopathy 6. Enlarging bilateral pulmonary nodular opacities. Neoplasm must be considered. CXR IMPRESSION: 1. Emphysema with chronic interstitial thickening 2. Indeterminate 2.5 cm nodular right upper lung zone opacity 3. Small bilateral pleural effusions Code Status & VTE Plan Code Status Patient is a DNR as per my discussion with him. 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 transplanted heart: [place] heart (2) COPD (chronic obstructive pulmonary disease) COPD type: unspecified COPD Qualified Code(s): J44.9 - Chronic obstructive pulmonary disease, unspecified (3) HTN (hypertension) Hypertension type: essential hypertension Qualified Code(s): I10 - Essential (primary) hypertension
[2019-04-03] MEDS ORDERED: FUROSEMIDE 40 MG/4 ML VIAL IV ONE (20:43)
[2019-04-03] MEDS ORDERED: ACETAMINOPHEN 325 MG TAB PO PRN (20:43)
[2019-04-03] MEDS ORDERED: FUROSEMIDE 40 MG in SYRINGE 0 ML IV ONE (21:15)
[2019-04-03] MEDS: ROSUVASTATIN CALCIUM 20 MG TAB PO SCH (21:44)
[2019-04-03] MEDS: lamoTRIgine 100 MG TAB PO SCH (21:45)
[2019-04-03] MEDS: carvediloL 6.25 MG TAB PO SCH (21:45)
[2019-04-03] MEDS: TAMSULOSIN HCL 0.4 MG CAP PO SCH (21:46)
[2019-04-03] MEDS: PANTOprazole 40 MG TAB PO SCH (21:46)
[2019-04-04] MEDS: HEPARIN 100 UNIT/ML 5ML FLUSH FLUSH PRN ×2 (06:11→16:20)
[2019-04-04 06:31] LABS: Hematocrit (blood only) 28.6 % (42-52); Mean Corpuscular Hgb Conc 31.5 g/dL (32-36); Mean Corpuscular Volume 82.7 fL (80-100); RDW Coefficient of Variation 18.6 % (11.5-14.5); RDW Standard Deviation 56.4 fL (36.4-46.3); Red Blood Count 3.46 M/uL (4.7-6.1); White Blood Count 3.98 K/uL (4.8-10.8)
[2019-04-04 06:38] LABS: Mean Platelet Volume 8.8 fL (7.4-10.4); Platelet Count 89 K/uL (130-400)
[2019-04-04 07:04] LABS: BUN Creatinine Ratio 11.6 (10-20); Calcium 8.5 mg/dl (8.5-10.1); Creatinine Clr Calc Pharmacy 38.6 ml/min; Est GFR (African American) 57.9; Potassium 3.9 mmol/L (3.5-5.1)
[2019-04-04] MEDS: ISOSORBIDE MONO EXTENDED REL 30 MG TABCR PO SCH (08:47)
[2019-04-04] MEDS: lamoTRIgine 100 MG TAB PO SCH ×2 (08:47→20:40)
[2019-04-04] MEDS: ESCITALOPRAM OXALATE 10 MG TAB PO SCH (08:47)
[2019-04-04] MEDS: AMLODIPINE BESYLATE 5 MG TAB PO SCH (08:47)
[2019-04-04] MEDS: FOLIC ACID 1 MG TAB PO SCH (08:47)
[2019-04-04] MEDS: PANTOprazole 40 MG TAB PO SCH ×2 (08:47→20:39)
[2019-04-04] MEDS: CLOPIDOGREL BISULFATE 75 MG TAB PO SCH (08:47)
[2019-04-04] MEDS: carvediloL 6.25 MG TAB PO SCH ×2 (08:47→20:40)
--- NOTE | 2019-04-04 11:06 | Pulmonary Consultation ---
Date of Consultation April 04, 2019 Assessment & Plan (1) Pleural effusion: Impression: 83-year-old male with advanced stage non-small cell lung cancer and recently diagnosed esophageal cancer with presumed pulmonary chemotherapeutic toxicity presenting now with increasing shortness of breath and recurrent pleural effusion. Recommendations: 1. Pleural effusion: Previous cytology suggested atypical cells and this may be malignant repair malignant. I discussed with the patient and the hospitalist management strategies. Could consider repeat thoracentesis however this is somewhat elective at this point time and the patient continues to use Plavix for his stents. Ideally I would like to have him off Plavix for 5 days prior to any invasive procedures. The hospitalist will contact cardiology to see whether or not this is feasible. We could consider proceeding with a thoracentesis while the patient's on Plavix provided he understands the increased risk of bleeding including internal bleeding which would potentially require surgical intervention. Alternatively, we could consider outpatient placement of a Pleurx catheter. This would also likely necessitate holding the Plavix for 3 to [address] scan: Unclear whether this represents interstitial lung disease, chemotherapeutic associated pulmonary toxicity, or atypical pulmonary edema. His BNP was elevated. Echocardiogram from earlier this month showed an ejection fraction is 6065% with a dilated right ventricle and mild aortic sclerosis without stenosis. Would recommend a trial of diuretics. 3. Pulmonary hypertension: This is secondary to underlying heart and lung disease. No indication for pulmonary vasodilators or right heart catheterization. 4. Overall the patient appears to be declining clinically. His cancer appears to be progressing over a very short interval scan of 4weeks. Consultation with palliative care and determining goals of therapy is highly recommended. The patient is DNR/DNI which I think is wholly appropriate. (2) Chronic respiratory failure: (3) COPD (chronic obstructive pulmonary disease): COPD type: unspecified COPD Qualified Code(s): J44.9 - Chronic obstructive pulmonary disease, unspecified History of Present Illness Attending Physician: Elodia Estrada MD History of Present Illness Asked by hospitalist to evaluate this patient with pleural effusion and hypoxemic respiratory failure. Patient seen and examined. History obtained fro m discussion with the patient as well as review the electronic medical record and discussion with the hospitalist. The patient is an 83-year-old male with a history of advanced squamous cell carcinoma the lung. He was diagnosed based on endobronchial ultrasound biopsy of a level 4R lymph node in August 2018. He has been receiving chemotherapy. He was admitted about a month ago with a pleural effusion which was sampled and demonstrated atypical cells present concerning for metastatic adenocarcinoma however the cellblock did not confirm the cells. He also underwent an EGD with biopsy which showed adenocarcinoma. He had had a prior history of Collado's esophagus. The patient states that he has been experiencing increasing shortness of breath. He was just dismissed from the facility about 3 or 4 weeks ago. He underwent a thoracentesis at that point time and CT findings were concerning for potential chemotherapeutic associated pulmonary toxicity. He has been using prednisone at home as well as oxygen and bronchodilators. He has noted some lower extremity edema. He has not been experiencing any fevers chills or night sweats. He did have a repeat CT scan during this admission which showed reaccumulation of the pleural fluid on the right as well as persistent increased interstitial markings. The previously noted pulmonary nodules of also shown growth over a 4- week interval concerning for progression of metastatic disease. Allergies Allergy/AdvReac Type Severity Reaction Status Date / Time lisinopril Allergy Severe Unknown Verified 04/03/19 17:03 lidocaine Allergy Intermediate PRESERVATIVE Verified 04/03/19 17:03 IN LIDOCAINE CAUSES RED SKIN atorvastatin [From Lipitor] AdvReac Mild Blurry Verified 04/03/19 17:03 Vision rosuvastatin [From Crestor] AdvReac Mild Blurry Verified 04/03/19 17:03 Vision Home Medications Home Medications Medication Instructions Recorded Confirmed Type carvedilol 6.25 mg PO BID 10/24/18 04/03/19 History dutasteride 0.5 mg PO DAILY 10/24/18 04/03/19 History lamotrigine 150 mg PO BID 10/24/18 04/03/19 History nitroglycerin 0.4 mg SUBLINGUAL USEASDIRECTD PRN 10/24/18 04/03/19 History rosuvastatin 20 mg PO HS 10/24/18 04/03/19 History tamsulosin 0.4 mg PO HS 10/24/18 04/03/19 History amlodipine 10 mg PO DAILY 03/04/19 04/03/19 History escitalopram oxalate 5 mg PO DAILY 03/04/19 04/03/19 History folic acid 1 mg PO QAM 03/04/19 04/03/19 History isosorbide mononitrate 30 mg PO QAM 03/04/19 04/03/19 History clopidogrel 75 mg PO DAILY #0 tab 03/13/19 04/03/19 Rx pantoprazole 40 mg PO BID 30 Days #60 tab 03/13/19 04/03/19 Rx ezttfnirder-qpmkdqrxu-mlajuynt 1 inh INHALATION DAILY 04/03/19 04/03/19 History [Trelegy Ellipta] Patient History Medical History Adenocarcinoma of right lung (Chronic) Anemia (Chronic) HX Collado's esophagus (Chronic) BPH (benign prostatic hyperplasia) (Chronic) CAD (coronary artery disease) (Chronic) 2004 - RAFI to left cx 02/2011 - BMS to prox LAD and RCA 10/2018 - angioplasty to mid RCA Chronic respiratory failure (Chronic) 4L O2 at home CKD (chronic kidney disease), stage III (Chronic) COPD (chronic obstructive pulmonary disease) (Chronic) Esophageal adenocarcinoma GERD (gastroesophageal reflux disease) (Chronic) HTN (hypertension) (Chronic) Hyperlipidemia (Chronic) Osteoarthritis (Chronic) Seizure disorder (Chronic) STARING SPELLS-LAST EVENT MORE THAN 4 YEARS AGO (EPILEPSY) Squamous cell carcinoma of left lung Thrombocytopenia (Inactive) Surgical History History of lobectomy of lung (Chronic) LLL 2004 S/P carotid endarterectomy (Chronic) LEFT Family History Other Stroke Social History Preferred Language: Hebrew Communication Ability: Effective Senior Ui Web Developer Required: No Beliefs That Will Affect Care: None marital status: Current Living Situation: Spouse Current Living Situation Comment: LIVE AT HOME WITH current occupational status: retired Other Information That Helps Us Care for You: No Feels Safe at Home: Yes Smoking Status: Former smoker Tobacco Type: cigarettes ; Cigarettes Per Day: 16 ; Do You Dip or Chew Tobacco: No ; Second Hand Exposure: No ; Hx Alcohol Use: No Hx Substance Use: No Review of Systems Review of Systems: See H&P. No additions Results & Data Vital Signs (Past 12 Hours) Vital Signs Temp Pulse Pulse Resp BP BP Pulse Ox 04/04/19 07:00 36.8 C 68 18 117/60 91 04/04/19 04:23 36.7 C 64 20 121/58 L 92 04/03/19 23:16 36.2 C L 62 20 123/63 92 04/03/19 23:00 73 Laboratory Results 04/04/19 06:13 04/04/19 06:[address] of the chest was independently reviewed and compared to prior CT scan from last month. There is a lingular pulmonary nodule which has demonstrated significant interval growth. He has persistent increased reticular/interstitial markings with a new/progressive right-sided pleural effusion and persistent small left-sided pleural effusion. The mediastinal lymph nodes all appear unchanged to slightly increased as well. PG Care Time/CCT Total # of Minutes Spent Total Time Spent with Patient: Total time spent is greater than 50% in coordination of care (as documented) at patient's floor/unit and/or counseling patient:
--- NOTE | 2019-04-04 11:09 | Hospitalist Progress Note ---
Date of Service April 04, 2019 Assessment & Plan (1) Acute on chronic respiratory failure with hypoxia: Hospital due to combination of decompensated CHF with diastolic dysfunction, malignant pleural effusion Symptom improved after giving IV Lasix with adequate diuresis Is negative fluid balance of 1.7 L (2) Acute on chronic diastolic CHF (congestive heart failure): echo 03/09/2019 -grade 1 diastolic dysfunction, EF 60 to 65% Presented with volume overload shortness of breath hypoxia bilateral pleural effusion right more than left/lower extremity edema Interim improved after IV Lasix 40 mg x 1 Continue diuresis, monitor renal function (3) Pleural effusion: -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 non-small cell lung cancer Recent admission to [facility] and underwent 1.8 L thoracentesis (pathology showed rare atypical cells concerning for possible metastatic carcinoma) -Patient presented from home with reports of increasing shortness of breath over the past 3 days -In the ED, found to be hypoxic at 83%, currently requiring 8 L of oxygen via oxygen mask As per history status improved after diuresis, currently on 6 L oxygen via nasal cannula -CT chest negative for PE however shows trace left pleural effusion and small to moderate right pleural effusion -Pulmonary consulted patient input-patient will fit Pleurx catheter/has had pleural effusions drained twice recently Patient is on Plavix, recent PTCA on 10/2018 Patient will need to be off Plavix for 5 days prior to any invasive procedure Discussed with cardiology regarding safe timing to hold Plavix (4) Esophageal adenocarcinoma: History of Collado's esophagus, Recent EGD biopsy showed esophageal adeno CA (5) Adenocarcinoma of right lung: -Follows with Dr. Helm at [facility]; is to start new chemotherapy regimen on 04/06 -Esophageal cancer recently diagnosed, not a candidate for surgical intervention given advanced lung cancer -Follows with Dr. Whalen with GI (6) Thrombocytopenia: - -Chronic, no signs of bleeding -Continue to monitor CBC as patient is continued on Plavix (7) CAD (coronary artery disease): -Appears stable, no reports of chest pain -Continue Plavix, beta-luciana, nitrate, statin (8) COPD (chronic obstructive pulmonary disease): -No wheezing on exam -Continue home inhalers (9) HTN (hypertension): -BP controlled, continue carvedilol, isosorbide, amlodipine (10) CKD (chronic kidney disease), stage III: Acute renal failure with CKD stage III, Baseline creatinine in the low 1 On admission creatinine 1.4 Repeat creatinine today 1.3, Continue to monitor BMP closely patient receiving diuresis (11) Seizure disorder: -Stable -Continue Lamictal (12) DVT prophylaxis: -SCDs due to thrombocytopenia Code status: DNR/DNI Patient and family aware of overall poor prognosis Patient is over all prognosis remains extremely poor, metastatic adeno CA, with recurrent malignant pleural effusion, recently diagnosed adenocarcinoma of esophagus Palliative care input will be appreciated We will discussed with patient and family member regarding palliative care consult Order for PT OT as patient noted to have significant deconditioning Social service consulted for discharge planning Subjective Breathing much better today, sitting up on chair, still has high oxygen requirement 6 L by nasal cannula Does not have any shortness of breath orthopnea has resolved no cough no fever chills Physical Exam Constitutional: WD/WN, vitals as above Eyes: PERRL, conjunctivae normal, anicteric sclerae ENMT: external ear and nose normal, oropharynx normal Respiratory: normal respiratory effort; no respiratory distress Auscultation: + diminished lung sounds and + crackles (Faint, bilateral, R>L, mid to lower lung boles) Cardiovascular: Rate/Rhythm: regular rate and regular rhythm Vessels: normal peripheral pulses Extremities: + edema (+2 pitting edema BLE) Chest (Breasts): Chest: + vascular access device or port Gastrointestinal (Abdomen): normal bowel sounds, soft, nontender, no hepatosplenomegaly Musculoskeletal: no cyanosis or clubbing, extremities motor strength 5/5 Skin: no rashes, warm and dry Neurologic: PERRL, EOMI, accommodation nl, no face palsy, no dysarthria Psychiatric: A+Ox3, euthymic affect Results & Data Vital Signs (Past 12 Hours) Vital Signs Temp Pulse Resp BP BP Pulse Ox 04/04/19 07:00 36.8 C 68 18 117/60 91 04/04/19 04:23 36.7 C 64 20 121/58 L 92 04/03/19 23:16 36.2 C L 62 20 123/63 92 (1) CAD (coronary artery disease) [place] vs. transplanted heart: [place] heart (2) COPD (chronic obstructive pulmonary disease) COPD type: unspecified COPD Qualified Code(s): J44.9 - Chronic obstructive pulmonary disease, unspecified (3) HTN (hypertension) Hypertension type: essential hypertension Qualified Code(s): I10 - Essential (primary) hypertension
[2019-04-04] MEDS: FUROSEMIDE 20 MG in SYRINGE 0 ML IV SCH ×2 (12:52→16:18)
[2019-04-04] MEDS: POLYETHYLENE (MIRALAX) 17 GM PACK PO PRN (16:18)
[2019-04-04] MEDS: TAMSULOSIN HCL 0.4 MG CAP PO SCH (20:39)
[2019-04-04] MEDS: ROSUVASTATIN CALCIUM 20 MG TAB PO SCH (20:40)
[2019-04-05] MEDS: lamoTRIgine 100 MG TAB PO SCH ×2 (08:08→20:49)
[2019-04-05] MEDS: CLOPIDOGREL BISULFATE 75 MG TAB PO SCH (08:08)
[2019-04-05] MEDS: AMLODIPINE BESYLATE 5 MG TAB PO SCH (08:08)
[2019-04-05] MEDS: ESCITALOPRAM OXALATE 10 MG TAB PO SCH (08:08)
[2019-04-05] MEDS: ISOSORBIDE MONO EXTENDED REL 30 MG TABCR PO SCH (08:09)
[2019-04-05] MEDS: carvediloL 6.25 MG TAB PO SCH ×2 (08:10→20:50)
[2019-04-05] MEDS: PANTOprazole 40 MG TAB PO SCH ×2 (08:10→20:51)
[2019-04-05] MEDS: FOLIC ACID 1 MG TAB PO SCH (08:11)
[2019-04-05] MEDS: FUROSEMIDE 20 MG in SYRINGE 0 ML IV SCH ×2 (08:11→16:28)
[2019-04-05] MEDS: HEPARIN 100 UNIT/ML 5ML FLUSH FLUSH PRN ×2 (08:11→16:29)
--- NOTE | 2019-04-05 10:55 | Pulmonology Progress Note ---
Date of Service April 05, 2019 Assessment & Plan (1) Pleural effusion: Impression: 83-year-old male with advanced stage non-small cell lung cancer and recently diagnosed esophageal cancer with presumed pulmonary chemotherapeutic toxicity presenting now with increasing shortness of breath and recurrent pleural effusion. Recommendations: 1. Pleural effusion: Plavix has been held. The patient is relating increasing symptoms. I discussed with him the risks and benefits of proceeding with a thoracentesis while on Plavix to include internal bleeding. He expressed understanding and is agreeable to proceed to see if he can get some symptomatic relief. If a Pleurx catheter were to be placed, I would recommend that he be off of Plavix for at least 3 to 5 days. This could be arranged in the outpatient setting if needed. Will resend pleural fluid for cytology as previous cytology demonstrated only atypical cells. 2. Abnormal CT scan: Unclear whether this represents interstitial lung disease, chemotherapeutic associated pulmonary toxicity, or atypical pulmonary edema. His BNP was elevated. Echocardiogram from earlier this month showed an ejection fraction is 60-65% with a dilated right ventricle and mild aortic sclerosis without stenosis. Would recommend a trial of diuretics. 3. Pulmonary hypertension: This is secondary to underlying heart and lung disease. No indication for pulmonary vasodilators or right heart catheterization. 4. Overall the patient appears to be declining clinically. His cancer appears to be progressing over a very short interval scan of 4weeks. Consultation with palliative care and determining goals of therapy is highly recommended. The patient is DNR/DNI which I think is wholly appropriate. (2) Chronic respiratory failure: (3) COPD (chronic obstructive pulmonary disease): COPD type: unspecified COPD Qualified Code(s): J44.9 - Chronic obstructive pulmonary disease, unspecified Subjective Patient continues to complain of some shortness of breath. No chest pain or palpitations. He denies fevers chills or night sweats. Review of Systems Review of Systems: Unchanged from prior Results & Data Vital Signs (Past 12 Hours) Vital Signs Temp Pulse Resp BP BP Pulse Ox 04/05/19 07:00 36.7 C 74 18 129/74 92 04/04/19 23:03 36.8 C 64 16 142/67 H 93 Laboratory Results 04/04/19 06:13 04/04/19 06:13 Diagnostic Findings No new films PG Care Time/CCT Total # of Minutes Spent Total Time Spent with Patient: Total time spent is greater than 50% in coordination of care (as documented) at patient's floor/unit and/or counseling patient:
--- NOTE | 2019-04-05 11:32 | Procedure Note ---
Procedure Note Date of Service April 05, 2019 Procedure: Diagnostic therapeutic ultrasound-guided catheter thoracentesis Front Desk Person: Dr. Ted Garcia Indication: Pleural effusion Consent: Signed by patient and verified with timeout prior to procedure Anesthesia: 8 mL's 1% lidocaine without epinephrine local. Procedure: Consent was verified and timeout performed. The patient was on Plavix. We discussed delaying this for 3 to 5 days off Plavix however the patient elected to proceed. He understands the increased risk of bleeding including intrathoracic bleeding which may require surgical intervention. Despite these risks he wishes to proceed for symptomatic improvement. Appropriate imaging studies were reviewed prior to the procedure. Patient was placed in a seated position and limited thoracic ultrasound was performed of the bilateral chest. See separate imaging. A moderate-sized simple appearing right pleural effusion was identified with no significant left pleural fluid. Site appropriate for thoracentesis was selected. The skin was prepped and draped in normal sterile fashion. Lidocaine was used for local analgesia. Fluid was aspirated via the finder needle. A small skin ishmael was made with the scalpel and the catheter over the needle apparatus was advanced over the rib into the pleural space. Using the syringe one-way valve system, a total of 1100 mL's of serosanguineous fluid was removed. Procedure was terminated due to ability to remove any additional fluid. The catheter was removed and observed to be intact. A sterile dressing was applied. Post procedure chest x-ray was ordered. Post procedure ultrasound was performed which revealed trivial residual pleural fluid on the right with persistent lung sliding. Fluid was sent for cytology as previous samples showed atypical cells present but were nondiagnostic for malignancy. The patient tolerated the procedure well without obvious complication Coding CPT Codes Pulmonary/Thoracic - Pulmonary and Thoracic: 28023 Thoracentesis w imaging ([id number])
--- NOTE | 2019-04-05 11:56 | XRay Report ---
XR chest 1V portable CLINICAL HISTORY: S/P Thoracentesis, right COMPARISON STUDY: 04/03/2019 FINDINGS: The cardiac and mediastinal contours remain stable. There is emphysema with chronic interst itial thickening. Trace pleural effusions are suspected. There is no pneumothorax. There is a 2 cm ri ght upper lung zone nodular opacity. There is increased density at the right hilum. IMPRESSION: 1. No evidence of pneumothorax status post thoracentesis. Electronically signed by: Foster Nguyen M.D. 04/05/2019 11:54 AM
--- NOTE | 2019-04-05 14:05 | Hospitalist Progress Note ---
Date of Service April 05, 2019 Assessment & Plan (1) Acute on chronic respiratory failure with hypoxia: Hospital due to combination of decompensated CHF with diastolic dysfunction, malignant pleural effusion s/p paracethesis today with approx 1 L bloody plural effusion drainage by Dr Garcia had thorachetheis X2 prior pt will benefit with Plurex catheter placement for recurrent malignant pleural euffusion need to D/w Cardology regarding holding Plavix prior to procedure (2) Acute on chronic diastolic CHF (congestive heart failure): echo 03/09/2019 -grade 1 diastolic dysfunction, EF 60 to 65% Presented with volume overload shortness of breath hypoxia bilateral pleural effusion right more than left/lower extremity edema on Lasix s/p thoracenthesis with improvement of breathing today (3) Pleural effusion: -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 non-small cell lung cancer Recent admission to [facility] and underwent 1.8 L thoracentesis (pathology showed rare atypical cells concerning for possible metastatic carcinoma) s/p thoracentesis with drainage of approx 1 L of serosanguinous pleural effusion by pulm today -Patient presented from home with reports of increasing shortness of breath over the past 3 days -In the ED, found to be hypoxic at 83%, currently requiring 8 L of oxygen via oxygen mask As per history status improved after diuresis, currently on 6 L oxygen via nasal cannula -CT chest negative for PE however shows trace left pleural effusion and small to moderate right pleural effusion -Pulmonary consulted patient input-patient will fit Pleurx catheter/has had pleural effusions drained twice recently Patient is on Plavix, recent PTCA on 10/2018 Patient will need to be off Plavix for 5 days prior to any invasive procedure will D/w with cardiology regarding safe timing to hold Plavix (4) Esophageal adenocarcinoma: History of Collado's esophagus, Recent EGD biopsy showed esophageal adeno CA (5) Adenocarcinoma of right lung: -Follows with Dr. Helm at [facility]; is to start new chemotherapy regimen on 04/06 -Esophageal cancer recently diagnosed, not a candidate for surgical intervention given advanced lung cancer -Follows with Dr. Whalen with GI (6) Thrombocytopenia: - -Chronic, no signs of bleeding -Continue to monitor CBC as patient is continued on Plavix (7) CAD (coronary artery disease): -Appears stable, no reports of chest pain -Continue Plavix, beta-luciana, nitrate, statin (8) COPD (chronic obstructive pulmonary disease): -No wheezing on exam -Continue home inhalers (9) HTN (hypertension): -BP controlled, continue carvedilol, isosorbide, amlodipine (10) CKD (chronic kidney disease), stage III: Acute renal failure with CKD stage III, Baseline creatinine in the low 1 On admission creatinine 1.4 Continue to monitor BMP closely patient receiving diuresis (11) Seizure disorder: -Stable -Continue Lamictal (12) DVT prophylaxis: -SCDs due to thrombocytopenia Code status: DNR/DNI Patient and family aware of overall poor prognosis Patient is over all prognosis remains extremely poor, metastatic adeno CA, with recurrent malignant pleural effusion, recently diagnosed adenocarcinoma of esophagus Palliative care input will be appreciated We will discussed with patient and family member regarding palliative care consult Order for PT OT as patient noted to have significant deconditioning Social service consulted for discharge planning Subjective breathing much better during my visit had difficult time this AM with Hypoxia , SOB , orthropnea s/p thoracentesis with drainage of approx 1 L of serosanguinous pleural effusion by pulm today pt will benefit with Plurex catheter placement will D/w Cardiology regarding safe interval to hold Palvix -per Pulm Plavix needs to be on hold at least 5 days prior to invasive procedure /plurex catheter placement Physical Exam Constitutional: WD/WN, vitals as above Eyes: PERRL, conjunctivae normal, anicteric sclerae ENMT: external ear and nose normal, oropharynx normal Respiratory: normal respiratory effort; no respiratory distress Auscultation: + diminished lung sounds and + crackles (Faint, bilateral, R>L, mid to lower lung boles) Cardiovascular: Rate/Rhythm: regular rate and regular rhythm Vessels: normal peripheral pulses Extremities: + edema (+2 pitting edema BLE) Chest (Breasts): Chest: + vascular access device or port Gastrointestinal (Abdomen): normal bowel sounds, soft, nontender, no hepatosplenomegaly Musculoskeletal: no cyanosis or clubbing, extremities motor strength 5/5 Skin: no rashes, warm and dry Neurologic: PERRL, EOMI, accommodation nl, no face palsy, no dysarthria Psychiatric: A+Ox3, euthymic affect Results & Data Vital Signs (Past 12 Hours) Vital Signs Temp Pulse Resp BP Pulse Ox 04/05/19 07:00 36.7 C 74 18 129/74 92 (1) CAD (coronary artery disease) [place] vs. transplanted heart: [place] heart (2) COPD (chronic obstructive pulmonary disease) COPD type: unspecified COPD Qualified Code(s): J44.9 - Chronic obstructive pulmonary disease, unspecified (3) HTN (hypertension) Hypertension type: essential hypertension Qualified Code(s): I10 - Essential (primary) hypertension
--- NOTE | 2019-04-05 14:48 | Cardiology Progress Note ---
Date of Service April 05, 2019 Subjective Mr Ribeiro is an 83-year-old male well-known to the undersigned as I have cared for him on an inpatient and outpatient basis for many years. He has a history of atherosclerotic vascular disease with past carotid endarterectomy, and multiple percutaneous coronary interventions. He has stents in his LAD, circumflex, and right coronary arteries. His most recent coronary event took place in October, when he presented with an acute inferior wall ST segment elevation myocardial infarction while on chemotherapy for recurrent lung cancer. An acute thrombotic occlusion of the mid right coronary artery was observed on emergent cardiac catheterization despite the fact that he was thrombocytopenic with a platelet count in the mid 30K range. The stent in the proximal right coronary artery prior to the new lesion was patent. His remaining stents were patent. He underwent plain balloon angioplasty to address the culprit stenosis of the mid right coronary artery. He remained on dual antiplatelet therapy with aspirin 81 mg daily, and clopidogrel 75 mg daily for 2 weeks and then as an outpatient he was transition to clopidogrel monotherapy. His platelet count has stabilized at that point, and his chemotherapy regimen was reinitiated. 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 Given the patient's complex history of CAD, and his ongoing underlying prothrombotic state with underlying lung carcinoma, I would be very concerned about his risk of a thrombotic coronary event if his antiplatelet therapy was interrupted even for a few days. I would recommend that if pleural catheter is deemed indicated, that it may be most prudent to accept the increased bleeding risk, and proceed without interrupting his clopidogrel monotherapy. Case discussed with Dr Estrada and Dr Garica by phone. Results & Data Vital Signs (Past 12 Hours) Vital Signs Temp Pulse Resp BP Pulse Ox 04/05/19 07:00 36.7 C 74 18 129/74 92
[2019-04-05] MEDS: TAMSULOSIN HCL 0.4 MG CAP PO SCH (20:49)
[2019-04-05] MEDS: ROSUVASTATIN CALCIUM 20 MG TAB PO SCH (20:50)
[2019-04-06] MEDS: ISOSORBIDE MONO EXTENDED REL 30 MG TABCR PO SCH (08:14)
[2019-04-06] MEDS: FOLIC ACID 1 MG TAB PO SCH (08:14)
[2019-04-06] MEDS: AMLODIPINE BESYLATE 5 MG TAB PO SCH (08:15)
[2019-04-06] MEDS: ESCITALOPRAM OXALATE 10 MG TAB PO SCH (08:15)
[2019-04-06] MEDS: lamoTRIgine 100 MG TAB PO SCH ×2 (08:15→20:43)
[2019-04-06] MEDS: FUROSEMIDE 20 MG in SYRINGE 0 ML IV SCH ×2 (08:15→16:58)
[2019-04-06] MEDS: PANTOprazole 40 MG TAB PO SCH ×2 (08:16→20:43)
[2019-04-06] MEDS: CLOPIDOGREL BISULFATE 75 MG TAB PO SCH (08:16)
[2019-04-06] MEDS: HEPARIN 100 UNIT/ML 5ML FLUSH FLUSH PRN ×2 (08:28→17:04)
--- NOTE | 2019-04-06 08:39 | XRay Report ---
XR chest 1V portable HISTORY: 83 years-old Male Recurrent pleural effusion, SOB acute shortness of breath with pleural ef fusion COMPARISON: Chest radiograph 04/05/2018, CTA chest 04/03/2019 TECHNIQUE: Portable AP view of the chest FINDINGS: Cardiomediastinal and hilar silhouettes are unchanged. Surgical clips project over the left mediastin al distribution. Stable positioning of right IJ [id number] catheter. Trace pleural effusions. Prema re emphysema with chronic interstitial opacities, right greater than left are redemonstrated. No pneu mothorax. Degenerative changes of the shoulders and spine. IMPRESSION: 1. Unchanged trace pleural effusions. 2. Severe emphysema with chronic reticular opacities, right greater than left. The above report was generated using voice recognition software. It may contain grammatical, syntax o r spelling errors. Electronically signed by: Bryant Uriostegui M.D. 04/06/2019 8:38 AM
[2019-04-06] MEDS: carvediloL 6.25 MG TAB PO SCH ×2 (08:50→20:42)
--- NOTE | 2019-04-06 09:04 | Pulmonology Progress Note ---
Date of Service April 06, 2019 Assessment & Plan (1) Pleural effusion: Impression: 83-year-old male with advanced stage non-small cell lung cancer and recently diagnosed esophageal cancer with presumed pulmonary chemotherapeutic toxicity presenting now with increasing shortness of breath and recurrent pleural effusion.He is status post repeat therapeutic thoracentesis yesterday which was done on Plavix as after discussion with cardiology it was felt that the risks of holding his antiplatelet agents outweighed the benefit. Recommendations: 1. Pleural effusion: Awaiting repeat pleural fluid cytology. Chest x-ray demonstrates no significant reaccumulation of the pleural fluid. If the effusion recurs, long-term management may be an issue. 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 We could certainly try and place a Pleurx catheter on Plavix although the patient would have an increased risk of bleeding associated with this. Seri al thoracentesis would also be a long-term management. 2. Abnormal CT scan: Unclear whether this represents interstitial lung disease, chemotherapeutic associated pulmonary toxicity, or atypical pulmonary edema. He does have evidence of progression of his malignancy on short interval CT scans a nd consideration for palliative care would be highly appropriate with symptom management as I am not sure the patient is a candidate for additional chemotherapy at this time 3. Pulmonary hypertension: This is secondary to underlying heart and lung disease. No indication for pulmonary vasodilators or right heart catheterization. 4. Overall the patient appears to be declining clinically. His cancer appears to be progressing over a very short interval scan of 4weeks. Consultation with palliative care and determining goals of therapy is highly recommended. The patient is DNR/DNI which I think is wholly appropriate. Please call if questions (2) Chronic respiratory failure: (3) COPD (chronic obstructive pulmonary disease): COPD type: unspecified COPD Qualified Code(s): J44.9 - Chronic obstructive pulmonary disease, unspecified Subjective Patient feels that his breathing is better this morning after the thoracentesis. He did have a mild cough for a few hours after the thoracentesis but never coughed up any phlegm. He is sitting up eating breakfast this morning. He denies chest pain or palpitations. He is inquiring about the possibility of going home. Review of Systems Review of Systems: Unchanged from prior Physical Exam Constitutional: WD/WN, vitals as above Eyes: PERRL, conjunctivae normal, anicteric sclerae ENMT: external ear and nose normal, oropharynx normal Respiratory: normal respiratory effort; no respiratory distress Auscultation: + diminished lung sounds and + crackles (Faint, bilateral, R>L, mid to lower lung boles) Cardiovascular: Rate/Rhythm: regular rate and regular rhythm Vessels: normal peripheral pulses Extremities: + edema (+2 pitting edema BLE) Chest (Breasts): Chest: + vascular access device or port Gastrointestinal (Abdomen): normal bowel sounds, soft, nontender, no hepatosplenomegaly Musculoskeletal: no cyanosis or clubbing, extremities motor strength 5/5 Skin: no rashes, warm and dry Neurologic: PERRL, EOMI, accommodation nl, no face palsy, no dysarthria Psychiatric: A+Ox3, euthymic affect Results & Data Vital Signs (Past 12 Hours) Vital Signs Temp Pulse Resp BP BP Pulse Ox 04/06/19 07:13 36.8 C 74 18 121/62 92 04/05/19 23:04 36.7 C 64 18 131/61 91 Laboratory Results 04/04/19 06:13 04/04/19 06:13 Diagnostic Findings Chest x-ray independently reviewed from today and yesterday. No significant reaccumulation of pleural fluid however there does appear to be increased interstitial markings within the right hemithorax. This could be consistent with expansion pulmonary edema, pulmonary venous congestion, or progression of malignancy. PG Care Time/CCT Total # of Minutes Spent Total Time Spent with Patient: Total time spent is greater than 50% in coordination of care (as documented) at patient's floor/unit and/or counseling patient:
[2019-04-06] MEDS: POLYETHYLENE (MIRALAX) 17 GM PACK PO PRN (10:37)
[2019-04-06] MEDS ORDERED: ONDANSETRON INJ 2 MG/ML 2 ML VIAL IV PRN (11:41)
--- NOTE | 2019-04-06 15:14 | Hospitalist Progress Note ---
Date of Service April 06, 2019 Assessment & Plan (1) Acute on chronic respiratory failure with hypoxia: presented with worsening of SOB due to combination of decompensated CHF with diastolic dysfunction, malignant pleural effusion s/p paracethesis with approx 1 L bloody plural effusion drainage by Droption with Plurex catheter placement for recurrent malignant pleural euffusion need to D/w Cardology regarding holding Plavix prior to procedure (2) Acute on chronic diastolic CHF (congestive heart failure): echo 03/09/2019 -grade 1 diastolic dysfunction, EF 60 to 65% Presented with volume overload shortness of breath hypoxia bilateral pleural effusion right more than left/lower extremity edema on Lasix s/p thoracenthesis with improvement of breathing today (3) Pleural effusion: -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 non-small cell lung cancer Recent admission to [facility] and underwent 1.8 L thoracentesis (pathology showed rare atypical cells concerning for possible metastatic carcinoma) s/p thoracentesis with drainage of approx 1 L of serosanguinous pleural effusion by pulm today -Patient presented from home with reports of increasing shortness of breath over the past 3 days -In the ED, found to be hypoxic at 83%, currently requiring 8 L of oxygen via oxygen mask As per history status improved after diuresis, currently on 6 L oxygen via nasal cannula -CT chest negative for PE however shows trace left pleural effusion and small to moderate right pleural effusion -Pulmonary consulted patient input-patient will fit Pleurx catheter/has had pleural effusions drained twice recently Patient is on Plavix, recent PTCA on 10/2018 Patient will need to be off Plavix for 5 days prior to any invasive procedure/due to bleeding risk D/w Cardiology -given advanced atherosclerotic Coronary disease , carotid artery disease -being off plavix for few days high risk for either AL or acute CVA recommends if Plurex catheter has to be placed , should be done while on Plavix Per Pulm as pt is minimally symptomatic after recent thoracenthesis no plan for Plurex catheter now given bleeidng risk -out weights the benefit pt may need intermittent thoracenthesis for symptom control recommends Palliative care -incurable metastatic lung Ca (4) Esophageal adenocarcinoma: History of Collado's esophagus, Recent EGD biopsy showed esophageal adeno CA (5) Adenocarcinoma of right lung: -Follows with Dr. Helm at [facility]; is to start new chemotherapy regimen on 12/2 -Esophageal cancer recently diagnosed, not a candidate for surgical intervention given advanced lung cancer -Follows with Dr. Whalen with GI (6) Thrombocytopenia: - -Chronic, no signs of bleeding -Continue to monitor CBC as patient is continued on Plavix (7) CAD (coronary artery disease): -Appears stable, no reports of chest pain -Continue Plavix, beta-luciana, nitrate, statin (8) COPD (chronic obstructive pulmonary disease): -No wheezing on exam -Continue home inhalers (9) HTN (hypertension): -BP controlled, continue carvedilol, isosorbide, amlodipine (10) CKD (chronic kidney disease), stage III: Acute renal failure with CKD stage III, Baseline creatinine in the low 1 On admission creatinine 1.4 Continue to monitor BMP closely patient receiving diuresis (11) Seizure disorder: -Stable -Continue Lamictal (12) DVT prophylaxis: -SCDs due to thrombocytopenia Code status: DNR/DNI Patient and family aware of overall poor prognosis Patient is over all prognosis remains extremely poor, metastatic adeno CA, with recurrent malignant pleural effusion, recently diagnosed adenocarcinoma of esophagus palliative care consulted Subjective Patient feels breathing improved after the thoracentesis. occasional non productive cough no fever or chills Physical Exam Constitutional: WD/WN, vitals as above Eyes: PERRL, conjunctivae normal, anicteric sclerae ENMT: external ear and nose normal, oropharynx normal Respiratory: normal respiratory effort; no respiratory distress Auscultation: + diminished lung sounds and + crackles (Faint, bilateral, R>L, mid to lower lung boles) Cardiovascular: Rate/Rhythm: regular rate and regular rhythm Vessels: normal peripheral pulses Extremities: + edema (+2 pitting edema BLE) Chest (Breasts): Chest: + vascular access device or port Gastrointestinal (Abdomen): normal bowel sounds, soft, nontender, no hepatosplenomegaly Musculoskeletal: no cyanosis or clubbing, extremities motor strength 5/5 Skin: no rashes, warm and dry Neurologic: PERRL, EOMI, accommodation nl, no face palsy, no dysarthria Psychiatric: A+Ox3, euthymic affect Results & Data Vital Signs (Past 12 Hours) Vital Signs Temp Pulse Resp BP BP Pulse Ox 04/06/19 14:41 36.7 C 68 18 114/61 90 04/06/19 07:13 36.8 C 74 18 121/62 92 (1) CAD (coronary artery disease) [place] vs. transplanted heart: [place] heart (2) COPD (chronic obstructive pulmonary disease) COPD type: unspecified COPD Qualified Code(s): J44.9 - Chronic obstructive pulmonary disease, unspecified (3) HTN (hypertension) Hypertension type: essential hypertension Qualified Code(s): I10 - Essential (primary) hypertension
--- NOTE | 2019-04-06 15:59 | Palliative Care Consultation ---
Date of Consultation April 06, 2019 Assessment & Plan (1) Goals of care, counseling/discussion: -83 year old male patient with PMH metastatic non-small cell lung cancer, newly diagnosed esophageal cancer, diastolic heart failure, CAD s/p stents, MD, CKD, COPD with chronic respiratory failure on home oxygen at 4LPM, presented to the hospital with increased SOB. Patient found to be hypoxic in ED, oxygen sats in 80s. CT chest negative for PE however showed trace left pleural effusion and small to moderate right pleural effusion. Salesperson Florist Supplies consulted and performed thoracentesis on right side with removal of 1100ml serosanguineous fluid-- improved symptoms immediately. Patient also being diuresed for volume overload. Patient must remain on his Plavix, so will be at risk for bleeding with continued thoracenteses or Pleur-x catheter. Per ex chef's note, there has been possible disease progression in the last four weeks-- patient was to start new chemo regimen today 04/06 but of course that did not happen. Uncertain if patient is still candidate for further chemo. He is declining as far as functional status-- has a lot of SOB with exertion. Patient also has this new dx esophageal cancer-- went for EGD on 03/12/19 with mucosal resection of 4 cm segment of extensive nodularity in the esophagus. Patient's daughter, Ludmila, requested palliative care consult to assist with goals of care and possible home hospice care. -Met with patient in room 283-1. Patient is awake, alert and oriented x4. He has limited insight into his multiple medical problems. He does of course know that he has lung cancer, said that the esophageal cancer "was removed", and said that he's had many heart problems over the years as well. -Patient stated, "I will try anything before I give up." But also said, "If the chemo is going to kill me first, then what's the point?" -Patient has no symptoms really, does get SOB with exertion, but no pain, N/V, or SOB at rest. Patient has good appetite. -Patient's goal is to get home with his , see if he can recover from this and decide the plan from there. He gave me permission to call his daughter, Ludmila. Patient states that if he is unable to make decisions, he would want his daughter Ludmila to make decisions, then his daughter Kaitlyn. -Spoke with Ludmila over the phone. She agreed that patient does have limited insight into his situation and disease. She is is worried that patient's (her mother) also has an element of denial and does not understand. -We talked about home hospice as an option, Ludmila thinks this would be a good idea. If patient went home on hospice and did recover, the could certainly sign off of hospice and seek treatment. In his current state, he is not well enough for chemo and is going to need help at home to keep him comfortable and help his . -Family meeting tomorrow morning at 1000. Dr. Estrada aware and will attend. Further plan to follow. (2) Acute on chronic respiratory failure with hypoxia: (3) Adenocarcinoma of right lung: (4) Acute on chronic diastolic CHF (congestive heart failure): History of Present Illness Reason for Consultation: Goals of care Requesting Physician: Dr. Estrada Attending Physician: Elodia Estrada MD History of Present Illness This 83 year old male patient with PMH metastatic non-small cell lung cancer, newly diagnosed esophageal cancer, diastolic heart failure, CAD s/p stents, MD, CKD, COPD with chronic respiratory failure on home oxygen at 4LPM, presented to the hospital with increased SOB. Patient found to be hypoxic in ED, oxygen sats in 80s. CT chest negative for PE however showed trace left pleural effusion and small to moderate right pleural effusion. Salesperson [employer] consulted and performed thoracentesis on right side with removal of 1100ml serosanguineous fluid-- improved symptoms immediately. Patient also being diuresed for volume overload. Patient must remain on his Plavix, so will be at risk for bleeding with continued thoracenteses or Pleur-x catheter. Per ex chef's note, there has been possible disease progression in the last four weeks-- patient was to start new chemo regimen today 04/06 but of course that did not happen. Uncertain if patient is still candidate for further chemo. He is declining as far as functi onal status-- has a lot of SOB with exertion. Patient also has this new dx esophageal cancer-- went for EGD on 03/12/19 with mucosal resection of 4 cm segment of extensive nodularity in the esophagus. Patient's daughter, Ludmila, requested palliative care consult to assist with goals of care and possible home hospice care. Thank you kindly for this consult. Palliative care team will follow as needed. Allergies Allergy/AdvReac Type Severity Reaction Status Date / Time lisinopril Allergy Severe Unknown Verified 04/03/19 17:03 lidocaine Allergy Intermediate PRESERVATIVE Verified 04/03/19 17:03 IN LIDOCAINE CAUSES RED SKIN atorvastatin [From Lipitor] AdvReac Mild Blurry Verified 04/03/19 17:03 Vision rosuvastatin [From Crestor] AdvReac Mild Blurry Verified 04/03/19 17:03 Vision Home Medications Home Medications Medication Instructions Recorded Confirmed Type carvedilol 6.25 mg PO BID 10/24/18 04/03/19 History dutasteride 0.5 mg PO DAILY 10/24/18 04/03/19 History lamotrigine 150 mg PO BID 10/24/18 04/03/19 History nitroglycerin 0.4 mg SUBLINGUAL USEASDIRECTD PRN 10/24/18 04/03/19 History rosuvastatin 20 mg PO HS 10/24/18 04/03/19 History tamsulosin 0.4 mg PO HS 10/24/18 04/03/19 History amlodipine 10 mg PO DAILY 03/04/19 04/03/19 History escitalopram oxalate 5 mg PO DAILY 03/04/19 04/03/19 History folic acid 1 mg PO QAM 03/04/19 04/03/19 History isosorbide mononitrate 30 mg PO QAM 03/04/19 04/03/19 History clopidogrel 75 mg PO DAILY #0 tab 03/13/19 04/03/19 Rx pantoprazole 40 mg PO BID 30 Days #60 tab 03/13/19 04/03/19 Rx luksplboqfz-hyighmrhr-wklqltta 1 inh INHALATION DAILY 04/03/19 04/03/19 History [Trelegy Ellipta] Patient History Medical History Adenocarcinoma of right lung (Chronic) Anemia (Chronic) HX Collado's esophagus (Chronic) BPH (benign prostatic hyperplasia) (Chronic) CAD (coronary artery disease) (Chronic) 2004 - RAFI to left cx 02/2011 - BMS to prox LAD and RCA 10/2018 - angioplasty to mid RCA Chronic respiratory failure (Chronic) 4L O2 at home CKD (chronic kidney disease), stage III (Chronic) COPD (chronic obstructive pulmonary disease) (Chronic) Esophageal adenocarcinoma GERD (gastroesophageal reflux disease) (Chronic) HTN (hypertension) (Chronic) Hyperlipidemia (Chronic) Osteoarthritis (Chronic) Seizure disorder (Chronic) STARING SPELLS-LAST EVENT MORE THAN 4 YEARS AGO (EPILEPSY) Squamous cell carcinoma of left lung Thrombocytopenia (Inactive) Surgical History History of lobectomy of lung (Chronic) LLL 2004 S/P carotid endarterectomy (Chronic) LEFT Family History Other Stroke Social History Preferred Language: Lithuanian Communication Ability: Effective M[employer] Intern Required: No Beliefs That Will Affect Care: None marital status: Current Living Situation: Spouse Current Living Situation Comment: LIVE AT HOME WITH current occupational status: retired Other Information That Helps Us Care for You: No Feels Safe at Home: Yes Smoking Status: Former smoker Tobacco Type: cigarettes ; Cigarettes Per Day: 16 ; Do You Dip or Chew Tobacco: No ; Second Hand Exposure: No ; Hx Alcohol Use: No Hx Substance Use: No Review of Systems Review of Systems: Const: + weakness, + fatigue, + good appetite ENMT: No dysphagia Resp: + SOB, + cough Cardio: No chest pain, no edema GI: No abdominal pain, no N/V MS: No musculoskeletal pain Neuro: No confusion Psych: No anxiety Physical Exam Constitutional: + frail appearing; no acute distress Eyes: PERRL ENMT: external ear and nose normal, oropharynx normal Respiratory: normal respiratory effort, lungs clear to auscultation Auscultation: + diminished lung sounds Cardiovascular: RRR, no murmur, no edema Gastrointestinal (Abdomen): Inspection/Auscultation: normal bowel sounds Percussion/Palpation: abdomen soft Neurologic: moves all extremities and awake Psychiatric: Orientation: alert and oriented x 3 Insight: + limited insight Judgement: good judgement Results & Data Vital Signs (Past 12 Hours) Vital Signs Temp Pulse Resp BP BP Pulse Ox 04/06/19 14:41 36.7 C 68 18 114/61 90 04/06/19 07:13 36.8 C 74 18 121/62 92 Time Spent Midlevel 70 minutes with >50% of the time spent at bedside with patient and on phone with family discussing condition and GOC.
[2019-04-06] MEDS ORDERED: bisacodyL 5 MG TABEC PO PRN (17:41)
[2019-04-06] MEDS: TAMSULOSIN HCL 0.4 MG CAP PO SCH (20:43)
[2019-04-06] MEDS: ROSUVASTATIN CALCIUM 20 MG TAB PO SCH (20:43)
[2019-04-06] MEDS: DOCUSATE SODIUM/SENNA 50/8.6MG TAB PO SCH (20:43)
[2019-04-07] MEDS: ESCITALOPRAM OXALATE 10 MG TAB PO SCH (07:58)
[2019-04-07] MEDS: CLOPIDOGREL BISULFATE 75 MG TAB PO SCH (07:58)
[2019-04-07] MEDS: carvediloL 6.25 MG TAB PO SCH ×2 (07:58→21:31)
[2019-04-07] MEDS: AMLODIPINE BESYLATE 5 MG TAB PO SCH (07:58)
[2019-04-07] MEDS: ISOSORBIDE MONO EXTENDED REL 30 MG TABCR PO SCH (07:58)
[2019-04-07] MEDS: lamoTRIgine 100 MG TAB PO SCH ×2 (07:59→21:33)
[2019-04-07] MEDS: PANTOprazole 40 MG TAB PO SCH ×2 (07:59→21:33)
[2019-04-07] MEDS: FOLIC ACID 1 MG TAB PO SCH (07:59)
[2019-04-07] MEDS: FUROSEMIDE 20 MG in SYRINGE 0 ML IV SCH ×2 (07:59→18:28)
[2019-04-07] MEDS: HEPARIN 100 UNIT/ML 5ML FLUSH FLUSH PRN ×2 (08:04→18:31)
--- NOTE | 2019-04-07 08:47 | Pulmonology Progress Note ---
Date of Service April 07, 2019 Assessment & Plan (1) Pleural effusion: Impression: 83-year-old male with advanced stage non-small cell lung cancer and recently diagnosed esophageal cancer with presumed pulmonary chemotherapeutic toxicity presenting now with increasing shortness of breath and recurrent pleural effusion.He is status post repeat therapeutic thoracentesis 04/05 which was done on Plavix as after discussion with cardiology it was felt that the risks of holding his antiplatelet agents outweighed the benefit. Recommendations: 1. Pleural effusion: Awaiting repeat pleural fluid cytology. Should the effusion reaccumulate, serial thoracentesis or consideration for Pleurx catheter placement may be appropriate although the patient's Plavix cannot be stopped per cardiology which would increase his risk of iatrogenic bleeding. 2. Abnormal CT scan: Unclear whether this represents interstitial lung disease, chemotherapeutic associated pulmonary toxicity, or atypical pulmonary edema. He does have evidence of progression of his malignancy on short interval CT scans. Appreciate palliative care input. Agree that the patient has limited insight into his disease process. 3. Pulmonary hypertension: This is secondary to underlying heart and lung disease. No indication for pulmonary vasodilators or right heart catheterization. 4. We remain available to see the patient back should his effusion reaccumulate. Otherwise will sign off. Please call us if we can be of additional assistance Please call if questions (2) Chronic respiratory failure: (3) COPD (chronic obstructive pulmonary disease): COPD type: unspecified COPD Qualified Code(s): J44.9 - Chronic obstructive pulmonary disease, unspecified Subjective Patient seen and examined. EMR reviewed. He is sitting up eating breakfast. He offers no new respiratory complaints. He remains on his baseline oxygen flow. He is not coughing or expectorating phlegm. No hemoptysis. No chest pain. Review of Systems Review of Systems: Unchanged from prior Physical Exam Constitutional: WD/WN, vitals as above Eyes: PERRL, conjunctivae normal, anicteric sclerae ENMT: external ear and nose normal, oropharynx normal Respiratory: normal respiratory effort; no respiratory distress Auscultation: + diminished lung sounds and + crackles (Faint, bilateral, R>L, mid to lower lung boles) Cardiovascular: Rate/Rhythm: regular rate and regular rhythm Vessels: normal peripheral pulses Extremities: + edema (+2 pitting edema BLE) Chest (Breasts): Chest: + vascular access device or port Gastrointestinal (Abdomen): normal bowel sounds, soft, nontender, no hepatosplenomegaly Musculoskeletal: no cyanosis or clubbing, extremities motor strength 5/5 Skin: no rashes, warm and dry Neurologic: PERRL, EOMI, accommodation nl, no face palsy, no dysarthria Psychiatric: A+Ox3, euthymic affect Results & Data Vital Signs (Past 12 Hours) Vital Signs Temp Pulse Resp BP Pulse Ox 04/07/19 08:04 64 04/07/19 07:20 36.7 C 54 L 18 115/66 98 04/06/19 23:30 36.9 C 65 20 130/61 92 Laboratory Results 04/04/19 06:13 04/04/19 06:13 Diagnostic Findings Chest x-ray from yesterday was reviewed. Increased interstitial markings in the right lung noted with trace bilateral effusions PG Care Time/CCT Total # of Minutes Spent Total Time Spent with Patient: Total time spent is greater than 50% in coordination of care (as documented) at patient's floor/unit and/or counseling patient:
--- NOTE | 2019-04-07 11:50 | Palliative Care Progress Note ---
Date of Service April 07, 2019 Results & Data Vital Signs (Past 12 Hours) Vital Signs Temp Pulse Resp BP Pulse Ox 04/07/19 08:04 64 04/07/19 07:20 36.7 C 54 L 18 115/66 98 PG Care Time/CCT Total # of Minutes Spent Total Time Spent with Patient: Total time spent is greater than 50% in coordination of care (as documented) at patient's floor/unit and/or counseling patient:
--- NOTE | 2019-04-07 17:24 | Palliative Care Progress Note ---
Date of Service April 07, 2019 Assessment & Plan (1) Goals of care, counseling/discussion: -83 year old male patient with PMH metastatic non-small cell lung cancer, newly diagnosed esophageal cancer, diastolic heart failure, CAD s/p stents, ND, CKD, COPD with chronic respiratory failure on home oxygen at 4LPM, presented to the hospital with increased SOB. Patient found to be hypoxic in ED, oxygen sats in 80s. CT chest negative for PE however showed trace left pleural effusion and small to moderate right pleural effusion. Icu Specialist consulted and performed thoracentesis on right side with removal of 1100ml serosanguineous fluid-- improved symptoms immediately. Patient also being diuresed for volume overload. Patient must remain on his Plavix due to angioplasty performed less than 6 months ago. He is at risk for bleeding with continued thoracenteses or Pleur-x catheter. Per traffic director's note, there has been possible disease progression in the last four weeks-- patient was to start new chemo regimen today 04/06 but of course that did not happen. Uncertain if patient is still candidate for further chemo. He is declining as far as functional status-- has increased SOB with minimal exertion. Patient also has this new dx esophageal cancer-- went for EGD on 03/12/19 with mucosal resection of 4 cm segment of extensive nodularity in the esophagus. Patient's daughter, Ludmila, along with patient's , daughter, 2 sons in law and a grandson in agreement for discharge home under hospice care. Patient's main goal is to get home. -Met with patient ,family and attending physician, Dr. Estrada in room 283-1. Patient is awake, alert and oriented x4. Patient as well as his have limited insight into his multiple medical problems. -Patient asymptomatic at rest, does get SOB with minimal exertion-discussed with family and that his bedbound status is not due to generalized weakness but his ability to be more active is limited by his lung disease. -Patient's goal is to get home with his , see if he can improve. If he improves patient and are agreeable to discussing further aggressive treatment. -Plan is for discharge home with hospice care-referral made to case management. (2) Acute on chronic respiratory failure with hypoxia: (3) Adenocarcinoma of right lung: (4) Acute on chronic diastolic CHF (congestive heart failure): Subjective Patient seen and examined-attended family meeting with patient's , 2 daughters, 2 sons in law and grandson along with attending physician Dr. Estrada. Discussed at length with patient's family his current prognosis including recurrent malignant pleural effusion. Answered family's questions and addressed their concerns. Family agreeable to discharge home under hospice care with the knowledge that if patient did improve he could sign out of hospice and pursue more aggressive therapy Review of Systems Review of Systems: Patient denies fever, chills, chest pain, increased shortness of breath, or abdominal pain Physical Exam Physical Exam: PE: Patient awake and alert, no acute distress HEENT: EOMI, mild [place] Respirations: Unlabored, on O2 at 5 L. Decreased breath sounds bilaterally with few crackles at bases. CV: Regular rate, 2+ lower extremity edema Abdomen: Soft, nontender, not distended Neuro: Patient alert Results & Data Vital Signs (Past 12 Hours) Vital Signs Temp Pulse Resp BP Pulse Ox Pulse Ox Pulse Ox 04/07/19 15:00 97.9 F 74 18 114/74 94 04/07/19 13:49 90 90 04/07/19 08:04 64 04/07/19 07:20 98.1 F 54 L 18 115/66 98 Pulse Ox 04/07/19 15:00 04/07/19 13:49 67 L 04/07/19 08:04 04/07/19 07:20 PG Care Time/CCT Total # of Minutes Spent Total Time Spent with Patient: Total time spent is greater than 50% in coordination of care (as documented) at patient's floor/unit and/or counseling patient: Time Spent Attending Total time spent 45 minutes with greater than 50% of the time spent at bedside discussing patient's current condition, prognosis as well as goals of care
--- NOTE | 2019-04-07 18:10 | Hospitalist Progress Note ---
Date of Service April 07, 2019 Assessment & Plan (1) Acute on chronic respiratory failure with hypoxia: presented with worsening of SOB due to combination of decompensated CHF with diastolic dysfunction, malignant pleural effusion s/p paracenthesis with approx 1 L bloody plural effusion drainage by Pulm with Plurex catheter placement for recurrent malignant pleural euffusion not a candidate for plurex catheter -bleeding risk /can not be off Plavix for risk of TN /CVA hopsice /palliative care will be appropriate by Dr Garcia pulmonology Pallpative care consulted , appreciate input (2) Acute on chronic diastolic CHF (congestive heart failure): echo 03/09/2019 -grade 1 diastolic dysfunction, EF 60 to 65% Presented with volume overload shortness of breath hypoxia bilateral pleural effusion right more than left/lower extremity edema on Lasix s/p thoracenthesis (3) Pleural effusion: -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 non-small cell lung cancer Recent admission to [facility] and underwent 1.8 L thoracentesis (pathology showed rare atypical cells concerning for possible metastatic carcinoma) s/p thoracentesis with drainage of approx 1 L of serosanguinous pleural effusion by pulm today -Patient presented from home with reports of increasing shortness of breath over the past 3 days -In the ED, found to be hypoxic at 83%, currently requiring 8 L of oxygen via oxygen mask As per history status improved after diuresis, currently on 6 L oxygen via nasal cannula -CT chest negative for PE however shows trace left pleural effusion and small to moderate right pleural effusion -Pulmonary consulted patient input-patient will fit Pleurx catheter/has had pleural effusions drained twice recently Patient is on Plavix, recent PTCA on 10/2018 Patient will need to be off Plavix for 5 days prior to any invasive procedure/due to bleeding risk D/w Cardiology -given advanced atherosclerotic Coronary disease , carotid artery disease -being off plavix for few days high risk for either TN or acute CVA recommends if Plurex catheter has to be placed , should be done while on Plavix Per Pulm as pt is minimally symptomatic after recent thoracenthesis no plan for Plurex catheter now given bleeidng risk -out weights the benefit pt may need intermittent thoracenthesis for symptom control recommends Palliative care -incurable metastatic lung Ca discussion with Palliative care with family members -plan to discharge home with Hospice tomorrow (4) Esophageal adenocarcinoma: History of Collado's esophagus, Recent EGD biopsy showed esophageal adeno CA (5) Adenocarcinoma of right lung: -Follows with Dr. Helm at [facility]; is to start new chemotherapy regimen on 04/06 -Esophageal cancer recently diagnosed, not a candidate for surgical intervention given advanced lung cancer -Follows with Dr. Whalen with GI (6) Thrombocytopenia: - -Chronic, no signs of bleeding -Continue to monitor CBC as patient is continued on Plavix (7) CAD (coronary artery disease): -Appears stable, no reports of chest pain -Continue Plavix, beta-luciana, nitrate, statin (8) COPD (chronic obstructive pulmonary disease): -No wheezing on exam -Continue home inhalers (9) HTN (hypertension): -BP controlled, continue carvedilol, isosorbide, amlodipine (10) CKD (chronic kidney disease), stage III: Acute renal failure with CKD stage III, Baseline creatinine in the low 1 On admission creatinine 1.4 Continue to monitor BMP closely patient receiving diuresis (11) Seizure disorder: -Stable -Continue Lamictal (12) DVT prophylaxis: -SCDs due to thrombocytopenia Code status: DNR/DNI Patient and family aware of overall poor prognosis Patient is over all prognosis remains extremely poor, metastatic adeno CA, with recurrent malignant pleural effusion, recently diagnosed adenocarcinoma of esophagus palliative care consulted , appreciate input home with hospice tomorrow Subjective pt reports of feeling better still very SOB with minimum movement understands that his Lung Cancer has progressed to the point that cure is not available Family meeting with Palliative care team pt and family agreeable to return home with hospice pt already has Hospital bed , most of the equipments will meet with Case mangement tomorrow for referral for hospice agency plan to discharge home tomorrow with hospice Physical Exam Constitutional: WD/WN, vitals as above Eyes: PERRL, conjunctivae normal, anicteric sclerae ENMT: external ear and nose normal, oropharynx normal Respiratory: normal respiratory effort; no respiratory distress Auscultation: + diminished lung sounds and + crackles (Faint, bilateral, R>L, mid to lower lung boles) Cardiovascular: Rate/Rhythm: regular rate and regular rhythm Vessels: normal peripheral pulses Extremities: + edema (+2 pitting edema BLE) Chest (Breasts): Chest: + vascular access device or port Gastrointestinal (Abdomen): normal bowel sounds, soft, nontender, no hepatosplenomegaly Musculoskeletal: no cyanosis or clubbing, extremities motor strength 5/5 Skin: no rashes, warm and dry Neurologic: PERRL, EOMI, accommodation nl, no face palsy, no dysarthria Psychiatric: A+Ox3, euthymic affect Results & Data Vital Signs (Past 12 Hours) Vital Signs Temp Pulse Resp BP Pulse Ox Pulse Ox Pulse Ox 04/07/19 15:00 36.6 C 74 18 114/74 94 04/07/19 13:49 90 90 04/07/19 08:04 64 04/07/19 07:20 36.7 C 54 L 18 115/66 98 Pulse Ox 04/07/19 15:00 04/07/19 13:49 67 L 04/07/19 08:04 04/07/19 07:20 (1) CAD (coronary artery disease) [place] vs. transplanted heart: [place] heart (2) COPD (chronic obstructive pulmonary disease) COPD type: unspecified COPD Qualified Code(s): J44.9 - Chronic obstructive pulmonary disease, unspecified (3) HTN (hypertension) Hypertension type: essential hypertension Qualified Code(s): I10 - Essential (primary) hypertension
[2019-04-07] MEDS: DOCUSATE SODIUM/SENNA 50/8.6MG TAB PO SCH (21:33)
[2019-04-07] MEDS: TAMSULOSIN HCL 0.4 MG CAP PO SCH (21:33)
[2019-04-07] MEDS: ROSUVASTATIN CALCIUM 20 MG TAB PO SCH (21:33)
[2019-04-08] MEDS ORDERED: SODIUM CHLORIDE 0.65% NA SOLN 45 ML (OCEAN) ONE (06:15)
[2019-04-08] MEDS: ISOSORBIDE MONO EXTENDED REL 30 MG TABCR PO SCH (08:41)
[2019-04-08] MEDS: carvediloL 6.25 MG TAB PO SCH (08:41)
[2019-04-08] MEDS: ESCITALOPRAM OXALATE 10 MG TAB PO SCH (08:41)
[2019-04-08] MEDS: FOLIC ACID 1 MG TAB PO SCH (08:41)
[2019-04-08] MEDS: FUROSEMIDE 20 MG in SYRINGE 0 ML IV SCH (08:41)
[2019-04-08] MEDS: PANTOprazole 40 MG TAB PO SCH (08:41)
[2019-04-08] MEDS: CLOPIDOGREL BISULFATE 75 MG TAB PO SCH (08:41)
[2019-04-08] MEDS: lamoTRIgine 100 MG TAB PO SCH (08:42)
[2019-04-08] MEDS: AMLODIPINE BESYLATE 5 MG TAB PO SCH (08:42)
[2019-04-08] MEDS: HEPARIN 100 UNIT/ML 5ML FLUSH FLUSH PRN (08:51)
--- NOTE | 2019-04-08 09:41 | XRay Report ---
SINGLE VIEW CHEST CLINICAL HISTORY: Malignant pleural effusion. FINDINGS: An AP, portable, upright chest radiograph is compared to chest x-ray dated 04/06/2019 and co rrelated with chest CT dated 04/03/2019. The examination is degraded by portable technique and patien t rotation. A right internal jugular central venous infusion port is unchanged in position. The heart is top normal in size noting atherosclerotic calcification of the thoracic aorta. Advanced emphysema and chronic interstitial thickening are similar to previous. Volume loss in the left lung is consist ent with previous surgical resection. Multifocal airspace opacities are similar in appearance 04/06/20 19, greatest in the right upper lung and at the right lung base Small pleural effusions are again not ed. No pneumothorax is seen. The skeletal structures are osteopenic. The bony thorax is grossly intac t. IMPRESSION: 1. Advanced emphysema and postoperative change from left-sided pulmonary resection are again noted. 2. Again seen are multifocal airspace opacities, similar in appearance to the 04/06/2019 examination. 3. Small pleural effusions are unchanged. Electronically signed by: Tres Mike M.D. 04/08/2019 9:40 AM
--- NOTE | 2019-04-08 11:41 | Hospitalist Progress Note ---
Date of Service April 08, 2019 Subjective Pt's family present at bedside does not want Hospice care now -Case Management aware wants to return home with home health -arranged through [facility] pt already has home 02 script for wheel chair give for significant SERNA stable to be discharged home with home health today Elodia Estrada MD Results & Data Vital Signs (Past 12 Hours) Vital Signs Temp Pulse Resp BP Pulse Ox 04/08/19 07:11 36.5 C 62 18 117/62 87 L 04/08/19 00:22 36.8 C 61 18 113/68 92
--- NOTE | 2019-04-09 11:03 | Discharge Summary ---
Date of Service April 09, 2019 Admission HPI Per Admitting Provider 83-year-old male who presents the ED for evaluation of shortness of breath. Patient was most recently admitted to [facility] 03/04 through 03/13 for acute on chronic hypoxic respiratory failure due to pleural effusion. Patient underwent 1.8 L thoracentesis. He was started on prednisone 10 mg daily for suspected chemotherapy-induced pneumonitis. Steroids were completed last week. Patient was also treated for anemia with PRBC transfusion. Underwent EGD for evaluation of anemia, subsequent biopsies were positive for esophageal adenocarcinoma stage T1b. Patient follows with Dr. Helm with the [facility]. He is scheduled to restart chemo on 04/06. Patient reports he had been doing well since his discharge until a few days ago. Patient reports increasing shortness of breath. Reports the shortness of breath associated at times he is unable to walk and lowers himself to the ground. He denies cough. Reports as though he is " filling up with fluid". Denies chest pain. No lightheadedness, dizziness, diaphoresis, syncopal events. Denies abdominal pain, nausea, vomiting, diarrhea. No fevers or chills. Denies any urinary symptoms. On exam, patient is found to have lower extremity edema, patient feels as though that has likely developed over the past few days. In the ED, patient was found to be hypoxic at 83%. He was requiring an 8 L oxygen mask. Labs are unremarkable. CT chest is negative for PE however shows trace left pleural effusion and small to moderate right pleural effusion. Patient was given nebulizer treatment. Principal Diagnosis METASTATIC LUNG CA/MALIGNANT PLEURAL EFFUSION Discharge Exam Constitutional WD/WN, vitals as above Eyes PERRL, conjunctivae normal, anicteric sclerae ENMT external ear and nose normal, oropharynx normal Respiratory normal respiratory effort; no respiratory distress Auscultation: + diminished lung sounds and + crackles (Faint, bilateral, R>L, mid to lower lung boles) Cardiovascular Rate/Rhythm: regular rate and regular rhythm Vessels: normal peripheral pulses Extremities: + edema (+2 pitting edema BLE) Chest (Breasts) Chest: + vascular access device or port Gastrointestinal (Abdomen) normal bowel sounds, soft, nontender, no hepatosplenomegaly Musculoskeletal no cyanosis or clubbing, extremities motor strength 5/5 Skin no rashes, warm and dry Neurologic PERRL, EOMI, accommodation nl, no face palsy, no dysarthria Psychiatric A+Ox3, euthymic affect Discharge Data Allergies Allergy/AdvReac Type Severity Reaction Status Date / Time lisinopril Allergy Severe Unknown Verified 04/03/19 17:03 lidocaine Allergy Intermediate PRESERVATIVE Verified 04/03/19 17:03 IN LIDOCAINE CAUSES RED SKIN atorvastatin [From Lipitor] AdvReac Mild Blurry Verified 04/03/19 17:03 Vision rosuvastatin [From Crestor] AdvReac Mild Blurry Verified 04/03/19 17:03 Vision Consultations 04/03/19 18:37 ED Decision to Admit Stat 04/03/19 20:43 Consult Case Management - Discharge Planning Routine Consult Pulmonology Routine 04/06/19 13:48 Consult Palliative Care Routine Ordered Studies 04/03/19 17:51 CT angio chest PE protocol Stat 04/05/19 10:58 US point of care ultrasound Stat Hospital Course (1) Acute on chronic respiratory failure with hypoxia: presented with worsening of SOB due to combination of decompensated CHF with diastolic dysfunction, malignant pleural effusion s/p paracentesis with approx 1 L bloody plural effusion drainage by Pulmonology pt had x2 thoracentesis done in past pleural fluid effusion cytology shows malignant cells will need future thoracentesis for symptom control /SOB to place Plurex catheter for palliative drainage pt needs to be off Plavix for at least 3-5 days last plural effusion was mostly bloody /hemorrhage high likelihood of iatrogenic bleeding in the plural space with Plurex Catheter placement treatment options are limited not a candidate for plurex catheter -bleeding risk /can not be off Plavix for risk of OK /CVA CXray today AM 04/08/19: progressive pulmonary vascular congestion minimum bilat pleural effusion on Lasix 20 mg BID hospice /palliative care will be appropriate by Dr Stephens pulmonology Palliative care consulted , appreciate input had family meeting with Pt's , daughters , son in law and Dr Greenberg from Palliative care at Pt's Bedside pt and family understands that the lung cancer is incurable reaccumulation of pleural effusion is highly likely family and pt updated regarding prognosis and disease progression of metastatic Lung ca initially pt hoped to return home with Home Hospice but as it will limit thoracentesis pt and family opt for return home with Home Health follow up with Pulmonology Dr Stephens in clinic 1 week /repeat Cxray in 1 week in the mean time Pt wants to come to hospital to receive treatment when becomes symptomatic or with clinical decline pt is discharged home with home health Code status :DNR/DNI family and pt is willing to transition care to hospice if pt can not tolerate active treatment or thoracentesis (2) Acute on chronic diastolic CHF (congestive heart failure): echo 03/09/2019 -grade 1 diastolic dysfunction, EF 60 to 65% Presented with volume overload shortness of breath hypoxia bilateral pleural effusion right more than left/lower extremity edema on Lasix s/p thoracenthesis not a candidate for palliative plurex catheter -given high bleeding risk while on Plavix not safe to hold plavix for few days prior to procedure due to Cardiac riosk (3) Pleural effusion: -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 non-small cell lung cancer Recent admission to [facility] and underwent 1.8 L thoracentesis (pathology showed rare atypical cells concerning for possible metastatic carcinoma) s/p thoracentesis with drainage of approx 1 L of serosanguinous pleural effusion by pulm today -Patient presented from home with reports of increasing shortness of breath over the past 3 days -In the ED, found to be hypoxic at 83%, currently requiring 8 L of oxygen via oxygen mask As per history status improved after diuresis, currently on 6 L oxygen via nasal cannula -CT chest negative for PE however shows trace left pleural effusion and small to moderate right pleural effusion -Pulmonary consulted patient input-patient will fit Pleurx catheter/has had pleural effusions drained twice recently Patient is on Plavix, recent PTCA on 10/2018 Patient will need to be off Plavix for 5 days prior to any invasive procedure/due to bleeding risk D/w Cardiology -given advanced atherosclerotic Coronary disease , carotid artery disease -being off plavix for few days high risk for either OK or acute CVA recommends if Plurex catheter has to be placed , should be done while on Plavix Per Pulm as pt is minimally symptomatic after recent thoracenthesis no plan for Plurex catheter now given bleeidng risk -out weights the benefit pt may need intermittent thoracenthesis for symptom control recommends Palliative care -incurable metastatic lung Ca discussion with Palliative care with family members - pt is discharged home today with home health and family support aware that care can be transitioned to hospice when pt declines pt noted to be severely SOB , SERNA with activity /also severe deconditioning , ambulatory dysfunction , gait disturbance noted -high risk for fall unable to use Cane or walker will benefit with Wheel Chair for mobility script given for Wheel Chair to case management (4) Esophageal adenocarcinoma: History of Collado's esophagus, Recent EGD biopsy showed esophageal adeno CA not a candidate for surgical intervention given advanced lung cancer over all very poor prognsis (5) Adenocarcinoma of right lung: -Follows with Dr. Helm at [facility]; is to start new chemotherapy regimen on 04/06 -Esophageal cancer recently diagnosed, not a candidate for surgical intervention given advanced lung cancer -Follows with Dr. Whalen with GI (6) Thrombocytopenia: - -Chronic, no signs of bleeding -Continue to monitor CBC as patient is continued on Plavix (7) CAD (coronary artery disease): -Appears stable, no reports of chest pain -Continue Plavix, beta-luciana, nitrate, statin (8) COPD (chronic obstructive pulmonary disease): -No wheezing on exam -Continue home inhalers (9) HTN (hypertension): -BP controlled, continue carvedilol, isosorbide, amlodipine (10) CKD (chronic kidney disease), stage III: Acute renal failure with CKD stage III, Baseline creatinine in the low 1 On admission creatinine 1.4 Continue to monitor BMP closely patient receiving diuresis (11) Seizure disorder: -Stable -Continue Lamictal (12) DVT prophylaxis: -SCDs due to thrombocytopenia Code status: DNR/DNI Patient and family aware of overall poor prognosis Patient is over all prognosis remains extremely poor, metastatic adeno CA, with recurrent malignant pleural effusion, recently diagnosed adenocarcinoma of esophagus palliative care consulted , appreciate input discharged home with home health today family aware to seek for hospice service through [facility] when needed Total Time Total Time Spent Total Time Spent (In Minutes): approx 45 mins Total Time Includes: Examination of the Patient, Discharge Planning, Medication Reconciliation and Communication With Other Providers Discharge Plan Discharge Items Patient Disposition: Home - Home Health Services Reason For Visit: HYPOXIA,PLEURAL EFFUSION Discharge Diagnosis: LUNG CANCER METASTATIC /MALIGNANT PLEURAL EFFUSION Activity: As commented below Activity Comment: TOLERATED Non-emergency contact: Primary Care Provider Call non-emergency contact if: you have any medication questions Follow-up/Referrals: Ted Stephens MD [Physician] - (IN 1-2 WEEKS , EARLIER IF DEVELOPING SHORTNESS OF BREATH ) Harris Cam MD [Primary Care Provider] - 04/13/19 5:25 pm Diet: Heart Healthy Ambulatory Orders: Basic Metabolic Panel (Routine) Timeframe: 20190413 Location: Determined by Patient Ordered By: Elodia Sun Attending Provider Instructions: CHEST XRAY IN A WEEK FOLLOW UP WITH PULMONOLOGY DR STEPHENS FOR SHORTNESS OF BREATH -MAY NEED TO HAVE REPEAT LUNG FLUID DRAINAGE LAB WORK : BASIC METEBOLIC PANEL 04/13/19 TO CHECK RENAL FUNCTION WHILE TAKING LASIX Pending Studies at Discharge: Yes Studies:: LAB: BASIC METABOLIC PANEL ON 04/13/19 CHEST XRAY IN 1 WEEK TO ASSESS PLURAL EFFUSION Stand-Alone Forms: My [facility] [employer], Smoking Cessation Medications and DC Order Prescriptions: New furosemide [Lasix] 20 mg tablet 20 mg PO BID Qty: 60 RF: 3 Continued tamsulosin 0.4 mg capsule 0.4 mg PO HS RF: 0 carvedilol 6.25 mg tablet 6.25 mg PO BID RF: 0 dutasteride 0.5 mg capsule 0.5 mg PO DAILY RF: 0 lamotrigine 150 mg tablet 150 mg PO BID RF: 0 rosuvastatin 20 mg tablet 20 mg PO HS RF: 0 nitroglycerin 0.4 mg Tablet, Sublingual 0.4 mg sublingual USEASDIRECTD PRN (Reason: Chest Pain) RF: 0 Trelegy Ellipta 100-62.5-25 mcg Blister With Device 1 inh INHALATION DAILY RF: 0 isosorbide mononitrate 30 mg tablet extended release 24 hr 30 mg PO QAM RF: 0 amlodipine 10 mg Tablet 10 mg PO DAILY RF: 0 folic acid 1 mg tablet 1 mg PO QAM RF: 0 escitalopram oxalate 10 mg Tablet 5 mg PO DAILY RF: 0 pantoprazole 40 mg Tablet,Delayed Release (Dr/Ec) 40 mg PO BID 30 Days Qty: 60 RF: 0 clopidogrel 75 mg Tablet 75 mg PO DAILY Qty: 0 RF: 0 Discharge Orders: Discharge Order (Routine); Ordered 04/08/19 Ordered By: Elodia Estrada Admission Data Admit Date/Time: 04/03/19 19:16 Attending Provider: Elodia Estrada Admit Provider: Elodia Estrada Primary Care Provider: Harris aCm Other Providers: Elodia Estrada ; Ted Stephens ; Radha Schwartz Other Interventions: Discharge Summary Assessment (RN) Last Done: 04/08/19 12:04 DC Date/Time DO NOT enter until pt leaves facility: 04/08/19 14:51
== END 2019-04-08 14:51 | disposition home health service (06) | DRG 180 ==
LOC: ED 16:17 → OBSVTOIN 19:16 → INTOOBSV 19:16 → 2N 19:16

== ENCOUNTER 2019-04-10 15:50 | Inpatient (IN) ==
[2019-04-10] MEDS ORDERED: ALBUT/IPRATROP 3MG/0.5MG NEB 3 ML VIAL NEB STA (16:15)
--- NOTE | 2019-04-10 16:21 | Emergency Department Note ---
Entered by Davion Boykin acting as a scribe for Renato Smith DO History of Present Illness General Chief complaint: Swelling/Edema to Extremity Stated complaint: GAIN 3LBS OF FLUID, OXYGEN DOWN TO 40 Source: patient Limitations: no limitations History of Present Illness Onset (ago): day(s) (today) Location: chest Severity: similar to prior episodes Pain Consistency: + constant Current Pain Intensity: 0 Associated symptoms: no fever/chills (fever) and no nausea/vomiting The patient is a 83 year old male who presents to the Emergency Room with complaints of constant SOB starting 3 days ago and getting worse today. The patient states he was discharged from the hospital 3 days ago and states he was drained at that time from the right side. He states he has gained 3 pounds He notes he wears 5L O2 at home. He notes he has been urinating less. He states he has had fluid drained 3 times. He notes he has lung cancer stage 4. He states he has been coughing but notes he has not been bringing anything up with it. The patient denies having any pain, nausea, vomiting, and fever. Home Medications Home Medications Medication Instructions Recorded Confirmed Type carvedilol 6.25 mg PO BID 10/24/18 04/10/19 History dutasteride 0.5 mg PO DAILY 10/24/18 04/10/19 History lamotrigine 150 mg PO BID 10/24/18 04/10/19 History nitroglycerin 0.4 mg SUBLINGUAL USEASDIRECTD PRN 10/24/18 04/10/19 History rosuvastatin 20 mg PO HS 10/24/18 04/10/19 History tamsulosin 0.4 mg PO HS 10/24/18 04/10/19 History amlodipine 10 mg PO DAILY 03/04/19 04/10/19 History escitalopram oxalate 5 mg PO DAILY 03/04/19 04/10/19 History folic acid 1 mg PO QAM 03/04/19 04/10/19 History isosorbide mononitrate 30 mg PO QAM 03/04/19 04/10/19 History clopidogrel 75 mg PO DAILY #0 tab 03/13/19 04/10/19 Rx pantoprazole 40 mg PO BID 30 Days #60 tab 03/13/19 04/10/19 Rx Trelegy Ellipta 1 inh INHALATION DAILY 04/03/19 04/10/19 History furosemide [Lasix] 20 mg PO BID #60 tab 04/08/19 04/10/19 Rx Allergies Allergy/AdvReac Type Severity Reaction Status Date / Time lisinopril Allergy Severe Unknown Verified 04/03/19 17:03 lidocaine Allergy Intermediate PRESERVATIVE Verified 04/03/19 17:03 IN LIDOCAINE CAUSES RED SKIN atorvastatin [From Lipitor] AdvReac Mild Blurry Verified 04/03/19 17:03 Vision rosuvastatin [From Crestor] AdvReac Mild Blurry Verified 04/03/19 17:03 Vision Influenza Virus Vaccines AdvReac Confusion Verified 04/10/19 20:33 Past Med/Surg History Medical History Adenocarcinoma of right lung (Chronic) Anemia (Chronic) HX Collado's esophagus (Chronic) BPH (benign prostatic hyperplasia) (Chronic) CAD (coronary artery disease) (Chronic) 2004 - RAFI to left cx 02/2011 - BMS to prox LAD and RCA 10/2018 - angioplasty to mid RCA Chronic diastolic CHF (congestive heart failure) Chronic respiratory failure (Chronic) 4L O2 at home CKD (chronic kidney disease), stage III (Chronic) COPD (chronic obstructive pulmonary disease) (Chronic) Esophageal adenocarcinoma GERD (gastroesophageal reflux disease) (Chronic) Goals of care, counseling/discussion HTN (hypertension) (Chronic) Hyperlipidemia (Chronic) Osteoarthritis (Chronic) Seizure disorder (Chronic) STARING SPELLS-LAST EVENT MORE THAN 4 YEARS AGO (EPILEPSY) Squamous cell carcinoma of left lung Thrombocytopenia Surgical History History of lobectomy of lung (Chronic) LLL 2004 S/P carotid endarterectomy (Chronic) LEFT Family History Other Stroke Social History Preferred Language: Bulgarian Communication Ability: Effective Landfill Attendant Required: No Beliefs That Will Affect Care: None marital status: Current Living Situation: Spouse Current Living Situation Comment: LIVE AT HOME WITH current occupational status: retired Other Information That Helps Us Care for You: No Feels Safe at Home: Yes Safety Concerns: Feels Safe At This Time Smoking Status: Former smoker Tobacco Type: cigarettes ; Cigarettes Per Day: 16 ; Second Hand Exposure: No ; Hx Alcohol Use: No Hx Substance Use: No Review of Systems See HPI for pertinent positives & negatives. and A total of 10 systems reviewed and were otherwise negative Physical Exam Vital Signs Vital Signs - 24 hr 04/10/19 16:09 04/10/19 16:25 04/10/19 16:30 Temperature 36.6 C Temperature Source Oral Pulse Rate 84 75 75 Pulse Rate [Left Finger] Pulse Rate [Right Radial] Pulse Rate from SpO2 Sensor 75 75 Pulse Rhythm Regular Pulse Strength Normal Respiratory Rate 30 H 24 17 Respiratory Effort / Characteristics Respiratory Depth Normal Respiratory Pattern Regular Blood Pressure 98/64 L Blood Pressure [Left Arm] Blood Pressure Mean 75 Blood Pressure Mean [Left Arm] Blood Pressure Position Sitting Pulse Oximetry 47 L 99 94 Oxygen Delivery Method Oxymask Oxygen Flow Rate 4 Fraction of Inspired Oxygen Sepsis Recent Fever Within 48 Hours No Sepsis New/Unexplained Change in Mental Status No Sepsis Action Taken by Nursing No Action Required 04/10/19 16:42 04/10/19 16:46 04/10/19 16:54 Temperature Temperature Source Pulse Rate 73 Pulse Rate [Left Finger] 73 73 Pulse Rate [Right Radial] 73 Pulse Rate from SpO2 Sensor 73 Pulse Rhythm Pulse Strength Respiratory Rate 22 28 H 22 Respiratory Effort / Characteristics Non-Labored Spontaneous Spontaneous Respiratory Depth Respiratory Pattern Blood Pressure 136/59 L Blood Pressure [Left Arm] 136/59 L Blood Pressure Mean 94 Blood Pressure Mean [Left Arm] 84 Blood Pressure Position Pulse Oximetry 99 91 97 Oxygen Delivery Method Other High Flow Nasal Cannula Oxygen Flow Rate 30 30 Fraction of Inspired Oxygen 30 70 Sepsis Recent Fever Within 48 Hours Sepsis New/Unexplained Change in Mental Status Sepsis Action Taken by Nursing 04/10/19 17:00 04/10/19 17:16 04/10/19 17:22 Temperature Temperature Source Pulse Rate 72 78 Pulse Rate [Left Finger] 71 Pulse Rate [Right Radial] 71 Pulse Rate from SpO2 Sensor 72 78 Pulse Rhythm Pulse Strength Respiratory Rate 27 H 19 16 Respiratory Effort / Characteristics Respiratory Depth Respiratory Pattern Blood Pressure 139/61 134/61 Blood Pressure [Left Arm] 139/61 Blood Pressure Mean 103 94 Blood Pressure Mean [Left Arm] 87 Blood Pressure Position Pulse Oximetry 96 94 96 Oxygen Delivery Method Other Oxygen Flow Rate 30 Fraction of Inspired Oxygen Sepsis Recent Fever Within 48 Hours Sepsis New/Unexplained Change in Mental Status Sepsis Action Taken by Nursing 04/10/19 17:30 04/10/19 17:45 04/10/19 17:53 Temperature Temperature Source Pulse Rate 70 66 Pulse Rate [Left Finger] 71 Pulse Rate [Right Radial] 71 Pulse Rate from SpO2 Sensor 69 66 Pulse Rhythm Pulse Strength Respiratory Rate 15 21 22 Respiratory Effort / Characteristics Respiratory Depth Respiratory Pattern Blood Pressure 139/59 L 126/60 Blood Pressure [Left Arm] 126/60 Blood Pressure Mean 95 69 Blood Pressure Mean [Left Arm] 82 Blood Pressure Position Pulse Oximetry 95 94 95 Oxygen Delivery Method Other Oxygen Flow Rate 30 Fraction of Inspired Oxygen Sepsis Recent Fever Within 48 Hours Sepsis New/Unexplained Change in Mental Status Sepsis Action Taken by Nursing 04/10/19 18:00 Temperature Temperature Source Pulse Rate 69 Pulse Rate [Left Finger] Pulse Rate [Right Radial] Pulse Rate from SpO2 Sensor 70 Pulse Rhythm Pulse Strength Respiratory Rate 19 Respiratory Effort / Characteristics Respiratory Depth Respiratory Pattern Blood Pressure Blood Pressure [Left Arm] Blood Pressure Mean Blood Pressure Mean [Left Arm] Blood Pressure Position Pulse Oximetry 90 Oxygen Delivery Method Oxygen Flow Rate Fraction of Inspired Oxygen Sepsis Recent Fever Within 48 Hours Sepsis New/Unexplained Change in Mental Status Sepsis Action Taken by Nursing GENERAL: Patient is awake and alert. He is somewhat anxious appearing. EYES: The conjunctivae are clear. The pupils are round and reactive. EARS, NOSE, MOUTH AND THROAT: The nose is without any evidence of any deformity. Mucous membranes are moist tongue is midline NECK: The neck is nontender and supple. RESPIRATORY: Shallow respirations were noted. There are diminished breath sounds noted throughout but especially in the right lung field. Rales were noted at both bases. CARDIOVASCULAR: Regular rate and rhythm noted there no murmurs rubs or gallops normal S1 normal S2 GASTROINTESTINAL: The abdomen is soft. Abdomen is nontender. MUSCULOSKELETAL/EXTREMITIES: There is no evidence of gross deformity full range of motion is noted in the hips and shoulders SKIN: There is no obvious evidence of any rash. Mild pedal edema was noted. NEUROLOGIC: Patient is awake alert and oriented x3. Course Course 1428: The patient was evaluated in room B1, and a complete history and physical examination were performed. 174: I discussed the patient's case with Dr. Jay Garcia Hospitalist. He will evaluate the patient for further management. Administered Medications Carvedilol (Coreg) 6.25 mg PO BID [facility] Stop: 05/10/19 20:59 Last Admin: 04/10/19 21:01 Dose: 6.25 mg Documented by: [id number] Heparin Sodium (Porcine) (Heparin Sodium (Porcine)) 5,000 units SQ Q8 [facility] Stop: 05/10/19 21:59 Last Admin: 04/10/19 21:07 Dose: 5,000 units Documented by: [id number] Cosigned by: [id number] Piperacillin Sod/Tazobactam (Sod 3.375 gm/ Dextrose) 115 mls @ 28.75 mls/hr IV Q8H [facility]; Protocol Stop: 04/17/19 10:59 Last Admin: 04/10/19 22:40 Dose: 28.8 mls/hr Documented by: [id number] Lamotrigine (Lamictal) 100 mg PO BID [facility] Stop: 05/10/19 20:59 Last Admin: 04/10/19 21:04 Dose: 100 mg Documented by: [id number] Pantoprazole Sodium (Protonix) 40 mg PO BID [facility] Stop: 05/10/19 20:59 Last Admin: 04/10/19 21:04 Dose: 40 mg Documented by: [id number] Rosuvastatin Calcium (Crestor) 20 mg PO [facility] Stop: 05/10/19 20:59 Last Admin: 04/10/19 21:02 Dose: 20 mg Documented by: [id number] Tamsulosin HCl (Flomax) 0.4 mg PO [facility] Stop: 05/10/19 20:59 Last Admin: 04/10/19 21:03 Dose: 0.4 mg Documented by: [id number] Discontinued Medications Albuterol (Duoneb) 3 ml NEB NOW STA Stop: 04/10/19 16:16 Last Admin: 04/10/19 16:53 Dose: 3 ml Documented by: [id number] Furosemide (Lasix) 20 mg IV NOW STA Stop: 04/10/19 19:20 Last Admin: 04/10/19 20:05 Dose: 20 mg Documented by: [id number] Piperacillin Sod/Tazobactam Sod (Zosyn) 4.5 gm in 120 mls @ 240 mls/hr IV NOW ONE Stop: 04/10/19 18:11 Last Infusion: 04/10/19 19:07 Dose: 0 mls/hr Documented by: [id number] Admin: 04/10/19 18:38 Dose: 240 mls/hr Documented by: [id number] Vancomycin HCl 1,000 mg/ (Sodium Chloride) 520 mls @ 200 mls/hr IV NOW ONE Stop: 04/10/19 20:17 Last Infusion: 04/10/19 21:54 Dose: 0 mls/hr Documented by: [id number] Admin: 04/10/19 19:07 Dose: 200 mls/hr Documented by: [id number] Vancomycin HCl 500 mg/ Sodium (Chloride) 260 mls @ 125 mls/hr IV TODAY@2130 ONE; Protocol Stop: 04/10/19 23:34 Last Admin: 04/10/19 21:05 Dose: 125 mls/hr Documented by: [id number] Potassium Chloride (Klor-Con M20) 40 meq PO NOW STA Stop: 04/10/19 19:20 Last Admin: 04/10/19 20:05 Dose: 40 meq Documented by: [id number] Critical Care Time Critical Care Time: Yes Total Critical Care Time: 46 I have personally spent 46 minutes of critical care time in the direct management of this patient. This includes bedside care, interpretation of diagnostic studies, and testing, discussion with consultants, patient, and family members, and other required patient management activities. This 46 minutes is in excess of all separately billable procedures. Medical Decision Making Differential Diagnosis Differential diagnoses includes but is not limited to pneumonia, bronchitis, COPD/Asthma exacerbation, pneumothorax, pulmonary embolism, congestive heart failure, acute coronary syndrome Medical Records Attestation: I reviewed the patient's medical records. Home Medications Current Medication List: was personally reviewed by me Laboratory Data Attestation: I reviewed the patient's lab results. Result diagrams: 04/10/19 16:29 04/10/19 16:29 Lab Results 04/10/19 04/10/19 04/10/19 Range/Units 16:29 16:29 16:29 WBC 3.42 L (4.8-10.8) K/uL RBC 3.54 L (4.7-6.1) M/uL Hgb 9.1 L (14.0-18.0) g/dL Hct 30.1 L (42-52) % MCV 85.0 (80-100) fL MCH 25.7 (25-34) pg MCHC 30.2 L (32-36) g/dL RDW Std Deviation 58.0 H (36.4-46.3) fL RDW Coeff of Brendan 18.9 H (11.5-14.5) % Plt Count 150 (130-400) K/uL MPV 8.9 (7.4-10.4) fL Immature Gran % (Auto) 0.6 % Neut % (Auto) 62.0 % Lymph % (Auto) 19.6 % [place] % (Auto) 14.6 % Eos % (Auto) 2.9 % Baso % (Auto) 0.3 % Immature Gran # (Auto) 0.02 (0.00-0.02) K/uL Neut # (Auto) 2.12 (1.4-6.5) K/uL Lymph # (Auto) 0.67 L (1.2-3.4) K/uL [place] # (Auto) 0.50 (0.11-0.59) K/uL Eos # (Auto) 0.10 (0-0.5) K/uL Baso # (Auto) 0.01 (0-0.2) K/uL Absolute Nucleated RBC 0.03 H (0-0) K/uL Nucleated RBC % (auto) 0.9 % PT 10.9 (9.0-12.0) Seconds INR 1.1 (0.9-1.1) APTT 41.8 H (21.0-31.0) Seconds PTT Ratio 1.5 VBG pH (7.36-7.41) VBG pCO2 (38-50) mmHg VBG pO2 mmHg VBG HCO3 mmol/L VBG O2 Saturation % VBG Base Excess mEq/L Barometric Pressure mm/Hg Sodium 135 L (136-145) mmol/L Potassium 3.2 L (3.5-5.1) mmol/L Chloride 94 L (98-107) mmol/L Carbon Dioxide 35 H (21-32) mmol/L Anion Gap 7.0 (3-11) BUN 21 H (7-18) mg/dl Creatinine 1.68 H (0.6-1.4) mg/dl Est Cr Clr Drug Dosing Not Reportable Est GFR ( Amer) 42.9 Est GFR (Non-Af Amer) 37.0 BUN/Creatinine Ratio 12.7 (10-20) Glucose 152 H (70-99) mg/dl Calcium 8.8 (8.5-10.1) mg/dl Magnesium 2.2 (1.8-2.4) mg/dl Total Bilirubin 0.5 (0.2-1) mg/dl AST 10 L (15-37) U/L ALT 15 (12-78) U/L Alkaline Phosphatase 66 (45-117) U/L Troponin I < 0.015 (0-0.045) ng/ml NT-Pro-B Natriuret Pep 229 (0-1800) pg/ml Total Protein 6.4 (6.4-8.2) gm/dl Albumin 2.6 L (3.4-5.0) gm/dl Globulin 3.8 (2.5-4.0) gm/dl Albumin/Globulin Ratio 0.7 L (0.9-2) Urine Color Urine Appearance (Clear) Urine pH (4.5-7.5) Ur Specific Griffin (1.000-1.030) Urine Protein (Negative) Urine Glucose (UA) (Negative) Urine Ketones (Negative) Urine Blood (Negative) Urine Nitrite (Negative) Urine Bilirubin (Negative) Urine Urobilinogen (Negative) Ur Leukocyte Esterase (Negative) 04/10/19 04/10/19 04/10/19 Range/Units 16:29 16:39 17:20 WBC (4.8-10.8) K/uL RBC (4.7-6.1) M/uL Hgb (14.0-18.0) g/dL Hct (42-52) % MCV (80-100) fL MCH (25-34) pg MCHC (32-36) g/dL RDW Std Deviation (36.4-46.3) fL RDW Coeff of Brendan (11.5-14.5) % Plt Count (130-400) K/uL MPV (7.4-10.4) fL Immature Gran % (Auto) % Neut % (Auto) % Lymph % (Auto) % [place] % (Auto) % Eos % (Auto) % Baso % (Auto) % Immature Gran # (Auto) (0.00-0.02) K/uL Neut # (Auto) (1.4-6.5) K/uL Lymph # (Auto) (1.2-3.4) K/uL [place] # (Auto) (0.11-0.59) K/uL Eos # (Auto) (0-0.5) K/uL Baso # (Auto) (0-0.2) K/uL Absolute Nucleated RBC (0-0) K/uL Nucleated RBC % (auto) % PT (9.0-12.0) Seconds INR (0.9-1.1) APTT (21.0-31.0) Seconds PTT Ratio VBG pH 7.48 H (7.36-7.41) VBG pCO2 55 H (38-50) mmHg VBG pO2 32 mmHg VBG HCO3 40 mmol/L VBG O2 Saturation 61.0 % VBG Base Excess 14.4 mEq/L Barometric Pressure 732.5 mm/Hg Sodium (136-145) mmol/L Potassium (3.5-5.1) mmol/L Chloride (98-107) mmol/L Carbon Dioxide (21-32) mmol/L Anion Gap (3-11) BUN (7-18) mg/dl Creatinine (0.6-1.4) mg/dl Est Cr Clr Drug Dosing Est GFR ( Amer) Est GFR (Non-Af Amer) BUN/Creatinine Ratio (10-20) Glucose (70-99) mg/dl Calcium (8.5-10.1) mg/dl Magnesium (1.8-2.4) mg/dl Total Bilirubin (0.2-1) mg/dl AST (15-37) U/L ALT (12-78) U/L Alkaline Phosphatase (45-117) U/L Troponin I (0-0.045) ng/ml NT-Pro-B Natriuret Pep Cancelled (0-1800) pg/ml Total Protein (6.4-8.2) gm/dl Albumin (3.4-5.0) gm/dl Globulin (2.5-4.0) gm/dl Albumin/Globulin Ratio (0.9-2) Urine Color Yellow Urine Appearance Clear (Clear) Urine pH >= 9.0 H (4.5-7.5) Ur Specific Griffin 1.015 (1.000-1.030) Urine Protein Negative (Negative) Urine Glucose (UA) Negative (Negative) Urine Ketones Negative (Negative) Urine Blood Negative (Negative) Urine Nitrite Negative (Negative) Urine Bilirubin Negative (Negative) Urine Urobilinogen Negative (Negative) Ur Leukocyte Esterase Negative (Negative) Imaging Data Radiologist's Impression: Radiology results as stated below per my review and the radiologist's interpretation: SINGLE VIEW CHEST CLINICAL HISTORY: Dyspnea. FINDINGS: An AP, portable, upright chest radiograph is compared to chest x-ray dated 04/08/2019 and correlated with chest CT dated 04/03/2019. The examination is degraded by portable technique and patient rotation. A right internal jugular central venous infusion port is unchanged in position. The heart is top normal in size noting atherosclerotic calcification of the thoracic aorta. There is prominence of the pulmonary vasculature. Advanced emphysema and chronic interstitial thickening are similar to previous. Volume loss in the left lung is consistent with previous surgical resection. Multifocal airspace opacities have modestly increased from 04/08/2019. These are greatest in the right upper lobe and at the lung bases. Small pleural effusions are again noted. No pneumothorax is seen. The skeletal structures are osteopenic. The bony thorax is grossly intact. IMPRESSION: 1. Advanced emphysema and postoperative change from left-sided pulmonary resection are again noted. 2. Cardiomegaly with prominence of the pulmonary vasculature. Correlate clinically for evidence of congestive failure. 3. Again seen are multifocal airspace opacities, which appear increased from the 04/08/2019 examination. This could represent a component of interstitial edema or an infectious/inflammatory pneumonitis. Clinical correlation will required. 4. Small pleural effusions are again noted. Electronically signed by: Tres Mike M.D. 04/10/2019 4:55 PM ECG Data Attestation: I personally reviewed and interpreted this ECG as follows: Indication: + SOB/dyspnea Rate (beats per minute): [address] segments: + ST depression (lateral) ECG Findings: + Q waves (inferior) and + LVH (noted by voltage criteria) Comparison ECG Date: from (04/03/19) Change: no significant change Blood Pressure Blood Pressure Findings: Elevated blood pressure Blood Pressure Disposition: further management by hospitalist ASHLEE Mckoy The patient is an 83-year-old male who presented to the emergency department for an evaluation of shortness of breath. The patient has a history of stage IV lung cancer. He was recently admitted to our facility for similar complaints. At that time he did have a thoracentesis for a large pleural effusion. The patient does not wish to have any aggressive measures and does not wish to be placed on a ventilator. He was placed on submental oxygen using Vapotherm. He tolerated this modality quite well. I discussed the patient's laboratory and radiographic studies with him and his family members. I also discussed his case with the on-call [facility] hospitalist group. They have agreed to evaluate the patient in the emergency department for further management disposition. The patient was reevaluated multiple times. There was some concern that he may have an underlying pneumonia so he was started on IV antibiotics in the emergency department. He was also treated with IV bronchodilator therapy. Impression & Plan Respiratory failure, Hypoxia, Lung cancer, Pneumonia Discharge Plan Visit Data *Final* Discharge Date/Time: 04/10/19 20:05 Chief Complaint: Swelling/Edema to Extremity Stated Complaint: GAIN 3LBS OF FLUID, OXYGEN DOWN TO 40 ED Provider: Renato Smith Discharge Problem: Respiratory failure, Hypoxia, Lung cancer, Pneumonia Patient Disposition: Admitted As Inpatient Discharge Instructions Interventions: ED Discharge Assessment Last Done: 04/10/19 20:05 Discharge Problem: Respiratory failure Qualifiers: Chronicity: unspecified Respiratory failure complication: hypoxia Qualified Code(s): J96.91 - Respiratory failure, unspecified with hypoxia Lung cancer Qualifiers: Laterality: unspecified laterality Lung location: unspecified part of lung Qualified Code(s): C34.90 - Malignant neoplasm of unspecified part of unspecified bronchus or lung Pneumonia Qualifiers: Pneumonia type: due to unspecified organism Laterality: right Lung location: lower lobe of lung Qualified Code(s): J18.9 - Pneumonia, unspecified organism The scribe's documentation has been prepared under my direction and personally reviewed by me in its entirety. I confirm that the note above accurately reflects all work, treatment, procedures, and medical decision making performed by me.
[2019-04-10 16:43] LABS: Base Excess VBG 14.4 mEq/L; pH VBG 7.48 (7.36-7.41)
[2019-04-10 16:45] LABS: Basophils # (auto) 0.01 K/uL (0-0.2); Basophils % (auto) 0.3 %; Eosinophils % (auto) 2.9 %; Hematocrit (blood only) 30.1 % (42-52); Hemoglobin 9.1 g/dL (14.0-18.0); Immature Granulocytes # (auto) 0.02 K/uL (0.00-0.02); Immature Granulocytes % (auto) 0.6 %; Lymphocytes # (auto) 0.67 K/uL (1.2-3.4); Lymphocytes % (auto) 19.6 %; Mean Corpuscular Hemoglobin 25.7 pg (25-34); Mean Corpuscular Hgb Conc 30.2 g/dL (32-36); Mean Platelet Volume 8.9 fL (7.4-10.4); Monocytes % (auto) 14.6 %; Neutrophils # (auto) 2.12 K/uL (1.4-6.5); Nucleated RBC # (auto) 0.03 K/uL (0-0); Nucleated RBC % (auto) 0.9 %; Platelet Count 150 K/uL (130-400); RDW Coefficient of Variation 18.9 % (11.5-14.5); Red Blood Count 3.54 M/uL (4.7-6.1); White Blood Count 3.42 K/uL (4.8-10.8)
--- NOTE | 2019-04-10 16:56 | XRay Report ---
SINGLE VIEW CHEST CLINICAL HISTORY: Dyspnea. FINDINGS: An AP, portable, upright chest radiograph is compared to chest x-ray dated 04/08/2019 and co rrelated with chest CT dated 04/03/2019. The examination is degraded by portable technique and patien t rotation. A right internal jugular central venous infusion port is unchanged in position. The heart is top normal in size noting atherosclerotic calcification of the thoracic aorta. There is prominenc e of the pulmonary vasculature. Advanced emphysema and chronic interstitial thickening are similar to previous. Volume loss in the left lung is consistent with previous surgical resection. Multifocal ai rspace opacities have modestly increased from 04/08/2019. These are greatest in the right upper lobe a nd at the lung bases. Small pleural effusions are again noted. No pneumothorax is seen. The skeletal structures are osteopenic. The bony thorax is grossly intact. IMPRESSION: 1. Advanced emphysema and postoperative change from left-sided pulmonary resection are again noted. 2. Cardiomegaly with prominence of the pulmonary vasculature. Correlate clinically for evidence of co ngestive failure. 3. Again seen are multifocal airspace opacities, which appear increased from the 04/08/2019 examinatio n. This could represent a component of interstitial edema or an infectious/inflammatory pneumonitis. Clinical correlation will required. 4. Small pleural effusions are again noted. Electronically signed by: Tres Mike M.D. 04/10/2019 4:55 PM
[2019-04-10 16:57] LABS: INR 1.1 (0.9-1.1); Partial Thromboplastin Ratio 1.5; Partial Thromboplastin Time 41.8 Seconds (21.0-31.0); Prothrombin Time 10.9 Seconds (9.0-12.0)
[2019-04-10 17:04] LABS: Alanine Aminotransferase 15 U/L (12-78); Albumin Level 2.6 gm/dl (3.4-5.0); Aspartate Aminotransferase 10 U/L (15-37); BUN Creatinine Ratio 12.7 (10-20); Blood Urea Nitrogen 21 mg/dl (7-18); Calcium 8.8 mg/dl (8.5-10.1); Carbon Dioxide 35 mmol/L (21-32); Chloride 94 mmol/L (98-107); Est GFR (African American) 42.9; Glucose 152 mg/dl (70-99); Magnesium 2.2 mg/dl (1.8-2.4); Potassium 3.2 mmol/L (3.5-5.1); Sodium 135 mmol/L (136-145)
[2019-04-10 17:08] LABS: Albumin Globulin Ratio 0.7 (0.9-2); Alkaline Phosphatase 66 U/L (45-117); Bilirubin,Total 0.5 mg/dl (0.2-1); Globulin 3.8 gm/dl (2.5-4.0); Total Protein 6.4 gm/dl (6.4-8.2); Troponin I < 0.015 ng/ml (0-0.045)
[2019-04-10 17:40] LABS: Appearance Urine Clear (Clear); Bilirubin Urine Negative (Negative); Blood Urine Negative (Negative); Color Urine Yellow; Glucose Urine UA Negative (Negative); Ketones Urine Negative (Negative); Leukocyte Esterase Urine Negative (Negative); Nitrite Urine Negative (Negative); Protein Urine Negative (Negative); Specific Gravity Urine 1.015 (1.000-1.030); Urobilinogen Urine Negative (Negative); pH Urine >= 9.0 (4.5-7.5)
[2019-04-10] MEDS ORDERED: PIPERACILLIN/TAZOBACTAM 4.5 GM/120 ML BAG IV ONE (17:42)
[2019-04-10] MEDS ORDERED: PIPERACILL/TAZOBAC CONSULT ACTIVE PRN (17:42)
[2019-04-10] MEDS ORDERED: VANCOMYCIN CONSULT ACTIVE PRN (17:42)
[2019-04-10] MEDS ORDERED: VANCOMYCIN HCL 1,000 MG in SODIUM CHLORIDE 0.9% 500 ML IV ONE (17:42)
--- NOTE | 2019-04-10 18:00 | History & Physical Report ---
Date of Service April 10, 2019 Assessment & Plan (1) Acute on chronic respiratory failure with hypoxia: Likely multifactorial secondary to deconditioning with recent hospitalization, acute on chronic diastolic heart failure, and healthcare acquired pneumonia. He does have a history of pleural effusions, however, chest x-ray does not reveal this to be as much of an issue today. Consulting pulmonology to assist with management. Continue Vapotherm at 30 L/min for goal saturation 90% or greater. Continue Vanco and Zosyn for empiric treatment of healthcare acquired pneumonia. Procalcitonin is pending. Continue with 1 dose of Lasix 20 mg IV followed by holding oral Lasix supplementation per home regimen in a.m in the setting of ANDREW. Replacing potassium this evening and will continue with potassium replacement tomorrow morning as K is 3.2. Magnesium is normal. BNP is ordered and pending. Blood cultures are pending. (2) Acute on chronic diastolic CHF (congestive heart failure): Lasix 20 IV this evening and monitor for response, including urinary output and breathing response. Hold any further Lasix in setting of ANDREW. (3) Acute worsening of stage 3 chronic kidney disease: Possibly secondary to recent hospitalization and Lasix use. We are giving only 1 dose of Lasix in the setting of acute worsening hypoxia possibly secondary to pulmonary edema/vascular congestion and monitoring for response. Otherwise hold p.o. Lasix at this time and renally dose medications. Monitor BMP in a.m. (4) Pneumonia: Vancomycin/Zosyn in setting of recent hospitalizations. Procalcitonin is pending blood cultures pending. (5) Thrombocytopenia: Improved. (6) Lung cancer: Not receiving the chemotherapy that was planned at this time. Follow-up with oncology as outpatient. (7) Esophageal adenocarcinoma: Not receiving the chemotherapy that was planned at this time. Follow-up with oncology as outpatient. (8) Seizure disorder: Can continue lamotrigine per home regimen. (9) DVT prophylaxis: Heparin Conditional code as discussed with patient and family members at time of admission. The patient declines CPR but is okay with temporary intubation if needed Disposition-PCU DO Radha Lopez Hospitalist History of Present Illness Primary Care Provider: Harris Cam MD 83-year-old man who was recently hospitalized at [facility] 03/04 through 03/13 for acute on chronic hypoxic respiratory failure secondary to pleural effusions. He underwent a thoracentesis with 1.8 L removed and was started on prednisone daily for suspected chemotherapy-induced pneumonitis. He was also treated at that time for anemia with a blood transfusion and underwent an EGD for evaluation. Subsequent biopsies were positive for esophageal adenocarcinoma stage T1b, and he was scheduled to start chemotherapy on 04/06. He was doing well for couple of weeks and then reported back to the hospital with increased shortness of breath and ambulatory dysfunction. He denied any cough but reported he was feeling that he was filling up with fluid. He denied any chest pain at that time and had no lightheadedness dizziness diaphoresis or syncopal events. He was readmitted to the hospitalist service on 04/03 and was treated for acute on chronic heart failure with diastolic dysfunction in the setting of malignant pleural effusion. Pulmonary was consulted and repeated a thoracentesis on 04/05. Palliative was also consulted and a discussion regarding home hospice took place, however, his declined this. He was sent home with [facility] who found him more hypoxic today with oxygen saturations in the 50s and with a 3 pound weight gain, and sent him back to the ER. Today, he reports onset of dyspnea last evening around 11 PM which progressed and is now limiting his activity. He is now short of breath with minimal movements. There is no conversational dyspnea noted. There is no swelling noted and he can move around the bed with ease and was not ill-appearing. The patient denies any coughing fevers or chills although he states he is cold all the time. He states that yesterday he did feel well until later in the evening. He denies any issues with eating including no nausea and has no GI symptoms except some mild constipation. He denies any pain and there have been no changes in medications since discharge 48 hours ago. Family was at bedside and confirmed CODE STATUS which is DO NOT RESUSCITATE but intubation is okay if needed temporarily. Furthermore, home hospice is not being pursued per his family secondary to the fact that he cannot come in and receive a therapeutic thoracentesis if needed. Allergies Allergy/AdvReac Type Severity Reaction Status Date / Time lisinopril Allergy Severe Unknown Verified 04/03/19 17:03 lidocaine Allergy Intermediate PRESERVATIVE Verified 04/03/19 17:03 IN LIDOCAINE CAUSES RED SKIN atorvastatin [From Lipitor] AdvReac Mild Blurry Verified 04/03/19 17:03 Vision rosuvastatin [From Crestor] AdvReac Mild Blurry Verified 04/03/19 17:03 Vision Influenza Virus Vaccines AdvReac Confusion Verified 04/10/19 20:33 Home Medications Home Medications Medication Instructions Recorded Confirmed Type carvedilol 6.25 mg PO BID 10/24/18 04/10/19 History dutasteride 0.5 mg PO DAILY 10/24/18 04/10/19 History lamotrigine 150 mg PO BID 10/24/18 04/10/19 History nitroglycerin 0.4 mg SUBLINGUAL USEASDIRECTD PRN 10/24/18 04/10/19 History rosuvastatin 20 mg PO HS 10/24/18 04/10/19 History tamsulosin 0.4 mg PO HS 10/24/18 04/10/19 History amlodipine 10 mg PO DAILY 03/04/19 04/10/19 History escitalopram oxalate 5 mg PO DAILY 03/04/19 04/10/19 History folic acid 1 mg PO QAM 03/04/19 04/10/19 History isosorbide mononitrate 30 mg PO QAM 03/04/19 04/10/19 History clopidogrel 75 mg PO DAILY #0 tab 03/13/19 04/10/19 Rx pantoprazole 40 mg PO BID 30 Days #60 tab 03/13/19 04/10/19 Rx Trelegy Ellipta 1 inh INHALATION DAILY 04/03/19 04/10/19 History furosemide [Lasix] 20 mg PO BID #60 tab 04/08/19 04/10/19 Rx Past Med/Surg History Medical History Adenocarcinoma of right lung (Chronic) Anemia (Chronic) HX Collado's esophagus (Chronic) BPH (benign prostatic hyperplasia) (Chronic) CAD (coronary artery disease) (Chronic) 2004 - RAFI to left cx 02/2011 - BMS to prox LAD and RCA 10/2018 - angioplasty to mid RCA Chronic diastolic CHF (congestive heart failure) Chronic respiratory failure (Chronic) 4L O2 at home CKD (chronic kidney disease), stage III (Chronic) COPD (chronic obstructive pulmonary disease) (Chronic) Esophageal adenocarcinoma GERD (gastroesophageal reflux disease) (Chronic) Goals of care, counseling/discussion HTN (hypertension) (Chronic) Hyperlipidemia (Chronic) Osteoarthritis (Chronic) Seizure disorder (Chronic) STARING SPELLS-LAST EVENT MORE THAN 4 YEARS AGO (EPILEPSY) Squamous cell carcinoma of left lung Thrombocytopenia Surgical History History of lobectomy of lung (Chronic) LLL 2004 S/P carotid endarterectomy (Chronic) LEFT Family History Other Stroke Social History Preferred Language: Portuguese Communication Ability: Effective 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 Beliefs That Will Affect Care: None marital status: Current Living Situation: Spouse Current Living Situation Comment: LIVE AT HOME WITH current occupational status: retired Other Information That Helps Us Care for You: No Feels Safe at Home: Yes Safety Concerns: Feels Safe At This Time Smoking Status: Former smoker Tobacco Type: cigarettes ; Cigarettes Per Day: 16 ; Second Hand Exposure: No ; Hx Alcohol Use: No Hx Substance Use: No Review of Systems Review of Systems: All systems reviewed & are unremarkable except as noted in HPI & below Physical Exam Physical Exam: CONSTITUTIONAL: WNWD, vitals as above, generally well- appearing EYES: EOMI bilaterally, PERRL, normal conjunctivae, no scleral icterus ENT: external ear and nose normal, oropharynx clear, MMM NECK: trachea midline, no lymphadenopathy RESPIRATORY: on vapotherm at 30L/min and appears comfortable. He demonstrates normal respiratory effort. Auscultation reveals minimal coarse rhonchi/crackles at bases L>R but is moving air well to the bases. CARDIOVASCULAR: regular rate and rhythm, S1 and 2 heard without murmurs, gallops or rubs, no JVD, no peripheral edema, no carotid bruits CHEST: A port in R upper anterior chest accessed. GASTROINTESTINAL: normal bowel sounds, soft, nontender, nondistended MUSCULOSKELETAL: strength 5/5 throughout, head is normocephalic and atraumatic SKIN: warm and dry NEUROLOGIC: CN 2-12 grossly intact, no sensory deficit, normal cognition, normal speech, no tremor, no gross neurologic deficits. PSYCHIATRIC: alert cooperative and oriented to person, place and time. Results & Data Vital Signs (Past 12 Hours) Vital Signs Temp Pulse Pulse Pulse Resp BP BP 04/10/19 17:53 71 71 22 126/60 04/10/19 17:22 71 71 16 139/61 04/10/19 16:54 73 22 04/10/19 16:42 73 73 22 136/59 L 04/10/19 16:09 36.6 C 84 30 H 98/64 L Pulse Ox 04/10/19 17:53 95 04/10/19 17:22 96 04/10/19 16:54 97 04/10/19 16:42 99 04/10/19 16:09 47 L Laboratory Results Short CBC 04/10/19 Range/Units 16:29 WBC 3.42 L (4.8-10.8) K/uL Hgb 9.1 L (14.0-18.0) g/dL Hct 30.1 L (42-52) % Plt Count 150 (130-400) K/uL BMP 04/10/19 16:29 Sodium 135 L Potassium 3.2 L Chloride 94 L Carbon Dioxide 35 H BUN 21 H Creatinine 1.68 H Glucose 152 H Calcium 8.8 Cardiac Enzymes 04/10/19 Range/Units 16:29 Troponin I < 0.015 (0-0.045) ng/ml Liver Function 04/10/19 Range/Units 16:29 Total Bilirubin 0.5 (0.2-1) mg/dl AST 10 L (15-37) U/L ALT 15 (12-78) U/L Alkaline Phosphatase 66 (45-117) U/L Albumin 2.6 L (3.4-5.0) gm/dl Urine 04/10/19 Range/Units 17:20 Urine Color Yellow Urine Appearance Clear (Clear) Urine pH >= 9.0 H (4.5-7.5) Ur Specific [place] 1.015 (1.000-1.030) Urine Protein Negative (Negative) Urine Glucose (UA) Negative (Negative) Diagnostic Findings CXR: IMPRESSION: 1. Advanced emphysema and postoperative change from left-sided pulmonary resection are again noted. 2. Cardiomegaly with prominence of the pulmonary vasculature. Correlate clinically for evidence of congestive failure. 3. Again seen are multifocal airspace opacities, which appear increased from the 04/08/2019 examination. This could represent a component of interstitial edema or an infectious/inflammatory pneumonitis. Clinical correlation will required. 4. Small pleural effusions are again noted. Medications Administered albuterol vanc zosyn (1) Lung cancer Laterality: unspecified laterality Lung location: unspecified part of lung Qualified Code(s): C34.90 - Malignant neoplasm of unspecified part of unspecified bronchus or lung (2) Pneumonia Laterality: right Lung location: lower lobe of lung Pneumonia type: due to unspecified organism Qualified Code(s): J18.9 - Pneumonia, unspecified organism
[2019-04-10] MEDS ORDERED: POTASSIUM CHLORIDE 20 MEQ TABCR PO STA (19:19)
[2019-04-10] MEDS ORDERED: FUROSEMIDE 40 MG/4 ML VIAL IV STA (19:19)
[2019-04-10] MEDS ORDERED: NITROGLYCERIN SL 0.4 MG/TAB TAB SL PRN (19:31)
[2019-04-10 19:53] LABS: NT Pro B Type Natriuretic Pept 229 pg/ml (0-1800)
[2019-04-10] MEDS ORDERED: ACETAMINOPHEN 325 MG TAB PO PRN (20:18)
[2019-04-10] MEDS ORDERED: ONDANSETRON INJ 2 MG/ML 2 ML VIAL IV PRN (20:18)
[2019-04-10] MEDS ORDERED: FUROSEMIDE 20 MG TAB PO SCH (21:00)
[2019-04-10] MEDS: carvediloL 6.25 MG TAB PO SCH (21:01)
[2019-04-10] MEDS: ROSUVASTATIN CALCIUM 20 MG TAB PO SCH (21:02)
[2019-04-10] MEDS: TAMSULOSIN HCL 0.4 MG CAP PO SCH (21:03)
[2019-04-10] MEDS: PANTOprazole 40 MG TAB PO SCH (21:04)
[2019-04-10] MEDS: lamoTRIgine 100 MG TAB PO SCH (21:04)
[2019-04-10] MEDS: HEPARIN SOD 5,000 UNIT/0.5 ML VIAL SQ SCH (21:07)
[2019-04-10] MEDS ORDERED: PNEUMOCOCCAL Polysaccharide Vaccine 25mcg/0.5mL vial/Syr IM ONE (21:15)
[2019-04-10] MEDS ORDERED: VANCOMYCIN HCL 500 MG in SODIUM CHLORIDE 0.9% 250 ML IV ONE (21:30)
[2019-04-10] MEDS: PIPERACILLIN/TAZOBACTAM 3.375 GM in DEXTROSE 5% 100 ML IV SCH (22:40)
[2019-04-11] MEDS ORDERED: HEPARIN 100 UNIT/ML 5ML FLUSH FLUSH PRN (02:37)
[2019-04-11 05:59] LABS: Hematocrit (blood only) 27.2 % (42-52); Hemoglobin 8.4 g/dL (14.0-18.0); Mean Corpuscular Hemoglobin 26.4 pg (25-34); Mean Corpuscular Hgb Conc 30.9 g/dL (32-36); Mean Corpuscular Volume 85.5 fL (80-100); Mean Platelet Volume 8.9 fL (7.4-10.4); Platelet Count 134 K/uL (130-400); RDW Coefficient of Variation 18.9 % (11.5-14.5); RDW Standard Deviation 58.1 fL (36.4-46.3); Red Blood Count 3.18 M/uL (4.7-6.1); White Blood Count 3.06 K/uL (4.8-10.8)
[2019-04-11] MEDS: HEPARIN SOD 5,000 UNIT/0.5 ML VIAL SQ SCH ×3 (06:07→21:45)
[2019-04-11 06:38] LABS: BUN Creatinine Ratio 11.8 (10-20); Calcium 8.5 mg/dl (8.5-10.1); Creatinine Clr Calc Pharmacy 32.2 ml/min; Est GFR (African American) 47.3; Est GFR (Non-African American) 40.8; Magnesium 2.3 mg/dl (1.8-2.4); Potassium 4.2 mmol/L (3.5-5.1)
[2019-04-11] MEDS: PIPERACILLIN/TAZOBACTAM 3.375 GM in DEXTROSE 5% 100 ML IV SCH ×3 (06:44→23:38)
[2019-04-11] MEDS: DUTASTERIDE 0.5 MG SCH ×3 (07:47→15:50)
[2019-04-11] MEDS: carvediloL 6.25 MG TAB PO SCH ×2 (08:51→21:42)
[2019-04-11] MEDS: FOLIC ACID 1 MG TAB PO SCH (08:52)
[2019-04-11] MEDS: lamoTRIgine 100 MG TAB PO SCH ×2 (08:52→21:43)
[2019-04-11] MEDS: ISOSORBIDE MONO EXTENDED REL 30 MG TABCR PO SCH (08:52)
[2019-04-11] MEDS: AMLODIPINE BESYLATE 5 MG TAB PO SCH (08:53)
[2019-04-11] MEDS: ESCITALOPRAM OXALATE 10 MG TAB PO SCH (08:53)
[2019-04-11] MEDS: CLOPIDOGREL BISULFATE 75 MG TAB PO SCH (08:53)
[2019-04-11] MEDS: PANTOprazole 40 MG TAB PO SCH ×2 (08:53→21:43)
[2019-04-11] MEDS ORDERED: POTASSIUM CHLORIDE 20 MEQ TABCR PO SCH (09:00)
[2019-04-11] MEDS ORDERED: VANCOMYCIN HCL 1,000 MG in SODIUM CHLORIDE 0.9% 250 ML IV SCH (09:00)
--- NOTE | 2019-04-11 11:16 | Hospitalist Progress Note ---
Date of Service April 11, 2019 Assessment & Plan (1) Acute on chronic respiratory failure with hypoxia: Likely multifactorial secondary to deconditioning, healthcare acquired pneumonia and his poor prognosis CXR on admission showed cardiomegaly with prominence of the pulmonary vasculature and multifocal airspace opacities, which appear increased from the 04/08/2019 examination ProBNP on admission only 229 Procalcitonin normal Received IV lasix on admission On IV Zosyn and Rocephin Continue requiring high flow oxygen Blood cultures are pending. Will discuss case with pulmonology Consider to get a PA/LA cxr, but due to pt requiring high flow oxygen will get portable CXR (2) Diastolic heart failure: CXR on admission cardiomegaly with prominence of the pulmonary vasculature ProBNP normal Received IV lasix 20mg on admission Will consider to give additional lasix after reviewing CXR Monitor renal function while on Lasix (3) Acute worsening of stage 3 chronic kidney disease: Creatinine on admission 1.6, baseline 1.1 to 1.3 Creatinine 1.5 today Continue monitor BMP while getting Lasix (4) Pneumonia: CXR showed multifocal airspace opacities Procalcitonin normal On IV Vancomycin/Zosyn Blood cx pending (5) Thrombocytopenia: Platelet 134 today Monitor BMP (6) Lung cancer: Not receiving the chemotherapy that was planned at this time. Follow-up with oncology as outpatient. (7) Esophageal adenocarcinoma: Not receiving the chemotherapy that was planned at this time. Follow-up with oncology as outpatient. (8) Seizure disorder: Can continue lamotrigine per home regimen. (9) DVT prophylaxis: Heparin subq Conditional code Status, declines CPR but is okay with temporary intubation if neede Disposition Continue monitor in tele Subjective Pt was seen and examined Lying in bed with mild respiratory distress He continues to requires high flow oxygen Pt said that he is breathing his slightly improves compare to yesterday Denies any chest pain, palpitation, dizziness and fever Physical Exam Physical Exam: General- No acute distress Head- atraumatic Eyes- PERRL, EOMI, ENT- oropharynx clear Neck- supple, no JVD Lungs- diminished bs Heart- regular rhythm; no murmur Abdomen- normal bowel sounds, soft, nontender Extremities- no calf tenderness Neuro- alert, oriented, PERRL, EOMI; no facial palsy; no dysarthria Skin- warm & dry Results & Data Vital Signs (Past 12 Hours) Vital Signs Temp Pulse Pulse Pulse Resp BP Pulse Ox 04/11/19 11:06 66 18 92 04/11/19 08:00 54 L 04/11/19 07:41 36.8 C 69 22 112/55 L 95 04/11/19 07:13 54 L 16 95 04/11/19 07:03 36.8 C 58 L 19 112/55 L 96 04/11/19 04:17 64 18 96 04/11/19 03:26 36.5 C 58 L 19 97/42 L 94 04/11/19 01:09 63 04/10/19 23:45 54 L 18 96 (1) Lung cancer Laterality: unspecified laterality Lung location: unspecified part of lung Qualified Code(s): C34.90 - Malignant neoplasm of unspecified part of unspecified bronchus or lung (2) Pneumonia Laterality: right Lung location: lower lobe of lung Pneumonia type: due to unspecified organism Qualified Code(s): J18.9 - Pneumonia, unspecified organism
[2019-04-11] MEDS ORDERED: bisacodyL 5 MG TABEC PO ONE (12:37)
--- NOTE | 2019-04-11 12:59 | Pulmonology Progress Note ---
Date of Service April 11, 2019 Assessment & Plan (1) Hypoxia: Impression: 83-year-old male with advanced stage non-small cell lung cancer and recently diagnosed esophageal cancer with presumed pulmonary chemotherapeutic toxicity presenting now with increasing shortness of breath. He has undergone serial thoracentesis which revealed atypical cells and I suspect the effusion is likely malignant. This portends a poor prognosis and the patient is in no condition to consider undergoing systemic palliative chemotherapy. In addition he has esophageal cancer which is not being treated is well. He was just dismissed from the hospital with plans to pursue outpatient hospice but lasted for less than 24 hours home and was readmitted with increasing oxygen requirement. His x-ray demonstrates persistent reticular abnormalities on the right with a small pleural effusion. Recommendations: 1. Pleural effusion: Pleural fluid cytology reviewed. Suspicious for adenocarcinoma. I suspect this represents a malignant effusion. Nevertheless it does not appear significantly increased in size and I doubt it is the etiology for his increasing oxygen requirement. Continue expectant management. 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 2. Abnormal CT scan: Unclear whether this represents interstitial lung disease, chemotherapeutic associated pulmonary toxicity, or atypical pulmonary edema. He does have evidence of progression of his malignancy on short interval CT scans. The patient has extremely limited insight into his cancer and when I again informed him that he has advancing lung cancer and esophageal cancer he acts like this is the first time he is received this information. There may be significant neurocognitive dysfunction going on as well. I think palliative care is entirely appropriate. Hospice should be considered. The patient cannot go home and care for himself as well as his . Could consider high-dose steroids to see if this is a chemotherapeutic associated pulmonary toxicity however given his advancing malignancy and underlying medical problems, I am not convinced that this would offer him much in the way of clinical benefit. 3. Pulmonary hypertension: This is secondary to underlying heart and lung disease. No indication for pulmonary vasodilators or right heart catheterization. 4. Unfortunately it feels like the patient is going to succumb from his u nderlying malignancies. There is no point in CPR or ACLS. I discussed with the patient. He states that as he indeed has cancer and is not a candidate for chemotherapy there is no point in intubating him therefore I will change his status to DO NOT INTUBATE DO NOT RESUSCITATE. (2) Lung cancer: Laterality: unspecified laterality Lung location: unspecified part of lung Qualified Code(s): C34.90 - Malignant neoplasm of unspecified part of unspecified bronchus or lung (3) Respiratory failure: Chronicity: unspecified Respiratory failure complication: hypoxia Qualified Code(s): J96.91 - Respiratory failure, unspecified with hypoxia Subjective Patient seen and examined. EMR reviewed. The patient is known to me from prior hospitalization. He was just dismissed from the hospital on the fifth and lasted less than 24 hours at home before he was readmitted with shortness of breath and increasing oxygen requirement. He has been placed on high flow oxygen. He states he feels better today with the higher flow oxygen. He has little recollection of our prior discussions and when I tell him that he has 2 cancers he acts surprised. Review of Systems Review of Systems: See admission H&P. No additions or deletions Physical Exam Constitutional: WD/WN, vitals as above Eyes: PERRL, conjunctivae normal, anicteric sclerae ENMT: external ear and nose normal, oropharynx normal Respiratory: normal respiratory effort; no respiratory distress Auscultation: + diminished lung sounds and + crackles (Faint, bilateral, R>L, mid to lower lung boles) Cardiovascular: Rate/Rhythm: regular rate and regular rhythm Vessels: normal peripheral pulses Extremities: + edema (+2 pitting edema BLE) Chest (Breasts): Chest: + vascular access device or port Gastrointestinal (Abdomen): normal bowel sounds, soft, nontender, no hepatosplenomegaly Musculoskeletal: no cyanosis or clubbing, extremities motor strength 5/5 Skin: no rashes, warm and dry Neurologic: PERRL, EOMI, accommodation nl, no face palsy, no dysarthria Psychiatric: A+Ox3, euthymic affect Results & Data Vital Signs (Past 12 Hours) Vital Signs Temp Pulse Pulse Pulse Resp BP Pulse Ox 04/11/19 12:03 36.8 C 63 18 110/65 96 04/11/19 11:06 66 18 92 04/11/19 08:00 54 L 04/11/19 07:41 36.8 C 69 22 112/55 L 95 04/11/19 07:13 54 L 16 95 04/11/19 07:03 36.8 C 58 L 19 112/55 L 96 04/11/19 04:17 64 18 96 04/11/19 03:26 36.5 C 58 L 19 97/42 L 94 04/11/19 01:09 63 Laboratory Results 04/11/19 05:35 04/11/19 05:35 Diagnostic Findings Chest x-ray independently reviewed. There remain significant interstitial opacities in the right lung. Small effusion noted, much smaller than previous. PG Care Time/CCT Total # of Minutes Spent Total Time Spent with Patient: Total time spent is greater than 50% in coordination of care (as documented) at patient's floor/unit and/or counseling patient:
--- NOTE | 2019-04-11 13:00 | XRay Report ---
XR chest 1V portable HISTORY: Shortness of breath. Follow-up. COMPARISON: Chest 04/10/2019. FINDINGS: No pneumothorax. Small bilateral pleural effusions persist. Right greater than left interst itial and vascular thickening is again noted. This favors asymmetric pulmonary edema. The heart remai ns mildly enlarged. Right jugular Port-A-Cath terminates at the proximal SVC. Patchy right upper lobe airspace opacity persists. Emphysema. Postoperative changes within the left lung. IMPRESSION: Stable to slight improvement in the interstitial thickening and multifocal airspace opacities, right greater than left. This suggests asymmetric pulmonary edema. Small bilateral pleural effusions ester hemphill Electronically signed by: Kurt Steinberg M.D. 04/11/2019 12:59 PM
[2019-04-11] MEDS ORDERED: FUROSEMIDE 20 MG in SYRINGE 0 ML IV ONE (14:30)
[2019-04-11] MEDS: ROSUVASTATIN CALCIUM 20 MG TAB PO SCH (21:42)
[2019-04-11] MEDS: TAMSULOSIN HCL 0.4 MG CAP PO SCH (21:43)
[2019-04-11] MEDS: DOXYCYCLINE HYCLATE 100 MG CAP PO SCH (21:44)
[2019-04-12] MEDS: HEPARIN SOD 5,000 UNIT/0.5 ML VIAL SQ SCH ×3 (05:59→21:18)
[2019-04-12] MEDS: PIPERACILLIN/TAZOBACTAM 3.375 GM in DEXTROSE 5% 100 ML IV SCH (06:01)
[2019-04-12] MEDS: DUTASTERIDE 0.5 MG SCH ×2 (07:58→15:25)
[2019-04-12] MEDS: lamoTRIgine 100 MG TAB PO SCH ×2 (08:00→21:17)
[2019-04-12] MEDS: FOLIC ACID 1 MG TAB PO SCH (08:00)
[2019-04-12] MEDS: carvediloL 6.25 MG TAB PO SCH ×2 (08:00→21:16)
[2019-04-12] MEDS: ISOSORBIDE MONO EXTENDED REL 30 MG TABCR PO SCH (08:00)
[2019-04-12] MEDS: AMLODIPINE BESYLATE 5 MG TAB PO SCH (08:01)
[2019-04-12] MEDS: CLOPIDOGREL BISULFATE 75 MG TAB PO SCH (08:01)
[2019-04-12] MEDS: ESCITALOPRAM OXALATE 10 MG TAB PO SCH (08:01)
[2019-04-12] MEDS: PANTOprazole 40 MG TAB PO SCH ×2 (08:01→21:18)
[2019-04-12] MEDS: DOXYCYCLINE HYCLATE 100 MG CAP PO SCH (08:01)
[2019-04-12 09:29] LABS: Hematocrit (blood only) 28.7 % (42-52); Hemoglobin 8.7 g/dL (14.0-18.0); Mean Corpuscular Hemoglobin 25.6 pg (25-34); Mean Corpuscular Hgb Conc 30.3 g/dL (32-36); Mean Corpuscular Volume 84.4 fL (80-100); Mean Platelet Volume 8.9 fL (7.4-10.4); Platelet Count 137 K/uL (130-400); RDW Coefficient of Variation 19.3 % (11.5-14.5); RDW Standard Deviation 58.8 fL (36.4-46.3); White Blood Count 3.12 K/uL (4.8-10.8)
[2019-04-12 09:56] LABS: BUN Creatinine Ratio 9.5 (10-20); Creatinine Clr Calc Pharmacy 33.1 ml/min; Est GFR (African American) 48.8; Est GFR (Non-African American) 42.1; Potassium 3.9 mmol/L (3.5-5.1)
--- NOTE | 2019-04-12 11:50 | Hospitalist Progress Note ---
Date of Service April 12, 2019 Assessment & Plan (1) Acute on chronic respiratory failure with hypoxia: Likely multifactorial secondary to deconditioning, healthcare acquired pneumonia and his poor prognosis CXR on admission showed cardiomegaly with prominence of the pulmonary vasculature and multifocal airspace opacities, which appear increased from the 04/08/2019 examination ProBNP on admission only 229 Procalcitonin normal Received IV lasix on admission and yesterday On IV Zosyn and Vanco IV Vanco discontinued, then adding Doxycycline Repeat CXR on 04/11 showed stable to slight improvement in the interstitial thickening and multifocal airspace opacities, right greater than left. Blood cx no growth so far Pt was titrate off from high flow oxygen to 6L [place] Pulmonology on board, appreciate input Clinically improves (2) Diastolic heart failure: CXR on admission cardiomegaly with prominence of the pulmonary vasculature ProBNP normal Received IV lasix 20mg on admission and yesterday Repeat CXR showed stable to slight improvement in the interstitial thickening and multifocal airspace opacities, right greater than left. Will resume outpatient lasix Continue monitor renal function (3) Acute worsening of stage 3 chronic kidney disease: Creatinine on admission 1.6, baseline 1.1 to 1.3 Creatinine 1.5 today Continue monitor BMP while getting Lasix (4) Pneumonia: CXR showed multifocal airspace opacities Procalcitonin normal On IV Vancomycin/Zosyn Blood cx no growth so far IV Vanco was discontinued, then Doxycycline added Clinically improved (5) Thrombocytopenia: Platelet 137 today Stable (6) Lung cancer: (7) Esophageal adenocarcinoma: Not receiving the chemotherapy that was planned at this time. Family plan to transition to home hospice on discharge. Follow with oncology dr. Boykin (8) Seizure disorder: Can continue lamotrigine per home regimen. (9) DVT prophylaxis: Heparin subq CODE STATUS Changed to DNR Disposition Continue monitor in tele Possible discharge home with hospice tomorrow Subjective Pt was seen and examined Lying in bed with no distress with family at bedside Pt said that his breathing slightly improved He is stable on 6L NC currently Family would like to take him home to transition on hospice Denies any chest pain, palpitation, dizziness and fever Physical Exam Physical Exam: General- No acute distress Head- atraumatic Eyes- PERRL, EOMI, ENT- oropharynx clear Neck- supple, no JVD Lungs- diminished bs Heart- regular rhythm; no murmur Abdomen- normal bowel sounds, soft, nontender Extremities- no calf tenderness Neuro- alert, oriented, PERRL, EOMI; no facial palsy; no dysarthria Skin- warm & dry Results & Data Vital Signs (Past 12 Hours) Vital Signs Temp Pulse Pulse Pulse Resp BP Pulse Ox 04/12/19 11:41 36.4 C L 76 22 115/57 L 90 04/12/19 10:00 60 04/12/19 08:19 66 20 91 04/12/19 07:13 37.0 C 69 20 110/51 L 92 04/12/19 04:33 36.9 C 64 16 115/54 L 94 04/12/19 04:04 64 18 94 04/11/19 23:57 37.0 C 67 19 124/60 94 (1) Lung cancer Laterality: unspecified laterality Lung location: unspecified part of lung Qualified Code(s): C34.90 - Malignant neoplasm of unspecified part of unspecified bronchus or lung (2) Pneumonia Laterality: right Lung location: lower lobe of lung Pneumonia type: due to unspecified organism Qualified Code(s): J18.9 - Pneumonia, unspecified organism
--- NOTE | 2019-04-12 12:10 | Pulmonology Progress Note ---
Date of Service April 12, 2019 Assessment & Plan (1) Hypoxia: Impression: 83-year-old male with advanced stage non-small cell lung cancer and recently diagnosed esophageal cancer with presumed pulmonary chemotherapeutic toxicity presenting now with increasing shortness of breath. He has undergone serial thoracentesis which revealed atypical cells and I suspect the effusion is likely malignant. He was readmitted with progressive hypoxemia but is now weaned down to 6 L nasal cannula. Family anticipates taking him home tomorrow with home hospice Recommendations: 1. Pleural effusion: Pleural fluid cytology reviewed. Suspicious for adenocarcinoma. I suspect this represents a malignant effusion. Should the pleural effusion reaccumulate and become symptomatic, repeat thoracentesis or consideration for placement of a Pleurx catheter would be appropriate. These can both be conducted in the outpatient setting. Given his significant cardiovascular comorbidities, these procedures would need to be performed on Plavix which increases his risk of bleeding. 2. Abnormal CT scan: Unclear whether this represents interstitial lung disease, chemotherapeutic associated pulmonary toxicity, radiation pneumonitis, or atypical pulmonary edema. He does have evidence of progression of his malignancy on short interval CT scans. Discussed with patient and family again at bedside. He is comfortable proceeding with palliative care and home hospice is being arranged. Would continue to aggressively treat reversible causes with diuretics. Antibiotics can be de-escalated to Augmentin for an additional 5 days. We will transition to prednisone and taper over the next 4 to 6 weeks as tolerated 3. Pulmonary hypertension: This is secondary to underlying heart and lung disease. No indication for pulmonary vasodilators or right heart catheterization. 4. Confirmed DNR/DNI status with family and patient. We will sign off at this point time. Feel free to contact us if we can be of additional assistance. (2) Lung cancer: Laterality: unspecified laterality Lung location: unspecified part of lung Qualified Code(s): C34.90 - Malignant neoplasm of unspecified part of unspecified bronchus or lung (3) Respiratory failure: Chronicity: unspecified Respiratory failure complication: hypoxia Qualified Code(s): J96.91 - Respiratory failure, unspecified with hypoxia Subjective Patient seen and examined at bedside. EMR reviewed. Daughters and son-in-law were at bedside and case was reviewed with them as well as with the bedside nurse. Patient has been able to wean down to 6 L nasal cannula. He is off the high flow system. He is not coughing or expectorating phlegm. He denies any chest pain palpitations or significant lower extremity edema. Review of Systems Review of Systems: See admission H&P. No additions or deletions Physical Exam Constitutional: WD/WN, vitals as above Eyes: PERRL, conjunctivae normal, anicteric sclerae ENMT: external ear and nose normal, oropharynx normal Respiratory: normal respiratory effort; no respiratory distress Auscultation: + diminished lung sounds and + crackles (Faint, bilateral, R>L, mid to lower lung boles) Cardiovascular: Rate/Rhythm: regular rate and regular rhythm Vessels: normal peripheral pulses Extremities: + edema (+2 pitting edema BLE) Chest (Breasts): Chest: + vascular access device or port Gastrointestinal (Abdomen): normal bowel sounds, soft, nontender, no hepatosplenomegaly Musculoskeletal: no cyanosis or clubbing, extremities motor strength 5/5 Skin: no rashes, warm and dry Neurologic: PERRL, EOMI, accommodation nl, no face palsy, no dysarthria Psychiatric: A+Ox3, euthymic affect Results & Data Vital Signs (Past 12 Hours) Vital Signs Temp Pulse Pulse Pulse Resp BP Pulse Ox 04/12/19 11:41 36.4 C L 76 22 115/57 L 90 04/12/19 10:00 60 04/12/19 08:19 66 20 91 04/12/19 07:13 37.0 C 69 20 110/51 L 92 04/12/19 04:33 36.9 C 64 16 115/54 L 94 04/12/19 04:04 64 18 94 Laboratory Results 04/12/19 09:20 04/12/19 09:20 Diagnostic Findings No new films PG Care Time/CCT Total # of Minutes Spent Total Time Spent with Patient: Total time spent is greater than 50% in coordination of care (as documented) at patient's floor/unit and/or counseling patient:
[2019-04-12] MEDS: FUROSEMIDE 20 MG TAB PO SCH ×2 (13:15→17:05)
[2019-04-12] MEDS: AMOXICILLIN/CLAVULANATE 875 MG TAB PO SCH (17:05)
[2019-04-12] MEDS: ROSUVASTATIN CALCIUM 20 MG TAB PO SCH (21:17)
[2019-04-12] MEDS: TAMSULOSIN HCL 0.4 MG CAP PO SCH (21:17)
[2019-04-12] MEDS: predniSONE 20 MG TAB PO SCH (21:18)
[2019-04-13] MEDS: DUTASTERIDE 0.5 MG SCH ×4 (00:57→23:55)
[2019-04-13] MEDS: HEPARIN SOD 5,000 UNIT/0.5 ML VIAL SQ SCH ×3 (05:45→21:00)
[2019-04-13 06:40] LABS: Hematocrit (blood only) 29.1 % (42-52); Hemoglobin 8.8 g/dL (14.0-18.0); Mean Corpuscular Hemoglobin 25.4 pg (25-34); Mean Corpuscular Hgb Conc 30.2 g/dL (32-36); Mean Corpuscular Volume 84.1 fL (80-100); Mean Platelet Volume 8.7 fL (7.4-10.4); Platelet Count 165 K/uL (130-400); RDW Coefficient of Variation 18.7 % (11.5-14.5); RDW Standard Deviation 57.5 fL (36.4-46.3); Red Blood Count 3.46 M/uL (4.7-6.1); White Blood Count 2.48 K/uL (4.8-10.8)
[2019-04-13 07:15] LABS: Calcium 9.1 mg/dl (8.5-10.1); Creatinine Clr Calc Pharmacy 32.6 ml/min; Est GFR (African American) 48.8; Est GFR (Non-African American) 42.1; Potassium 3.9 mmol/L (3.5-5.1)
[2019-04-13] MEDS: lamoTRIgine 100 MG TAB PO SCH ×2 (10:07→20:59)
[2019-04-13] MEDS: AMOXICILLIN/CLAVULANATE 875 MG TAB PO SCH ×2 (10:07→18:42)
[2019-04-13] MEDS: ESCITALOPRAM OXALATE 10 MG TAB PO SCH (10:07)
[2019-04-13] MEDS: FUROSEMIDE 20 MG TAB PO SCH ×2 (10:16→18:41)
[2019-04-13] MEDS: carvediloL 6.25 MG TAB PO SCH ×2 (10:16→21:00)
[2019-04-13] MEDS: PANTOprazole 40 MG TAB PO SCH ×2 (10:16→20:59)
[2019-04-13] MEDS: predniSONE 20 MG TAB PO SCH ×2 (10:16→20:59)
[2019-04-13] MEDS: FOLIC ACID 1 MG TAB PO SCH (10:17)
[2019-04-13] MEDS: CLOPIDOGREL BISULFATE 75 MG TAB PO SCH (10:17)
[2019-04-13] MEDS: ISOSORBIDE MONO EXTENDED REL 30 MG TABCR PO SCH (10:17)
[2019-04-13] MEDS: AMLODIPINE BESYLATE 5 MG TAB PO SCH (10:17)
--- NOTE | 2019-04-13 10:36 | Palliative Care Consultation ---
Date of Consultation April 13, 2019 Assessment & Plan (1) Goals of care, counseling/discussion: -83 year old male patient with PMH metastatic non-small cell lung cancer, newly diagnosed esophageal cancer, diastolic heart failure, CAD s/p stents, LA, CKD, COPD with chronic respiratory failure on home oxygen at 4LPM, presented to the hospital with increased SOB, weight gain of 3 lbs and hypoxia where he was found to have an SpO2 50's. This patient is known to the palliative care service from his most recent admission 03/04/19 - 03/13/19. During his last admission, a thoracentesis was performed for treatment of suspected malignant pleural effusions with over 1100mL serosanguenous fluid removed. The patient was to start a new chemotherapy reigmen on 04/06/19, but he was too weak with increased symptoms and overall functional decline that he did not receive any additional chemotherapy. The patient sees Dr. Helm with [facility] in [place]. Uncertain at this time if the patient is still a candidate for chemotherapy. Last admission upon discharge, the patient was to go home with [facility] which was started Palliative Care consulted to discuss goals of care. -I met with the patient in room 204. Patient was sitting upright in his bed, oxymask 8L in place in no apparent distress. -Patient said that shortness of breath is his biggest complaint at this time. -We talked at length about his current medical condition and worsening overall presentation. As previously stated, the pleural fluid is suspicious for adenocarcinoma. We talked at length about the likelihood of reaccumulation of fluid. Due to his cardiovascular conditions, he is on Plavix for which the risk vs benefit was discussed regarding pleurx placement. He stated "I will kill the cancer, before it kills me" and then he went on to say "I know I will from this" -I called the patients , Twila ([phone]) who is interested in taking him home with Hospice. We discussed what that entails. She stated that she would like to take him home with hospice services, but would like to have him see his oncologist, Dr. Helm, one last time, but not receive chemotherapy. I told her I would call her daughter to discuss further and she said "Tell her I am ok with the hospice thing" -I then spoke with Ludmila, patients daughter ([phone]) who has realistic expectations about her fathers illness. We discussed at length risk vs benefit of stopping Plavix for insertion of Pleur-X looking at the overall comfort it would provide, knowing the overall risk of a cardiovascular event occurring is higher. Should fliud reaccumulate, this could be an option further discussed prior to discharge. -Patient has been weaned from hi-flow earlier today, but now is back on hi-flow at 8L. Case management working on discharge planning. Per [facility], 6L Hi- Flow would be the maximum capacity. -Suggest weaning over 24 hour period and if unable to wean, consider possibility of GIP patient until he could be weaned. I think this would be beneficial for the family as well to develop rapport with them, making the transition to home easier as well. -I ordered Roxanol 5 mg po Q4 PRN for pain/air hunger if needed. -Will continue to follow and provide support throughout decision making, along with assisting with symptom management. -PPS: 30% (2) Lung cancer: Laterality: unspecified laterality Lung location: unspecified part of lung Qualified Code(s): C34.90 - Malignant neoplasm of unspecified part of unspecified bronchus or lung (3) Hypoxia: (4) Acute on chronic respiratory failure with hypoxia: (5) Esophageal adenocarcinoma: (6) CKD (chronic kidney disease), stage III: Supervising Physician Co-Signing Physician Notes Late entry for visit and exam done on 04/13/2019. Patient seen and examined, patient's daughter and son-in-law at bedside. Collaborated with HUGO Murphy PE: Patient awake and alert, no acute distress.Patient currently requiring O2 at 9 L HEENT: EOMI, hearing generally within normal limits Respirations: Coarse breath sounds, decreased breath sounds bilateral bases CV: Regular rate Abdomen: Not distended Patient actually appears better than When seen on his last admission.Daughter asking about Pleurx catheter-reviewed patient's chest x-ray, has minimal bilateral pleural effusions-no indication for Pleurx. Reviewed with daughter at bedside Agree with above note, assessment and plan as per HUGO Murphy. Plan is for discharge home with hospice History of Present Illness Reason for Consultation: goals of care Requesting Physician: Dr. Barone Attending Physician: Marcus Barone MD History of Present Illness -83 year old male patient with PMH metastatic non-small cell lung cancer, newly diagnosed esophageal cancer, diastolic heart failure, CAD s/p stents, LA, CKD, COPD with chronic respiratory failure on home oxygen at 4LPM, presented to the hospital with increased SOB, weight gain of 3 lbs and hypoxia where he was found to have an SpO2 50's. This patient is known to the palliative care service from his most recent admission 03/04/19 - 03/13/19. During his last admission, a thoracentesis was performed for treatment of suspected malignant pleural effusions with over 1100mL serosanguenous fluid removed. The patient was to start a new chemotherapy reigmen on 04/06/19, but he was too weak with increased symptoms and overall functional decline that he did not receive any additional chemotherapy. The patient sees Dr. Helm with [facility] in [place]. Uncertain at this time if the patient is still a candidate for chemotherapy. Last admission upon discharge, the patient was to go home with [facility] which was started Palliative Care consulted to discuss goals of care. Please see A/P for further details. Thank you kindly for involving the palliative care team with this patient. Allergies Allergy/AdvReac Type Severity Reaction Status Date / Time lisinopril Allergy Severe Unknown Verified 04/03/19 17:03 lidocaine Allergy Intermediate PRESERVATIVE Verified 04/03/19 17:03 IN LIDOCAINE CAUSES RED SKIN atorvastatin [From Lipitor] AdvReac Mild Blurry Verified 04/03/19 17:03 Vision rosuvastatin [From Crestor] AdvReac Mild Blurry Verified 04/03/19 17:03 Vision Influenza Virus Vaccines AdvReac Confusion Verified 04/10/19 20:33 Home Medications Home Medications Medication Instructions Recorded Confirmed Type carvedilol 6.25 mg PO BID 10/24/18 04/10/19 History dutasteride 0.5 mg PO DAILY 10/24/18 04/10/19 History lamotrigine 150 mg PO BID 10/24/18 04/10/19 History nitroglycerin 0.4 mg SUBLINGUAL USEASDIRECTD PRN 10/24/18 04/10/19 History rosuvastatin 20 mg PO HS 10/24/18 04/10/19 History tamsulosin 0.4 mg PO HS 10/24/18 04/10/19 History amlodipine 10 mg PO DAILY 03/04/19 04/10/19 History escitalopram oxalate 5 mg PO DAILY 03/04/19 04/10/19 History folic acid 1 mg PO QAM 03/04/19 04/10/19 History isosorbide mononitrate 30 mg PO QAM 03/04/19 04/10/19 History clopidogrel 75 mg PO DAILY #0 tab 03/13/19 04/10/19 Rx pantoprazole 40 mg PO BID 30 Days #60 tab 03/13/19 04/10/19 Rx Trelegy Ellipta 1 inh INHALATION DAILY 04/03/19 04/10/19 History furosemide [Lasix] 20 mg PO BID #60 tab 04/08/19 04/10/19 Rx amoxicillin-pot clavulanate 1 tab PO BIDM 3 Days #6 tab 04/14/19 Rx lorazepam [Ativan] 0.5 mg PO Q6H PRN 3 Days #10 tab 04/14/19 Rx morphine concentrate 5 mg PO Q4H PRN 3 Days #10 ml 04/14/19 Rx prednisone 10 mg PO UD #40 tab 04/14/19 Rx Patient History Medical History Adenocarcinoma of right lung (Chronic) Anemia (Chronic) HX Collado's esophagus (Chronic) BPH (benign prostatic hyperplasia) (Chronic) CAD (coronary artery disease) (Chronic) 2004 - RAFI to left cx 02/2011 - BMS to prox LAD and RCA 10/2018 - angioplasty to mid RCA Chronic diastolic CHF (congestive heart failure) Chronic respiratory failure (Chronic) 4L O2 at home CKD (chronic kidney disease), stage III (Chronic) COPD (chronic obstructive pulmonary disease) (Chronic) Esophageal adenocarcinoma GERD (gastroesophageal reflux disease) (Chronic) Goals of care, counseling/discussion HTN (hypertension) (Chronic) Hyperlipidemia (Chronic) Osteoarthritis (Chronic) Seizure disorder (Chronic) STARING SPELLS-LAST EVENT MORE THAN 4 YEARS AGO (EPILEPSY) Squamous cell carcinoma of left lung Thrombocytopenia Surgical History History of lobectomy of lung (Chronic) LLL 2004 S/P carotid endarterectomy (Chronic) LEFT Family History Other Stroke Social History Preferred Language: Thai Communication Ability: Effective Physician Relations Manager Required: No Beliefs That Will Affect Care: None marital status: Current Living Situation: Spouse Current Living Situation Comment: LIVE AT HOME WITH current occupational status: retired Other Information That Helps Us Care for You: No Feels Safe at Home: Yes Safety Concerns: Feels Safe At This Time Smoking Status: Former smoker Tobacco Type: cigarettes ; Cigarettes Per Day: 16 ; Second Hand Exposure: No ; Hx Alcohol Use: No Hx Substance Use: No Results & Data Vital Signs (Past 12 Hours) Vital Signs Temp Pulse Pulse Resp BP BP Pulse Ox 04/13/19 07:11 36.8 C 71 18 149/69 H 98 04/13/19 03:54 36.9 C 74 24 130/63 94 04/12/19 23:44 36.9 C 73 19 130/59 L 92 PG Care Time/CCT Total # of Minutes Spent Total Time Spent with Patient: Total time spent is greater than 50% in coordination of care (as documented) at patient's floor/unit and/or counseling patient: 70 Time Spent Midlevel Total time spent 70 minutes with > 50% of that time spent assessing the patient, discussing goals of care with the patient and his family members on the phone, and providing symptom management.
--- NOTE | 2019-04-13 12:24 | Hospitalist Progress Note ---
Date of Service April 13, 2019 Assessment & Plan (1) Acute on chronic respiratory failure with hypoxia: Likely multifactorial secondary to deconditioning, healthcare acquired pneumonia and his poor prognosis CXR on admission showed cardiomegaly with prominence of the pulmonary vasculature and multifocal airspace opacities, which appear increased from the 04/08/2019 examination ProBNP on admission only 229 Procalcitonin normal Received IV lasix on admission and yesterday On IV Zosyn and Vanco IV Vanco discontinued, then adding Doxycycline Repeat CXR on 04/11 showed stable to slight improvement in the interstitial thickening and multifocal airspace opacities, right greater than left. Blood cx no growth so far Pt was titrate off from high flow oxygen to 6L NC Pulmonology on board Abx de-escalating to Augmentin Continue prednisone 20mg bid and with a slow taper over 4 to 6 weeks Will titrate oxygen to keep Sat above 89% (2) Diastolic heart failure: CXR on admission cardiomegaly with prominence of the pulmonary vasculature ProBNP normal Received IV lasix 20mg on admission and yesterday Repeat CXR showed stable to slight improvement in the interstitial thickening and multifocal airspace opacities, right greater than left. Continue lasix 20mg BID outpatient dose Continue monitor renal function (3) Acute worsening of stage 3 chronic kidney disease: Creatinine on admission 1.6, baseline 1.1 to 1.3 Creatinine 1.5 today Continue monitor BMP while getting Lasix (4) Pneumonia: CXR showed multifocal airspace opacities Procalcitonin normal On IV Vancomycin/Zosyn Blood cx no growth so far IV Vanco was discontinued Abx changed to Augmentin Clinically improved (5) Thrombocytopenia: Platelet 165 today Stable (6) Lung cancer: (7) Esophageal adenocarcinoma: Not receiving the chemotherapy that was planned at this time. Family plan to transition to home hospice on discharge, not ready for comfort care They want to see his oncology Dr. Helm once discharge case management is talking with the hospice care company to get equipment before discharge home (8) Seizure disorder: Can continue lamotrigine per home regimen. (9) DVT prophylaxis: Heparin subq CODE STATUS Changed to DNR Disposition Continue monitor in tele Possible discharge home with hospice tomorrow Subjective Pt was seen and examined Lying in bed with no distress Pt said that his breathing is stable Family would like to take him home Denies any chest pain, palpitation, dizziness and fever Physical Exam Physical Exam: General- No acute distress Head- atraumatic Eyes- PERRL, EOMI, ENT- oropharynx clear Neck- supple, no JVD Lungs- diminished bs Heart- regular rhythm; no murmur Abdomen- normal bowel sounds, soft, nontender Extremities- no calf tenderness Neuro- alert, oriented, PERRL, EOMI; no facial palsy; no dysarthria Skin- warm & dry Results & Data Vital Signs (Past 12 Hours) Vital Signs Temp Pulse Pulse Resp BP BP Pulse Ox 04/13/19 11:43 36.4 C L 60 20 118/61 98 04/13/19 07:11 36.8 C 71 18 149/69 H 98 04/13/19 03:54 36.9 C 74 24 130/63 94 (1) Lung cancer Laterality: unspecified laterality Lung location: unspecified part of lung Qualified Code(s): C34.90 - Malignant neoplasm of unspecified part of unspecified bronchus or lung (2) Pneumonia Laterality: right Lung location: lower lobe of lung Pneumonia type: due to unspecified organism Qualified Code(s): J18.9 - Pneumonia, unspecified organism
[2019-04-13] MEDS ORDERED: MoRPHine SULFATE 5 MG/0.25 ML UDP PO PRN (20:20)
[2019-04-13] MEDS: TAMSULOSIN HCL 0.4 MG CAP PO SCH (20:59)
[2019-04-13] MEDS: ROSUVASTATIN CALCIUM 20 MG TAB PO SCH (21:00)
[2019-04-14] MEDS: HEPARIN SOD 5,000 UNIT/0.5 ML VIAL SQ SCH (05:46)
[2019-04-14] MEDS: DUTASTERIDE 0.5 MG SCH (07:21)
[2019-04-14] MEDS: ISOSORBIDE MONO EXTENDED REL 30 MG TABCR PO SCH (07:42)
[2019-04-14] MEDS: PANTOprazole 40 MG TAB PO SCH (07:42)
[2019-04-14] MEDS: AMOXICILLIN/CLAVULANATE 875 MG TAB PO SCH (07:42)
[2019-04-14] MEDS: CLOPIDOGREL BISULFATE 75 MG TAB PO SCH (07:43)
[2019-04-14] MEDS: carvediloL 6.25 MG TAB PO SCH (07:43)
[2019-04-14] MEDS: ESCITALOPRAM OXALATE 10 MG TAB PO SCH (07:44)
[2019-04-14] MEDS: FUROSEMIDE 20 MG TAB PO SCH (07:45)
[2019-04-14] MEDS: FOLIC ACID 1 MG TAB PO SCH (07:45)
[2019-04-14] MEDS: AMLODIPINE BESYLATE 5 MG TAB PO SCH (07:45)
[2019-04-14] MEDS: predniSONE 20 MG TAB PO SCH (07:46)
[2019-04-14] MEDS: lamoTRIgine 100 MG TAB PO SCH (07:46)
--- NOTE | 2019-04-14 09:49 | Hospitalist Progress Note ---
Date of Service April 14, 2019 Assessment & Plan (1) Acute on chronic respiratory failure with hypoxia: Likely multifactorial secondary to deconditioning, healthcare acquired pneumonia and his poor prognosis CXR on admission showed cardiomegaly with prominence of the pulmonary vasculature and multifocal airspace opacities, which appear increased from the 04/08/2019 examination ProBNP on admission only 229 Procalcitonin normal Received IV lasix on admission and yesterday On IV Zosyn and Vanco IV Vanco discontinued, then adding Doxycycline Repeat CXR on 04/11 showed stable to slight improvement in the interstitial thickening and multifocal airspace opacities, right greater than left. Blood cx no growth so far Pt was titrate off from high flow oxygen to 6L NC Pulmonology on board Abx de-escalating to Augmentin Continue prednisone 20mg bid and with a slow taper over 4 to 6 weeks Will titrate oxygen to keep Sat above 89% Follow up with pulm to eval for possible outpatient pleurx cath or thoracentesis (2) Diastolic heart failure: CXR on admission cardiomegaly with prominence of the pulmonary vasculature ProBNP normal Received IV lasix 20mg on admission and yesterday Repeat CXR showed stable to slight improvement in the interstitial thickening and multifocal airspace opacities, right greater than left. Continue lasix 20mg BID outpatient dose Continue monitor renal function (3) Acute worsening of stage 3 chronic kidney disease: Creatinine on admission 1.6, baseline 1.1 to 1.3 Creatinine 1.5 today Continue monitor BMP while getting Lasix (4) Pneumonia: CXR showed multifocal airspace opacities Procalcitonin normal On IV Vancomycin/Zosyn Blood cx no growth so far IV Vanco was discontinued Abx changed to Augmentin Clinically improved (5) Thrombocytopenia: Platelet 165 today Stable (6) Lung cancer: (7) Esophageal adenocarcinoma: Not receiving the chemotherapy that was planned at this time. Family plan to transition to home hospice on discharge, not ready for comfort care They want to see his oncology Dr. Helm once discharge case management is talking with the hospice care company to get equipment before discharge home (8) Seizure disorder: Can continue lamotrigine per home regimen. (9) DVT prophylaxis: Heparin subq CODE STATUS Changed to DNR Disposition Continue monitor in tele Possible discharge home with hospice today Subjective Pt was seen and examined Lying in bed with no distress Pt said that his breathing stable Denies any chest pain, palpitation, dizziness Physical Exam Physical Exam: General- No acute distress Head- atraumatic Eyes- PERRL, EOMI, ENT- oropharynx clear Neck- supple, no JVD Lungs- diminished bs Heart- regular rhythm; no murmur Abdomen- normal bowel sounds, soft, nontender Extremities- no calf tenderness Neuro- alert, oriented, PERRL, EOMI; no facial palsy; no dysarthria Skin- warm & dry Results & Data Vital Signs (Past 12 Hours) Vital Signs Temp Pulse Pulse Pulse Pulse Resp BP 04/14/19 09:27 36.4 C L 56 L 64 64 19 118/61 04/14/19 07:03 36.4 C L 64 19 04/14/19 04:00 56 L 16 04/14/19 00:00 75 04/13/19 22:55 36.7 C 86 18 BP Pulse Ox 04/14/19 09:27 142/65 H 99 04/14/19 07:03 142/65 H 99 04/14/19 04:00 99 04/14/19 00:00 04/13/19 22:55 126/56 L 93 (1) Lung cancer Laterality: unspecified laterality Lung location: unspecified part of lung Qualified Code(s): C34.90 - Malignant neoplasm of unspecified part of unspecified bronchus or lung (2) Pneumonia Laterality: right Lung location: lower lobe of lung Pneumonia type: due to unspecified organism Qualified Code(s): J18.9 - Pneumonia, unspecified organism
--- NOTE | 2019-04-14 10:33 | Palliative Care Progress Note ---
Date of Service April 14, 2019 Assessment & Plan (1) Goals of care, counseling/discussion: -I met with the patient in room 204. -He has been on 6LNC since last evening and has been weaned off of hi-flow. -Patient looks much improved and is eager to return home. -Plan for Hospice to meet patient at home today, transport arranged for 1130 today, family updated by pillowcase sewer. -Discussed with Hospitalist about arranging an outpatient appt with Pulmonary within a week to reassess for fluid reaccumulation and possibility of Pleur-x placement for comfort reasons. -Hospitalist to write Rx for comfort medications until Hospice can deliver medications. -No further palliative needs at this time. Please contact us if we can be of further assistance. -PPS: 30% (2) Lung cancer: (3) Hypoxia: (4) Acute on chronic respiratory failure with hypoxia: (5) Esophageal adenocarcinoma: (6) CKD (chronic kidney disease), stage III: Subjective Pt was seen and examined Pt said that his breathing stable Denies any chest pain, palpitation, dizziness Patient was talking on the phone in no apparent distress Review of Systems Review of Systems: All systems reviewed & are unremarkable except as noted in HPI & below Physical Exam Constitutional: + ill appearing and + thin Respiratory: symmetric chest movement Auscultation: + diminished lung sounds Cardiovascular: RRR, no murmur, no edema Gastrointestinal (Abdomen): normal bowel sounds, soft, nontender, no hepatosplenomegaly Skin: no rashes, warm and dry Psychiatric: A+Ox3, euthymic affect Results & Data Vital Signs (Past 12 Hours) Vital Signs Temp Pulse Pulse Pulse Pulse Resp BP 04/14/19 09:27 36.4 C L 56 L 64 64 19 118/61 04/14/19 07:03 36.4 C L 64 19 04/14/19 04:00 56 L 16 04/14/19 00:00 75 04/13/19 22:55 36.7 C 86 18 BP Pulse Ox 04/14/19 09:27 142/65 H 99 04/14/19 07:03 142/65 H 99 04/14/19 04:00 99 04/14/19 00:00 04/13/19 22:55 126/56 L 93 PG Care Time/CCT Total # of Minutes Spent Total Time Spent with Patient: Total time spent is greater than 50% in coordina tion of care (as documented) at patient's floor/unit and/or counseling patient: 45 Time Spent Midlevel Total time spent 45 minutes with > 50% of that time spent assessing the patient, discussing discharge plans with IDT and reviewing symptom management. (1) Lung cancer Laterality: unspecified laterality Lung location: unspecified part of lung Qualified Code(s): C34.90 - Malignant neoplasm of unspecified part of unspecified bronchus or lung
--- NOTE | 2019-04-17 21:56 | Discharge Summary ---
Date of Service April 14, 2019 Admission HPI Per Admitting Provider 83-year-old man who was recently hospitalized at [facility] 03/04 through 03/13 for acute on chronic hypoxic respiratory failure secondary to pleural effusions. He underwent a thoracentesis with 1.8 L removed and was started on prednisone daily for suspected chemotherapy-induced pneumonitis. He was also treated at that time for anemia with a blood transfusion and underwent an EGD for evaluation. Subsequent biopsies were positive for esophageal adenocarcinoma stage T1b, and he was scheduled to start chemotherapy on 04/06. He was doing well for couple of weeks and then reported back to the hospital with increased shortness of breath and ambulatory dysfunction. He denied any cough but reported he was feeling that he was filling up with fluid. He denied any chest pain at that time and had no lightheadedness dizziness diaphoresis or syncopal events. He was readmitted to the hospitalist service on 04/03 and was treated for acute on chronic heart failure with diastolic dysfunction in the setting of malignant pleural effusion. Pulmonary was consulted and repeated a thoracentesis on 04/05. Palliative was also consulted and a discussion regarding home hospice took place, however, his declined this. He was sent home with [facility] who found him more hypoxic today with oxygen saturations in the 50s and with a 3 pound weight gain, and sent him back to the ER. Today, he reports onset of dyspnea last evening around 11 PM which progressed and is now limiting his activity. He is now short of breath with minimal movements. There is no conversational dyspnea noted. There is no swelling noted and he can move around the bed with ease and was not ill-appearing. The patient denies any coughing fevers or chills although he states he is cold all the time. He states that yesterday he did feel well until later in the evening. He denies any issues with eating including no nausea and has no GI symptoms except some mild constipation. He denies any pain and there have been no changes in medications since discharge 48 hours ago. Family was at bedside and confirmed CODE STATUS which is DO NOT RESUSCITATE but intubation is okay if needed temporarily. Furthermore, home hospice is not being pursued per his family secondary to the fact that he cannot come in and receive a therapeutic thoracentesis if needed. Admission Exam Per Admitting Provider CONSTITUTIONAL: WNWD, vitals as above, generally well-appearing EYES: EOMI bilaterally, PERRL, normal conjunctivae, no scleral icterus ENT: external ear and nose normal, oropharynx clear, MMM NECK: trachea midline, no lymphadenopathy RESPIRATORY: on vapotherm at 30L/min and appears comfortable. He demonstrates normal respiratory effort. Auscultation reveals minimal coarse rhonchi/crackles at bases L>R but is moving air well to the bases. CARDIOVASCULAR: regular rate and rhythm, S1 and 2 heard without murmurs, gallops or rubs, no JVD, no peripheral edema, no carotid bruits CHEST: A port in R upper anterior chest accessed. GASTROINTESTINAL: normal bowel sounds, soft, nontender, nondistended MUSCULOSKELETAL: strength 5/5 throughout, head is normocephalic and atraumatic SKIN: warm and dry NEUROLOGIC: CN 2-12 grossly intact, no sensory deficit, normal cognition, normal speech, no tremor, no gross neurologic deficits. PSYCHIATRIC: alert cooperative and oriented to person, place and time. Principal Diagnosis Acute on chronic respiratory failure with hypoxia Diastolic heart failure Acute worsening of stage 3 chronic kidney disease Pneumonia Thrombocytopenia Lung cancer Esophageal adenocarcinoma Seizure disorder Discharge Exam General- No acute distress Head- atraumatic Eyes- PERRL, EOMI, ENT- oropharynx clear Neck- supple, no JVD Lungs- diminished bs Heart- regular rhythm; no murmur Abdomen- normal bowel sounds, soft, nontender Extremities- no calf tenderness Neuro- alert, oriented, PERRL, EOMI; no facial palsy; no dysarthria Skin- warm & dry Discharge Data Allergies Allergy/AdvReac Type Severity Reaction Status Date / Time lisinopril Allergy Severe Unknown Verified 04/17/19 10:17 lidocaine Allergy Intermediate PRESERVATIVE Verified 04/17/19 10:17 IN LIDOCAINE CAUSES RED SKIN atorvastatin [From Lipitor] AdvReac Mild Blurry Verified 04/17/19 10:17 Vision rosuvastatin [From Crestor] AdvReac Mild Blurry Verified 04/17/19 10:17 Vision Influenza Virus Vaccines AdvReac Confusion Verified 04/17/19 10:17 Consultations 04/10/19 17:29 ED Decision to Admit Stat 04/10/19 20:18 Consult Case Management - Discharge Planning Routine 04/11/19 00:13 Consult Pulmonology Routine 04/12/19 19:17 Consult Palliative Care Routine 04/13/19 07:53 Consult Palliative Care Routine Ordered Studies SINGLE VIEW CHEST CLINICAL HISTORY: Dyspnea. FINDINGS: An AP, portable, upright chest radiograph is compared to chest x-ray dated 04/08/2019 and correlated with chest CT dated 04/03/2019. The examination is degraded by portable technique and patient rotation. A right internal jugular central venous infusion port is unchanged in position. The heart is top normal in size noting atherosclerotic calcification of the thoracic aorta. There is prominence of the pulmonary vasculature. Advanced emphysema and chronic interstitial thickening are similar to previous. Volume loss in the left lung is consistent with previous surgical resection. Multifocal airspace opacities have modestly increased from 04/08/2019. These are greatest in the right upper lobe and at the lung bases. Small pleural effusions are again noted. No pneumothorax is seen. The skeletal structures are osteopenic. The bony thorax is grossly intact. IMPRESSION: 1. Advanced emphysema and postoperative change from left-sided pulmonary resection are again noted. 2. Cardiomegaly with prominence of the pulmonary vasculature. Correlate clinically for evidence of congestive failure. 3. Again seen are multifocal airspace opacities, which appear increased from the 04/08/2019 examination. This could represent a component of interstitial edema or an infectious/inflammatory pneumonitis. Clinical correlation will required. 4. Small pleural effusions are again noted. Electronically signed by: Tres Mike M.D. 04/10/2019 4:55 PM Dictated: 04/10/19 1652 Transcribed: 04/10/19 1652 XR chest 1V portable HISTORY: Shortness of breath. Follow-up. COMPARISON: Chest 04/10/2019. FINDINGS: No pneumothorax. Small bilateral pleural effusions persist. Right greater than left interstitial and vascular thickening is again noted. This favors asymmetric pulmonary edema. The heart remains mildly enlarged. Right jugular Port-A-Cath terminates at the proximal SVC. Patchy right upper lobe airspace opacity persists. Emphysema. Postoperative changes within the left lung. IMPRESSION: Stable to slight improvement in the interstitial thickening and multifocal airspace opacities, right greater than left. This suggests asymmetric pulmonary edema. Small bilateral pleural effusions persist. Electronically signed by: Kurt Steinberg M.D. 04/11/2019 12:59 PM Dictated: 04/11/19 1257 Transcribed: 04/11/19 1257 Hospital Course (1) Acute on chronic respiratory failure with hypoxia: Likely multifactorial secondary to deconditioning, healthcare acquired pneumonia and his poor prognosis CXR on admission showed cardiomegaly with prominence of the pulmonary vasculature and multifocal airspace opacities, which appear increased from the 04/08/2019 examination ProBNP on admission only 229 Procalcitonin normal Received IV lasix on admission and yesterday On IV Zosyn and Vanco IV Vanco discontinued, then adding Doxycycline Repeat CXR on 04/11 showed stable to slight improvement in the interstitial thickening and multifocal airspace opacities, right greater than left. Blood cx no growth so far Pt was titrate off from high flow oxygen to 6L NM Pulmonology on board Abx de-escalating to Augmentin Continue prednisone 20mg bid and with a slow taper over 4 to 6 weeks Will titrate oxygen to keep Sat above 89% Follow up with pulm to eval for possible outpatient pleurx cath or thoracentesis (2) Diastolic heart failure: CXR on admission cardiomegaly with prominence of the pulmonary vasculature ProBNP normal Received IV lasix 20mg on admission and yesterday Repeat CXR showed stable to slight improvement in the interstitial thickening and multifocal airspace opacities, right greater than left. Continue lasix 20mg BID outpatient dose Continue monitor renal function (3) Acute worsening of stage 3 chronic kidney disease: Creatinine on admission 1.6, baseline 1.1 to 1.3 Creatinine 1.5 today Continue monitor BMP while getting Lasix (4) Pneumonia: CXR showed multifocal airspace opacities Procalcitonin normal On IV Vancomycin/Zosyn Blood cx no growth so far IV Vanco was discontinued Abx changed to Augmentin Clinically improved (5) Thrombocytopenia: Platelet 165 today Stable (6) Lung cancer: Not receiving the chemotherapy that was planned at this time. Follow-up with oncology as outpatient. (7) Esophageal adenocarcinoma: Not receiving the chemotherapy that was planned at this time. Family plan to transition to home hospice on discharge, not ready for comfort care They want to see his oncology Dr. Helm once discharge case management is talking with the hospice care company to get equipment before discharge home (8) Seizure disorder: Can continue lamotrigine per home regimen. (9) DVT prophylaxis: Heparin subq CODE STATUS Changed to DNR Disposition Continue monitor in tele Possible discharge home with hospice today Total Time Total Time Spent Total Time Spent (In Minutes): 35 minutes Total Time Includes: Examination of the Patient, Discharge Planning, Medication Reconciliation, Communication With Other Providers and Other Discharge Plan Discharge Items Patient Disposition: Hospice - Home Reason For Visit: ACUTE HYPOXIC RESPIRATORY FAILURE Discharge Diagnosis: Acute on chronic respiratory failure with hypoxia Diastolic heart failure Acute worsening of stage 3 chronic kidney disease Pneumonia Thrombocytopenia Lung cancer Esophageal adenocarcinoma Seizure disorder Activity: Resume your previous activity Activity Comment: as tolerated Non-emergency contact: Primary Care Provider Call non-emergency contact if: you have any medication questions Follow-up/Referrals: Harris Cam MD [Primary Care Provider] - Diet: Low Sodium (2gm) Addtl Attending Provider Instructions: Discharge home with hospice Follow up with your oncology Follow up with Pulmonology Dr. Garcia on 04/17 @ 8:15 AM Complete the course of the antibiotic Continue Prednisone slow taper course Continue oxygen supplement to keep oxygen saturation above 89 % Fall precaution Do not drive or operate any machine after taking the Roxycodone and ativan Pending Studies at Discharge: No Stand-Alone Forms: [facility] Medications and DC Order Prescriptions: New prednisone 10 mg tablet 10 mg PO UD Qty: 40 RF: 0 Continued tamsulosin 0.4 mg capsule 0.4 mg PO HS RF: 0 carvedilol 6.25 mg tablet 6.25 mg PO BID RF: 0 dutasteride 0.5 mg capsule 0.5 mg PO DAILY RF: 0 lamotrigine 150 mg tablet 150 mg PO BID RF: 0 rosuvastatin 20 mg tablet 20 mg PO HS RF: 0 nitroglycerin 0.4 mg Tablet, Sublingual 0.4 mg sublingual USEASDIRECTD PRN (Reason: Chest Pain) RF: 0 furosemide [Lasix] 20 mg tablet 20 mg PO BID Qty: 60 RF: 3 isosorbide mononitrate 30 mg tablet extended release 24 hr 30 mg PO QAM RF: 0 amlodipine 10 mg Tablet 10 mg PO DAILY RF: 0 escitalopram oxalate 10 mg Tablet 5 mg PO DAILY RF: 0 clopidogrel 75 mg Tablet 75 mg PO DAILY Qty: 0 RF: 0 No Action (DME) Oxygen Home Liters Per Minute See Rx Instructions .ROUTE .MEDSUPPLY Qty: 1 RF: 0 Discharge Orders: Discharge Order (Routine); Ordered 04/14/19 Ordered By: Marcus Barone Admission Data Admit Date/Time: 04/10/19 18:01 Attending Provider: Marcus Barone Admit Provider: Alejandra Thompson Primary Care Provider: Harris Cam Other Providers: Alejandra Thompson ; Ted Garcia ; Radha Schwartz Other Interventions: Discharge Summary Assessment (RN) Last Done: 04/14/19 09:27 DC Date/Time DO NOT enter until pt leaves facility: 04/14/19 11:35
== END 2019-04-14 11:35 | disposition hospice, home (50) | DRG 193 ==
LOC: ED 15:50 → SUATTDRO 18:01 → 2E 18:01